=== PATIENT | male | born 1960 | race Caucasian/White ===

== ENCOUNTER 2021-08-24 07:01 | Outpatient (REF) | payer OTHER, SELFPAY ==
[2021-08-24 11:11] LABS: MANUAL DIFF FLAG NO
[2021-08-24 11:20] LABS: Basophils Absolute Auto 0.1 X10*3/uL (0.0-0.2); Basophils Percent Auto 0.8 % (0-2); Eosinophils Absolute Auto 0.3 X10*3/uL (0.0-0.4); Eosinophils Percent Auto 4.3 % (0-4); Hematocrit 34.8 % (42-52); Hemoglobin 11.7 g/dl (14.0-18.0); Imm Gran Abs Auto 0.05 X10*3/uL (0.00-0.03); Imm Gran Pct Auto 0.7 % (0.0-0.4); Lymphocytes Absolute Auto 2.1 X10*3/uL (1.2-4.9); Lymphocytes Percent Auto 27.5 % (20-40); Mean Corpuscular HGB Conc 33.6 g/dl (31.0-36.0); Mean Corpuscular Hemoglobin 36.9 pg (27.0-33.0); Mean Corpuscular Volume 109.8 fL (80-98); Mean Platelet Volume 11.6 fL (9.4-12.4); Monocytes Absolute Auto 0.6 X10*3/uL (0.1-1.2); Monocytes Percent Auto 8.2 % (2-11); Neutrophils Absolute Auto 4.4 X10*3/uL (2.0-8.3); Neutrophils Percent Auto 58.5 % (45-73); Platelet Count 161 X10*3/uL (160-400); Red Blood Count 3.17 X10*6/uL (4.60-5.80); Red Cell Distribution Width 15.2 % (11.0-16.0); White Blood Count 7.6 X10*3/uL (4.8-10.8)
[2021-08-24 11:36] LABS: Alanine Aminotransferase 33 U/L (0-40); Albumin Level 3.7 g/dL (3.5-5.0); Alkaline Phosphatase 80 U/L (39-117); Anion Gap 13 (12-20); Aspartate Amino Transferase 40 U/L (5-37); Bilirubin Total 1.4 mg/dL (0.0-1.0); Blood Urea Nitrogen 6 mg/dL (9-16); Calcium 8.4 mg/dL (8.4-10.2); Carbon Dioxide 26 mmol/L (22-29); Chloride 99 mmol/L (96-108); Estimated Glomerular Filt Rate > 60; Glucose Random 109 mg/dL (60-115); Potassium 4.9 mmol/L (3.3-5.1); Sodium 133 mmol/L (135-145); Total Protein 6.8 g/dL (6.5-8.0)
[2021-08-26 03:51] LABS: LDL Cholesterol Direct 113 mg/dL (<100)
== END 2021-08-24 07:02 | disposition home or self-care (01) ==
LOC: HO.HMGCLDS 07:01
PROVIDERS: PCP Internal Medicine; Visit Provider Internal Medicine
DX: I10 Essential (primary) hypertension (principal); R53.83 Other fatigue
CPT/HCPCS: 36415; 80053; 83721; 84443; 85025

== ENCOUNTER 2021-12-05 06:01 | Outpatient (REF) | payer OTHER, SELFPAY ==
[2021-12-05 11:18] LABS: Binax Internal Control QC Valid; Binax Now Covid-19 Ag Negative (Negative)
== END 2021-12-05 06:02 | disposition home or self-care (01) ==
LOC: HO.HMGCLDS 06:01
PROVIDERS: Visit Provider Internal Medicine
DX: Z20.822 Contact with and (suspected) exposure to COVID-19 (principal)
CPT/HCPCS: 36415; C9803

== ENCOUNTER 2022-02-28 08:27 | Outpatient (REF) | payer OTHER, SELFPAY ==
[2022-02-28 11:34] LABS: Hematocrit 34.8 % (42.0-52.0); Hemoglobin 12.5 g/dl (14.0-18.0)
[2022-02-28 11:52] LABS: Alanine Aminotransferase 29 U/L (0-40); Albumin Level 4.2 g/dL (3.5-5.0); Alkaline Phosphatase 84 U/L (39-117); Anion Gap 15 (12-20); Aspartate Amino Transferase 42 U/L (5-37); Bilirubin Total 1.5 mg/dL (0.0-1.0); Blood Urea Nitrogen 11 mg/dL (9-16); Calcium 9.2 mg/dL (8.4-10.2); Carbon Dioxide 32 mmol/L (22-29); Chloride 84 mmol/L (96-108); Estimated Glomerular Filt Rate 58; Glucose Random 108 mg/dL (60-115); Potassium 3.6 mmol/L (3.3-5.1); Sodium 127 mmol/L (135-145); Total Protein 7.6 g/dL (6.5-8.0)
== END 2022-02-28 08:28 | disposition home or self-care (01) ==
LOC: HO.HMGCLDS 08:27
PROVIDERS: PCP Internal Medicine; Visit Provider Internal Medicine
DX: E66.09 Other obesity due to excess calories (principal); F10.20 Alcohol dependence, uncomplicated; I10 Essential (primary) hypertension; R79.89 Other specified abnormal findings of blood chemistry
CPT/HCPCS: 36415; 80053; 85014; 85018

== ENCOUNTER 2022-10-17 08:44 | Outpatient (REF) | payer OTHER, SELFPAY ==
[2022-10-17 11:36] LABS: MANUAL DIFF FLAG NO
[2022-10-17 11:45] LABS: Basophils Absolute Auto 0.1 X10*3/uL (0.0-0.2); Basophils Percent Auto 1.3 % (0-2); Eosinophils Absolute Auto 0.2 X10*3/uL (0.0-0.4); Eosinophils Percent Auto 5.3 % (0-4); Hematocrit 33.1 % (42.0-52.0); Hemoglobin 11.3 g/dl (14.0-18.0); Imm Gran Abs Auto 0.01 X10*3/uL (0.00-0.03); Imm Gran Pct Auto 0.2 % (0.0-0.4); Lymphocytes Absolute Auto 1.5 X10*3/uL (1.2-4.9); Lymphocytes Percent Auto 33.6 % (20-40); Mean Corpuscular HGB Conc 34.1 g/dl (31.0-36.0); Mean Corpuscular Hemoglobin 36.6 pg (27.0-33.0); Mean Corpuscular Volume 107.1 fL (80.0-98.0); Mean Platelet Volume 10.7 fL (9.4-12.4); Monocytes Absolute Auto 0.7 X10*3/uL (0.1-1.2); Monocytes Percent Auto 14.3 % (2-11); Neutrophils Absolute Auto 2.1 x10*3/uL (2.0-8.3); Neutrophils Percent Auto 45.3 % (45-73); Platelet Count 136 X10*3/uL (160-400); Red Blood Count 3.09 X10*6/uL (4.60-5.80); Red Cell Distribution Width 12.9 % (11.0-16.0); White Blood Count 4.6 X10*3/uL (4.8-10.8)
[2022-10-17 12:29] LABS: Alanine Aminotransferase 40 U/L (0-40); Alkaline Phosphatase 70 U/L (39-117); Anion Gap 16 (12-20); Aspartate Amino Transferase 46 U/L (5-37); Bilirubin Total 0.5 mg/dL (0.0-1.0); Blood Urea Nitrogen 27 mg/dL (9-16); Calcium 9.7 mg/dL (8.4-10.2); Carbon Dioxide 32 mmol/L (22-29); Chloride 93 mmol/L (96-108); Estimated Glomerular Filt Rate 53; Ethanol < 10 mg/dL; Glucose Random 99 mg/dL (60-115); Potassium 3.8 mmol/L (3.3-5.1); Sodium 137 mmol/L (135-145); Total Protein 7.7 g/dL (6.5-8.0)
[2022-10-17 13:59] LABS: Albumin Level 4.3 g/dL (3.5-5.0)
[2022-10-18 12:30] LABS: LDL Cholesterol Direct 75 mg/dL (<100)
== END 2022-10-17 08:45 | disposition home or self-care (01) ==
LOC: HO.HMGCLDS 08:44
PROVIDERS: PCP Internal Medicine; Visit Provider Internal Medicine
DX: E66.09 Other obesity due to excess calories (principal); F10.20 Alcohol dependence, uncomplicated; R51.9 Headache, unspecified; R79.89 Other specified abnormal findings of blood chemistry; I10 Essential (primary) hypertension
CPT/HCPCS: 36415; 80053; 82077; 83721; 85025

== ENCOUNTER 2023-02-17 10:09 | Outpatient (REF) | payer OTHER, SELFPAY ==
[2023-02-17 11:31] LABS: MANUAL DIFF FLAG NO
[2023-02-17 11:55] LABS: Basophils Absolute Auto 0.1 X10*3/uL (0.0-0.2); Basophils Percent Auto 0.9 % (0-2); Eosinophils Absolute Auto 0.4 X10*3/uL (0.0-0.4); Eosinophils Percent Auto 6.4 % (0-4); Hematocrit 33.2 % (42.0-52.0); Hemoglobin 11.9 g/dl (14.0-18.0); Imm Gran Abs Auto 0.02 X10*3/uL (0.00-0.03); Imm Gran Pct Auto 0.4 % (0.0-0.4); Lymphocytes Absolute Auto 2.1 X10*3/uL (1.2-4.9); Lymphocytes Percent Auto 37.1 % (20-40); Mean Corpuscular HGB Conc 35.8 g/dl (31.0-36.0); Mean Corpuscular Hemoglobin 36.1 pg (27.0-33.0); Mean Corpuscular Volume 100.6 fL (80.0-98.0); Mean Platelet Volume 9.8 fL (9.4-12.4); Monocytes Absolute Auto 0.5 X10*3/uL (0.1-1.2); Monocytes Percent Auto 9.2 % (2-11); Neutrophils Absolute Auto 2.6 x10*3/uL (2.0-8.3); Platelet Count 194 X10*3/uL (160-400); Red Cell Distribution Width 12.6 % (11.0-16.0); White Blood Count 5.6 X10*3/uL (4.8-10.8)
[2023-02-17 12:16] LABS: Alanine Aminotransferase 19 U/L (0-40); Albumin Level 4.4 g/dL (3.5-5.0); Alkaline Phosphatase 66 U/L (39-117); Anion Gap 16 (12-20); Aspartate Amino Transferase 34 U/L (5-37); Bilirubin Total 1.5 mg/dL (0.0-1.0); Blood Urea Nitrogen 18 mg/dL (9-16); Calcium 9.1 mg/dL (8.4-10.2); Carbon Dioxide 32 mmol/L (22-29); Chloride 85 mmol/L (96-108); Estimated Glomerular Filt Rate > 60; Ethanol 132 mg/dL; Glucose Random 95 mg/dL (60-115); Potassium 3.7 mmol/L (3.3-5.1); Sodium 129 mmol/L (135-145); Total Protein 7.6 g/dL (6.5-8.0)
[2023-02-17 12:40] LABS: Vitamin B12 361 pg/mL (200-900)
[2023-02-23 15:19] LABS: Vitamin D 25-OH, D2 <4 ng/mL; Vitamin D 25-OH, D3 69 ng/mL; Vitamin D 25-OH, Total 69 ng/mL (30-100)
== END 2023-02-17 10:10 | disposition home or self-care (01) ==
LOC: HO.HMGCLDS 10:09
PROVIDERS: PCP Internal Medicine; Visit Provider Internal Medicine
DX: E66.09 Other obesity due to excess calories (principal); F10.20 Alcohol dependence, uncomplicated; F41.1 Generalized anxiety disorder; G62.9 Polyneuropathy, unspecified; I10 Essential (primary) hypertension; R79.89 Other specified abnormal findings of blood chemistry; M25.50 Pain in unspecified joint; E55.9 Vitamin D deficiency, unspecified
CPT/HCPCS: 36415; 80053; 82077; 82306; 82607; 85025

== ENCOUNTER → 2023-03-03 10:44 | Outpatient (BNVA) | payer OTHER, SELFPAY | PROVIDERS: PCP Internal Medicine; Referring Provider Internal Medicine; Visit Provider Surgery | DX: Z13.89 Encounter for screening for other disorder (principal) ==

== ENCOUNTER → 2023-03-06 09:42 | Outpatient (BNVA) | payer OTHER, SELFPAY | PROVIDERS: PCP Internal Medicine; Visit Provider Surgery | DX: Z13.89 Encounter for screening for other disorder (principal) ==

== ENCOUNTER 2023-03-18 08:56 | Day surgery (SDC) | payer OTHER, SELFPAY ==
[2023-03-13 15:22] VITALS: BMI 32.9
--- NOTE | 2023-03-17 09:26 | HO.ANESPROP2 ---
Documented by User: Marija Jones NP 03/17/23 09:27 HPI - Anesthesia Eval Consult details Narrative: 62yo M for Excision Mid Back Mass ETOH abuse PMFSH Active Problems Active Problems: All Active Problems (Updated 03/13/23 @ 15:19 by Amy Nazario RN) HTN (hypertension) (Acute) Tired (Acute) Uncontrolled hypertension (Acute) Alcohol abuse (Acute) Neuropathy (Acute) Obesity due to excess calories (Acute) LFT elevation (Acute) Alcoholism (Acute) Noncompliance (Acute) COVID-19 virus infection (Acute) Headache (Acute) Malaise (Acute) Anxiety, generalized (Acute) Dermoid cyst (Acute) Joint pain (Acute) Infected cyst of skin (Acute) Past Medical History Medical History (Updated 03/13/23 @ 15:19 by Amy Nazario RN) Alcohol dependence Anxiety History of COVID-19 HTN (hypertension) Neuropathy Surgical History Surgical History (Updated 03/13/23 @ 15:19 by Amy Nazario RN) H/O colonoscopy History of open reduction and internal fixation (ORIF) procedure Hx of cataract extraction Social History Social History Housing: Apartment Patient Tobacco Use Status: Never used Tobacco e-Cigarette/Vaping Use: Never Used Are you DNR?: No Advance Directives: No Advance Directives Information Provided: Yes Current occupational status: employed Cognitive needs: No Hearing needs: No Vision needs: Yes Meds Allergies Allergy/AdvReac Type Severity Reaction Status Date / Time No Known Allergies Allergy Verified 03/06/23 09:52 [No Known Allergies*] Exam Exam Date and Time: March 17, 2023 0926 Height,Weight and Vital Signs: Height 5 ft 9 in Weight 101.151 kg Pertinent Lab Results Pertinent Lab Results: Laboratory Tests 02/17/23 10:14 WBC 5.6 Hgb 11.9 L Hct 33.2 L Plt Count 194 D Assessment and Plan Assessment Anesthesia Assessment: Chart Reviewed Documented by User: Hung Oliva MD 03/18/23 10:55 PMFSH Past Medical History Medical History (Updated 03/13/23 @ 15:19 by Amy Nazario, [place]) Alcohol dependence Anxiety History of COVID-19 HTN (hypertension) Neuropathy Surgical History Surgical History (Updated 03/13/23 @ 15:19 by Amy Nazario, [place]) H/O colonoscopy History of open reduction and internal fixation (ORIF) procedure Hx of cataract extraction Social History Social History Housing: Apartment Patient Tobacco Use Status: Never used Tobacco e-Cigarette/Vaping Use: Never Used Are you DNR?: No Advance Directives: No Advance Directives Information Provided: Yes Current occupational status: employed Cognitive needs: No Hearing needs: No Vision needs: Yes Meds Allergies Allergy/AdvReac Type Severity Reaction Status Date / Time No Known Allergies Allergy Verified 03/06/23 09:52 [No Known Allergies*] Exam Airway Mallampati Class: III TM Dist: >3cm Neck ROM: Limited Heart: rrr Lungs: cta Assessment and Plan Final Anesthetic Review Final Preanesthetic Review: No Changes in Pt Med Stat, Meds/Allgs Chart Reviewed, Consent Obtained/Reviewed and Anes Risks/Benef Reviewed Patient Risk: Intermediate Procedure Risk: Low Anesthetic Plan Anesthetic Plan: GA (daily thc use) and Agree w/ Assess. and Plan Disposition: Standard PACU
--- NOTE | 2023-03-17 13:30 | MHC.SHP ---
Pre-Procedural Eval Section A Date of Service: 03/17/23 The patient is an INPATIENT: No Changes since office visit: No Cold of Flu in the past 2 weeks, No New Medical Problems, No Changes in Medication and No Patient answered all questions The History & Physical has been completed within 30 days and I have reviewed it.: Yes Section B Chief Complaint: Follicular cyst of the skin and subcutaneous tissu Allergies: Allergies Allergy/AdvReac Type Severity Reaction Status Date / Time No Known Allergies Allergy Verified 03/06/23 09:52 [No Known Allergies*] Plan I have reviewed the history and physical and performed a pertinent physical examination on my patient. No changes have occurred unless specified. Time Spent With Patient Time: Total time managing care of this patient today ____ minutes.
[2023-03-18 09:18] VITALS: BP 106/74; PULSE 65; RESP 20; TEMP 36.6; O2SAT 98
[2023-03-18] MEDS: Lactated Ringers 1,000 ML 100 ML IVCONT (09:43)
[2023-03-18 09:58] LABS: Anion Gap 16 (12-20); Blood Urea Nitrogen 38 mg/dL (9-16); Calcium 9.5 mg/dL (8.4-10.2); Carbon Dioxide 28 mmol/L (22-29); Chloride 95 mmol/L (96-108); Creatinine Clr Calc Pharmacy 50.4; Estimated Glomerular Filt Rate 39; Glucose Fasting 100 mg/dL (60-99); Potassium 3.9 mmol/L (3.3-5.1); Sodium 135 mmol/L (135-145)
--- NOTE | 2023-03-18 14:16 | P.OP_ITS ---
Operative Note Operative Note Date of Service: 03/18/23 Narrative: Preoperative diagnosis: [] Large mid back sebaceous cyst Postop diagnosis: [] Same Procedure [] excision large mid back sebaceous cyst Surgeon: [] Kirk Station Manager: [] eliud Quinones Type of Anesthesia: [] MAC Indication for surgery: [] Symptomatic enlarging sebaceous cyst Findings: [] Final specimen measured approximately 7 x 5 cm, consistent with a giant sebaceous cyst Patient brought to the operating room, placed on the operative table in supine position, after adequate level of MAC anesthesia was induced, patient was placed in left lateral decubitus position. The midback area was prepped and draped in usual sterile fashion and infiltrated with 1% lidocaine and a transverse bi- elliptical incision encompassing the cyst in question was carried down through skin, subcutaneous tissue, where superior and inferior skin flaps were developed using electro Bovie encompassing and excising the entire cyst cavity which extended down to the muscular fascia. Specimen sent to pathology. Wound was irrigated, secured hemostasis, and closed using interrupted inverted deep dermal 3-0 Vicryl sutures followed by running subcuticular 4-0 Vicryl suture. Steri-Strips and sterile dressings were were applied. Wound was infiltrated with 0.5% Marcaine at completion. Sponge, needle, and instrument counts were reported to be correct. Patient tolerated the procedure well and emerged anesthesia stable condition. EBL minimal
[2023-03-18 14:18] VITALS: BP 111/66; PULSE 65; RESP 16; TEMP 37; O2SAT 97
[2023-03-18 14:33] VITALS: BP 148/94; PULSE 66; RESP 18; TEMP 36.3; O2SAT 99
== END 2023-03-18 14:46 | disposition home or self-care (01) ==
PROVIDERS: Nurse Practitioner; PCP Internal Medicine; Visit Provider Surgery
PROC: (CPT 11406; principal; 2023-03-18 11:10)
DX: L72.0 Epidermal cyst (principal); L08.9 Local infection of the skin and subcutaneous tissue, unspecified; D22.9 Melanocytic nevi, unspecified; E66.09 Other obesity due to excess calories; G62.9 Polyneuropathy, unspecified; F10.10 Alcohol abuse, uncomplicated; Z79.899 Other long term (current) drug therapy; Z86.16 Personal history of COVID-19
CPT/HCPCS: 11406; 12034; 36415; 80048; 88304; 88305; J0690; J1885; J2795

== ENCOUNTER → 2023-03-27 09:47 | Outpatient (BNVA) | payer OTHER, SELFPAY | PROVIDERS: PCP Internal Medicine; Referring Provider Internal Medicine; Visit Provider Surgery | DX: Z13.89 Encounter for screening for other disorder (principal) ==

== ENCOUNTER → 2023-04-07 11:37 | Outpatient (BNVA) | payer OTHER, SELFPAY | PROVIDERS: PCP Internal Medicine; Visit Provider Surgery ==

== ENCOUNTER → 2023-04-17 09:16 | Outpatient (BNVA) | payer OTHER, SELFPAY | PROVIDERS: PCP Internal Medicine; Visit Provider Surgery ==

== ENCOUNTER → 2023-05-04 10:20 | Outpatient (BNVA) | payer OTHER, SELFPAY | PROVIDERS: PCP Internal Medicine; Visit Provider Surgery ==

== ENCOUNTER 2023-05-22 10:00 | Outpatient (REF) | payer OTHER, SELFPAY ==
[2023-05-22 11:22] LABS: MANUAL DIFF FLAG NO
[2023-05-22 11:29] LABS: Basophils Percent Auto 0.7 % (0-2); Eosinophils Absolute Auto 0.3 X10*3/uL (0.0-0.4); Eosinophils Percent Auto 4.2 % (0-4); Hematocrit 29.9 % (42.0-52.0); Hemoglobin 10.5 g/dl (14.0-18.0); Imm Gran Abs Auto 0.02 X10*3/uL (0.00-0.03); Imm Gran Pct Auto 0.3 % (0.0-0.4); Lymphocytes Absolute Auto 1.3 X10*3/uL (1.2-4.9); Lymphocytes Percent Auto 21.6 % (20-40); Mean Corpuscular HGB Conc 35.1 g/dl (31.0-36.0); Mean Corpuscular Hemoglobin 36.3 pg (27.0-33.0); Mean Corpuscular Volume 103.5 fL (80.0-98.0); Mean Platelet Volume 10.5 fL (9.4-12.4); Monocytes Absolute Auto 0.7 X10*3/uL (0.1-1.2); Monocytes Percent Auto 10.8 % (2-11); Neutrophils Absolute Auto 3.8 x10*3/uL (2.0-8.3); Neutrophils Percent Auto 62.4 % (45-73); Platelet Count 194 X10*3/uL (160-400); Red Blood Count 2.89 X10*6/uL (4.60-5.80); Red Cell Distribution Width 13.4 % (11.0-16.0)
[2023-05-22 12:11] LABS: Estimated Average Glucose 91 mg/dL; Hemoglobin A1c % 4.8 %
[2023-05-22 12:56] LABS: Alanine Aminotransferase 27 U/L (0-40); Alkaline Phosphatase 65 U/L (39-117); Anion Gap 14 (12-20); Aspartate Amino Transferase 34 U/L (5-37); Bilirubin Total 0.9 mg/dL (0.0-1.0); Blood Urea Nitrogen 16 mg/dL (9-16); Calcium 8.8 mg/dL (8.4-10.2); Carbon Dioxide 33 mmol/L (22-29); Chloride 87 mmol/L (96-108); Estimated Glomerular Filt Rate > 60; Glucose Random 101 mg/dL (60-115); Potassium 3.8 mmol/L (3.3-5.1); Sodium 130 mmol/L (135-145); Total Protein 7.5 g/dL (6.5-8.0)
== END 2023-05-22 10:01 | disposition home or self-care (01) ==
LOC: HO.HMGCLDS 10:00
PROVIDERS: PCP Internal Medicine; Visit Provider Internal Medicine
DX: E66.09 Other obesity due to excess calories (principal); F41.1 Generalized anxiety disorder; I10 Essential (primary) hypertension; R79.89 Other specified abnormal findings of blood chemistry
CPT/HCPCS: 36415; 80053; 83036; 85025

== ENCOUNTER 2023-08-05 13:49 | Outpatient (AMB) | payer OTHER, SELFPAY ==
[2023-08-05 13:54] VITALS: BP 116/76; PULSE 69; O2SAT 97; BMI 31.6
--- NOTE | 2023-08-05 13:54 | A.OFFPC_ITS ---
Vital Signs 08/05/23 13:54 Height 5 ft 9 in Weight 214 lb 4 oz BMI 31.6 BP 116/76 Blood Pressure Location Lt brachial Position Sitting Pulse 69 Pulse Source Pulse Oximeter Pulse Oximetry (%) 97 Oxygen Delivery Method Room Air Intake Visit Reasons: 3 month follow up Allergies No Known Allergies [No Known Allergies*] Allergy (Verified 08/05/23 13:56) Medication List - Last Reconciled 08/05/23 by Angelica Schrader MD atenolol 100 mg PO DAILY 90 days buspirone 10 mg PO .q am PRN 90 days chlorthalidone 25 mg PO DAILY 90 days lisinopril 40 mg PO DAILY 90 days Tobacco use date assessed: 08/05/23 Dental Screening Dental Screen Date: 08/05/23 Did you have a dental visit in the last 12 months?: No Did you have a dental problem in the last 6 months where you did not have access to dental care?: No Was dental information given to patient?: No HPI 3 month follow up HPI Details Patient is 62-year-old gentleman came in today for his regular follow- up appointment I examined his feet today and I see that he has a bed for vascular disease as well as neuropathy I have offered him appointment with the vascular specialist and EMG nerve conduction study which he has declined at this point But in the future I would recommend both of these. Patient continued to drink alcohol Blood pressure is well controlled Patient was on atenolol 100 mg, chlorthalidone 25 mg and lisinopril 40 mg In April patient had labs done Which showed hemoglobin of 10.5 He does have hemorrhoids he tells me that there is no active bleeding and he uses preparation H as needed. His sodium was 130 which is chronically low due to alcohol consumption Patient says that he had a strong family gene for alcoholism his son is also drinking He has tried to stop several time. Anxiety is stable with buspirone 10 mg. Labs will be repeated today. Follow-up 3 months [facility] Medical History Alcohol dependence Anxiety History of COVID-19 HTN (hypertension) Neuropathy Surgical History H/O colonoscopy History of open reduction and internal fixation (ORIF) procedure Hx of cataract extraction Social History Housing: Apartment Patient Tobacco Use Status: Never used Tobacco e-Cigarette/Vaping Use: Never Used Current occupational status: employed Cognitive needs: No Hearing needs: No Vision needs: Yes Questionnaire PHQ-9 Over the last 2 weeks, how often have you been bothered by any of the following problems? 1. Little interest or pleasure in doing things: not at all 2. Feeling down, depressed, or hopeless: not at all 3. Trouble falling or staying asleep, or sleeping too much: not at all 4. Feeling tired or having little energy: not at all 5. Poor appetite or overeating: not at all 6. Feeling bad about yourself - or that you are a failure or have let yourself or your family down: not at all 7. Trouble concentrating on things, such as reading the newspaper or watching television: not at all 8. Moving or speaking so slowly that other people could have noticed. Or the opposite - being so fidgety or restless that you have been moving around a lot more than usual: not at all 9. Thoughts that you would be better off or of hurting yourself in some way: not at all Total score: 0 Depression Screening Interpretation: Negative 60323 - PHQ-9 Billing: Yes Source: Developed by Drs. Srikanth Hernández, Cathleen Cifuentes, Jarod Garcia and colleagues, with an educational prince from [employer]. Thrive Questionnaire Date Thrive assessed: 08/05/23 I am a: Patient What is your living situation today?: I have a steady place to live Within the past 12 months, did the food you bought not last and you didn't have the money to get more?: Never true Within the past 12 months, did you worry whether your food would run out before you got money to buy more?: Never true Do you have trouble paying for medicines?: No Do you have trouble getting transportation to medical appointments?: No Do you have trouble paying your heating and electricity bill?: No Do you have trouble taking care of your child, family member or friend?: No Do you have trouble with day-to-day activities such as bathing, preparing meals, shopping, managing finances, etc.?: No Are you currently unemployed and looking for a job?: No Are you interested in more education?: No AUDIT C Alcohol Use Questionnaire (AUDIT-C) 1. How often do you have a drink containing alcohol?: 4 or more times a week 2. How many drinks containing alcohol do you have on a typical day when you are drinking?: 10 or more 3. How often do you have six or more drinks on one occasion?: Daily or almost daily Total Score: 12 Score Reviewed/Action Taken: Yes ALLIE-7 AMB Questionnaire ALLIE-7 Date ALLIE - 7 assessed: 08/05/23 Feeling nervous, anxious, or on edge: 0 = Not at all Not being able to stop or control worryin = Not at all Worrying too much about different things: 0 = Not at all Trouble relaxin = Not at all Being so restless that it is hard to sit still: 0 = Not at all Becoming easily annoyed or irritable: 0 = Not at all Feeling afraid as if something awful might happen: 0 = Not at all Total ALLIE-7 score (0-4 normal; 5-9 mild; 10-14 moderate; 15-21 severe): 0 Source: Developed by Drs. Srikanth Hernández, Cathleen Cifuentes, Jarod Garcia and colleagues, with an educational prince from [employer]. ALLIE-7 Assessment Billing ALLIE-7 Assessment Tool: ALLIE-7 Assessment 03517 Review of Systems Const Denies chills and Denies fever(s) ENT Denies epistaxis and Denies nasal discharge Card Denies chest pain Resp Denies chest congestion, Denies cough and Denies hemoptysis GI Denies diarrhea and Denies nausea Skin/Breast Denies rash Neuro Reports no additional complaints Psych Reports no additional complaints Endo Reports no additional complaints Physical exam (Primary Care) Vital Signs: Last Vital Signs Pulse 69 08/05/23 13:54 BP 116/76 08/05/23 13:54 Pulse Ox 97 08/05/23 13:54 Oxygen Delivery Method Room Air 08/05/23 13:54 BMI result Body Mass Index 31.6 Tobacco/Smoking Status: Tobacco use Status Tobacco use date assessed 08/05/23 08/05/23 13:59 Patient Tobacco Use Status Never used Tobacco 08/05/23 13:59 e-Cigarette/Vaping Use Never Used 08/05/23 13:59 PHQ-9: PHQ-9 Score PHQ-9: Total score 0 08/05/23 14:29 Depression Screening Interpretation: Negative Thrive Assessment: Date of Thrive Assessment Date Thrive assessed 08/05/23 08/05/23 14:29 Const General: cooperative, comfortable and no acute distress Orientation/consciousness: patient oriented x3 HENMT Head: Yes normocephalic Eyes General: appearance normal, both eyes and all related structures Neck Neck: Yes supple Resp Effort & Inspection: normal respiratory effort, no cough and no stridor Cardio Rhythm: regular rhythm Heart sounds: S1 normal heart sound present and S2 normal heart sound present Skin General skin exam: turgor normal Neuro Other: Gross sensation diminished both feet General: patient oriented x3, tone normal and moves all extremities Extrem Other: Varicosities noted lower extremity bilateral with the smaller superficial discolored veins Right lower extremity: no edema Left lower extremity: no edema Assessment and Plan Assessment & Plan (1) HTN (hypertension): Code(s): I10 - Essential (primary) hypertension Qualifiers: Hypertension type: primary hypertension Qualified Code(s): I10 - Essential (primary) hypertension (2) Elevated serum creatinine: Code(s): R79.89 - Other specified abnormal findings of blood chemistry (3) Anxiety, generalized: Code(s): F41.1 - Generalized anxiety disorder (4) Obesity due to excess calories: Code(s): E66.09 - Other obesity due to excess calories Qualifiers: Body mass index: BMI 31.0-31.9 Obesity classification: adult class 1 (BMI 30 - 34.9) Serious obesity comorbidity presence: with serious comorbidity Qualified Code(s): E66.09 - Other obesity due to excess calories; Z68.31 - Body mass index [BMI] 31.0-31.9, adult (5) Alcoholism: Comment: CONSEQUENCES OF DRINKING PROBLEMS There are a number of serious consequences of drinking alcohol excessively -------Excessive alcohol consumption is a leading preventable cause of in the [place]. --------Drinking alcohol increases the risk of traffic accidents, suicide, drowning, and other serious injuries. -------Alcohol use continues to be the leading cause of injuries treated in trauma centers and emergency departments . --------Alcohol-related liver disease may lead to end-stage liver disease (cirrhosis) and . --------Alcohol increases the risk of certain cancers of the mouth, esophagus, throat, liver, and breast. Code(s): F10.20 - Alcohol dependence, uncomplicated (6) Peripheral vascular disease: Code(s): I73.9 - Peripheral vascular disease, unspecified (7) Alcoholic peripheral neuropathy: Code(s): G62.1 - Alcoholic polyneuropathy (8) Hyponatremia: Code(s): E87.1 - Hypo-osmolality and hyponatremia (9) Anemia: Code(s): D64.9 - Anemia, unspecified Qualifiers: Anemia type: iron deficiency Iron deficiency anemia type: chronic blood loss Qualified Code(s): D50.0 - Iron deficiency anemia secondary to blood loss (chronic) (10) Hemorrhoids: Code(s): K64.9 - Unspecified hemorrhoids Plan Patient is 62-year-old gentleman came in today for his regular follow-up appointment I examined his feet today and I see that he has a bed for vascular disease as well as neuropathy I have offered him appointment with the vascular specialist and EMG nerve conduction study which he has declined at this point But in the future I would recommend both of these. Patient continued to drink alcohol Blood pressure is well controlled Patient was on atenolol 100 mg, chlorthalidone 25 mg and lisinopril 40 mg In April patient had labs done Which showed hemoglobin of 10.5 He does have hemorrhoids he tells me that there is no active bleeding and he uses preparation H as needed. His sodium was 130 which is chronically low due to alcohol consumption Patient says that he had a strong family gene for alcoholism his son is also drinking He has tried to stop several time. Anxiety is stable with buspirone 10 mg. Labs will be repeated today. Follow-up 3 months Medications: Refilled clotrimazole-betamethasone 1-0.05 % 1 appl topical ONCE 45 grams 1RF 30 days Coding Level of Care Code Est Pt Level 4 (81484) Diagnoses HTN (hypertension) I10 Hypertension type: primary hypertension Elevated serum creatinine R79.89 Anxiety, generalized F41.1 Obesity due to excess calories E66.09; Z68.31 Body mass index: BMI 31.0-31.9 Obesity classification: adult class 1 (BMI 30 - 34.9) Serious obesity comorbidity presence: with serious comorbidity Alcoholism F10.20 Peripheral vascular disease I73.9 Alcoholic peripheral neuropathy G62.1 Hyponatremia E87.1 Anemia D50.0 Anemia type: iron deficiency Iron deficiency anemia type: chronic blood loss Hemorrhoids K64.9 Additional Codes ALLIE-7 Assessment Billing - ALLIE-7 Assessment Tool: ALLIE-7 Assessment 05939 ([id number])
== END 2023-08-05 15:07 | disposition home or self-care (01) ==
PROVIDERS: PCP Internal Medicine; Visit Provider Internal Medicine
DX: I10 Essential (primary) hypertension (principal); Z68.31 Body mass index [BMI] 31.0-31.9, adult; F10.20 Alcohol dependence, uncomplicated; I73.9 Peripheral vascular disease, unspecified; G62.1 Alcoholic polyneuropathy; R79.89 Other specified abnormal findings of blood chemistry; F41.1 Generalized anxiety disorder; E66.09 Other obesity due to excess calories; E87.1 Hypo-osmolality and hyponatremia; D50.0 Iron deficiency anemia secondary to blood loss (chronic); K64.9 Unspecified hemorrhoids
CPT/HCPCS: 99214

== ENCOUNTER 2023-08-05 14:22 | Outpatient (REF) | payer OTHER, SELFPAY ==
[2023-08-05 15:57] LABS: MANUAL DIFF FLAG NO
[2023-08-05 16:10] LABS: Basophils Absolute Auto 0.1 X10*3/uL (0.0-0.2); Basophils Percent Auto 0.9 % (0-2); Eosinophils Absolute Auto 0.3 X10*3/uL (0.0-0.4); Eosinophils Percent Auto 5.3 % (0-4); Hematocrit 31.7 % (42.0-52.0); Hemoglobin 11.6 g/dl (14.0-18.0); Imm Gran Abs Auto 0.01 X10*3/uL (0.00-0.03); Imm Gran Pct Auto 0.2 % (0.0-0.4); Immature Retic Fraction 20.1 % (2.3-13.4); Lymphocytes Absolute Auto 2.4 X10*3/uL (1.2-4.9); Lymphocytes Percent Auto 41.3 % (20-40); Mean Corpuscular HGB Conc 36.6 g/dl (31.0-36.0); Mean Corpuscular Hemoglobin 35.9 pg (27.0-33.0); Mean Corpuscular Volume 98.1 fL (80.0-98.0); Mean Platelet Volume 10.3 fL (9.4-12.4); Monocytes Absolute Auto 0.6 X10*3/uL (0.1-1.2); Monocytes Percent Auto 10.7 % (2-11); Neutrophils Absolute Auto 2.4 x10*3/uL (2.0-8.3); Neutrophils Percent Auto 41.6 % (45-73); Platelet Count 206 X10*3/uL (160-400); Red Blood Count 3.23 X10*6/uL (4.60-5.80); Red Cell Distribution Width 12.9 % (11.0-16.0); Retic HGB Equivalent 36.4 pg (30.0-35.0); Reticulocyte Percent 2.5 % (0.5-1.8); White Blood Count 5.7 X10*3/uL (4.8-10.8)
[2023-08-05 17:02] LABS: Anion Gap 15 (12-20); Blood Urea Nitrogen 25 mg/dL (9-16); Calcium 8.9 mg/dL (8.4-10.2); Carbon Dioxide 30 mmol/L (22-29); Chloride 83 mmol/L (96-108); Estimated Glomerular Filt Rate 51; Glucose Random 96 mg/dL (60-115); Potassium 3.2 mmol/L (3.3-5.1); Sodium 125 mmol/L (135-145)
[2023-08-05 17:23] LABS: Folate 18.9 ng/mL (> or = 4.0); Vitamin B12 493 pg/mL (200-900)
[2023-08-05 17:45] LABS: Ferritin 2247 ng/mL (20-250)
== END 2023-08-05 14:23 | disposition home or self-care (01) ==
LOC: HO.HMGCLDS 14:22
PROVIDERS: PCP Internal Medicine; Visit Provider Internal Medicine
DX: D64.9 Anemia, unspecified (principal); E87.1 Hypo-osmolality and hyponatremia
CPT/HCPCS: 36415; 80048; 82607; 82728; 82746; 85025; 85045

== ENCOUNTER 2023-08-07 09:04 | Outpatient (REF) | payer OTHER, SELFPAY ==
[2023-08-07 12:35] LABS: Anion Gap 13 (12-20); Blood Urea Nitrogen 28 mg/dL (9-16); Calcium 8.6 mg/dL (8.4-10.2); Carbon Dioxide 30 mmol/L (22-29); Chloride 85 mmol/L (96-108); Estimated Glomerular Filt Rate 47; Glucose Random 115 mg/dL (60-115); Sodium 125 mmol/L (135-145)
[2023-08-07 13:05] LABS: Ferritin 2412 ng/mL (20-250)
== END 2023-08-07 09:05 | disposition home or self-care (01) ==
LOC: HO.WFDLDS 09:04
PROVIDERS: Visit Provider Internal Medicine
DX: E87.1 Hypo-osmolality and hyponatremia (principal); E87.6 Hypokalemia; R79.89 Other specified abnormal findings of blood chemistry
CPT/HCPCS: 36415; 80048; 82728

== ENCOUNTER 2023-08-07 14:07 | Emergency (ER) | payer OTHER, SELFPAY | END 2023-08-07 15:51 | disposition left against medical advice (07) | PROVIDERS: Emergency Provider Emergency Medicine; PCP Internal Medicine | DX: E87.6 Hypokalemia (principal); I10 Essential (primary) hypertension; D64.9 Anemia, unspecified; G62.1 Alcoholic polyneuropathy; F10.20 Alcohol dependence, uncomplicated ==

== ENCOUNTER 2023-08-09 03:17 | Emergency (ER) | payer OTHER, SELFPAY ==
--- NOTE | 2023-08-09 | ECG_ITS ---
Test Reason : low potassium Blood Pressure : / mmHG Vent. Rate : 061 BPM Atrial Rate : 061 BPM P-R Int : 218 ms QRS Dur : 102 ms QT Int : 430 ms P-R-T Axes : 019 -32 024 degrees QTc Int : 432 ms Sinus rhythm with 1st degree A-V block Left axis deviation Abnormal ECG No previous ECGs available Referred By: Generic ED Physician Electronically Signed By:ARIELA BAEZA
[2023-08-09 03:25] VITALS: BP 114/68; PULSE 68; RESP 16; TEMP 37.6; O2SAT 96; BMI 31.9
[2023-08-09 03:52] LABS: MANUAL DIFF FLAG NO
[2023-08-09 03:59] LABS: Basophils Absolute Auto 0.1 X10*3/uL (0.0-0.2); Basophils Percent Auto 1.1 % (0-2); Eosinophils Absolute Auto 0.2 X10*3/uL (0.0-0.4); Eosinophils Percent Auto 3.9 % (0-4); Hematocrit 31.4 % (42.0-52.0); Hemoglobin 11.7 g/dl (14.0-18.0); Imm Gran Abs Auto 0.02 X10*3/uL (0.00-0.03); Imm Gran Pct Auto 0.4 % (0.0-0.4); Lymphocytes Absolute Auto 2.1 X10*3/uL (1.2-4.9); Lymphocytes Percent Auto 38.5 % (20-40); Mean Corpuscular HGB Conc 37.3 g/dl (31.0-36.0); Mean Corpuscular Hemoglobin 36.2 pg (27.0-33.0); Mean Corpuscular Volume 97.2 fL (80.0-98.0); Mean Platelet Volume 9.6 fL (9.4-12.4); Monocytes Absolute Auto 0.5 X10*3/uL (0.1-1.2); Monocytes Percent Auto 9.1 % (2-11); Neutrophils Absolute Auto 2.5 x10*3/uL (2.0-8.3); Platelet Count 141 X10*3/uL (160-400); Red Blood Count 3.23 X10*6/uL (4.60-5.80); Red Cell Distribution Width 13.2 % (11.0-16.0); White Blood Count 5.4 X10*3/uL (4.8-10.8)
[2023-08-09 04:10] LABS: Alanine Aminotransferase 54 U/L (0-40); Albumin Level 3.7 g/dL (3.5-5.0); Alkaline Phosphatase 90 U/L (39-117); Anion Gap 17 (12-20); Aspartate Amino Transferase 115 U/L (5-37); Bilirubin Total 0.7 mg/dL (0.0-1.0); Blood Urea Nitrogen 42 mg/dL (9-16); Calcium 9.4 mg/dL (8.4-10.2); Carbon Dioxide 26 mmol/L (22-29); Chloride 89 mmol/L (96-108); Creatinine Clr Calc Pharmacy 36.7; Estimated Glomerular Filt Rate 29; Glucose Random 101 mg/dL (60-115); Magnesium 1.5 mg/dL (1.6-2.6); Potassium 2.8 mmol/L (3.3-5.1); Sodium 129 mmol/L (135-145); Total Protein 7.3 g/dL (6.5-8.0)
[2023-08-09 05:26] VITALS: BP 139/76; PULSE 62; RESP 17; TEMP 36.7; O2SAT 100
[2023-08-09] MEDS: Potassium Chloride Packet 20 MEQ PACKET 40 MEQ PO ×3 (05:50→08:48)
[2023-08-09] MEDS: 0.9 % Sodium Chloride 1,000 ML 999 ML IVCONT (05:50)
[2023-08-09] MEDS: Magnesium Sulfate/D5W 1 GM/100 ML PIGGYBACK IV ×2 (05:50→08:12)
--- NOTE | 2023-08-09 06:47 | ED.GENADULT ---
HPI - General Adult General Chief complaint: General Medical Stated complaint: sent by pcp for IV Time Seen by Provider: 08/09/23 05:22 Source: patient Limitations: no limitations History of Present Illness HPI narrative: This is 62 years old patient with history of alcohol abuse in, he was sent by the primary care physician because his sodium was 125 as outpatient his potassium was 3. Patient denies any chest pain shortness of breath denies any fever any vomiting any diarrhea. He states that he was sent here to get IV fluids. Onset (ago): day(s) (1) Radiation: non-radiation Severity: moderate Relieving factors: none Exacerbating factors: none Associated symptoms: denies other symptoms Related Data Previous Rx's Medication Instructions Recorded atenolol 100 mg tablet 100 mg PO DAILY 90 days #90 tabs 07/24/23 buspirone 10 mg tablet 10 mg PO .q am PRN anxiety 90 days 07/24/23 #90 tabs chlorthalidone 25 mg tablet 25 mg PO DAILY 90 days #90 tabs 07/24/23 lisinopril 40 mg tablet 40 mg PO DAILY 90 days #90 tabs 07/24/23 clotrimazole-betamethasone 1 1 appl topical ONCE 30 days #45 08/05/23 %-0.05 % topical cream grams potassium chloride 20 mEq 20 meq PO DAILY #7 tabs 08/09/23 tablet,extended release(part/cryst) Allergies Allergy/AdvReac Type Severity Reaction Status Date / Time No Known Allergies Allergy Verified 08/05/23 13:56 [No Known Allergies*] Review of Systems ENT: Reports system reviewed and no additional complaints, except as documented Cardiovascular: Cardiovascular: Denies rapid heart rate, Denies leg edema and Denies lightheadedness Respiratory: Respiratory: Reports no additional respiratory complaints Gastrointestinal: Gastrointestinal: Denies abdominal pain Musculoskeletal: Musculoskeletal: Denies back pain REPLACED BY [facility] Past Medical History REPLACED BY [facility] Narrative: Alcohol abuse Medical History History of COVID-19 Neuropathy Alcohol dependence Anxiety HTN (hypertension) Surgical History H/O colonoscopy Hx of cataract extraction History of open reduction and internal fixation (ORIF) procedure Social History Social History Housing: Apartment Patient Tobacco Use Status: Never used Tobacco e-Cigarette/Vaping Use: Never Used Advance Directives: No Advance Directives Information Provided: No Current occupational status: employed Cognitive needs: No Hearing needs: No Vision needs: Yes Physical Exam ED Vital Signs: Vital Signs - 24 hr 08/09/23 03:25 08/09/23 05:26 08/09/23 07:09 Temperature 99.7 F 98.1 F Pulse Rate 68 62 68 Respiratory Rate 16 17 15 Blood Pressure 114/68 139/76 153/95 H Pulse Oximetry 96 100 98 Oxygen Delivery Method Room Air Room Air Room Air 08/09/23 10:11 Temperature Pulse Rate 65 Respiratory Rate 16 Blood Pressure Pulse Oximetry 98 Oxygen Delivery Method Room Air BMI result Body Mass Index 31.9 Const General: cooperative Nutritional Appearance: average body habitus Orientation/consciousness: patient oriented x3 Limitations: no limitations HENMT Head: Yes normal to inspection General nose exam: Normal external nose present Face and sinus: Yes normal facial exam Mouth: Normal oral and palatal mucosa present Throat: Yes posterior oropharynx normal Chest Chest palpation & inspection: normal inspection of the chest Resp Effort & Inspection: normal respiratory effort Cardio Jugular venous distension: no JVD Rate: regular rate Rhythm: regular rhythm GI Inspection: Yes normal to inspection Palpation (GI): Soft to palpation and not firm Auscultation: normal bowel sounds Skin General skin exam: no rashes or lesions noted and elasticity normal Lesions: no lesions Rashes: no rashes Neuro General: patient oriented x3 Cranial nerves: Yes CN's II-XII intact bilaterally Cognition (Neuro): normal cognition Gait exam (Neuro): Normal gait present Motor exam (neuro): 5/5 motor strength present throughout and Pronator motor function not present Course Reevaluation(s) Reevaluation #1: repeat K now better 3.4 Magnesium 2.1 OK to d/c Time: 10:33 Medications Administered Discontinued Medications Generic Name Dose Route Start Last Admin Trade Name Freq PRN Reason Stop Dose Admin Sodium Chloride 1,000 mls @ 999 mls/hr 08/09/23 05:30 08/09/23 07:05 Ns IVCONT 08/09/23 06:30 Infused .Q1H1M HASMUKH Infusion Magnesium Sulfate/Dextrose 1 gm in 100 mls @ 100 mls/hr 08/09/23 05:25 08/09/23 07:05 Magnesium Sulfate/D5w IV 08/09/23 06:24 Infused ONCE ONE Infusion Magnesium Sulfate/Dextrose 1 gm in 100 mls @ 100 mls/hr 08/09/23 07:14 08/09/23 09:38 Magnesium Sulfate/D5w IV 08/09/23 08:13 Infused ONCE ONE Infusion Potassium Chloride 40 meq 08/09/23 05:24 08/09/23 05:50 Potassium Chloride Packet 20 Meq Packet PO 08/09/23 05:25 40 meq ONCE ONE Administration Potassium Chloride 40 meq 08/09/23 06:46 08/09/23 07:08 Potassium Chloride Packet 20 Meq Packet PO 08/09/23 06:47 40 meq ONCE ONE Administration Potassium Chloride 40 meq 08/09/23 08:42 08/09/23 08:48 Potassium Chloride Packet 20 Meq Packet PO 08/09/23 08:43 40 meq ONCE ONE Administration Medical Decision Making Medical Decision Making MDM Narrative: Patient presented with the hyponatremia and hypokalemia he has history of alcohol abuse will replace the electrolytes will administer IV fluid and reassess Differential Diagnosis Differential Diagnoses: The differential diagnosis associated with the presentation includes Hyponatremia/hypomagnesemia/anemia Admission/Observation Consideration of admission/observation: Escalation of care including admission/observation considered Lab Data [facility] Lab Attestation statement: I reviewed the patient's lab results. 08/09/23 03:47 08/09/23 09:53 Labs: Lab Results 08/09/23 08/09/23 08/09/23 Range/Units 03:47 06:39 09:53 WBC 5.4 (4.8-10.8) X10*3/uL RBC 3.23 L (4.60-5.80) X10*6/uL Hgb 11.7 L (14.0-18.0) g/dl Hct 31.4 L (42.0-52.0) % MCV 97.2 (80.0-98.0) fL MCH 36.2 H (27.0-33.0) pg MCHC 37.3 H (31.0-36.0) g/dl RDW 13.2 (11.0-16.0) % Plt Count 141 L D (160-400) X10*3/uL MPV 9.6 (9.4-12.4) fL Immature Gran % (Auto) 0.4 (0.0-0.4) % Neut % (Auto) 47.0 (45-73) % Lymph % (Auto) 38.5 (20-40) % Hudson % (Auto) 9.1 (2-11) % Eos % (Auto) 3.9 (0-4) % Baso % (Auto) 1.1 (0-2) % Lymph # (Auto) 2.1 (1.2-4.9) X10*3/uL Hudson # (Auto) 0.5 (0.1-1.2) X10*3/uL Eos # (Auto) 0.2 (0.0-0.4) X10*3/uL Baso # (Auto) 0.1 (0.0-0.2) X10*3/uL Abs Immat Gran (auto) 0.02 (0.00-0.03) X10*3/uL Absolute Neuts (auto) 2.5 (2.0-8.3) x10*3/uL Absolute Nucleated RBC 0.000 (0.0-0.012) X10*3/uL Nucleated RBC % (auto) 0.0 (0.0-0.2) /100WBC Sodium 129 L 130 L (135-145) mmol/L Potassium 2.8 L 3.4 D (3.3-5.1) mmol/L Chloride 89 L 91 L (96-108) mmol/L Carbon Dioxide 26 24 (22-29) mmol/L Anion Gap 17 18 (12-20) BUN 42 H 41 H (9-16) mg/dL Creatinine 2.33 H 1.91 H (0.5-1.4) mg/dL Estim Creat Clear Calc 36.7 44.8 Estimated GFR 29 36 Random Glucose 101 95 (60-115) mg/dL Calcium 9.4 D 9.0 (8.4-10.2) mg/dL Magnesium 1.5 L 1.0 L* Cancelled (1.6-2.6) mg/dL Total Bilirubin 0.7 (0.0-1.0) mg/dL AST 115 H (5-37) U/L ALT 54 H (0-40) U/L Alkaline Phosphatase 90 (39-117) U/L Total Protein 7.3 (6.5-8.0) g/dL Albumin 3.7 (3.5-5.0) g/dL Ethyl Alcohol 13 mg/dL 08/09/23 Range/Units 09:53 WBC (4.8-10.8) X10*3/uL RBC (4.60-5.80) X10*6/uL Hgb (14.0-18.0) g/dl Hct (42.0-52.0) % MCV (80.0-98.0) fL MCH (27.0-33.0) pg MCHC (31.0-36.0) g/dl RDW (11.0-16.0) % Plt Count (160-400) X10*3/uL MPV (9.4-12.4) fL Immature Gran % (Auto) (0.0-0.4) % Neut % (Auto) (45-73) % Lymph % (Auto) (20-40) % Hudson % (Auto) (2-11) % Eos % (Auto) (0-4) % Baso % (Auto) (0-2) % Lymph # (Auto) (1.2-4.9) X10*3/uL Hudson # (Auto) (0.1-1.2) X10*3/uL Eos # (Auto) (0.0-0.4) X10*3/uL Baso # (Auto) (0.0-0.2) X10*3/uL Abs Immat Gran (auto) (0.00-0.03) X10*3/uL Absolute Neuts (auto) (2.0-8.3) x10*3/uL Absolute Nucleated RBC (0.0-0.012) X10*3/uL Nucleated RBC % (auto) (0.0-0.2) /100WBC Sodium (135-145) mmol/L Potassium (3.3-5.1) mmol/L Chloride (96-108) mmol/L Carbon Dioxide (22-29) mmol/L Anion Gap (12-20) BUN (9-16) mg/dL Creatinine (0.5-1.4) mg/dL Estim Creat Clear Calc Estimated GFR Random Glucose (60-115) mg/dL Calcium (8.4-10.2) mg/dL Magnesium 2.1 (1.6-2.6) mg/dL Total Bilirubin (0.0-1.0) mg/dL AST (5-37) U/L ALT (0-40) U/L Alkaline Phosphatase (39-117) U/L Total Protein (6.5-8.0) g/dL Albumin (3.5-5.0) g/dL Ethyl Alcohol mg/dL Independent Interpretation I performed an independent interpretation of an: EKG Interpretation: Sinus rhythm rate 58 no ischemia Chronic Conditions Patient?s care impacted by: Other (alcohol abuse) Discharge Plan Discharge Clinical Impression: Chronic hypokalemia, Hypomagnesemia, Chronic hyponatremia Patient Disposition: Home, Self-Care Instructions: Hypokalemia (ED) Prescriptions: New potassium chloride 20 mEq tablet,ER particles/crystals 20 meq PO DAILY Qty: 7 0RF No Action atenolol 100 mg tablet 100 mg PO DAILY 90 Days Qty: 90 0RF lisinopril 40 mg tablet 40 mg PO DAILY 90 Days Qty: 90 0RF chlorthalidone 25 mg tablet 25 mg PO DAILY 90 Days Qty: 90 0RF buspirone 10 mg tablet 10 mg PO .q am PRN (Reason: anxiety) 90 Days Qty: 90 0RF clotrimazole-betamethasone 1-0.05 % cream 1 appl topical ONCE 30 Days Qty: 45 1RF Referrals: Angelica Schrader MD [Primary Care Provider] - 3 days Interventions: ED Discharge Assessment Last Done: 08/09/23 11:23 Discharge Date/Time: 08/09/23 11:24
[2023-08-09 06:58] LABS: Ethanol 13 mg/dL
[2023-08-09 07:09] VITALS: BP 153/95; PULSE 68; RESP 15; O2SAT 98
--- NOTE | 2023-08-09 09:10 | PC.NURSE ---
pt axox4; medicated per jan. waiting 30 minutes before drawing labs per provider request. vss. respirations even and unlabored. awaiting lab results. call [facility] within reach.
[2023-08-09 10:11] VITALS: PULSE 65; RESP 16; O2SAT 98
[2023-08-09 10:26] LABS: Anion Gap 18 (12-20); Blood Urea Nitrogen 41 mg/dL (9-16); Carbon Dioxide 24 mmol/L (22-29); Chloride 91 mmol/L (96-108); Creatinine Clr Calc Pharmacy 44.8; Estimated Glomerular Filt Rate 36; Glucose Random 95 mg/dL (60-115); Magnesium 2.1 mg/dL (1.6-2.6); Potassium 3.4 mmol/L (3.3-5.1); Sodium 130 mmol/L (135-145)
== END 2023-08-09 11:24 | disposition home or self-care (01) ==
PROVIDERS: Emergency Provider Emergency Medicine; PCP Internal Medicine
DX: E87.6 Hypokalemia (principal); I44.0 Atrioventricular block, first degree; E83.42 Hypomagnesemia; E87.1 Hypo-osmolality and hyponatremia; F10.19 Alcohol abuse with unspecified alcohol-induced disorder; Y90.0 Blood alcohol level of less than 20 mg/100 ml; Z79.899 Other long term (current) drug therapy
CPT/HCPCS: 36415; 80048; 80053; 80307; 83735; 85025; 93005; 96361; 96365; 96366; 99284; 99285; J3475

== ENCOUNTER 2023-09-22 08:38 | Outpatient (REF) | payer OTHER, SELFPAY ==
[2023-09-22 11:48] LABS: Alanine Aminotransferase 26 U/L (0-40); Albumin Level 4.4 g/dL (3.5-5.0); Alkaline Phosphatase 75 U/L (39-117); Anion Gap 16 (12-20); Aspartate Amino Transferase 34 U/L (5-37); Bilirubin Total 1.2 mg/dL (0.0-1.0); Blood Urea Nitrogen 17 mg/dL (9-16); Calcium 9.8 mg/dL (8.4-10.2); Carbon Dioxide 31 mmol/L (22-29); Chloride 89 mmol/L (96-108); Estimated Glomerular Filt Rate 52; Glucose Random 103 mg/dL (60-115); Sodium 133 mmol/L (135-145); Total Protein 8.1 g/dL (6.5-8.0)
== END 2023-09-22 08:39 | disposition home or self-care (01) ==
LOC: HO.WFDLDS 08:38
PROVIDERS: Visit Provider Internal Medicine
DX: E87.8 Other disorders of electrolyte and fluid balance, not elsewhere classified (principal)
CPT/HCPCS: 36415; 80053

== ENCOUNTER 2023-11-10 13:59 | Outpatient (AMB) | payer OTHER, SELFPAY ==
[2023-11-10 14:02] VITALS: BP 128/80; PULSE 67; O2SAT 98; BMI 32.6
--- NOTE | 2023-11-10 14:02 | A.OFFPC_ITS ---
Vital Signs 11/10/23 14:02 Height 5 ft 8 in Weight 214 lb 8 oz BMI 32.6 BP 128/80 Blood Pressure Location Rt brachial Position Sitting Pulse 67 Pulse Source Pulse Oximeter Pulse Oximetry (%) 98 Oxygen Delivery Method Room Air Intake Visit Reasons: 6 Month Follow Up~ Data Librarian Required: No Accompanied by: Self / Same As Patient Allergies No Known Allergies [No Known Allergies*] Allergy (Verified 11/10/23 14:02) Medication List - Last Reconciled 11/10/23 by Angelica Schrader MD atenolol 100 mg PO DAILY 90 days buspirone 10 mg PO .q am PRN 90 days chlorthalidone 25 mg PO DAILY 90 days clotrimazole-betamethasone 1-0.05 % 1 appl topical ONCE 30 days lisinopril 40 mg PO DAILY 90 days potassium chloride ER 20 mEq PO DAILY Tobacco use date assessed: 08/05/23 Dental Screening Dental Screen Date: 11/10/23 Did you have a dental visit in the last 12 months?: Yes Did you have a dental problem in the last 6 months where you did not have access to dental care?: No Was dental information given to patient?: Patient has dentist HPI 6 Month Follow Up~ HPI Details Patient is 63-year-old gentleman came in today for his regular follow- up appointment Patient has vascular disease as well as neuropathy lower extremity But he is not interested in further workup or appointment with the specialist. Patient continued to drink alcohol and smoke marijuana He has mild wheezing today right side of lung, but he denied any shortness of breath or chest pains Blood pressure is well controlled Patient was on atenolol 100 mg, chlorthalidone 25 mg and lisinopril 40 mg Patient continued to be anemic with hemoglobin in 11 range due to chronic constipation and hemorrhoids I have ordered iron studies His sodium was 130 which is chronically low due to alcohol consumption Patient says that he had a strong family gene for alcoholism his son is also drinking He has tried to stop several time. Anxiety is stable with buspirone 10 mg. Labs will be repeated today. BMI is elevated at 32.6, need to lose weight Follow-up 3 months [facility] Medical History History of COVID-19 Neuropathy Alcohol dependence Anxiety HTN (hypertension) Surgical History H/O colonoscopy Hx of cataract extraction History of open reduction and internal fixation (ORIF) procedure Social History Housing: Apartment Patient Tobacco Use Status: Never used Tobacco e-Cigarette/Vaping Use: Never Used Current occupational status: employed Cognitive needs: No Hearing needs: No Vision needs: Yes Questionnaire Thrive Questionnaire Date Thrive assessed: 08/05/23 ALLIE-7 AMB Questionnaire ALLIE-7 Date ALLIE - 7 assessed: 08/05/23 Source: Developed by Drs. Srikanth Hernández, Cathleen Cifuentes, Jarod Garcia and colleagues, with an educational prince from [employer]. Review of Systems Const Denies chills and Denies fever(s) ENT Denies epistaxis and Denies nasal discharge Card Denies chest pain Resp Denies chest congestion, Denies cough and Denies hemoptysis GI Denies diarrhea and Denies nausea Skin/Breast Denies rash Neuro Reports no additional complaints Psych Reports no additional complaints Endo Reports no additional complaints Physical exam (Primary Care) Vital Signs: Last Vital Signs Pulse 67 11/10/23 14:02 BP 128/80 11/10/23 14:02 Pulse Ox 98 11/10/23 14:02 Oxygen Delivery Method Room Air 11/10/23 14:02 BMI result Body Mass Index 32.6 Tobacco/Smoking Status: Tobacco use Status Tobacco use date assessed 08/05/23 11/10/23 14:03 Patient Tobacco Use Status Never used Tobacco 11/10/23 14:03 e-Cigarette/Vaping Use Never Used 11/10/23 14:03 Thrive Assessment: Date of Thrive Assessment Date Thrive assessed 08/05/23 11/10/23 14:03 Const General: cooperative, comfortable and no acute distress Orientation/consciousness: patient oriented x3 HENMT Head: Yes normocephalic Eyes General: appearance normal, both eyes and all related structures Neck Neck: Yes supple Resp Effort & Inspection: normal respiratory effort, no cough and no stridor Cardio Rhythm: regular rhythm Heart sounds: S1 normal heart sound present and S2 normal heart sound present Skin General skin exam: turgor normal Neuro General: patient oriented x3, tone normal and moves all extremities Extrem Right lower extremity: no edema Left lower extremity: no edema Assessment and Plan Assessment & Plan (1) Alcoholic peripheral neuropathy: Code(s): G62.1 - Alcoholic polyneuropathy (2) Peripheral vascular disease: Code(s): I73.9 - Peripheral vascular disease, unspecified (3) Electrolyte abnormality: Code(s): E87.8 - Other disorders of electrolyte and fluid balance, not elsewhere classified (4) Marijuana dependence: Code(s): F12.20 - Cannabis dependence, uncomplicated (5) Obesity due to excess calories: Code(s): E66.09 - Other obesity due to excess calories Qualifiers: Body mass index: BMI 31.0-31.9 Obesity classification: adult class 1 (BMI 30 - 34.9) Serious obesity comorbidity presence: with serious comorbidity Qualified Code(s): E66.09 - Other obesity due to excess calories; Z68.31 - Body mass index [BMI] 31.0-31.9, adult (6) Alcoholism: Comment: CONSEQUENCES OF DRINKING PROBLEMS There are a number of serious consequences of drinking alcohol excessively -------Excessive alcohol consumption is a leading preventable cause of in the [place]. --------Drinking alcohol increases the risk of traffic accidents, suicide, drowning, and other serious injuries. -------Alcohol use continues to be the leading cause of injuries treated in trauma centers and emergency departments . --------Alcohol-related liver disease may lead to end-stage liver disease (cirrhosis) and . --------Alcohol increases the risk of certain cancers of the mouth, esophagus, throat, liver, and breast. Code(s): F10.20 - Alcohol dependence, uncomplicated (7) Hypokalemia: Code(s): E87.6 - Hypokalemia (8) Hyponatremia: Code(s): E87.1 - Hypo-osmolality and hyponatremia (9) Anemia: Code(s): D64.9 - Anemia, unspecified Qualifiers: Anemia type: iron deficiency Iron deficiency anemia type: chronic blood loss Qualified Code(s): D50.0 - Iron deficiency anemia secondary to blood loss (chronic) (10) HTN (hypertension): Code(s): I10 - Essential (primary) hypertension Qualifiers: Hypertension type: primary hypertension Qualified Code(s): I10 - Essential (primary) hypertension (11) Neuropathy: Code(s): G62.9 - Polyneuropathy, unspecified (12) LFT elevation: Code(s): R79.89 - Other specified abnormal findings of blood chemistry (13) Elevated serum creatinine: Code(s): R79.89 - Other specified abnormal findings of blood chemistry (14) Anxiety, generalized: Code(s): F41.1 - Generalized anxiety disorder (15) Hemorrhoids: Code(s): K64.9 - Unspecified hemorrhoids Qualifiers: Hemorrhoid type: first degree Qualified Code(s): K64.0 - First degree hemorrhoids Plan Patient is 63-year-old gentleman came in today for his regular follow-up appointment Patient has vascular disease as well as neuropathy lower extremity But he is not interested in further workup or appointment with the specialist. Patient continued to drink alcohol and smoke marijuana He has mild wheezing today right side of lung, but he denied any shortness of breath or chest pains Blood pressure is well controlled Patient was on atenolol 100 mg, chlorthalidone 25 mg and lisinopril 40 mg Patient continued to be anemic with hemoglobin in 11 range due to chronic constipation and hemorrhoids I have ordered iron studies His sodium was 130 which is chronically low due to alcohol consumption Patient says that he had a strong family gene for alcoholism his son is also drinking He has tried to stop several time. Anxiety is stable with buspirone 10 mg. Labs will be repeated today. BMI is elevated at 32.6, need to lose weight Follow-up 3 months Orders: Orders Comprehensive Met. Panel Today D64.9 - Anemia, unspecified, E66.09 - Other obesity due to excess calories, E87.1 - Hypo-osmolality and hyponatremia, E87.6 - Hypokalemia, E87.8 - Other disorders of electrolyte and fluid balance, not elsewhere classified, F10.20 - Alcohol dependence, uncomplicated, G62.1 - Alcoholic polyneuropathy, G62.9 - Polyneuropathy, unspecified, I10 - Essential (primary) hypertension, I73.9 - Peripheral vascular disease, unspecified, R79.89 - Other specified abnormal findings of blood chemistry IRON PROFILE Today D64.9 - Anemia, unspecified, E66.09 - Other obesity due to excess calories, E87.1 - Hypo-osmolality and hyponatremia, E87.6 - Hypokalemia, E87.8 - Other disorders of electrolyte and fluid balance, not elsewhere classified, F10.20 - Alcohol dependence, uncomplicated, G62.1 - Alcoholic polyneuropathy, G62.9 - Polyneuropathy, unspecified, I10 - Essential (primary) hypertension, I73.9 - Peripheral vascular disease, unspecified, R79.89 - Other specified abnormal findings of blood chemistry LDL Cholesterol Direct Today D64.9 - Anemia, unspecified, E66.09 - Other obesity due to excess calories, E87.1 - Hypo-osmolality and hyponatremia, E87.6 - Hypokalemia, E87.8 - Other disorders of electrolyte and fluid balance, not elsewhere classified, F10.20 - Alcohol dependence, uncomplicated, G62.1 - Alcoholic polyneuropathy, G62.9 - Polyneuropathy, unspecified, I10 - Essential (primary) hypertension, I73.9 - Peripheral vascular disease, unspecified, R79.89 - Other specified abnormal findings of blood chemistry Magnesium Today D64.9 - Anemia, unspecified, E66.09 - Other obesity due to excess calories, E87.1 - Hypo-osmolality and hyponatremia, E87.6 - Hypokalemia, E87.8 - Other disorders of electrolyte and fluid balance, not elsewhere classified, F10.20 - Alcohol dependence, uncomplicated, G62.1 - Alcoholic polyneuropathy, G62.9 - Polyneuropathy, unspecified, I10 - Essential (primary) hypertension, I73.9 - Peripheral vascular disease, unspecified, R79.89 - Other specified abnormal findings of blood chemistry Complete Blood Count Auto Diff Today D64.9 - Anemia, unspecified, E66.09 - Other obesity due to excess calories, E87.1 - Hypo-osmolality and hyponatremia, E87.6 - Hypokalemia, E87.8 - Other disorders of electrolyte and fluid balance, not elsewhere classified, F10.20 - Alcohol dependence, uncomplicated, G62.1 - Alcoholic polyneuropathy, G62.9 - Polyneuropathy, unspecified, I10 - Essential (primary) hypertension, I73.9 - Peripheral vascular disease, unspecified, R79.89 - Other specified abnormal findings of blood chemistry Ferritin Today D64.9 - Anemia, unspecified, E66.09 - Other obesity due to excess calories, E87.1 - Hypo-osmolality and hyponatremia, E87.6 - Hypokalemia, E87.8 - Other disorders of electrolyte and fluid balance, not elsewhere classified, F10.20 - Alcohol dependence, uncomplicated, G62.1 - Alcoholic polyneuropathy, G62.9 - Polyneuropathy, unspecified, I10 - Essential (primary) hypertension, I73.9 - Peripheral vascular disease, unspecified, R79.89 - Other specified abnormal findings of blood chemistry Vitamin B12 Today D64.9 - Anemia, unspecified, E66.09 - Other obesity due to excess calories, E87.1 - Hypo-osmolality and hyponatremia, E87.6 - Hypokalemia, E87.8 - Other disorders of electrolyte and fluid balance, not elsewhere classified, F10.20 - Alcohol dependence, uncomplicated, G62.1 - Alcoholic polyneuropathy, G62.9 - Polyneuropathy, unspecified, I10 - Essential (primary) hypertension, I73.9 - Peripheral vascular disease, unspecified, R79.89 - Other specified abnormal findings of blood chemistry Vitamin D 25-OH (D2 and D3) Today D64.9 - Anemia, unspecified, E66.09 - Other obesity due to excess calories, E87.1 - Hypo-osmolality and hyponatremia, E87.6 - Hypokalemia, E87.8 - Other disorders of electrolyte and fluid balance, not elsewhere classified, F10.20 - Alcohol dependence, uncomplicated, G62.1 - Alcoholic polyneuropathy, G62.9 - Polyneuropathy, unspecified, I10 - Essential (primary) hypertension, I73.9 - Peripheral vascular disease, unspecified, R79.89 - Other specified abnormal findings of blood chemistry Ethanol Today D64.9 - Anemia, unspecified, E66.09 - Other obesity due to excess calories, E87.1 - Hypo-osmolality and hyponatremia, E87.6 - Hypokalemia, E87.8 - Other disorders of electrolyte and fluid balance, not elsewhere classified, F10.20 - Alcohol dependence, uncomplicated, G62.1 - Alcoholic polyneuropathy, G62.9 - Polyneuropathy, unspecified, I10 - Essential (primary) hypertension, I73.9 - Peripheral vascular disease, unspecified, R79.89 - Other specified abnormal findings of blood chemistry Coding Level of Care Code Est Pt Level 4 (25880) Diagnoses Alcoholic peripheral neuropathy G62.1 Peripheral vascular disease I73.9 Electrolyte abnormality E87.8 Marijuana dependence F12.20 Class 1 obesity due to excess calories with serious comorbidity and body mass index (BMI) of 31.0 to 31.9 in adult E66.09; Z68.31 Body mass index: BMI 31.0-31.9 Obesity classification: adult class 1 (BMI 30 - 34.9) Serious obesity comorbidity presence: with serious comorbidity Alcoholism F10.20 Hypokalemia E87.6 Hyponatremia E87.1 Iron deficiency anemia due to chronic blood loss D50.0 Anemia type: iron deficiency Iron deficiency anemia type: chronic blood loss Primary hypertension I10 Hypertension type: primary hypertension Neuropathy G62.9 LFT elevation R79.89 Elevated serum creatinine R79.89 Anxiety, generalized F41.1 Grade I hemorrhoids K64.0 Hemorrhoid type: first degree
== END 2023-11-10 15:12 | disposition home or self-care (01) ==
PROVIDERS: PCP Internal Medicine; Visit Provider Internal Medicine
DX: I73.9 Peripheral vascular disease, unspecified (principal); G62.1 Alcoholic polyneuropathy; F12.20 Cannabis dependence, uncomplicated; F10.20 Alcohol dependence, uncomplicated; E87.8 Other disorders of electrolyte and fluid balance, not elsewhere classified; E66.09 Other obesity due to excess calories; Z68.31 Body mass index [BMI] 31.0-31.9, adult; E87.6 Hypokalemia; E87.1 Hypo-osmolality and hyponatremia; D50.0 Iron deficiency anemia secondary to blood loss (chronic); I10 Essential (primary) hypertension; G62.9 Polyneuropathy, unspecified
CPT/HCPCS: 99214

== ENCOUNTER 2023-12-25 09:16 | Outpatient (REF) | payer OTHER, SELFPAY ==
[2023-12-25 12:04] LABS: Basophils Percent Auto 0.8 % (0-2); Eosinophils Absolute Auto 0.1 X10*3/uL (0.0-0.4); Eosinophils Percent Auto 2.4 % (0-4); Hematocrit 32.2 % (42.0-52.0); Imm Gran Abs Auto 0.01 X10*3/uL (0.00-0.03); Imm Gran Pct Auto 0.3 % (0.0-0.4); Lymphocytes Absolute Auto 1.3 X10*3/uL (1.2-4.9); Lymphocytes Percent Auto 33.2 % (20-40); MANUAL DIFF FLAG SCAN; Mean Corpuscular HGB Conc 37.3 g/dl (31.0-36.0); Mean Corpuscular Hemoglobin 36.6 pg (27.0-33.0); Mean Corpuscular Volume 98.2 fL (80.0-98.0); Monocytes Absolute Auto 0.3 X10*3/uL (0.1-1.2); Monocytes Percent Auto 8.1 % (2-11); Neutrophils Absolute Auto 2.1 x10*3/uL (2.0-8.3); Neutrophils Percent Auto 55.2 % (45-73); PLT CLUMP 1; Red Blood Count 3.28 X10*6/uL (4.60-5.80); Red Cell Distribution Width 14.5 % (11.0-16.0); SCAN SMEAR FLAG 1
[2023-12-25 12:09] LABS: White Blood Count 3.8 X10*3/uL (4.8-10.8)
[2023-12-25 12:43] LABS: Mean Platelet Volume 11.3 fL (9.4-12.4); Platelet Count 85 X10*3/uL (160-400); SLIDE REVIEW VERIFIED
[2023-12-25 13:00] LABS: Vitamin B12 1524 pg/mL (200-900)
[2023-12-25 13:01] LABS: Alanine Aminotransferase 132 U/L (0-40); Albumin Level 3.5 g/dL (3.5-5.0); Alkaline Phosphatase 136 U/L (39-117); Anion Gap 19 (12-20); Aspartate Amino Transferase 219 U/L (5-37); Bilirubin Total 5.1 mg/dL (0.0-1.0); Blood Urea Nitrogen 26 mg/dL (9-16); Calcium 9.3 mg/dL (8.4-10.2); Carbon Dioxide 30 mmol/L (22-29); Chloride 79 mmol/L (96-108); Estimated Glomerular Filt Rate 43; Ethanol < 10 mg/dL; Ferritin > 1676 ng/mL (20-250); Glucose Random 103 mg/dL (60-115); Iron 198 mcg/dL (45-160); Magnesium 1.2 mg/dL (1.6-2.6); Percent Iron Saturation 89 % (15-50); Potassium 2.8 mmol/L (3.3-5.1); Sodium 125 mmol/L (135-145); Total Iron Binding Capacity 223 mcg/dL (228-428); Total Protein 7.6 g/dL (6.5-8.0); Unsaturated Iron Binding < 25 ug/dL
[2023-12-31 15:03] LABS: LDL Cholesterol Direct 35 mg/dL (<100); Vitamin D 25-OH, D2 <4 ng/mL; Vitamin D 25-OH, D3 47 ng/mL; Vitamin D 25-OH, Total 47 ng/mL (30-100)
== END 2023-12-25 09:17 | disposition home or self-care (01) ==
LOC: HO.HMGCLDS 09:16
PROVIDERS: PCP Internal Medicine; Visit Provider Internal Medicine
DX: E87.8 Other disorders of electrolyte and fluid balance, not elsewhere classified (principal); E87.6 Hypokalemia; G62.1 Alcoholic polyneuropathy; I73.9 Peripheral vascular disease, unspecified; E87.1 Hypo-osmolality and hyponatremia; D64.9 Anemia, unspecified; I10 Essential (primary) hypertension; G62.9 Polyneuropathy, unspecified; E66.09 Other obesity due to excess calories; R79.89 Other specified abnormal findings of blood chemistry; F10.20 Alcohol dependence, uncomplicated
CPT/HCPCS: 36415; 80053; 80307; 82306; 82607; 82728; 83540; 83721; 83735; 85025

== ENCOUNTER 2023-12-25 09:49 | Outpatient (AMB) | payer OTHER, SELFPAY ==
[2023-12-25 09:50] VITALS: BP 134/92; PULSE 58; O2SAT 98; BMI 32.1
--- NOTE | 2023-12-25 09:50 | A.OFFPC_ITS ---
Vital Signs 3 12/25/23 09:50 Height 5 ft 8 in Weight 211 lb BMI 32.1 BP 134/92 H Blood Pressure Location Rt brachial Position Sitting Pulse 58 Pulse Source Pulse Oximeter Pulse Oximetry (%) 98 Oxygen Delivery Method Room Air Intake Visit Reasons: Leg Discomfort Allergies No Known Allergies [No Known Allergies*] Allergy (Verified 12/25/23 09:51) Medication List - Last Reconciled 12/25/23 by Angelica Schrader MD atenolol 100 mg PO DAILY 90 days buspirone 10 mg PO .q am PRN 90 days chlorthalidone 25 mg PO DAILY 90 days clotrimazole-betamethasone 1-0.05 % 1 appl topical ONCE 30 days lisinopril 40 mg PO DAILY 90 days potassium chloride ER 20 mEq PO DAILY Tobacco use date assessed: 12/25/23 Dental Screening Dental Screen Date: 12/25/23 Did you have a dental visit in the last 12 months?: No Did you have a dental problem in the last 6 months where you did not have access to dental care?: No Was dental information given to patient?: Patient declined HPI Leg Discomfort 2 HPI0 Details Patient is 63 year gentleman came today to be evaluated for pain in his legs Patient says that he has been squatting a lot at his work Last week he started having pain both legs especially when he is walking And it has gotten worse Patient has not done any other activities He tells me that he has stopped drinking alcohol On examination he is tender over both rectus femoris insertion sites And other calf muscles anteriorly. Hip joint range of motion is intact knee joint range of motion is intact There is no calf tenderness I have given him off for a week from work I would recommend massaging the upper thigh muscles with warm oil Patient's GFR is compromised, NSAID is not a good choice for pain management I have sent few tablets of tramadol for him PFSH Medical History History of COVID-19 Neuropathy Alcohol dependence Anxiety HTN (hypertension) Surgical History H/O colonoscopy Hx of cataract extraction History of open reduction and internal fixation (ORIF) procedure Social History Housing: Apartment Patient Tobacco Use Status: Never used Tobacco e-Cigarette/Vaping Use: Never Used Current occupational status: employed Cognitive needs: No Hearing needs: No Vision needs: Yes Questionnaire Thrive Questionnaire Date Thrive assessed: 08/05/23 AUDIT C Alcohol Use Questionnaire (AUDIT-C) 1. How often do you have a drink containing alcohol?: 4 or more times a week 2. How many drinks containing alcohol do you have on a typical day when you are drinking?: 10 or more 3. How often do you have six or more drinks on one occasion?: Daily or almost daily Total Score: 12 Score Reviewed/Action Taken: Yes ALLIE-7 AMB Questionnaire ALLIE-7 Date LALIE - 7 assessed: 08/05/23 Source: Developed by Drs. Srikanth Hernández, Cathleen Cifuentes, Jarod Garcia and colleagues, with an educational prince from [employer]. Review of Systems Const Denies chills and Denies fever(s) ENT Denies epistaxis and Denies nasal discharge Card Denies chest pain Resp Denies chest congestion, Denies cough and Denies hemoptysis GI Denies diarrhea and Denies nausea Skin/Breast Denies rash Neuro Reports no additional complaints Psych Reports no additional complaints Endo Reports no additional complaints Physical exam (Primary Care) Vital Signs: Last Vital Signs Pulse 58 12/25/23 09:50 BP 134/92 H 12/25/23 09:50 Pulse Ox 98 12/25/23 09:50 Oxygen Delivery Method Room Air 12/25/23 09:50 BMI result Body Mass Index 32.1 Tobacco/Smoking Status: Tobacco use Status Tobacco use date assessed 12/25/23 12/25/23 09:56 Patient Tobacco Use Status Never used Tobacco 12/25/23 09:56 e-Cigarette/Vaping Use Never Used 12/25/23 09:56 Thrive Assessment: Date of Thrive Assessment Date Thrive assessed 08/05/23 12/25/23 09:56 Const General: cooperative, comfortable and no acute distress Orientation/consciousness: patient oriented x3 HENMT Head: Yes normocephalic Eyes General: appearance normal, both eyes and all related structures Neck Neck: Yes supple Resp Effort & Inspection: normal respiratory effort, no cough and no stridor Cardio Rhythm: regular rhythm Heart sounds: S1 normal heart sound present and S2 normal heart sound present Skin General skin exam: turgor normal Neuro General: patient oriented x3, tone normal and moves all extremities Extrem Elbow/forearm/wrist images: 2 1. Pain with palpation 2. Pain with palpation Right lower extremity: no edema Left lower extremity: no edema Assessment and Plan Assessment & Plan (1) Bilateral leg pain: Code(s): M79.604 - Pain in right leg; M79.605 - Pain in left leg (2) Strain of rectus femoris muscle: Code(s): S76.819A - Strain of other specified muscles, fascia and tendons at thigh level, unspecified thigh, initial encounter (3) Difficulty walking: Code(s): R26.2 - Difficulty in walking, not elsewhere classified Plan Patient is 63 year gentleman came today to be evaluated for pain in his legs Patient says that he has been squatting a lot at his work Last week he started having pain both legs especially when he is walking And it has gotten worse Patient has not done any other activities He tells me that he has stopped drinking alcohol On examination he is tender over both rectus femoris insertion sites And other calf muscles anteriorly. Hip joint range of motion is intact knee joint range of motion is intact There is no calf tenderness I have given him off for a week from work I would recommend massaging the upper thigh muscles with warm oil Patient's GFR is compromised, NSAID is not a good choice for pain management I have sent few tablets of tramadol for him Medications: New 2 tramadol 50 mg PO BID 7 days PRN 14 tabs 0RF pain Coding Level of Care Code Est Pt Level 4 (43837) Diagnoses Bilateral leg pain M79.604; M79.605 Strain of rectus femoris muscle S76.819A Difficulty walking R26.2
== END 2023-12-25 12:50 | disposition home or self-care (01) ==
PROVIDERS: PCP Internal Medicine; Visit Provider Internal Medicine
DX: M79.604 Pain in right leg (principal); M79.605 Pain in left leg; S76.819A Strain of other specified muscles, fascia and tendons at thigh level, unspecified thigh, initial encounter; R26.2 Difficulty in walking, not elsewhere classified
CPT/HCPCS: 99214

== ENCOUNTER 2024-01-02 01:46 | Emergency (ER) | payer OTHER, SELFPAY ==
[2024-01-02 01:58] VITALS: BP 142/83; PULSE 68; RESP 16; TEMP 36.6; O2SAT 98; BMI 31.0
--- NOTE | 2024-01-02 02:04 | ECG_ITS ---
Test Reason : LOW K Blood Pressure : / mmHG Vent. Rate : 060 BPM Atrial Rate : 060 BPM P-R Int : 232 ms QRS Dur : 096 ms QT Int : 420 ms P-R-T Axes : 025 -33 007 degrees QTc Int : 420 ms Sinus rhythm with 1st degree A-V block Left axis deviation Incomplete right bundle branch block Abnormal ECG When compared with ECG of 09-AUG-2023 05:21, No significant change was found Referred By: Cici Chan Electronically Signed By:CEASAR CASTRO MD
--- NOTE | 2024-01-02 02:06 | ED.RECABL ---
HPI - Recheck/Abnormal Lab/Rx General Chief Complaint: Recheck/Abnormal Lab/Rx Stated Complaint: PCP referred for dehydration ? etoh Time Seen by Provider: 01/02/24 02:05 Source: patient and old records reviewed Mode of arrival: ambulatory Limitations: no limitations History of Present Illness HPI narrative: 63 yo male with PMH of ETOH abuse last drink was 8 days ago hx of low mag and K in past, PVD, anemia, HTN, was seen by PCP on 12/25 found to have Cr 1.63 though baseline is probably around that and K was 2.8 Mag 1.2 - he comes in today with c/o feeling okay and just wanted to get checked. He does not feel he is in withdrawal MD complaint: abnormal lab Initial visit (ago): day(s) (12/25) Initial visit for: other Returns today for: called because of abnormal lab/test Description of abnormal result: K and mag low Context: called for abnormal lab result Associated symptoms: none Related Data Previous Rx's Medication Instructions Recorded clotrimazole-betamethasone 1 1 appl topical ONCE 30 days #45 08/05/23 %-0.05 % topical cream grams potassium chloride 20 mEq 20 meq PO DAILY #7 tabs 08/09/23 tablet,extended release(part/cryst) atenolol 100 mg tablet 100 mg PO DAILY 90 days #90 tabs 10/30/23 buspirone 10 mg tablet 10 mg PO .q am PRN anxiety 90 days 10/30/23 #90 tabs chlorthalidone 25 mg tablet 25 mg PO DAILY 90 days #90 tabs 10/30/23 lisinopril 40 mg tablet 40 mg PO DAILY 90 days #90 tabs 10/30/23 tramadol 50 mg tablet 50 mg PO BID PRN pain 7 days #14 12/25/23 tabs Allergies Allergy/AdvReac Type Severity Reaction Status Date / Time No Known Allergies Allergy Verified 01/02/24 01:58 [No Known Allergies*] Review of Systems Review of Systems: Constitutional : No Fever, No Chills, No Fatigue ENT/Mouth : No sore throat, No Rhinorrhea Eyes: No Eye Pain, No Swelling, No Redness Cardiovascular : No Chest Pain, No SOB, No Dyspnea on Exertion Respiratory : No Cough, No Sputum Gastrointestinal : No Nausea, No Vomiting, No Diarrhea, No abdominal Pain Genitourinary : No Dysuria, No Urinary Frequency, No Hematuria, Musculoskeletal : No joint pain, No Myalgias, No Joint Swelling Skin : No Skin Lesions, No rash Neuro : No Weakness, No Numbness, No Dizziness, no Headache Psych : No Anxiety/Panic, No Depression Heme/Lymph: No Bruising, No Bleeding,No Lymphadenopathy Endocrine : No Polyuria, No Polydipsia All other systems reviewed and are negative FOR[facility]LY [facility] Past Medical History Attestation statement: The following information was validated with the patient. Source: old records reviewed Medical History History of COVID-19 Neuropathy Alcohol dependence Anxiety HTN (hypertension) Surgical History H/O colonoscopy Hx of cataract extraction History of open reduction and internal fixation (ORIF) procedure Social History Social History Housing: Apartment Patient Tobacco Use Status: Never used Tobacco e-Cigarette/Vaping Use: Never Used Advance Directives: No Advance Directives Information Provided: No Current occupational status: employed Cognitive needs: No Hearing needs: No Vision needs: Yes Physical Exam Vital Signs: Vital Signs: Last Vital Signs Temp 98 F 01/02/24 01:58 Pulse 68 01/02/24 01:58 Resp 16 01/02/24 01:58 BP 142/83 H 01/02/24 01:58 Pulse Ox 98 01/02/24 01:58 O2 Del Method Room Air 01/02/24 01:58 BMI result Body Mass Index 31.0 Appearance: Alert. Oriented X3. No acute distress. Eyes: Pupils equal, round and reactive to light. ENT: Pharynx normal. Neck: Normal inspection. Neck supple. CVS: Normal heart rate and rhythm. Pulses normal. Respiratory: No respiratory distress. Breath sounds normal. Abdomen: Soft and nontender. Skin: Skin warm and dry. Normal skin color. Normal skin turgor. Extremities: No lower extremity edema. No calf ttp Neuro: Oriented X 3. No motor deficit. No sensory deficit. Medications Administered Generic Name Dose Route Start Last Admin Trade Name Freq PRN Reason Stop Dose Admin Magnesium Sulfate 2 gm in 50 mls @ 25 mls/hr 01/02/24 02:07 01/02/24 02:42 Magnesium Sulfate/H2o IV 01/02/24 04:06 25 mls/hr ONCE ONE Administration Discontinued Medications Generic Name Dose Route Start Last Admin Trade Name Saul PRN Reason Stop Dose Admin Thiamine HCl 200 mg/ Sodium 102 mls @ 204 mls/hr 01/02/24 02:07 01/02/24 02:42 Chloride IV 01/02/24 02:36 204 mls/hr ONCE ONE Administration Medical Decision Making Medical Decision Making [facility] Narrative: 63 yo male with PMH of ETOH abuse last drink was 8 days ago hx of low mag and K in past, PVD, anemia, HTN, here after he self detoxed at home now coming in to have his labs rechecked he has no complaints just wanted to get checked out. He states he is not in withdrawal and feels fine. Differential Diagnosis Differential Diagnoses: The differential diagnosis associated with the presentation includes lyte abnormality, chronic alcoholism Admission/Observation Consideration of admission/observation: Escalation of care including admission/observation considered repleted labs improved can be DC home Lab Data [facility] Lab Attestation statement: I reviewed the patient's lab results. 01/02/24 02:17 01/02/24 02:17 Labs: Lab Results 01/02/24 Range/Units 02:17 WBC 4.0 L (4.8-10.8) X10*3/uL RBC 2.73 L (4.60-5.80) X10*6/uL Hgb 10.2 L (14.0-18.0) g/dl Hct 28.3 L (42.0-52.0) % MCV 103.7 H (80.0-98.0) fL MCH 37.4 H (27.0-33.0) pg MCHC 36.0 (31.0-36.0) g/dl RDW 14.1 (11.0-16.0) % Plt Count 140 L D (160-400) X10*3/uL MPV 10.2 (9.4-12.4) fL Immature Gran % (Auto) 0.2 (0.0-0.4) % Neut % (Auto) 35.6 L (45-73) % Lymph % (Auto) 41.8 H (20-40) % Bowman % (Auto) 15.7 H (2-11) % Eos % (Auto) 6.0 H (0-4) % Baso % (Auto) 0.7 (0-2) % Lymph # (Auto) 1.7 (1.2-4.9) X10*3/uL Bowman # (Auto) 0.6 (0.1-1.2) X10*3/uL Eos # (Auto) 0.2 (0.0-0.4) X10*3/uL Baso # (Auto) 0.0 (0.0-0.2) X10*3/uL Abs Immat Gran (auto) 0.01 (0.00-0.03) X10*3/uL Absolute Neuts (auto) 1.4 L (2.0-8.3) x10*3/uL Absolute Nucleated RBC 0.000 (0.0-0.012) X10*3/uL Nucleated RBC % (auto) 0.0 (0.0-0.2) /100WBC Sodium 129 L (135-145) mmol/L Potassium 3.3 (3.3-5.1) mmol/L Chloride 85 L (96-108) mmol/L Carbon Dioxide 33 H (22-29) mmol/L Anion Gap 14 (12-20) BUN 19 H (9-16) mg/dL Creatinine 1.51 H (0.5-1.4) mg/dL Estim Creat Clear Calc 57.0 Estimated GFR 47 Random Glucose 98 (60-115) mg/dL Calcium 9.5 (8.4-10.2) mg/dL Magnesium 1.6 (1.6-2.6) mg/dL Total Bilirubin 1.7 H (0.0-1.0) mg/dL Direct Bilirubin 1.1 H (0.0-0.5) mg/dL AST 91 H (5-37) U/L ALT 89 H (0-40) U/L Alkaline Phosphatase 89 (39-117) U/L Total Protein 7.6 (6.5-8.0) g/dL Albumin 3.6 (3.5-5.0) g/dL Lipase 65 (8-78) U/L Ethyl Alcohol < 10 mg/dL Independent Interpretation I performed an independent interpretation of an: EKG Interpretation: Rate: 60 Rhythm: NSR with 1st degree AVB [place]: left Normal P waves. 1st degree AVB Normal QRS complex. ST T wave : inverted t wave V1 and III, no TONYA qTC: 420 prior studies: no acute ischemia The study has been interpreted contemporaneously by me. . External Record Review External record reviewed: Inpatient record and Prior outpatient labs Critical Care Time Critical Care Time Critical Care Time: Yes Total Critical Care Time: 45 Attestation: IV magnesium ordered, review of labs, repletion of lytes I attest to this time spent taking care of the patient Discharge Plan Discharge Clinical Impression: Elevated liver enzymes, Acute hypokalemia Patient Disposition: Home, Self-Care Instructions: Hypokalemia (ED) Additional Instructions: your labs and kidney function were very improved. we repleted them in the ED. continue to not drink. return for pain, confusion, hallucinations, anxiety or tremors. Prescriptions: No Action buspirone 10 mg tablet 10 mg PO .q am PRN (Reason: anxiety) 90 Days Qty: 90 0RF atenolol 100 mg tablet 100 mg PO DAILY 90 Days Qty: 90 0RF chlorthalidone 25 mg tablet 25 mg PO DAILY 90 Days Qty: 90 0RF lisinopril 40 mg tablet 40 mg PO DAILY 90 Days Qty: 90 0RF potassium chloride 20 mEq tablet,ER particles/crystals 20 meq PO DAILY Qty: 7 0RF tramadol 50 mg tablet 50 mg PO BID PRN (Reason: pain) 7 Days Qty: 14 0RF clotrimazole-betamethasone 1-0.05 % cream 1 appl topical ONCE 30 Days Qty: 45 1RF
[2024-01-02 02:21] LABS: MANUAL DIFF FLAG NO
[2024-01-02 02:29] LABS: Basophils Percent Auto 0.7 % (0-2); Eosinophils Absolute Auto 0.2 X10*3/uL (0.0-0.4); Hematocrit 28.3 % (42.0-52.0); Hemoglobin 10.2 g/dl (14.0-18.0); Imm Gran Abs Auto 0.01 X10*3/uL (0.00-0.03); Imm Gran Pct Auto 0.2 % (0.0-0.4); Lymphocytes Absolute Auto 1.7 X10*3/uL (1.2-4.9); Lymphocytes Percent Auto 41.8 % (20-40); Mean Corpuscular Hemoglobin 37.4 pg (27.0-33.0); Mean Corpuscular Volume 103.7 fL (80.0-98.0); Mean Platelet Volume 10.2 fL (9.4-12.4); Monocytes Absolute Auto 0.6 X10*3/uL (0.1-1.2); Monocytes Percent Auto 15.7 % (2-11); Neutrophils Absolute Auto 1.4 x10*3/uL (2.0-8.3); Neutrophils Percent Auto 35.6 % (45-73); Platelet Count 140 X10*3/uL (160-400); Red Blood Count 2.73 X10*6/uL (4.60-5.80); Red Cell Distribution Width 14.1 % (11.0-16.0)
--- NOTE | 2024-01-02 02:31 | MHC.EDTECH ---
This Tech assumed care of this pt upon arrival. Pt changed over into a hospital gown and placed on a site monitor. EKG completed and handed to a provider. Blood work sent to lab for processing
[2024-01-02] MEDS: Thiamine HCL 200 MG in 0.9 % Sodium Chloride 100 ML 204 MG IV (02:42)
[2024-01-02] MEDS: Magnesium Sulfate/H2O 2 GM/50 ML PIGGYBACK IV (02:42)
[2024-01-02 02:43] LABS: Alanine Aminotransferase 89 U/L (0-40); Albumin Level 3.6 g/dL (3.5-5.0); Alkaline Phosphatase 89 U/L (39-117); Anion Gap 14 (12-20); Aspartate Amino Transferase 91 U/L (5-37); Bilirubin Direct 1.1 mg/dL (0.0-0.5); Bilirubin Total 1.7 mg/dL (0.0-1.0); Blood Urea Nitrogen 19 mg/dL (9-16); Calcium 9.5 mg/dL (8.4-10.2); Carbon Dioxide 33 mmol/L (22-29); Chloride 85 mmol/L (96-108); Estimated Glomerular Filt Rate 47; Ethanol < 10 mg/dL; Glucose Random 98 mg/dL (60-115); Lipase 65 U/L (8-78); Magnesium 1.6 mg/dL (1.6-2.6); Potassium 3.3 mmol/L (3.3-5.1); Sodium 129 mmol/L (135-145); Total Protein 7.6 g/dL (6.5-8.0)
[2024-01-02] MEDS: Potassium Chloride Packet 20 MEQ PACKET PO (04:06)
[2024-01-02 04:14] VITALS: BP 144/57; PULSE 66; RESP 17; TEMP 36.5; O2SAT 97
--- NOTE | 2024-01-02 04:44 | PC.NURSE ---
Iv removed , Medicated per Mar, Reviewed discharge instruction with pt, pt verbalized understanding. no sign of distress.
--- NOTE | 2024-01-02 05:00 | PC.NURSE ---
Notified BRYSON Nassar
== END 2024-01-02 05:00 | disposition home or self-care (01) ==
PROVIDERS: Emergency Provider Emergency Medicine; PCP Internal Medicine
DX: R74.8 Abnormal levels of other serum enzymes (principal); E87.6 Hypokalemia; Z79.899 Other long term (current) drug therapy
CPT/HCPCS: 36415; 80048; 80076; 80307; 83690; 83735; 85025; 93005; 96365; 96368; 99284; J3411; J3475

== ENCOUNTER → 2024-01-02 02:04 | Outpatient (BNV) | payer OTHER, SELFPAY | PROVIDERS: Emergency Provider Emergency Medicine; PCP Internal Medicine; Visit Provider Internal Medicine Cardiovascular Disease | DX: I44.0 Atrioventricular block, first degree (principal) | CPT/HCPCS: 93010 ==

== ENCOUNTER 2024-01-12 08:30 | Outpatient (AMB) | payer OTHER, SELFPAY ==
--- NOTE | 2024-01-12 08:37 | A.OFFPC_ITS ---
Intake Visit Reasons: ED follow up Allergies No Known Allergies [No Known Allergies*] Allergy (Verified 01/12/24 08:34) Medication List - Last Reconciled 01/12/24 by Angelica Schrader MD atenolol 100 mg PO DAILY 90 days buspirone 10 mg PO .q am PRN 90 days chlorthalidone 25 mg PO DAILY 90 days clotrimazole-betamethasone 1-0.05 % 1 appl topical ONCE 30 days lisinopril 40 mg PO DAILY 90 days potassium chloride ER 20 mEq PO DAILY tramadol 50 mg PO BID PRN 7 days Tobacco use date assessed: 01/12/24 Dental Screening Dental Screen Date: 01/12/24 Did you have a dental visit in the last 12 months?: No Did you have a dental problem in the last 6 months where you did not have access to dental care?: No Was dental information given to patient?: No HPI ED follow up HPI Details Patient is 63-year-old gentleman came in today for his regular follow- up appointment Last time patient seen his potassium came back at 2.8 that was December 25 Patient was notified to go to emergency room, but he did not go. Patient says that, he decided to wait until he is sober before going to emergency room He went to ER after a week, at that time his potassium was 3.3 His hemoglobin came back at 10.2, patient does have hemorrhoids and tells me that he sees blood when he wipes himself after bowel movement His creatinine was 1.51, and liver enzymes were elevated I will be repeating labs again today Patient has vascular disease as well as neuropathy lower extremity Blood pressure is well controlled Patient is on atenolol 100 mg and lisinopril 40 mg, I am stopping his chlorthalidone and adding amlodipine 10 mg due to hypokalemia Anxiety is stable with buspirone 10 mg. PS, lab report came in his magnesium is 1.1 Patient was called however he did not bulk picker the telephone, I have left message and I have also sent message to phlebotomist medical lab assistant to call him again Magnesium sulfate 400 mg sent patient is to start that right away, ideally he should go back to emergency room. 14:55, call patient again spoke to him n otified about magnesium level, patient says that he has magnesium tablets 500 mg at home and he has been taking that in he will continue taking it Patient was instructed to repeat labs again in 1 week [facility] Medical History History of COVID-19 Neuropathy Alcohol dependence Anxiety HTN (hypertension) Surgical History H/O colonoscopy Hx of cataract extraction History of open reduction and internal fixation (ORIF) procedure Social History Housing: Apartment Patient Tobacco Use Status: Never used Tobacco e-Cigarette/Vaping Use: Never Used Current occupational status: employed Cognitive needs: No Hearing needs: No Vision needs: Yes Questionnaire Thrive Questionnaire Date Thrive assessed: 08/05/23 AUDIT C Alcohol Use Questionnaire (AUDIT-C) 1. How often do you have a drink containing alcohol?: Never 3. How often do you have six or more drinks on one occasion?: Never Total Score: 0 Score Reviewed/Action Taken: Yes ALLIE-7 AMB Questionnaire ALLIE-7 Date ALLIE - 7 assessed: 08/05/23 Source: Developed by Drs. Srikanth Hernández, Cathleen Cifuentes, Jarod Garcia and colleagues, with an educational prince from [employer]. Review of Systems Const Denies chills and Denies fever(s) ENT Denies epistaxis and Denies nasal discharge Card Denies chest pain Resp Denies chest congestion, Denies cough and Denies hemoptysis GI Denies diarrhea and Denies nausea Skin/Breast Denies rash Neuro Reports no additional complaints Psych Reports no additional complaints Endo Reports no additional complaints Physical exam (Primary Care) Tobacco/Smoking Status: Tobacco use Status Tobacco use date assessed 01/12/24 01/12/24 08:37 Patient Tobacco Use Status Never used Tobacco 01/12/24 08:37 e-Cigarette/Vaping Use Never Used 01/12/24 08:37 Thrive Assessment: Date of Thrive Assessment Date Thrive assessed 08/05/23 01/12/24 08:37 Const General: cooperative, comfortable and no acute distress Orientation/consciousness: patient oriented x3 HENMT Head: Yes normocephalic Eyes General: appearance normal, both eyes and all related structures Neck Neck: Yes supple Resp Effort & Inspection: normal respiratory effort, no cough and no stridor Cardio Rhythm: regular rhythm Heart sounds: S1 normal heart sound present and S2 normal heart sound present Skin General skin exam: turgor normal Neuro General: patient oriented x3, tone normal and moves all extremities Extrem Right lower extremity: no edema Left lower extremity: no edema Assessment and Plan Assessment & Plan (1) Electrolyte abnormality: Code(s): E87.8 - Other disorders of electrolyte and fluid balance, not elsewhere classified (2) Hypokalemia: Code(s): E87.6 - Hypokalemia (3) Elevated ferritin: Code(s): R79.89 - Other specified abnormal findings of blood chemistry (4) Hemorrhoids: Code(s): K64.9 - Unspecified hemorrhoids Qualifiers: Hemorrhoid type: first degree Qualified Code(s): K64.0 - First degree hemorrhoids (5) Anemia: Code(s): D64.9 - Anemia, unspecified Qualifiers: Anemia type: iron deficiency Iron deficiency anemia type: chronic blood loss Qualified Code(s): D50.0 - Iron deficiency anemia secondary to blood loss (chronic) (6) Nephropathy: Code(s): N28.9 - Disorder of kidney and ureter, unspecified (7) LFT elevation: Code(s): R79.89 - Other specified abnormal findings of blood chemistry (8) Alcohol dependence: Code(s): F10.20 - Alcohol dependence, uncomplicated Qualifiers: Substance use status: uncomplicated Qualified Code(s): F10.20 - Alcohol dependence, uncomplicated (9) Alcoholic peripheral neuropathy: Code(s): G62.1 - Alcoholic polyneuropathy (10) Peripheral vascular disease: Code(s): I73.9 - Peripheral vascular disease, unspecified (11) Marijuana dependence: Code(s): F12.20 - Cannabis dependence, uncomplicated (12) Obesity due to excess calories: Code(s): E66.09 - Other obesity due to excess calories Qualifiers: Obesity classification: adult class 1 (BMI 30 - 34.9) Serious obesity comorbidity presence: with serious comorbidity Body mass index: BMI 31.0-31.9 Qualified Code(s): E66.09 - Other obesity due to excess calories; Z68.31 - Body mass index [BMI] 31.0-31.9, adult (13) Alcoholism: Comment: CONSEQUENCES OF DRINKING PROBLEMS There are a number of serious consequences of drinking alcohol excessively -------Excessive alcohol consumption is a leading preventable cause of in the [place]. --------Drinking alcohol increases the risk of traffic accidents, suicide, drowning, and other serious injuries. -------Alcohol use continues to be the leading cause of injuries treated in trauma centers and emergency departments . --------Alcohol-related liver disease may lead to end-stage liver disease (cirrhosis) and . --------Alcohol increases the risk of certain cancers of the mouth, esophagus, throat, liver, and breast. Code(s): F10.20 - Alcohol dependence, uncomplicated (14) HTN (hypertension): Code(s): I10 - Essential (primary) hypertension Qualifiers: Hypertension type: primary hypertension Qualified Code(s): I10 - Essential (primary) hypertension (15) Neuropathy: Code(s): G62.9 - Polyneuropathy, unspecified (16) Elevated serum creatinine: Code(s): R79.89 - Other specified abnormal findings of blood chemistry (17) Anxiety, generalized: Code(s): F41.1 - Generalized anxiety disorder Plan Patient is 63-year-old gentleman came in today for his regular follow-up appointment Last time patient seen his potassium came back at 2.8 that was December 25 Patient was notified to go to emergency room, but he did not go. Patient says that, he decided to wait until he is sober before going to emergency room He went to ER after a week, at that time his potassium was 3.3 His hemoglobin came back at 10.2, patient does have hemorrhoids and tells me that he sees blood when he wipes himself after bowel movement His creatinine was 1.51, and liver enzymes were elevated I will be repeating labs again today Patient has vascular disease as well as neuropathy lower extremity Blood pressure is well controlled Patient is on atenolol 100 mg and lisinopril 40 mg, I am stopping his chlorthalidone and adding amlodipine 10 mg due to hypokalemia Anxiety is stable with buspirone 10 mg. PS, lab report came in his magnesium is 1.1 Patient was called however he did not bulk picker the telephone, I have left message and I have also sent message to phlebotomist medical lab assistant to call him again Magnesium sulfate 400 mg sent patient is to start that right away, ideally he should go back to emergency room. 14:55, call patient again spoke to him notified about magnesium level, patient says that he has magnesium tablets 500 mg at home and he has been taking that in he will continue taking it Patient was instructed to repeat labs again in 1 week Orders: Orders Complete Blood Count Auto Diff Today D64.9 - Anemia, unspecified, E87.6 - Hypokalemia, E87.8 - Other disorders of electrolyte and fluid balance, not elsewhere classified, F10.20 - Alcohol dependence, uncomplicated, K64.9 - Unspecified hemorrhoids, N28.9 - Disorder of kidney and ureter, unspecified, R79.89 - Other specified abnormal findings of blood chemistry Comprehensive Met. Panel Today D64.9 - Anemia, unspecified, E87.6 - Hypokalemia, E87.8 - Other disorders of electrolyte and fluid balance, not elsewhere classified, F10.20 - Alcohol dependence, uncomplicated, K64.9 - Unspecified hemorrhoids, N28.9 - Disorder of kidney and ureter, unspecified, R79.89 - Other specified abnormal findings of blood chemistry IRON PROFILE Today D64.9 - Anemia, unspecified, E87.6 - Hypokalemia, E87.8 - Other disorders of electrolyte and fluid balance, not elsewhere classified, F10.20 - Alcohol dependence, uncomplicated, K64.9 - Unspecified hemorrhoids, N28 .9 - Disorder of kidney and ureter, unspecified, R79.89 - Other specified abnormal findings of blood chemistry Ferritin Today D64.9 - Anemia, unspecified, E87.6 - Hypokalemia, E87.8 - Other disorders of electrolyte and fluid balance, not elsewhere classified, F10.20 - Alcohol dependence, uncomplicated, K64.9 - Unspecified hemorrhoids, N28.9 - Disorder of kidney and ureter, unspecified, R79.89 - Other specified abnormal findings of blood chemistry Magnesium Today D64.9 - Anemia, unspecified, E87.6 - Hypokalemia, E87.8 - Other disorders of electrolyte and fluid balance, not elsewhere classified, F10.20 - Alcohol dependence, uncomplicated, K64.9 - Unspecified hemorrhoids, N28.9 - Disorder of kidney and ureter, unspecified, R79.89 - Other specified abnormal findings of blood chemistry TSH reflex Free T4 Today D64.9 - Anemia, unspecified, E87.6 - Hypokalemia, E87.8 - Other disorders of electrolyte and fluid balance, not elsewhere classified, F10.20 - Alcohol dependence, uncomplicated, K64.9 - Unspecified hemorrhoids, N28.9 - Disorder of kidney and ureter, unspecified, R79.89 - Other specified abnormal findings of blood chemistry Vitamin B12 Today D64.9 - Anemia, unspecified, E87.6 - Hypokalemia, E87.8 - Other disorders of electrolyte and fluid balance, not elsewhere classified, F10.20 - Alcohol dependence, uncomplicated, K64.9 - Unspecified hemorrhoids, N28.9 - Disorder of kidney and ureter, unspecified, R79.89 - Other specified abnormal findings of blood chemistry Vitamin D 25-OH (D2 and D3) Today D64.9 - Anemia, unspecified, E87.6 - Hypokalemia, E87.8 - Other disorders of electrolyte and fluid balance, not elsewhere classified, F10.20 - Alcohol dependence, uncomplicated, K64.9 - Unspecified hemorrhoids, N28.9 - Disorder of kidney and ureter, unspecified, R79.89 - Other specified abnormal findings of blood chemistry Magnesium Today E87.8 - Other disorders of electrolyte and fluid balance, not elsewhere classified Basic Metabolic Panel Today E87.8 - Other disorders of electrolyte and fluid balance, not elsewhere classified Medications: New magnesium oxide 420 mg PO BEDTIME 30 tabs 0RF amlodipine 10 mg PO DAILY 30 tabs 0RF Refilled clotrimazole-betamethasone 1-0.05 % 1 appl topical ONCE 45 grams 2RF 30 days Discontinued chlorthalidone Discontinued Reason: Doctor's Order 25 mg PO DAILY 90 days 90 tabs 0RF Coding Level of Care Code Est Pt Level 5 (58376) Diagnoses Electrolyte abnormality E87.8 Hypokalemia E87.6 Elevated ferritin R79.89 Grade I hemorrhoids K64.0 Hemorrhoid type: first degree Iron deficiency anemia due to chronic blood loss D50.0 Anemia type: iron deficiency Iron deficiency anemia type: chronic blood loss Nephropathy N28.9 LFT elevation R79.89 Uncomplicated alcohol dependence F10.20 Substance use status: uncomplicated Alcoholic peripheral neuropathy G62.1 Peripheral vascular disease I73.9 Marijuana dependence F12.20 Class 1 obesity due to excess calories with serious comorbidity and body mass index (BMI) of 31.0 to 31.9 in adult E66.09; Z68.31 Obesity classification: adult class 1 (BMI 30 - 34.9) Serious obesity comorbidity presence: with serious comorbidity Body mass index: BMI 31.0-31.9 Alcoholism F10.20 Primary hypertension I10 Hypertension type: primary hypertension Neuropathy G62.9 Elevated serum creatinine R79.89 Anxiety, generalized F41.1 Time Spent (min) 60 Comment More than 60 minutes spent in care of this patient including follow-up call
== END 2024-01-12 11:10 | disposition home or self-care (01) ==
LOC: HO.HMGC 08:30
PROVIDERS: PCP Internal Medicine; Visit Provider Internal Medicine
DX: I73.9 Peripheral vascular disease, unspecified (principal); F10.20 Alcohol dependence, uncomplicated; G62.1 Alcoholic polyneuropathy; F12.20 Cannabis dependence, uncomplicated; E87.8 Other disorders of electrolyte and fluid balance, not elsewhere classified; E87.6 Hypokalemia; R79.89 Other specified abnormal findings of blood chemistry; K64.0 First degree hemorrhoids; D50.0 Iron deficiency anemia secondary to blood loss (chronic); N28.9 Disorder of kidney and ureter, unspecified; E66.09 Other obesity due to excess calories; Z68.31 Body mass index [BMI] 31.0-31.9, adult
CPT/HCPCS: 99215

== ENCOUNTER 2024-01-12 09:02 | Outpatient (REF) | payer OTHER, SELFPAY ==
[2024-01-12 11:16] LABS: MANUAL DIFF FLAG NO
[2024-01-12 11:25] LABS: Basophils Absolute Auto 0.1 X10*3/uL (0.0-0.2); Basophils Percent Auto 1.4 % (0-2); Eosinophils Absolute Auto 0.3 X10*3/uL (0.0-0.4); Hematocrit 29.9 % (42.0-52.0); Hemoglobin 10.1 g/dl (14.0-18.0); Imm Gran Abs Auto 0.01 X10*3/uL (0.00-0.03); Imm Gran Pct Auto 0.2 % (0.0-0.4); Lymphocytes Absolute Auto 1.7 X10*3/uL (1.2-4.9); Mean Corpuscular HGB Conc 33.8 g/dl (31.0-36.0); Mean Corpuscular Hemoglobin 36.5 pg (27.0-33.0); Mean Corpuscular Volume 107.9 fL (80.0-98.0); Mean Platelet Volume 10.7 fL (9.4-12.4); Monocytes Absolute Auto 0.6 X10*3/uL (0.1-1.2); Monocytes Percent Auto 10.8 % (2-11); Neutrophils Absolute Auto 3.1 x10*3/uL (2.0-8.3); Neutrophils Percent Auto 53.6 % (45-73); Platelet Count 252 X10*3/uL (160-400); Red Blood Count 2.77 X10*6/uL (4.60-5.80); Red Cell Distribution Width 13.9 % (11.0-16.0); White Blood Count 5.8 X10*3/uL (4.8-10.8)
[2024-01-12 12:07] LABS: Alanine Aminotransferase 50 U/L (0-40); Albumin Level 3.9 g/dL (3.5-5.0); Alkaline Phosphatase 60 U/L (39-117); Anion Gap 13 (12-20); Aspartate Amino Transferase 49 U/L (5-37); Blood Urea Nitrogen 27 mg/dL (9-16); Calcium 10.6 mg/dL (8.4-10.2); Carbon Dioxide 32 mmol/L (22-29); Chloride 96 mmol/L (96-108); Estimated Glomerular Filt Rate 56; Glucose Random 85 mg/dL (60-115); Iron 86 mcg/dL (45-160); Magnesium 1.1 mg/dL (1.6-2.6); Percent Iron Saturation 29 % (15-50); Potassium 3.4 mmol/L (3.3-5.1); Sodium 138 mmol/L (135-145); Total Iron Binding Capacity 301 mcg/dL (228-428); Total Protein 7.9 g/dL (6.5-8.0); Unsaturated Iron Binding 215 ug/dL
[2024-01-12 12:12] LABS: Vitamin B12 561 pg/mL (200-900)
[2024-01-12 12:14] LABS: Ferritin 1267 ng/mL (20-250); TSH reflex Free T4 2.05 uIU/mL (0.32-4.0)
[2024-01-16 16:43] LABS: Vitamin D 25-OH, D2 <4 ng/mL; Vitamin D 25-OH, D3 70 ng/mL; Vitamin D 25-OH, Total 70 ng/mL (30-100)
== END 2024-01-12 09:03 | disposition home or self-care (01) ==
LOC: HO.HMGCLDS 09:02
PROVIDERS: PCP Internal Medicine; Visit Provider Internal Medicine
DX: E87.8 Other disorders of electrolyte and fluid balance, not elsewhere classified (principal); E87.6 Hypokalemia; R79.89 Other specified abnormal findings of blood chemistry; K64.9 Unspecified hemorrhoids; D64.9 Anemia, unspecified; N28.9 Disorder of kidney and ureter, unspecified; F10.20 Alcohol dependence, uncomplicated
CPT/HCPCS: 36415; 80053; 82306; 82607; 82728; 83540; 83735; 84443; 85025

== ENCOUNTER 2024-02-19 11:10 | Outpatient (REF) | payer OTHER, SELFPAY ==
[2024-02-19 13:38] LABS: Anion Gap 12 (12-20); Blood Urea Nitrogen 17 mg/dL (9-16); Calcium 9.8 mg/dL (8.4-10.2); Carbon Dioxide 30 mmol/L (22-29); Chloride 98 mmol/L (96-108); Estimated Glomerular Filt Rate > 60; Glucose Random 99 mg/dL (60-115); Magnesium 1.5 mg/dL (1.6-2.6); Potassium 4.2 mmol/L (3.3-5.1); Sodium 136 mmol/L (135-145)
[2024-02-19 13:55] LABS: Ferritin 657 ng/mL (20-250)
== END 2024-02-19 11:11 | disposition home or self-care (01) ==
LOC: HO.HMGCLDS 11:10
PROVIDERS: PCP Internal Medicine; Visit Provider Internal Medicine
DX: E87.8 Other disorders of electrolyte and fluid balance, not elsewhere classified (principal); R79.89 Other specified abnormal findings of blood chemistry
CPT/HCPCS: 36415; 80048; 81256; 82728; 83735

== ENCOUNTER 2024-02-23 10:20 | Outpatient (AMB) | payer OTHER, SELFPAY ==
[2024-02-23 10:21] VITALS: BP 128/76; PULSE 70; O2SAT 96; BMI 33.2
--- NOTE | 2024-02-23 10:21 | A.OFFPC_ITS ---
Vital Signs 02/23/24 10:21 Height 5 ft 9 in Weight 225 lb BMI 33.2 BP 128/76 Blood Pressure Location Rt brachial Position Sitting Pulse 70 Pulse Source Pulse Oximeter Pulse Oximetry (%) 96 Oxygen Delivery Method Room Air Intake Visit Reasons: Ankle and feet swelling Allergies amlodipine Adverse Reaction (Verified 02/23/24 10:44) Swelling ankles Medication List - Last Reconciled 02/23/24 by Angelica Schrader MD amlodipine 10 mg PO DAILY atenolol 100 mg PO DAILY 90 days buspirone 10 mg PO .q am PRN 90 days clotrimazole-betamethasone 1-0.05 % 1 appl topical ONCE 30 days lisinopril 40 mg PO DAILY 90 days magnesium oxide 420 mg PO BEDTIME potassium chloride ER 20 mEq PO DAILY tramadol 50 mg PO BID PRN 7 days Tobacco use date assessed: 02/23/24 Dental Screening Dental Screen Date: 02/23/24 Did you have a dental visit in the last 12 months?: No Did you have a dental problem in the last 6 months where you did not have access to dental care?: No Was dental information given to patient?: No HPI Ankle and feet swelling HPI Details Patient is 63-year-old gentleman came in today to be evaluated for swelling of his ankles Patient has been taking amlodipine for the control of blood pressure, I am stopping that He is to continue with atenolol 100 mg and lisinopril 40 mg I have sent frusemide 20 mg to be taken once a day for 3 days and patient was instructed to keep his feet elevated as much as possible Continue his magnesium supplement Continued to drink alcohol however tells me that he has cut down Patient suffers from peripheral neuropathy secondary to longstanding alcohol abuse Taking buspirone for anxiety Patient has appointment coming up early next month for follow-up Labs are needed before that visit Also continued to be anemic. We are monitoring it Last time his ferritin level was very high in 600s, we will monitor that as well Once again patient was instructed to stop drinking altogether. [facility] Medical History History of COVID-19 Neuropathy Alcohol dependence Anxiety HTN (hypertension) Surgical History H/O colonoscopy Hx of cataract extraction History of open reduction and internal fixation (ORIF) procedure Social History Housing: Apartment Patient Tobacco Use Status: Never used Tobacco e-Cigarette/Vaping Use: Never Used Current occupational status: employed Cognitive needs: No Hearing needs: No Vision needs: Yes Questionnaire Thrive Questionnaire Date Thrive assessed: 08/05/23 AUDIT C Alcohol Use Questionnaire (AUDIT-C) 1. How often do you have a drink containing alcohol?: Never 3. How often do you have six or more drinks on one occasion?: Never Total Score: 0 Score Reviewed/Action Taken: Yes ALLIE-7 AMB Questionnaire ALLIE-7 Date ALLIE - 7 assessed: 08/05/23 Source: Developed by Drs. Srikanth Hernández, Cathleen Cifuentes, Jarod Garcia and colleagues, with an educational prince from [employer]. Review of Systems Const Denies chills and Denies fever(s) ENT Denies epistaxis and Denies nasal discharge Card Denies chest pain Resp Denies chest congestion, Denies cough and Denies hemoptysis GI Denies diarrhea and Denies nausea Skin/Breast Denies rash Neuro Reports no additional complaints Psych Reports no additional complaints Endo Reports no additional complaints Physical exam (Primary Care) Vital Signs: Last Vital Signs Pulse 70 02/23/24 10:21 BP 128/76 02/23/24 10:21 Pulse Ox 96 02/23/24 10:21 Oxygen Delivery Method Room Air 02/23/24 10:21 BMI result Body Mass Index 33.2 Tobacco/Smoking Status: Tobacco use Status Tobacco use date assessed 02/23/24 02/23/24 10:27 Patient Tobacco Use Status Never used Tobacco 02/23/24 10:27 e-Cigarette/Vaping Use Never Used 02/23/24 10:27 Thrive Assessment: Date of Thrive Assessment Date Thrive assessed 08/05/23 02/23/24 10:27 Const General: cooperative, comfortable and no acute distress Orientation/consciousness: patient oriented x3 HENMT Head: Yes normocephalic Eyes General: appearance normal, both eyes and all related structures Neck Neck: Yes supple Resp Effort & Inspection: normal respiratory effort, no cough and no stridor Cardio Rhythm: regular rhythm Heart sounds: S1 normal heart sound present and S2 normal heart sound present Skin General skin exam: turgor normal Neuro General: patient oriented x3, tone normal and moves all extremities Extrem Other: Both lower extremity edematous up to diaz pitting Assessment and Plan Assessment & Plan (1) Edema of both lower extremities: Code(s): R60.0 - Localized edema (2) HTN (hypertension): Code(s): I10 - Essential (primary) hypertension Qualifiers: Hypertension type: primary hypertension Qualified Code(s): I10 - Essential (primary) hypertension (3) Nephropathy: Code(s): N28.9 - Disorder of kidney and ureter, unspecified (4) Electrolyte abnormality: Code(s): E87.8 - Other disorders of electrolyte and fluid balance, not elsewhere class ified (5) Elevated ferritin: Code(s): R79.89 - Other specified abnormal findings of blood chemistry (6) Alcoholic peripheral neuropathy: Code(s): G62.1 - Alcoholic polyneuropathy (7) Peripheral vascular disease: Code(s): I73.9 - Peripheral vascular disease, unspecified (8) Alcohol dependence: Code(s): F10.20 - Alcohol dependence, uncomplicated Qualifiers: Substance use status: uncomplicated Qualified Code(s): F10.20 - Alcohol dependence, uncomplicated (9) Anemia: Code(s): D64.9 - Anemia, unspecified Qualifiers: Anemia type: iron deficiency Iron deficiency anemia type: chronic blood loss Qualified Code(s): D50.0 - Iron deficiency anemia secondary to blood loss (chronic) (10) Marijuana dependence: Code(s): F12.20 - Cannabis dependence, uncomplicated (11) Anxiety, generalized: Code(s): F41.1 - Generalized anxiety disorder Plan Patient is 63-year-old gentleman came in today to be evaluated for swelling of his ankles Patient has been taking amlodipine for the control of blood pressure, I am stopp ing that He is to continue with atenolol 100 mg and lisinopril 40 mg I have sent frusemide 20 mg to be taken once a day for 3 days and patient was instructed to keep his feet elevated as much as possible Continue his magnesium supplement Continued to drink alcohol however tells me that he has cut down Patient suffers from peripheral neuropathy secondary to longstanding alcohol abuse Taking buspirone for anxiety Patient has appointment coming up early next month for follow-up Labs are needed before that visit Also continued to be anemic. We are monitoring it Last time his ferritin level was very high in 600s, we will monitor that as well Once again patient was instructed to stop drinking altogether. Orders: Orders Complete Blood Count Auto Diff 5 Days D64.9 - Anemia, unspecified, E87.8 - Other disorders of electrolyte and fluid balance, not elsewhere classified, F10.20 - Alcohol dependence, uncomplicated, F12.20 - Cannabis dependence, uncomplicated, F41.1 - Generalized anxiety disorder, G62.1 - Alcoholic polyneuropathy, I10 - Essential (primary) hypertension, I73.9 - Peripheral vascular disease, unspecified, M25.473 - Effusion, unspecified ankle, N28.9 - Disorder of kidney and ureter, unspecified, R79.89 - Other specified abnormal findings of blood chemistry TSH reflex Free T4 5 Days D64.9 - Anemia, unspecified, E87.8 - Other disorders of electrolyte and fluid balance, not elsewhere classified, F10.20 - Alcohol dependence, uncomplicated, F12.20 - Cannabis dependence, uncomplicated, F41.1 - Generalized anxiety disorder, G62.1 - Alcoholic polyneuropathy, I10 - Essential (primary) hypertension, I73.9 - Peripheral vascular disease, unspecified, M25.473 - Effusion, unspecified ankle, N28.9 - Disorder of kidney and ureter, unspecified, R79.89 - Other specified abnormal findings of blood chemistry IRON PROFILE 5 Days D64.9 - Anemia, unspecified, E87.8 - Other disorders of electrolyte and fluid balance, not elsewhere classified, F10.20 - Alcohol dependence, uncomplicated, F12.20 - Cannabis dependence, uncomplicated, F41.1 - Generalized anxiety disorder, G62.1 - Alcoholic polyneuropathy, I10 - Essential (primary) hypertension, I73.9 - Peripheral vascular disease, unspecified, M25.473 - Effusion, unspecified ankle, N28.9 - Disorder of kidney and ureter, unspecified, R79.89 - Other specified abnormal findings of blood chemistry Magnesium 5 Days D64.9 - Anemia, unspecified, E87.8 - Other disorders of electrolyte and fluid balance, not elsewhere classified, F10.20 - Alcohol dependence, uncomplicated, F12.20 - Cannabis dependence, uncomplicated, F41.1 - Generalized anxiety disorder, G62.1 - Alcoholic polyneuropathy, I10 - Essential (primary) hypertension, I73.9 - Peripheral vascular disease, unspecified, M25.473 - Effusion, unspecified ankle, N28.9 - Disorder of kidney and ureter, unspecified, R79.89 - Other specified abnormal findings of blood chemistry Ferritin 5 Days D64.9 - Anemia, unspecified, E87.8 - Other disorders of e lectrolyte and fluid balance, not elsewhere classified, F10.20 - Alcohol dependence, uncomplicated, F12.20 - Cannabis dependence, uncomplicated, F41.1 - Generalized anxiety disorder, G62.1 - Alcoholic polyneuropathy, I10 - Essential (primary) hypertension, I73.9 - Peripheral vascular disease, unspecified, M25.473 - Effusion, unspecified ankle, N28.9 - Disorder of kidney and ureter, unspecified, R79.89 - Other specified abnormal findings of blood chemistry Comprehensive Met. Panel 5 Days D64.9 - Anemia, unspecified, E87.8 - Other disorders of electrolyte and fluid balance, not elsewhere classified, F10.20 - Alcohol dependence, uncomplicated, F12.20 - Cannabis dependence, uncomplicated, F41.1 - Generalized anxiety disorder, G62.1 - Alcoholic polyneuropathy, I10 - E ssential (primary) hypertension, I73.9 - Peripheral vascular disease, unspecified, M25.473 - Effusion, unspecified ankle, N28.9 - Disorder of kidney and ureter, unspecified, R79.89 - Other specified abnormal findings of blood chemistry Vitamin B12 5 Days D64.9 - Anemia, unspecified, E87.8 - Other disorders of electrolyte and fluid balance, not elsewhere classified, F10.20 - Alcohol dependence, uncomplicated, F12.20 - Cannabis dependence, uncomplicated, F41.1 - Generalized anxiety disorder, G62.1 - Alcoholic polyneuropathy, I10 - Essential (primary) hypertension, I73.9 - Peripheral vascular disease, unspecified, M25.473 - Effusion, unspecified ankle, N28.9 - Disorder of kidney and ureter, unspecified, R79.89 - Other specified abnormal findings of blood chemistry Medications: New furosemide 20 mg PO QAM 3 tabs 0RF 3 days Discontinued amlodipine Discontinued Reason: Doctor's Order 10 mg PO DAILY 30 tabs 0RF Coding Level of Care Code Est Pt Level 4 (35845) Diagnoses Edema of both lower extremities R60.0 Primary hypertension I10 Hypertension type: primary hypertension Nephropathy N28.9 Electrolyte abnormality E87.8 Elevated ferritin R79.89 Alcoholic peripheral neuropathy G62.1 Peripheral vascular disease I73.9 Uncomplicated alcohol dependence F10.20 Substance use status: uncomplicated Iron deficiency anemia due to chronic blood loss D50.0 Anemia type: iron deficiency Iron deficiency anemia type: chronic blood loss Marijuana dependence F12.20 Anxiety, generalized F41.1
== END 2024-02-23 10:44 | disposition home or self-care (01) ==
PROVIDERS: PCP Internal Medicine; Visit Provider Internal Medicine
DX: I73.9 Peripheral vascular disease, unspecified (principal); G62.1 Alcoholic polyneuropathy; F10.20 Alcohol dependence, uncomplicated; F12.20 Cannabis dependence, uncomplicated; R60.0 Localized edema; N28.9 Disorder of kidney and ureter, unspecified; I10 Essential (primary) hypertension; E87.8 Other disorders of electrolyte and fluid balance, not elsewhere classified; R79.89 Other specified abnormal findings of blood chemistry; D50.0 Iron deficiency anemia secondary to blood loss (chronic); F41.1 Generalized anxiety disorder
CPT/HCPCS: 99214

== ENCOUNTER 2024-03-04 06:03 | Outpatient (REF) | payer OTHER, SELFPAY ==
[2024-03-04 10:25] LABS: MANUAL DIFF FLAG NO
[2024-03-04 10:45] LABS: Basophils Absolute Auto 0.1 X10*3/uL (0.0-0.2); Eosinophils Absolute Auto 0.4 X10*3/uL (0.0-0.4); Eosinophils Percent Auto 7.3 % (0-4); Hematocrit 33.5 % (42.0-52.0); Hemoglobin 11.1 g/dl (14.0-18.0); Imm Gran Abs Auto 0.01 X10*3/uL (0.00-0.03); Imm Gran Pct Auto 0.2 % (0.0-0.4); Lymphocytes Absolute Auto 1.5 X10*3/uL (1.2-4.9); Lymphocytes Percent Auto 28.4 % (20-40); Mean Corpuscular HGB Conc 33.1 g/dl (31.0-36.0); Mean Corpuscular Hemoglobin 35.4 pg (27.0-33.0); Mean Corpuscular Volume 106.7 fL (80.0-98.0); Mean Platelet Volume 10.1 fL (9.4-12.4); Monocytes Absolute Auto 0.5 X10*3/uL (0.1-1.2); Monocytes Percent Auto 9.2 % (2-11); Neutrophils Absolute Auto 2.8 x10*3/uL (2.0-8.3); Neutrophils Percent Auto 53.9 % (45-73); Platelet Count 190 X10*3/uL (160-400); Red Blood Count 3.14 X10*6/uL (4.60-5.80); Red Cell Distribution Width 14.4 % (11.0-16.0); White Blood Count 5.2 X10*3/uL (4.8-10.8)
[2024-03-04 11:11] LABS: Alanine Aminotransferase 26 U/L (0-40); Alkaline Phosphatase 71 U/L (39-117); Anion Gap 13 (12-20); Aspartate Amino Transferase 32 U/L (5-37); Bilirubin Total 0.5 mg/dL (0.0-1.0); Blood Urea Nitrogen 18 mg/dL (9-16); Calcium 9.3 mg/dL (8.4-10.2); Carbon Dioxide 30 mmol/L (22-29); Chloride 100 mmol/L (96-108); Estimated Glomerular Filt Rate > 60; Glucose Random 84 mg/dL (60-115); Iron 87 mcg/dL (45-160); Magnesium 1.8 mg/dL (1.6-2.6); Percent Iron Saturation 30 % (15-50); Potassium 4.2 mmol/L (3.3-5.1); Sodium 139 mmol/L (135-145); Total Iron Binding Capacity 294 mcg/dL (228-428); Total Protein 7.5 g/dL (6.5-8.0); Unsaturated Iron Binding 207 ug/dL
[2024-03-04 11:30] LABS: Ferritin 517 ng/mL (20-250); TSH reflex Free T4 1.81 uIU/mL (0.32-4.0)
[2024-03-04 11:34] LABS: Vitamin B12 369 pg/mL (200-900)
== END 2024-03-04 06:04 | disposition home or self-care (01) ==
LOC: HO.HMGCLDS 06:03
PROVIDERS: PCP Internal Medicine; Visit Provider Internal Medicine
DX: F10.20 Alcohol dependence, uncomplicated (principal); N28.9 Disorder of kidney and ureter, unspecified; F12.20 Cannabis dependence, uncomplicated; E87.8 Other disorders of electrolyte and fluid balance, not elsewhere classified; R79.89 Other specified abnormal findings of blood chemistry; G62.1 Alcoholic polyneuropathy; I73.9 Peripheral vascular disease, unspecified; D64.9 Anemia, unspecified; I10 Essential (primary) hypertension; F41.1 Generalized anxiety disorder; M25.473 Effusion, unspecified ankle
CPT/HCPCS: 36415; 80053; 82607; 82728; 83540; 83735; 84443; 85025

== ENCOUNTER 2024-03-04 12:07 | Outpatient (AMB) | payer OTHER, SELFPAY ==
[2024-03-04 12:09] VITALS: BP 172/100; PULSE 68; O2SAT 98; BMI 32.5
--- NOTE | 2024-03-04 12:09 | A.OFFPC_ITS ---
Vital Signs 03/04/24 12:09 Height 5 ft 9 in Weight 220 lb BMI 32.5 BP 172/100 H Blood Pressure Location Rt brachial Position Sitting Pulse 68 Pulse Source Pulse Oximeter Pulse Oximetry (%) 98 Oxygen Delivery Method Room Air Intake Visit Reasons: 9 month follow up Allergies amlodipine Adverse Reaction (Verified 03/04/24 12:11) Swelling ankles Medication List - Last Reconciled 03/04/24 by Angelica Schrader MD atenolol 100 mg PO DAILY 90 days buspirone 10 mg PO .q am PRN 90 days clotrimazole-betamethasone 1-0.05 % 1 appl topical ONCE 30 days furosemide 20 mg PO QAM 3 days lisinopril 40 mg PO DAILY 90 days magnesium oxide 420 mg PO BEDTIME potassium chloride ER 20 mEq PO DAILY Tobacco use date assessed: 03/04/24 Dental Screening Dental Screen Date: 03/04/24 Did you have a dental visit in the last 12 months?: No Was dental information given to patient?: No HPI 9 month follow up HPI Details His hemochromatosis gene test came back positive for 1 gene Ferritin level has slightly improved from last month but still in 500 range Hemoglobin has improved to 11.1, he is to stop taking iron supplement We will repeat labs again in 4 weeks He does not want to see hematology at this time Edema of both lower leg has improved when we stopped amlodipine and give him 3 days of frusemide However now blood pressure is high and [id number] Currently patient is taking lisinopril 40 mg And atenolol 100 mg I am adding spironolactone 50 mg Patient is to return in 4 weeks for follow-up appointment labs are needed before visit Magnesium level is within normal range now at 1.8, he is to continue magnesium supplement. Continued to drink alcohol once again patient was advised to [facility] Medical History History of COVID-19 Neuropathy Alcohol dependence Anxiety HTN (hypertension) Surgical History H/O colonoscopy Hx of cataract extraction History of open reduction and internal fixation (ORIF) procedure Social History Housing: Apartment Patient Tobacco Use Status: Never used Tobacco e-Cigarette/Vaping Use: Never Used Current occupational status: employed Cognitive needs: No Hearing needs: No Vision needs: Yes Questionnaire PHQ-9 Over the last 2 weeks, how often have you been bothered by any of the following problems? 1. Little interest or pleasure in doing things: not at all 2. Feeling down, depressed, or hopeless: not at all 3. Trouble falling or staying asleep, or sleeping too much: not at all 4. Feeling tired or having little energy: not at all 5. Poor appetite or overeating: not at all 6. Feeling bad about yourself - or that you are a failure or have let yourself or your family down: not at all 7. Trouble concentrating on things, such as reading the newspaper or watching television: not at all 8. Moving or speaking so slowly that other people could have noticed. Or the opposite - being so fidgety or restless that you have been moving around a lot more than usual: not at all 9. Thoughts that you would be better off or of hurting yourself in some way: not at all Total score: 0 Depression Screening Interpretation: Negative Depression Screening Done: Yes [id number] - PHQ-9 Billing: Yes Source: Developed by Drs. Srikanth Hernández, Cathleen Cifuentes, Jarod Garcia and colleagues, with an educational prince from [email or web address] Thrive Questionnaire Date Thrive assessed: 08/05/23 AUDIT C Alcohol Use Questionnaire (AUDIT-C) 1. How often do you have a drink containing alcohol?: 4 or more times a week 2. How many drinks containing alcohol do you have on a typical day when you are drinking?: 5 or 6 3. How often do you have six or more drinks on one occasion?: Daily or almost daily Total Score: 10 ALLIE-7 AMB Questionnaire ALLIE-7 Date ALLIE - 7 assessed: 03/04/24 Feeling nervous, anxious, or on edge: 0 = Not at all Not being able to stop or control worryin = Not at all Worrying too much about different things: 0 = Not at all Trouble relaxin = Not at all Being so restless that it is hard to sit still: 0 = Not at all Becoming easily annoyed or irritable: 0 = Not at all Feeling afraid as if something awful might happen: 0 = Not at all Total ALLIE-7 score (0-4 normal; 5-9 mild; 10-14 moderate; 15-21 severe): 0 Source: Developed by Drs. Srikanth Hernández, Cathleen Cifuentes, Jarod Garcia and colleagues, with an educational prince from [email or web address] Review of Systems Const Denies chills and Denies fever(s) ENT Denies epistaxis and Denies nasal discharge Card Denies chest pain Resp Denies chest congestion, Denies cough and Denies hemoptysis GI Denies diarrhea and Denies nausea Skin/Breast Denies rash Neuro Reports no additional complaints Psych Reports no additional complaints Endo Reports no additional complaints Physical exam (Primary Care) Vital Signs: Last Vital Signs Pulse 68 03/04/24 12:09 BP 172/100 H 03/04/24 12:09 Pulse Ox 98 03/04/24 12:09 Oxygen Delivery Method Room Air 03/04/24 12:09 BMI result Body Mass Index 32.5 Tobacco/Smoking Status: Tobacco use Status Tobacco use date assessed 03/04/24 03/04/24 12:12 Patient Tobacco Use Status Never used Tobacco 03/04/24 12:12 e-Cigarette/Vaping Use Never Used 03/04/24 12:12 PHQ-9: PHQ-9 Score PHQ-9: Total score 0 03/04/24 12:15 Depression Screening Interpretation: Negative Thrive Assessment: Date of Thrive Assessment Date Thrive assessed 08/05/23 03/04/24 12:12 Const General: cooperative, comfortable and no acute distress Orientation/consciousness: patient oriented x3 HENMT Head: Yes normocephalic Eyes General: appearance normal, both eyes and all related structures Neck Neck: Yes supple Resp Effort & Inspection: normal respiratory effort, no cough and no stridor Cardio Rhythm: regular rhythm Heart sounds: S1 normal heart sound present and S2 normal heart sound present Skin General skin exam: turgor normal Neuro General: patient oriented x3, tone normal and moves all extremities Extrem Right lower extremity: no edema Left lower extremity: no edema Assessment and Plan Assessment & Plan (1) Edema of both lower extremities: Code(s): R60.0 - Localized edema (2) HTN (hypertension): Code(s): I10 - Essential (primary) hypertension Qualifiers: Hypertension type: primary hypertension Qualified Code(s): I10 - E ssential (primary) hypertension (3) Electrolyte abnormality: Code(s): E87.8 - Other disorders of electrolyte and fluid balance, not elsewhere classified (4) Elevated ferritin: Code(s): R79.89 - Other specified abnormal findings of blood chemistry (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 - Alcoholic polyneuropathy (6) Alcohol dependence: Code(s): F10.20 - Alcohol dependence, uncomplicated Qualifiers: Substance use status: uncomplicated Qualified Code(s): F10.20 - Alcohol dependence, uncomplicated (7) Hemochromatosis: Code(s): E83.119 - Hemochromatosis, unspecified Qualifiers: Hemochromatosis type: hereditary Qualified Code(s): E83.110 - Hereditary hemochromatosis Plan His hemochromatosis gene test came back positive for 1 gene Ferritin level has slightly improved from last month but still in 500 range Hemoglobin has improved to 11.1, he is to stop taking iron supplement We will repeat labs again in 4 weeks He does not want to see hematology at this time Edema of both lower leg has improved when we stopped amlodipine and give him 3 days of frusemide However now blood pressure is high and [id number] Currently patient is taking lisinopril 40 mg And atenolol 100 mg I am adding spironolactone 50 mg Patient is to return in 4 weeks for follow-up appointment labs are needed before visit Magnesium level is within normal range now at 1.8, he is to continue magnesium supplement. Continued to drink alcohol once again patient was advised to stop Orders: Orders Complete Blood Count Auto Diff 3 Weeks E83.110 - Hereditary hemochromatosis, E87.8 - Other disorders of electrolyte and fluid balance, not elsewhere classified, I10 - Essential (primary) hypertension, R60.0 - Localized edema, R79.89 - Other specified abnormal findings of blood chemistry Comprehensive Met. Panel 3 Weeks E83.110 - Hereditary hemochromatosis, E87.8 - Other disorders of electrolyte and fluid balance, not elsewhere classified, I10 - Essential (primary) hypertension, R60.0 - Localized edema, R79.89 - Other specified abnormal findings of blood chemistry Ferritin 3 Weeks E83.110 - Hereditary hemochromatosis, E87.8 - Other disorders of electrolyte and fluid balance, not elsewhere classified, I10 - Essential (primary) hypertension, R60.0 - Localized edema, R79.89 - Other specified abnormal findings of blood chemistry Magnesium Today E83.110 - Hereditary hemochromatosis, E87.8 - Other disorders of electrolyte and fluid balance, not elsewhere classified, I10 - Essential (primary) hypertension, R60.0 - Localized edema, R79.89 - Other specified abnormal findings of blood chemistry Medications: New spironolactone (Aldactone) 50 mg PO QAM 30 tabs 0RF Discontinued potassium chloride ER Discontinued Reason: Doctor's Order 20 mEq PO DAILY 7 tabs 0RF Coding Level of Care Code Est Pt Level 4 (32356) Diagnoses Edema of both lower extremities R60.0 Primary hypertension I10 Hypertension type: primary hypertension Electrolyte abnormality E87.8 Elevated ferritin R79.89 Alcoholic peripheral neuropathy G62.1 Uncomplicated alcohol dependence F10.20 Substance use status: uncomplicated Hereditary hemochromatosis E83.110 Hemochromatosis type: hereditary
== END 2024-03-04 13:45 | disposition home or self-care (01) ==
PROVIDERS: PCP Internal Medicine; Visit Provider Internal Medicine
DX: E83.110 Hereditary hemochromatosis (principal); G62.1 Alcoholic polyneuropathy; F10.20 Alcohol dependence, uncomplicated; R60.0 Localized edema; I10 Essential (primary) hypertension; E87.8 Other disorders of electrolyte and fluid balance, not elsewhere classified; R79.89 Other specified abnormal findings of blood chemistry
CPT/HCPCS: 99214

== ENCOUNTER 2024-04-07 06:01 | Outpatient (REF) | payer OTHER, SELFPAY ==
[2024-04-07 10:36] LABS: MANUAL DIFF FLAG NO
[2024-04-07 10:51] LABS: Basophils Percent Auto 0.7 % (0-2); Eosinophils Absolute Auto 0.2 X10*3/uL (0.0-0.4); Eosinophils Percent Auto 4.1 % (0-4); Hematocrit 36.5 % (42.0-52.0); Hemoglobin 12.7 g/dl (14.0-18.0); Lymphocytes Absolute Auto 1.7 X10*3/uL (1.2-4.9); Lymphocytes Percent Auto 36.9 % (20-40); Mean Corpuscular HGB Conc 34.8 g/dl (31.0-36.0); Mean Corpuscular Hemoglobin 34.9 pg (27.0-33.0); Mean Corpuscular Volume 100.3 fL (80.0-98.0); Mean Platelet Volume 11.6 fL (9.4-12.4); Monocytes Absolute Auto 0.4 X10*3/uL (0.1-1.2); Monocytes Percent Auto 7.8 % (2-11); Neutrophils Absolute Auto 2.3 x10*3/uL (2.0-8.3); Neutrophils Percent Auto 50.5 % (45-73); Platelet Count 108 X10*3/uL (160-400); Red Blood Count 3.64 X10*6/uL (4.60-5.80); Red Cell Distribution Width 12.8 % (11.0-16.0); White Blood Count 4.6 X10*3/uL (4.8-10.8)
[2024-04-07 11:13] LABS: Alanine Aminotransferase 57 U/L (0-40); Alkaline Phosphatase 67 U/L (39-117); Anion Gap 14 (12-20); Aspartate Amino Transferase 42 U/L (5-37); Bilirubin Total 0.4 mg/dL (0.0-1.0); Blood Urea Nitrogen 64 mg/dL (9-16); Calcium 9.8 mg/dL (8.4-10.2); Carbon Dioxide 21 mmol/L (22-29); Chloride 99 mmol/L (96-108); Estimated Glomerular Filt Rate 36; Glucose Random 140 mg/dL (60-115); Magnesium 1.9 mg/dL (1.6-2.6); Potassium 4.4 mmol/L (3.3-5.1); Sodium 130 mmol/L (135-145); Total Protein 7.6 g/dL (6.5-8.0)
[2024-04-07 11:32] LABS: Ferritin 1269 ng/mL (20-250)
== END 2024-04-07 06:02 | disposition home or self-care (01) ==
LOC: HO.HMGCLDS 06:01
PROVIDERS: PCP Internal Medicine; Visit Provider Internal Medicine
DX: I10 Essential (primary) hypertension (principal); R60.0 Localized edema; E83.110 Hereditary hemochromatosis; E87.8 Other disorders of electrolyte and fluid balance, not elsewhere classified; R79.89 Other specified abnormal findings of blood chemistry
CPT/HCPCS: 36415; 80053; 82728; 83735; 85025

== ENCOUNTER 2024-07-01 11:06 | Outpatient (AMB) | payer OTHER, SELFPAY ==
--- NOTE | 2024-07-01 11:11 | MHC.OFFWIV ---
Intake Vital Signs 07/01/24 11:12 Height 5 ft 9 in Weight 190 lb BMI 28.1 BP 88/60 L Blood Pressure Location Rt brachial Position Sitting Pulse 70 Pulse Source Pulse Oximeter Temp 97.6 F Temp Source Oral Pulse Oximetry (%) 97 Oxygen Delivery Method Room Air Intake Visit Reasons: trouble breathing, legs wobbly, Intake Note: pt c/o SOB, unsteady gait. Got sick Thursday night after eating [employer]. Stopped using alcohol 5 days ago Patient Tobacco Use Status: Never used Tobacco Allergies amlodipine Adverse Reaction (Verified 07/01/24 11:11) Swelling ankles Do you need a note to return to daycare/school/sports/work: No HPI HPI Comments History of Present Illness Details 63 y/o male patient who presents to the walk in clinic with c/o Feeling SOB and unstable Gain since Thursday. He has Alcohol dependence syndrome. Reports his last drink was 5 days ago. Reports feeling week and legs are Wobbly . He is Hypotensive in the clinic today. Reports not feeling like himself. C/o diarrhea since Thursday and still feels nauseous. Advised Pt to go to Emergency room for IV hydration and monitoring. Pt declined to go to ED with or without Ambulance ride, due to High Co-payments. Pt does not think he is going through DT's. Pt has an upcoming Appointment with PCP next week 07/06 [facility] Medical History History of COVID-19 Neuropathy Alcohol dependence Anxiety HTN (hypertension) Surgical History H/O colonoscopy Hx of cataract extraction History of open reduction and internal fixation (ORIF) procedure Social History Housing: Apartment Patient Tobacco Use Status: Never used Tobacco e-Cigarette/Vaping Use: Never Used Current occupational status: employed Cognitive needs: No Hearing needs: No Vision needs: Yes Review of Systems Const All systems reviewed & are unremarkable except as noted in HPI and below Physical Exam Vital Signs: Last Vital Signs Temp 97.6 F 07/01/24 11:12 Pulse 70 07/01/24 11:12 BP 88/60 L 07/01/24 11:12 Pulse Ox 97 08/02/24 11:12 Oxygen Delivery Method Room Air 07/01/24 11:12 BMI result Body Mass Index 28.1 Const General: no acute distress and ill appearing Nutritional Appearance: obese Orientation/consciousness: patient oriented x3 Resp Effort & Inspection: normal respiratory effort and able to speak in complete sentences Auscultation: clear to auscultation bilaterally, no crackles, no rales, no rhonchi and no wheezes Cardio Heart sounds: S1 normal heart sound present and S2 normal heart sound present Neuro General: patient oriented x3, gait normal and moves all extremities Psych Speech and movement: Normal speech and movement present Assessment & Plan Assessment & Plan (1) Chest pain in adult: Code(s): R07.9 - Chest pain, unspecified Plan: ECG: Abnormal (Shows 1st degree AV block but sinus rhythm). Hypotensive today. Pt appears weak. (2) Nausea vomiting and diarrhea: Code(s): R11.2 - Nausea with vomiting, unspecified; R19.7 - Diarrhea, unspecified Plan: ??Hypokalemia due to dehydration ?? DTs due to sudden alcohol withdraw. Ordered Zofran Advised Pt to go to ED for further management. Pt declined Ambulance ride or going to Emergency period. Reports high co-payments and can't afford it. Pt reports that he want to hydrate at home with fluids and water. He states that he will continue taking Potassium Supp pills at home. Orders: Orders AMB EKG-In Office Today R06.02 - Shortness of breath, R07.9 - Chest pain, unspecified Medications: New ondansetron 8 mg PO Q8H 30 tabs 0RF R11.2 - Nausea with vomiting, unspecified, R19.7 - Diarrhea, unspecified Coding Level of Care Code Est Pt Level 3 (25818) Diagnoses Chest pain in adult R07.9 Nausea vomiting and diarrhea R11.2; R19.7 Time Spent (min) 15
[2024-07-01 11:12] VITALS: BP 88/60; PULSE 70; TEMP 36.4; O2SAT 97; BMI 28.1
== END 2024-07-01 11:54 | disposition home or self-care (01) ==
PROVIDERS: PCP Internal Medicine; Visit Provider Nurse Practitioner Family
DX: R07.9 Chest pain, unspecified (principal); R11.2 Nausea with vomiting, unspecified; R19.7 Diarrhea, unspecified
CPT/HCPCS: 93000; 99213

== ENCOUNTER 2024-07-06 09:06 | Outpatient (AMB) | payer OTHER, SELFPAY ==
--- NOTE | 2024-07-06 09:06 | MHC.PC.OV ---
Vital Signs 07/06/24 09:07 Height 5 ft 9 in Weight 194 lb 3 oz BMI 28.7 BP 96/60 Blood Pressure Location Lt brachial Position Sitting Pulse 58 Pulse Source Pulse Oximeter Pulse Oximetry (%) 97 Oxygen Delivery Method Room Air Intake Visit Reasons: Shortness of breath Allergies amlodipine Adverse Reaction (Verified 07/06/24 09:11) Swelling ankles Medication List - Last Reconciled 07/06/24 by Angelica Schrader MD atenolol 100 mg PO DAILY 90 days buspirone 10 mg PO .q am PRN 90 days clotrimazole-betamethasone 1-0.05 % 1 appl topical ONCE 30 days furosemide 20 mg PO QAM 3 days lisinopril 40 mg PO DAILY 90 days magnesium oxide 420 mg PO BEDTIME ondansetron 8 mg PO Q8H spironolactone (Aldactone) 50 mg PO QAM Tobacco use date assessed: 07/06/24 Dental Screening Dental Screen Date: 03/04/24 HPI Shortness of breath HPI Details Patient is 63-year-old gentleman came in today for evaluation for not feeling well He was seen July 01 at walk-in clinic when he presented with shortness a breath and not feeling well for 5 days. He mentioned that his legs feels wobbly Patient was also having some diarrhea and feeling nauseous He was advised to go to emergency room which she declined His blood pressure was 88 x 60 He came in today and tells me that he ordered some grape Tejada drink from [employer] He has been drinking that and most likely that caused abdominal discomfort and diarrhea He has stopped drinking the juice and is feeling a little better I see that his blood pressure is still 96/60 I have told him to hold his lisinopril 40 mg And cut down atenolol to 50 mg Continue other medications I am also ordering labs for the patient His creatinine was 1.90 in March that need to be monitored Sodium continued to be low because of alcoholism He is under the influence of alcohol at this time as well His legs were wobbly most likely because of hypotension Patient will return on Thursday for follow-up There is no chest pain no shortness a breath at this time He had a big cyst removed from the back by Dr. Bradley few months ago He is complaining of pain in that side On examination patient has developed a big scar in that area in the middle of thoracic spine I have ordered x-ray to monitor the spine And I will address it further when he will return on Thursday. Once again patient was instructed to stop drinking as soon as possible. [facility] Medical History History of COVID-19 Neuropathy Alcohol dependence Anxiety HTN (hypertension) Surgical History H/O colonoscopy Hx of cataract extraction History of open reduction and internal fixation (ORIF) procedure Social History Housing: Apartment Patient Tobacco Use Status: Never used Tobacco e-Cigarette/Vaping Use: Never Used Current occupational status: employed Cognitive needs: No Hearing needs: No Vision needs: Yes Questionnaire PHQ-9 Over the last 2 weeks, how often have you been bothered by any of the following problems? 1. Little interest or pleasure in doing things: not at all 2. Feeling down, depressed, or hopeless: not at all 3. Trouble falling or staying asleep, or sleeping too much: not at all 4. Feeling tired or having little energy: not at all 5. Poor appetite or overeating: not at all 6. Feeling bad about yourself - or that you are a failure or have let yourself or your family down: not at all 7. Trouble concentrating on things, such as reading the newspaper or watching television: not at all 8. Moving or speaking so slowly that other people could have noticed. Or the opposite - being so fidgety or restless that you have been moving around a lot more than usual: not at all 9. Thoughts that you would be better off or of hurting yourself in some way: not at all Total score: 0 Depression Screening Interpretation: Negative Depression Screening Done: Yes 14651 - PHQ-9 Billing: Yes Source: Developed by Drs. Srikanth Hernández, Cathleen Cifuentes, Jarod Garcia and colleagues, with an educational prince from [employer]. Thrive Questionnaire Date Thrive assessed: 07/06/24 I am a: Patient What is your living situation today?: I have a steady place to live Within the past 12 months, did the food you bought not last and you didn't have the money to get more?: Never true Within the past 12 months, did you worry whether your food would run out before you got money to buy more?: Never true Do you have trouble paying for medicines?: No Do you have trouble getting transportation to medical appointments?: No Do you have trouble paying your heating and electricity bill?: No Do you have trouble taking care of your child, family member or friend?: No Do you have trouble with day-to-day activities such as bathing, preparing meals, shopping, managing finances, etc.?: No Are you currently unemployed and looking for a job?: No Are you interested in more education?: No Please select the resources that you would like help with: None Currently or been in a relationship where the following occur: No concerns reported THRIVE Score: 0 AUDIT C Alcohol Use Questionnaire (AUDIT-C) 1. How often do you have a drink containing alcohol?: 4 or more times a week 2. How many drinks containing alcohol do you have on a typical day when you are drinking?: 5 or 6 3. How often do you have six or more drinks on one occasion?: Daily or almost daily Total Score: 10 Score Reviewed/Action Taken: Yes ALLIE-7 AMB Questionnaire ALLIE-7 Date ALLIE - 7 assessed: 03/04/24 Source: Developed by Drs. Srikanth Hernández, Cathleen Cifuentes, Jarod Garcia and colleagues, with an educational prince from [employer]. Review of Systems Const Denies chills and Denies fever(s) ENT Denies epistaxis and Denies nasal discharge Card Denies chest pain Resp Denies chest congestion, Denies cough and Denies hemoptysis GI Denies diarrhea and Denies nausea Skin/Breast Denies rash Neuro Reports no additional complaints Psych Reports no additional complaints Endo Reports no additional complaints Physical exam (Primary Care) Vital Signs: Last Vital Signs Pulse 58 07/06/24 09:07 BP 96/60 07/06/24 09:07 Pulse Ox 97 07/06/24 09:07 Oxygen Delivery Method Room Air 07/06/24 09:07 BMI result Body Mass Index 28.7 Tobacco/Smoking Status: Tobacco use Status Tobacco use date assessed 07/06/24 07/06/24 09:10 Patient Tobacco Use Status Never used Tobacco 07/06/24 09:10 e-Cigarette/Vaping Use Never Used 07/06/24 09:10 PHQ-9: PHQ-9 Score PHQ-9: Total score 0 07/06/24 09:44 Depression Screening Interpretation: Negative Thrive Assessment: Date of Thrive Assessment Date Thrive assessed 07/06/24 07/06/24 09:30 Currently or been in a relationship where the following occur: No concerns reported Const General: cooperative, comfortable and no acute distress Orientation/consciousness: patient oriented x3 HENMT Head: Yes normocephalic Eyes General: appearance normal, both eyes and all related structures Neck Neck: Yes supple Resp Effort & Inspection: normal respiratory effort, no cough and no stridor Cardio Rhythm: regular rhythm Heart sounds: S1 normal heart sound present and S2 normal heart sound present Skin General skin exam: turgor normal Neuro General: patient oriented x3, tone normal and moves all extremities Assessment and Plan Assessment & Plan (1) Thoracic back pain: Code(s): M54.6 - Pain in thoracic spine Qualifiers: Chronicity: chronic Back pain laterality: midline Qualified Code(s): M54.6 - Pain in thoracic spine; G89.29 - Other chronic pain (2) Alcohol dependence: Code(s): F10.20 - Alcohol dependence, uncomplicated Qualifiers: Substance use status: uncomplicated Qualified Code(s): F10.20 - Alcohol dependence, uncomplicated (3) Nephropathy: Code(s): N28.9 - Disorder of kidney and ureter, unspecified (4) Electrolyte abnormality: Code(s): E87.8 - Other disorders of electrolyte and fluid balance, not elsewhere classified (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 - Alcoholic polyneuropathy (6) Peripheral vascular disease: Code(s): I73.9 - Peripheral vascular disease, unspecified (7) Anemia: Code(s): D64.9 - Anemia, unspecified Qualifiers: Anemia type: iron deficiency Iron deficiency anemia type: chronic blood loss Qualified Code(s): D50.0 - Iron deficiency anemia secondary to blood loss (chronic) (8) HTN (hypertension): Code(s): I10 - Essential (primary) hypertension Qualifiers: Hypertension type: primary hypertension Qualified Code(s): I10 - Essential (primary) hypertension (9) Anxiety, generalized: Code(s): F41.1 - Generalized anxiety disorder (10) Hemochromatosis: Code(s): E83.119 - Hemochromatosis, unspecified Qualifiers: Hemochromatosis type: hereditary Qualified Code(s): E83.110 - Hereditary hemochromatosis Plan Patient is 63-year-old gentleman came in today for evaluation for not feeling well He was seen July 01 at walk-in clinic when he presented with shortness a breath and not feeling well for 5 days. He mentioned that his legs feels wobbly Patient was also having some diarrhea and feeling nauseous He was advised to go to emergency room which she declined His blood pressure was 88 x 60 He came in today and tells me that he ordered some grape Tejada drink from [employer] He has been drinking that and most likely that caused abdominal discomfort and diarrhea He has stopped drinking the juice and is feeling a little better I see that his blood pressure is still 96/60 I have told him to hold his lisinopril 40 mg And cut down atenolol to 50 mg Continue other medications I am also ordering labs for the patient His creatinine was 1.90 in March that need to be monitored Sodium continued to be low because of alcoholism He is under the influence of alcohol at this time as well His legs were wobbly most likely because of hypotension Patient will return on Thursday for follow-up There is no chest pain no shortness a breath at this time He had a big cyst removed from the back by Dr. Bradley few months ago He is complaining of pain in that side On examination patient has developed a big scar in that area in the middle of thoracic spine I have ordered x-ray to monitor the spine And I will address it further when he will return on Thursday. Once again patient was instructed to stop drinking as soon as possible. 45 minutes spent in care of this patient Orders: Orders XR thoracic spine 2V Today M54.6 - Pain in thoracic spine Complete Blood Count Auto Diff Today D50.0 - Iron deficiency anemia secondary to blood loss (chronic), E87.8 - Other disorders of electrolyte and fluid balance, not elsewhere classified, F10.20 - Alcohol dependence, uncomplicated, F41.1 - Generalized anxiety disorder, G62.1 - Alcoholic polyneuropathy, I10 - Essential (primary) hypertension, I73.9 - Peripheral vascular disease, unspecified, M54.6 - Pain in thoracic spine, N28.9 - Disorder of kidney and ureter, unspecified TSH reflex Free T4 Today D50.0 - Iron deficiency anemia secondary to blood loss (chronic), E87.8 - Other disorders of electrolyte and fluid balance, not elsewhere classified, F10.20 - Alcohol dependence, uncomplicated, F41.1 - Generalized anxiety disorder, G62.1 - Alcoholic polyneuropathy, I10 - Essential (primary) hypertension, I73.9 - Peripheral vascular disease, unspecified, M54.6 - Pain in thoracic spine, N28.9 - Disorder of kidney and ureter, unspecified Vitamin B12 Today D50.0 - Iron deficiency anemia secondary to blood loss (chronic), E87.8 - Other disorders of electrolyte and fluid balance, not elsewhere classified, F10.20 - Alcohol dependence, uncomplicated, F41.1 - Generalized anxiety disorder, G62.1 - Alcoholic polyneuropathy, I10 - Essential (primary) hypertension, I73.9 - Peripheral vascular disease, unspecified, M54.6 - Pain in thoracic spine, N28.9 - Disorder of kidney and ureter, unspecified Ethanol Today D50.0 - Iron deficiency anemia secondary to blood loss (chronic), E87.8 - Other disorders of electrolyte and fluid balance, not elsewhere classified, F10.20 - Alcohol dependence, uncomplicated, F41.1 - Generalized anxiety disorder, G62.1 - Alcoholic polyneuropathy, I10 - Essential (primary) hypertension, I73.9 - Peripheral vascular disease, unspecified, M54.6 - Pain in thoracic spine, N28.9 - Disorder of kidney and ureter, unspecified Comprehensive Met. Panel Today D50.0 - Iron deficiency anemia secondary to blood loss (chronic), E87.8 - Other disorders of electrolyte and fluid balance, not elsewhere classified, F10.20 - Alcohol dependence, uncomplicated, F41.1 - Generalized anxiety disorder, G62.1 - Alcoholic polyneuropathy, I10 - Essential (primary) hypertension, I73.9 - Peripheral vascular disease, unspecified, M54.6 - Pain in thoracic spine, N28.9 - Disorder of kidney and ureter, unspecified Vitamin D 25-OH (D2 and D3) Today D50.0 - Iron deficiency anemia secondary to blood loss (chronic), E87.8 - Other disorders of electrolyte and fluid balance, not elsewhere classified, F10.20 - Alcohol dependence, uncomplicated, F41.1 - Generalized anxiety disorder, G62.1 - Alcoholic polyneuropathy, I10 - Essential (primary) hypertension, I73.9 - Peripheral vascular disease, unspecified, M54.6 - Pain in thoracic spine, N28.9 - Disorder of kidney and ureter, unspecified Ferritin Today E83.110 - Hereditary hemochromatosis Coding Level of Care Code Est Pt Level 5 (73813) Diagnoses Chronic midline thoracic back pain M54.6; G89.29 Chronicity: chronic Back pain laterality: midline Uncomplicated alcohol dependence F10.20 Substance use status: uncomplicated Nephropathy N28.9 Electrolyte abnormality E87.8 Alcoholic peripheral neuropathy G62.1 Peripheral vascular disease I73.9 Iron deficiency anemia due to chronic blood loss D50.0 Anemia type: iron deficiency Iron deficiency anemia type: chronic blood loss Primary hypertension I10 Hypertension type: primary hypertension Anxiety, generalized F41.1 Hereditary hemochromatosis E83.110 Hemochromatosis type: hereditary
[2024-07-06 09:07] VITALS: BP 96/60; PULSE 58; O2SAT 97; BMI 28.7
== END 2024-07-06 09:43 | disposition home or self-care (01) ==
PROVIDERS: PCP Internal Medicine; Visit Provider Internal Medicine
DX: I73.9 Peripheral vascular disease, unspecified (principal); F10.20 Alcohol dependence, uncomplicated; G62.1 Alcoholic polyneuropathy; E83.110 Hereditary hemochromatosis; M54.6 Pain in thoracic spine; G89.29 Other chronic pain; N28.9 Disorder of kidney and ureter, unspecified; E87.8 Other disorders of electrolyte and fluid balance, not elsewhere classified; D50.0 Iron deficiency anemia secondary to blood loss (chronic); I10 Essential (primary) hypertension; F41.1 Generalized anxiety disorder
CPT/HCPCS: 99215

== ENCOUNTER 2024-07-06 09:44 | Outpatient (REF) | payer OTHER, SELFPAY ==
--- NOTE | ~2024-07-06 | XR_ITS ---
EXAMINATION: XR THORACOLUMBAR SPINE CLINICAL INFORMATION: Mid back pain. COMPARISON: 04/02/2018 TECHNIQUE: AP and lateral views of the thoracic spine. FINDINGS: There are 12 rib-bearing thoracic vertebral bodies. There is stable severe height loss of the T8 vertebral body. Exaggeration of thoracic kyphosis. Remaining vertebral body heights are maintained. Pedicles are intact. Cardiomediastinal contour is unchanged. XR/XR thoracic spine 2V IMPRESSION: Stable severe height loss of T8.
[2024-07-06 13:23] LABS: MANUAL DIFF FLAG NO
[2024-07-06 13:32] LABS: Basophils Absolute Auto 0.1 X10*3/uL (0.0-0.2); Basophils Percent Auto 0.8 % (0-2); Eosinophils Absolute Auto 0.2 X10*3/uL (0.0-0.4); Eosinophils Percent Auto 2.7 % (0-4); Hematocrit 31.6 % (42.0-52.0); Hemoglobin 10.7 g/dl (14.0-18.0); Imm Gran Abs Auto 0.03 X10*3/uL (0.00-0.03); Imm Gran Pct Auto 0.5 % (0.0-0.4); Lymphocytes Absolute Auto 1.4 X10*3/uL (1.2-4.9); Lymphocytes Percent Auto 22.5 % (20-40); Mean Corpuscular HGB Conc 33.9 g/dl (31.0-36.0); Mean Corpuscular Volume 103.3 fL (80.0-98.0); Mean Platelet Volume 10.9 fL (9.4-12.4); Monocytes Absolute Auto 0.5 X10*3/uL (0.1-1.2); Neutrophils Absolute Auto 4.2 x10*3/uL (2.0-8.3); Neutrophils Percent Auto 65.5 % (45-73); Platelet Count 137 X10*3/uL (160-400); Red Blood Count 3.06 X10*6/uL (4.60-5.80); White Blood Count 6.4 X10*3/uL (4.8-10.8)
[2024-07-06 14:11] LABS: Vitamin B12 919 pg/mL (200-900)
[2024-07-06 14:14] LABS: Alanine Aminotransferase 30 U/L (0-40); Albumin Level 4.7 g/dL (3.5-5.0); Alkaline Phosphatase 75 U/L (39-117); Anion Gap 15 (12-20); Aspartate Amino Transferase 28 U/L (5-37); Bilirubin Total 0.5 mg/dL (0.0-1.0); Blood Urea Nitrogen 103 mg/dL (9-16); Calcium 10.2 mg/dL (8.4-10.2); Carbon Dioxide 17 mmol/L (22-29); Chloride 107 mmol/L (96-108); Estimated Glomerular Filt Rate 21; Ethanol < 10 mg/dL; Glucose Random 104 mg/dL (60-115); Potassium 5.4 mmol/L (3.3-5.1); Sodium 134 mmol/L (135-145); Total Protein 8.3 g/dL (6.5-8.0)
[2024-07-06 14:32] LABS: Ferritin 1046 ng/mL (20-250); TSH reflex Free T4 1.24 uIU/mL (0.32-4.0)
[2024-07-10 13:13] LABS: Vitamin D 25-OH, D2 <4 ng/mL; Vitamin D 25-OH, D3 63 ng/mL; Vitamin D 25-OH, Total 63 ng/mL (30-100)
== END 2024-07-06 09:45 | disposition home or self-care (01) ==
LOC: HO.HMGCX 09:44
PROVIDERS: PCP Internal Medicine; Visit Provider Internal Medicine
DX: M54.6 Pain in thoracic spine (principal); F10.20 Alcohol dependence, uncomplicated; N28.9 Disorder of kidney and ureter, unspecified; E87.8 Other disorders of electrolyte and fluid balance, not elsewhere classified; G62.1 Alcoholic polyneuropathy; I73.9 Peripheral vascular disease, unspecified; I10 Essential (primary) hypertension; F41.1 Generalized anxiety disorder; E83.110 Hereditary hemochromatosis
CPT/HCPCS: 36415; 72070; 80053; 80307; 82306; 82607; 82728; 84443; 85025

== ENCOUNTER 2024-07-08 10:52 | Outpatient (AMB) | payer OTHER, SELFPAY ==
--- NOTE | 2024-07-08 10:55 | MHC.PC.OV ---
Vital Signs 07/08/24 10:57 Height 5 ft 9 in Weight 195 lb 2 oz BMI 28.8 BP 102/70 Blood Pressure Location Rt brachial Position Sitting Pulse 70 Pulse Source Pulse Oximeter Pulse Oximetry (%) 93 Oxygen Delivery Method Room Air Intake Visit Reasons: Follow Up Per Dr. Schrader Allergies amlodipine Adverse Reaction (Verified 07/08/24 10:56) Swelling ankles Medication List - Last Reconciled 07/08/24 by Angelica Schrader MD atenolol 100 mg PO DAILY 90 days buspirone 10 mg PO .q am PRN 90 days clotrimazole-betamethasone 1-0.05 % 1 appl topical ONCE 30 days furosemide 20 mg PO QAM 3 days lisinopril 40 mg PO DAILY 90 days magnesium oxide 420 mg PO BEDTIME ondansetron 8 mg PO Q8H spironolactone (Aldactone) 50 mg PO QAM Tobacco use date assessed: 07/08/24 Dental Screening Dental Screen Date: 07/08/24 Did you have a dental visit in the last 12 months?: Yes Did you have a dental problem in the last 6 months where you did not have access to dental care?: No Was dental information given to patient?: Patient has dentist HPI Follow Up Per Dr. Schrader HPI Details Patient is 63-year-old gentleman came in today for follow-up appointment Last time seen 2 days ago patient was complaining of feeling weak in his legs and his fingers were turning white at time He was feeling dizzy as if he is going to pass out I stopped his medication, atenolol 100 mg and lisinopril 40 mg He was told to continue spironolactone only 50 mg once a day Patient is feeling much better, the weakness in his legs has resolved His hands are no longer turning white and he is not dizzy His blood pressure is slightly better at 102/70, but still low Labs done 2 days ago showed sodium of 134, potassium of 5.4 Creatinine jumped to 3.04 from 1.90 on April 07 I am repeating labs again His ferritin came back at 1046 It was 1269 in March Patient will stop all blood pressure medication except atenolol 50 mg once a day He is to return next week for nursing visit to have blood pressure checked Further management after the lab reports His hemoglobin also dropped to 10.5 He does have history of hemorrhoids but they are not bleeding at this time Patient continued to drink alcohol PFSH Medical History History of COVID-19 Neuropathy Alcohol dependence Anxiety HTN (hypertension) Surgical History H/O colonoscopy Hx of cataract extraction History of open reduction and internal fixation (ORIF) procedure Social History Housing: Apartment Patient Tobacco Use Status: Never used Tobacco e-Cigarette/Vaping Use: Never Used Current occupational status: employed Cognitive needs: No Hearing needs: No Vision needs: Yes Questionnaire PHQ-9 Over the last 2 weeks, how often have you been bothered by any of the following problems? 1. Little interest or pleasure in doing things: not at all 2. Feeling down, depressed, or hopeless: not at all 3. Trouble falling or staying asleep, or sleeping too much: not at all 4. Feeling tired or having little energy: not at all 5. Poor appetite or overeating: not at all 6. Feeling bad about yourself - or that you are a failure or have let yourself or your family down: not at all 7. Trouble concentrating on things, such as reading the newspaper or watching television: not at all 8. Moving or speaking so slowly that other people could have noticed. Or the opposite - being so fidgety or restless that you have been moving around a lot more than usual: not at all 9. Thoughts that you would be better off or of hurting yourself in some way: not at all Total score: 0 Depression Screening Interpretation: Negative Depression Screening Done: Yes 23683 - PHQ-9 Billing: Yes Source: Developed by Drs. Srikanth Hernández, Cathleen Cifuentes, Jarod Garcia and colleagues, with an educational prince from [employer]. Thrive Questionnaire Date Thrive assessed: 07/08/24 I am a: Patient What is your living situation today?: I have a steady place to live Within the past 12 months, did the food you bought not last and you didn't have the money to get more?: Never true Within the past 12 months, did you worry whether your food would run out before you got money to buy more?: Never true Do you have trouble paying for medicines?: No Do you have trouble getting transportation to medical appointments?: No Do you have trouble paying your heating and electricity bill?: No Do you have trouble taking care of your child, family member or friend?: No Do you have trouble with day-to-day activities such as bathing, preparing meals, shopping, managing finances, etc.?: No Are you currently unemployed and looking for a job?: No Are you interested in more education?: No Please select the resources that you would like help with: Housing/Fpc Currently or been in a relationship where the following occur: No concerns reported THRIVE Score: 0 AUDIT C Alcohol Use Questionnaire (AUDIT-C) 1. How often do you have a drink containing alcohol?: 2-3 times a week 2. How many drinks containing alcohol do you have on a typical day when you are drinking?: 1 or 2 3. How often do you have six or more drinks on one occasion?: Weekly Total Score: 6 Score Reviewed/Action Taken: Yes ALLIE-7 AMB Questionnaire ALLIE-7 Date ALLIE - 7 assessed: 07/08/24 Feeling nervous, anxious, or on edge: 0 = Not at all Not being able to stop or control worryin = Not at all Worrying too much about different things: 0 = Not at all Trouble relaxin = Not at all Being so restless that it is hard to sit still: 0 = Not at all Becoming easily annoyed or irritable: 0 = Not at all Feeling afraid as if something awful might happen: 0 = Not at all Total ALLIE-7 score (0-4 normal; 5-9 mild; 10-14 moderate; 15-21 severe): 0 Source: Developed by Drs. Srikanth Hernández, Cathleen Cifuentes, Jarod Garcia and colleagues, with an educational prince from [employer]. ALLIE-7 Assessment Billing ALLIE-7 Assessment Tool: ALLIE-7 Assessment 76669 Review of Systems Const Denies chills and Denies fever(s) ENT Denies epistaxis and Denies nasal discharge Card Denies chest pain Resp Denies chest congestion, Denies cough and Denies hemoptysis GI Denies diarrhea and Denies nausea Skin/Breast Denies rash Neuro Reports no additional complaints Psych Reports no additional complaints Endo Reports no additional complaints Physical exam (Primary Care) Vital Signs: Last Vital Signs Pulse 70 07/08/24 10:57 BP 102/70 07/08/24 10:57 Pulse Ox 93 07/08/24 10:57 Oxygen Delivery Method Room Air 07/08/24 10:57 BMI result Body Mass Index 28.8 Tobacco/Smoking Status: Tobacco use Status Tobacco use date assessed 07/08/24 07/08/24 11:02 Patient Tobacco Use Status Never used Tobacco 07/08/24 11:02 e-Cigarette/Vaping Use Never Used 07/08/24 11:02 PHQ-9: PHQ-9 Score PHQ-9: Total score 0 07/08/24 11:03 Depression Screening Interpretation: Negative Thrive Assessment: Date of Thrive Assessment Date Thrive assessed 07/08/24 07/08/24 11:02 Currently or been in a relationship where the following occur: No concerns reported Const General: cooperative, comfortable and no acute distress Orientation/consciousness: patient oriented x3 HENMT Head: Yes normocephalic Eyes General: appearance normal, both eyes and all related structures Neck Neck: Yes supple Resp Effort & Inspection: normal respiratory effort, no cough and no stridor Cardio Rhythm: regular rhythm Heart sounds: S1 normal heart sound present and S2 normal heart sound present Skin General skin exam: turgor normal Neuro General: patient oriented x3, tone normal and moves all extremities Extrem Right lower extremity: no edema Left lower extremity: no edema Assessment and Plan Assessment & Plan (1) Nephropathy: Code(s): N28.9 - Disorder of kidney and ureter, unspecified (2) Electrolyte abnormality: Code(s): E87.8 - Other disorders of electrolyte and fluid balance, not elsewhere classified (3) Anemia: Code(s): D64.9 - Anemia, unspecified Qualifiers: Anemia type: iron deficiency Iron deficiency anemia type: chronic blood loss Qualified Code(s): D50.0 - Iron deficiency anemia secondary to blood loss (chronic) (4) Hemochromatosis: Code(s): E83.119 - Hemochromatosis, unspecified Qualifiers: Hemochromatosis type: hereditary Qualified Code(s): E83.110 - Hereditary hemochromatosis (5) Elevated serum creatinine: Code(s): R79.89 - Other specified abnormal findings of blood chemistry (6) Hyperkalemia: Code(s): E87.5 - Hyperkalemia (7) Peripheral vascular disease: Code(s): I73.9 - Peripheral vascular disease, unspecified (8) Alcohol dependence: Code(s): F10.20 - Alcohol dependence, uncomplicated Qualifiers: Substance use status: uncomplicated Qualified Code(s): F10.20 - Alcohol dependence, uncomplicated (9) Elevated ferritin: Code(s): R79.89 - Other specified abnormal findings of blood chemistry Plan Patient is 63-year-old gentleman came in today for follow-up appointment Last time seen 2 days ago patient was complaining of feeling weak in his legs and his fingers were turning white at time He was feeling dizzy as if he is going to pass out I stopped his medication, atenolol 100 mg and lisinopril 40 mg He was told to continue spironolactone only 50 mg once a day Patient is feeling much better, the weakness in his legs has resolved His hands are no longer turning white and he is not dizzy His blood pressure is slightly better at 102/70, but still low Labs done 2 days ago showed sodium of 134, potassium of 5.4 Creatinine jumped to 3.04 from 1.90 on April 07 I am repeating labs again His ferritin came back at 1046 It was 1269 in March Patient will stop all blood pressure medication except atenolol 50 mg once a day He is to return next week for nursing visit to have blood pressure checked Further management after the lab reports His hemoglobin also dropped to 10.5 He does have history of hemorrhoids but they are not bleeding at this time Patient continued to drink alcohol Orders: Orders Basic Metabolic Panel Today E87.5 - Hyperkalemia, R79.89 - Other specified abnormal findings of blood chemistry Referrals Hematology & Oncology Referral D50.0 - Iron deficiency anemia secondary to blood loss (chronic), R79.89 - Other specified abnormal findings of blood chemistry Medications: Changed From atenolol 100 mg PO DAILY 90 days 90 tabs 0RF I10 - Essential (primary) hypertension To atenolol 50 mg PO DAILY 90 days 90 tabs 0RF I10 - Essential (primary) hypertension Discontinued lisinopril Discontinued Reason: Doctor's Order 40 mg PO DAILY 90 days 90 tabs 0RF atenolol Discontinued Reason: Doctor's Order 100 mg PO DAILY 90 days 90 tabs 0RF I10 - Essential (primary) hypertension spironolactone (Aldactone) Discontinued Reason: Doctor's Order 50 mg PO QAM 90 tabs 0RF Coding Level of Care Code Est Pt Level 4 (19277) Diagnoses Nephropathy N28.9 Electrolyte abnormality E87.8 Iron deficiency anemia due to chronic blood loss D50.0 Anemia type: iron deficiency Iron deficiency anemia type: chronic blood loss Hereditary hemochromatosis E83.110 Hemochromatosis type: hereditary Elevated serum creatinine R79.89 Hyperkalemia E87.5 Peripheral vascular disease I73.9 Uncomplicated alcohol dependence F10.20 Substance use status: uncomplicated Elevated ferritin R79.89 Additional Codes ALLIE-7 Assessment Billing - ALLIE-7 Assessment Tool: ALLIE-7 Assessment 30204 ([id number])
[2024-07-08 10:57] VITALS: BP 102/70; PULSE 70; O2SAT 93; BMI 28.8
== END 2024-07-08 11:15 | disposition home or self-care (01) ==
PROVIDERS: PCP Internal Medicine; Visit Provider Internal Medicine
DX: N28.9 Disorder of kidney and ureter, unspecified (principal); E83.110 Hereditary hemochromatosis; I73.9 Peripheral vascular disease, unspecified; F10.20 Alcohol dependence, uncomplicated; E87.8 Other disorders of electrolyte and fluid balance, not elsewhere classified; R79.89 Other specified abnormal findings of blood chemistry; E87.5 Hyperkalemia
CPT/HCPCS: 99214

== ENCOUNTER 2024-07-08 11:16 | Outpatient (REF) | payer OTHER, SELFPAY ==
[2024-07-08 13:33] LABS: Anion Gap 15 (12-20); Blood Urea Nitrogen 65 mg/dL (9-16); Calcium 10.3 mg/dL (8.4-10.2); Carbon Dioxide 20 mmol/L (22-29); Chloride 102 mmol/L (96-108); Estimated Glomerular Filt Rate 34; Glucose Random 100 mg/dL (60-115); Potassium 5.7 mmol/L (3.3-5.1); Sodium 131 mmol/L (135-145)
== END 2024-07-08 11:17 | disposition home or self-care (01) ==
LOC: HO.HMGCLDS 11:16
PROVIDERS: PCP Internal Medicine; Visit Provider Internal Medicine
DX: E87.5 Hyperkalemia (principal); R79.89 Other specified abnormal findings of blood chemistry
CPT/HCPCS: 36415; 80048

== ENCOUNTER 2024-07-24 21:33 | Emergency (ER) | payer OTHER, SELFPAY ==
[2024-07-24 21:44] VITALS: BP 121/78; PULSE 75; RESP 15; TEMP 36.6; O2SAT 96
[2024-07-24 21:50] VITALS: BMI 27.3
[2024-07-24 22:07] LABS: MANUAL DIFF FLAG NO
[2024-07-24 22:19] LABS: Basophils Percent Auto 0.6 % (0-2); Eosinophils Absolute Auto 0.3 X10*3/uL (0.0-0.4); Eosinophils Percent Auto 5.4 % (0-4); Hematocrit 25.5 % (42.0-52.0); Imm Gran Abs Auto 0.01 X10*3/uL (0.00-0.03); Imm Gran Pct Auto 0.2 % (0.0-0.4); Lymphocytes Absolute Auto 2.3 X10*3/uL (1.2-4.9); Lymphocytes Percent Auto 48.6 % (20-40); Mean Corpuscular HGB Conc 35.3 g/dl (31.0-36.0); Mean Corpuscular Volume 104.9 fL (80.0-98.0); Monocytes Absolute Auto 0.5 X10*3/uL (0.1-1.2); Monocytes Percent Auto 10.4 % (2-11); Neutrophils Absolute Auto 1.6 x10*3/uL (2.0-8.3); Neutrophils Percent Auto 34.8 % (45-73); Platelet Count 104 X10*3/uL (160-400); Red Blood Count 2.43 X10*6/uL (4.60-5.80); Red Cell Distribution Width 14.8 % (11.0-16.0); White Blood Count 4.6 X10*3/uL (4.8-10.8)
[2024-07-24 22:40] LABS: Alanine Aminotransferase 24 U/L (0-40); Albumin Level 3.7 g/dL (3.5-5.0); Alkaline Phosphatase 98 U/L (39-117); Anion Gap 15 (12-20); Aspartate Amino Transferase 43 U/L (5-37); Bilirubin Total 0.3 mg/dL (0.0-1.0); Blood Urea Nitrogen 18 mg/dL (9-16); Calcium 8.4 mg/dL (8.4-10.2); Carbon Dioxide 22 mmol/L (22-29); Chloride 96 mmol/L (96-108); Estimated Glomerular Filt Rate 56; Glucose Random 92 mg/dL (60-115); Lipase 39 U/L (8-78); Potassium 4.1 mmol/L (3.3-5.1); Sodium 129 mmol/L (135-145); Total Protein 6.5 g/dL (6.5-8.0)
--- NOTE | 2024-07-25 01:13 | ED_ITS ---
HPI - Back Pain/Injury General Chief Complaint: Back Pain/Injury Stated Complaint: back pain Time Seen by Provider: 07/25/24 01:12 Source: patient Mode of arrival: ambulatory Limitations: no limitations History of Present Illness ED Provider: Dr. Alber Woody HPI Narrative: 63-year-old male history of alcohol use disorder, anxiety, hypertension, who presents emergency department for evaluation of lower back pain and lower extremity swelling. Patient states that he injured his back 2 weeks prior. States that since that time his back pain is gotten worse to the point where he is having difficulty walking. He states the pain is located in his lower back left greater than right. The pain is a constant, sharp pain which is worse with movement. The pain does radiate down both legs with a sensation being greater in the left leg than the right leg. He also states that over the last 2-3 days he has had increased swelling of his feet and ankles which is new. The patient continues to drink a 6 pack of beer per day. He states he has also been taking Tylenol for his back pain. He denied fever, chills, nausea, vomiting, loss of bowel or bladder control Related Data Previous Rx's ?Medication ?Instructions ?Recorded clotrimazole-betamethasone 1 1 appl topical ONCE 30 days #45 01/12/24 %-0.05 % topical cream grams magnesium oxide 420 mg tablet 420 mg PO BEDTIME #30 tabs 01/12/24 furosemide 20 mg tablet 20 mg PO QAM 3 days #3 tabs 02/23/24 buspirone 10 mg tablet 10 mg PO .q am PRN anxiety 90 days 06/29/24 #90 tabs ondansetron 8 mg disintegrating 8 mg PO Q8H #30 tabs 07/01/24 tablet atenolol 50 mg tablet 50 mg PO DAILY 90 days #90 tabs 07/08/24 sodium polystyrene sulfonate 15 15 g (60 mL) PO DAILY 3 days #180 07/11/24 gram/60 mL oral suspension mL cyclobenzaprine 10 mg tablet 10 mg PO TID PRN muscle pain or 07/25/24 spasm #20 tabs folic acid 1 mg tablet 1 mg PO DAILY 90 days #90 tabs 07/25/24 multivitamin 1 tab PO DAILY #90 tabs 07/25/24 thiamine HCl (vitamin B1) 100 mg 100 mg PO DAILY 90 days #90 tabs 07/25/24 tablet Allergies Allergy/AdvReac Type Severity Reaction Status Date / Time amlodipine AdvReac Swelling Verified 07/24/24 21:51 ankles Review of Systems 2 Review of Systems: Yes all other systems are reviewed and are negative [facility] Past Medical History [facility] Narrative: Social history: He denies tobacco use. He drinks a six-pack of beer per day. He denies drug use. Medical History History of COVID-19 Neuropathy Alcohol dependence Anxiety HTN (hypertension) Surgical History H/O colonoscopy Hx of cataract extraction History of open reduction and internal fixation (ORIF) procedure Social History Social History Housing: Apartment Patient Tobacco Use Status: Never used Tobacco e-Cigarette/Vaping Use: Never Used Advance Directives: Yes Advance Directives Information Provided: No Advance Directives on File: No Do you have a plan to hurt others: No Plan Current occupational status: employed Cognitive needs: No Hearing needs: No Vision needs: Yes Physical Exam 2 Vital Signs: Vital Signs: Last Vital Signs Temp 97.8 F 07/24/24 21:44 Pulse 75 07/24/24 21:44 Resp 15 07/24/24 21:44 BP 121/78 07/24/24 21:44 Pulse Ox 96 07/24/24 21:44 O2 Del Method Room Air 07/24/24 21:44 BMI result Body Mass Index 27.3 Vital signs were normal Exam: General: Awake, alert , appears to be in [id number] distress secondary to his back pain. The patient was able to get up from a chair and moved slowly to the stretcher. Head: Normocephalic, atraumatic EENT: PERRL, Lids normal, sclera normal, conjunctiva normal, nose normal , ears normal, throat without erythema or exudates Neck: Supple, no adenopathy Lung: breath sounds symmetric, no wheezing, rales or rhonchi Chest: symmetric movement, nontender Heart: regular rate and rhythm, normal S1, S2 no murmurs or rubs Abdomen: soft, non-tender, nondistended, normal bowel sounds Back: Patient has no point vertebral tenderness. He does have tenderness with palpation of the paraspinal muscles bilaterally in the lumbar sacral area with spasm of these muscles. He has negative straight leg raises bilaterally. Extremities: Pitting edema bilaterally symmetric over the feet and ankles to the mid calf region. Neuro: Awake, alert, oriented, normal speech, cranial nerves intact, moves all extremities symmetrically Psych: Pleasant, cooperative Medical Decision Making Medical Decision Making MDM Narrative: 63-year-old male history of alcohol use disorder, anxiety, hypertension, who presents emergency department for evaluation of lower back pain and lower extremity swelling secondary to injury 2 weeks prior with the pain getting progressively worse. Patient was also noted swelling to his lower extremities times 2-3 days. The patient drinks at least a 6 pack of alcohol daily and has been taking Tylenol for his pain. He denied systemic symptoms. Vital signs were normal. Physical examination did reveal tenderness palpation over the paraspinal muscles in lumbar sacral area bilaterally. Patient also had 1+ pitting edema in his feet and lower extremities to the mid calf. Differential diagnosis: ?Includes but is not limited to musculoskeletal strain, degenerative disc disease, degenerative joint disease, spinal stenosis, sciatica, congestive heart failure, liver failure, renal failure Following evaluation was ordered: CBC, CMP, lipase, Patient was initially treated with the following: Flexeril 10 mg orally, folic acid 1 mg orally, thiamine 100 mg orally Course: My interpretation patient's laboratory evaluation is as follows: WBC low 4600- chronic. Macrocytic anemia with an H&H of 9 and 25.5-patient has had macrocytic is but today's anemia is more pronounced. Sodium low 129, BUN elevated 18 with a normal creatinine of 1.30. AST elevated. The patient's lower back pain is most consistent with musculoskeletal injury. Given the fact that the patient is drinking a 6 pack of beer daily, I told him that he can not take Tylenol or ibuprofen safely. The patient was advised to use heat to his lower back to help with the pain. He was prescribed Flexeril 10 mg 3 times a day as needed for spasm. He was given his 1st dose here in the emergency department. The patient's lower extremity edema is most likely due to his alcohol use disorder and possibly a cirrhosis of the liver. I did discuss this with the patient. The patient was started on thiamine 100 mg, folate g and a multivitamin daily. I did discuss detox with the patient but he states that he can stop drinking on his own. The patient will need to follow up with his PCP for re-evaluation and further outpatient workup for possible cirrhosis. Admission/Observation Consideration of admission/observation: Escalation of care including admission/observation considered Lab Data MDM Lab Attestation statement: I reviewed the patient's lab results. 07/24/24 22:02 07/24/24 22:02 Labs: Lab Results 07/24/24 Range/Units 22:02 WBC 4.6 L (4.8-10.8) X10*3/uL RBC 2.43 L D (4.60-5.80) X10*6/uL Hgb 9.0 L (14.0-18.0) g/dl Hct 25.5 L (42.0-52.0) % MCV 104.9 H (80.0-98.0) fL MCH 37.0 H (27.0-33.0) pg MCHC 35.3 (31.0-36.0) g/dl RDW 14.8 (11.0-16.0) % Plt Count 104 L (160-400) X10*3/uL MPV 9.0 L (9.4-12.4) fL Immature Gran % (Auto) 0.2 (0.0-0.4) % Neut % (Auto) 34.8 L (45-73) % Lymph % (Auto) 48.6 H (20-40) % [place] % (Auto) 10.4 (2-11) % Eos % (Auto) 5.4 H (0-4) % Baso % (Auto) 0.6 (0-2) % Lymph # (Auto) 2.3 (1.2-4.9) X10*3/uL [place] # (Auto) 0.5 (0.1-1.2) X10*3/uL Eos # (Auto) 0.3 (0.0-0.4) X10*3/uL Baso # (Auto) 0.0 (0.0-0.2) X10*3/uL Abs Immat Gran (auto) 0.01 (0.00-0.03) X10*3/uL Absolute Neuts (auto) 1.6 L (2.0-8.3) x10*3/uL Absolute Nucleated RBC 0.000 (0.0-0.012) X10*3/uL Nucleated RBC % (auto) 0.0 (0.0-0.2) /100WBC Sodium 129 L (135-145) mmol/L Potassium 4.1 D (3.3-5.1) mmol/L Chloride 96 (96-108) mmol/L Carbon Dioxide 22 (22-29) mmol/L Anion Gap 15 (12-20) BUN 18 H (9-16) mg/dL Creatinine 1.30 (0.5-1.4) mg/dL Estim Creat Clear Calc 60.0 Estimated GFR 56 Random Glucose 92 (60-115) mg/dL Calcium 8.4 D (8.4-10.2) mg/dL Total Bilirubin 0.3 (0.0-1.0) mg/dL AST 43 H (5-37) U/L ALT 24 (0-40) U/L Alkaline Phosphatase 98 (39-117) U/L Total Protein 6.5 (6.5-8.0) g/dL Albumin 3.7 (3.5-5.0) g/dL Lipase 39 (8-78) U/L Prescription Management I considered prescription management with: Other (Anti spasmodic/flexor) Chronic Conditions Patient?s care impacted by: Hypertension and Other (Chronic alcohol use disorder) Discharge Plan Discharge Clinical Impression: Acute lumbar back pain, Edema, peripheral, Alcohol use disorder, Anemia, macrocytic, nutritional Patient Disposition: Home, Self-Care Instructions: Acute Low Back Pain (ED), Leg Edema (ED), Alcohol Use Disorder (ED) Additional Instructions: Your liver tests are normal Your blood work revealed a macrocytic anemia which is caused by your alcohol use. This is treated with thiamine, folate and avoiding alcohol. Take thiamine 100 mg once a day. Take folic acid 1 g once a day. Take a multivitamin once a day The swelling in your legs is also caused by your alcohol use and your anemia/malnutrition You need to stop taking Tylenol since this can hurt your liver when you drinking alcohol. You also need to avoid NSAIDs (aspirin, ibuprofen, naproxen, Advil, Motrin, Aleve) since these medications can hurt your stomach while your drinking alcohol. Apply heating pad on low for 15 minutes 4 to 6 times a day to your lower back to help with the pain Take Flexeril (cyclobenzaprine) 10 mg pills, 1 pill every 6-8 hours as needed for pain or spasm. ?This medication will make you sleepy. ?Do not drive or work while taking this medication. Follow-up with your doctor in 2 days. Please return to the emergency department if your symptoms get worse or if you develop any symptoms that are concerning to you. Prescriptions: New cyclobenzaprine 10 mg tablet 10 mg PO TID PRN (Reason: muscle pain or spasm) Qty: 20 0RF thiamine HCl (vitamin B1) 100 mg tablet 100 mg PO DAILY 90 Days Qty: 90 0RF folic acid 1 mg tablet 1 mg PO DAILY 90 Days Qty: 90 0RF multivitamin Tablet 1 tab PO DAILY Qty: 90 0RF No Action buspirone 10 mg tablet 10 mg PO .q am PRN (Reason: anxiety) 90 Days Qty: 90 0RF sodium polystyrene sulfonate 15 gram/60 mL suspension 15 g PO DAILY 3 Days Qty: 180 0RF magnesium oxide 420 mg tablet 420 mg PO BEDTIME Qty: 30 0RF clotrimazole-betamethasone 1-0.05 % cream 1 appl topical ONCE 30 Days Qty: 45 2RF furosemide 20 mg tablet 20 mg PO QAM 3 Days Qty: 3 0RF ondansetron 8 mg tablet,disintegrating 8 mg PO Q8H Qty: 30 0RF atenolol 50 mg tablet 50 mg PO DAILY 90 Days Qty: 90 0RF Stand Alone Forms: Work/School Release Discharge Date/Time: 07/25/24 01:55 Print Language: Other
[2024-07-25 01:45] VITALS: BP 126/83; PULSE 71; RESP 17; TEMP 36.6; O2SAT 96
[2024-07-25] MEDS: Thiamine HCL 100 MG TABLET PO (01:47)
[2024-07-25] MEDS: Folic Acid 1 MG TABLET PO (01:47)
[2024-07-25] MEDS: Cyclobenzaprine HCl 10 MG TABLET PO (01:47)
[2024-07-25 01:54] VITALS: BP 126/83; PULSE 71; RESP 17; TEMP 36.6; O2SAT 96
== END 2024-07-25 01:55 | disposition home or self-care (01) ==
PROVIDERS: Emergency Provider Emergency Medicine Emergency Medical Services; PCP Internal Medicine
DX: R60.0 Localized edema (principal); D64.9 Anemia, unspecified; M54.50 Low back pain, unspecified; F10.10 Alcohol abuse, uncomplicated; Y90.9 Presence of alcohol in blood, level not specified; Z79.899 Other long term (current) drug therapy
CPT/HCPCS: 36415; 80053; 83690; 85025; 99283

== ENCOUNTER 2024-07-26 10:27 | Outpatient (AMB) | payer OTHER, SELFPAY ==
--- NOTE | 2024-07-26 10:28 | MHC.OFFWIV ---
Intake Vital Signs 07/26/24 10:30 Height 5 ft 10 in Weight 200 lb BMI 28.7 BP 150/100 H Blood Pressure Location Rt brachial Position Sitting Pulse 69 Pulse Source Pulse Oximeter Pulse Oximetry (%) 96 Oxygen Delivery Method Room Air Intake Visit Reasons: EP- Low back injury Intake Note: Patient here for lower back pain from old injury and is in a ton of pain. Patient Tobacco Use Status: Never used Tobacco Allergies amlodipine Adverse Reaction (Verified 07/26/24 10:31) Swelling ankles Do you need a note to return to daycare/school/sports/work: No HPI EP- Low back injury HPI Details Patient presents to the office for a sick visit. Complaining of lower back pain for the past week. No history of fall or trauma prior to the onset of symptoms. No urinary incontinence. No fevers or chills. Pain is worse on bending forwards or sideways. Relieve done sitting down. Pain is radiating into the gluteal area. Patient drinks alcohol every day. He was seen in the emergency room for similar complaint a few days ago and was given cyclobenzaprine. [facility] Medical History History of COVID-19 Neuropathy Alcohol dependence Anxiety HTN (hypertension) Surgical History H/O colonoscopy Hx of cataract extraction History of open reduction and internal fixation (ORIF) procedure Social History Housing: Apartment Patient Tobacco Use Status: Never used Tobacco e-Cigarette/Vaping Use: Never Used Current occupational status: employed Cognitive needs: No Hearing needs: No Vision needs: Yes Physical Exam Vital Signs: Last Vital Signs Pulse 69 07/26/24 10:30 BP 150/100 H 07/26/24 10:30 Pulse Ox 96 07/26/24 10:30 Oxygen Delivery Method Room Air 07/26/24 10:30 BMI result Body Mass Index 28.7 Const General: cooperative and healthy appearing Nutritional Appearance: well nourished Orientation/consciousness: patient oriented x3 Limitations: no limitations HEENT Head: Yes normal to inspection Eyes General: appearance normal, both eyes and all related structures Neck Neck: Yes normal visual inspection Chest Chest palpation & inspection: normal palpation of entire chest wall Resp Effort & Inspection: normal respiratory effort Back/Spine/Pelvis Other: Minimal paraspinal discomfort. Neuro General: patient oriented x3 Assessment & Plan Assessment & Plan (1) Low back pain: Code(s): M54.50 - Low back pain, unspecified Plan: Meloxicam and cyclobenzaprine called in. Toradol injection provided. Patient was advised rest. Note for work if necessary provided. Once pain symptoms subside, patient should start physical therapy. If symptoms worsen to follow-up here. Orders: Orders AMB Ketorolac Injection Today M54.50 - Low back pain, unspecified Medications: New ketorolac 30 mg IM ONCE 1 mL 0RF M54.50 - Low back pain, unspecified Coding Level of Care Code Est Pt Level 4 (08228) Diagnoses Low back pain M54.50
[2024-07-26 10:30] VITALS: BP 150/100; PULSE 69; O2SAT 96; BMI 28.7
== END 2024-07-26 11:16 | disposition home or self-care (01) ==
PROVIDERS: PCP Internal Medicine; Visit Provider Internal Medicine
DX: M54.6 Pain in thoracic spine (principal)
CPT/HCPCS: 96372; 99214; J1885

== ENCOUNTER 2024-08-26 12:31 | Outpatient (AMB) | payer OTHER, SELFPAY ==
--- NOTE | 2024-08-26 12:33 | A.OFFPC_ITS ---
Vital Signs 3 08/26/24 12:34 Height 5 ft 10 in Weight 201 lb BMI 28.8 BP 120/82 Blood Pressure Location Rt brachial Position Sitting Pulse 74 Pulse Source Pulse Oximeter Pulse Oximetry (%) 98 Oxygen Delivery Method Room Air Intake Visit Reasons: Regular visit Allergies amlodipine Adverse Reaction (Verified 08/26/24 12:35) Swelling ankles Medication List - Last Reconciled 08/26/24 by Angelica Schrader MD atenolol 50 mg PO DAILY 90 days buspirone 10 mg PO .q am PRN 90 days clotrimazole-betamethasone 1-0.05 % 1 appl topical ONCE 30 days cyclobenzaprine 10 mg PO BEDTIME folic acid 1 mg PO DAILY 90 days furosemide 20 mg PO QAM 3 days magnesium oxide 420 mg PO BEDTIME multivitamin 1 tab PO DAILY ondansetron 8 mg PO Q8H sodium polystyrene sulfonate 15 grams (60 mL) PO DAILY 3 days thiamine HCl (vitamin B1) 100 mg PO DAILY 90 days Tobacco use date assessed: 08/26/24 Dental Screening Dental Screen Date: 07/08/24 HPI Regular visit 2 HPI0 Details Patient is 63-year-old gentleman Patient is suffering from lower back pain since past few days He says that his work involve bending and lifting heavy load He is requesting some days off from work so we can recover His pain has improved from before the Patient also is alcoholic and is currently trying to quit He has switched from hard liquor to beer and is drinking up to 15 beers a day He is requesting assistance so he can stop Patient says that he realized that he can not continued to drink like that I have sent Librium tablets with the patient patient was instructed to take that 2 times a day and absolutely no alcohol while taking the medication He will return in 2 weeks for re-evaluation for back as well as alcohol abuse Blood pressure is stable, he is on atenolol 50 mg, and also on frusemide for chronic leg edema Cyclobenzaprine for the back spasms He is also requesting Zofran script as he starts feeling nauseous when he stops drinking Patient is on buspirone 10 mg as well for acute anxiety attacks PFSH Medical History History of COVID-19 Neuropathy Alcohol dependence Anxiety HTN (hypertension) Surgical History H/O colonoscopy Hx of cataract extraction History of open reduction and internal fixation (ORIF) procedure Social History Housing: Apartment Patient Tobacco Use Status: Never used Tobacco e-Cigarette/Vaping Use: Never Used Current occupational status: employed Cognitive needs: No Hearing needs: No Vision needs: Yes Questionnaire Thrive Questionnaire Date Thrive assessed: 07/06/24 I am a: Patient What is your living situation today?: I have a steady place to live Within the past 12 months, did the food you bought not last and you didn't have the money to get more?: Never true Within the past 12 months, did you worry whether your food would run out before you got money to buy more?: Never true Do you have trouble paying for medicines?: No Do you have trouble getting transportation to medical appointments?: No Do you have trouble paying your heating and electricity bill?: No Do you have trouble taking care of your child, family member or friend?: No Do you have trouble with day-to-day activities such as bathing, preparing meals, shopping, managing finances, etc.?: No Are you currently unemployed and looking for a job?: No Are you interested in more education?: No Please select the resources that you would like help with: None Currently or been in a relationship where the following occur: No concerns reported THRIVE Score: 0 ALLIE-7 AMB Questionnaire ALLIE-7 Date ALLIE - 7 assessed: 07/08/24 Source: Developed by Drs. Srikanth Hernández, Cathleen Cifuentes, Jarod Garcia and colleagues, with an educational prince from [employer]. Review of Systems Const Denies chills and Denies fever(s) ENT Denies epistaxis and Denies nasal discharge Card Denies chest pain Resp Denies chest congestion, Denies cough and Denies hemoptysis GI Denies diarrhea Skin/Breast Denies rash Neuro Reports no additional complaints Psych Reports no additional complaints Endo Reports no additional complaints Physical exam (Primary Care) Vital Signs: Last Vital Signs Pulse 74 08/26/24 12:34 BP 120/82 08/26/24 12:34 Pulse Ox 98 08/26/24 12:34 Oxygen Delivery Method Room Air 08/26/24 12:34 BMI result Body Mass Index 28.8 Tobacco/Smoking Status: Tobacco use Status Tobacco use date assessed 08/26/24 08/26/24 12:37 Patient Tobacco Use Status Never used Tobacco 08/26/24 12:37 e-Cigarette/Vaping Use Never Used 08/26/24 12:37 Thrive Assessment: Date of Thrive Assessment Date Thrive assessed 07/06/24 08/26/24 12:37 Currently or been in a relationship where the following occur: No concerns reported Const General: cooperative, comfortable and no acute distress Orientation/consciousness: patient oriented x3 HENMT Other: Patient is tearful today talking about his health Head: Yes normocephalic Eyes General: appearance normal, both eyes and all related structures Neck Neck: Yes supple Resp Effort & Inspection: normal respiratory effort, no cough and no stridor Cardio Rhythm: regular rhythm Heart sounds: S1 normal heart sound present and S2 normal heart sound present Back/Spine/Pelvis Back/spine/pelvis image: 2 1. No pain with spine percussion, straight leg sign negative, range of motion intact, pain located paraspinal lumbar area Skin General skin exam: turgor normal Neuro General: patient oriented x3, tone normal and moves all extremities Assessment and Plan Assessment & Plan (1) Lower back pain: Code(s): M54.50 - Low back pain, unspecified Qualifiers: Chronicity: acute Back pain laterality: bilateral Sciatica presence: w ithout sciatica Qualified Code(s): M54.50 - Low back pain, unspecified (2) Alcohol dependence: Code(s): F10.20 - Alcohol dependence, uncomplicated Qualifiers: Substance use status: uncomplicated Qualified Code(s): F10.20 - Alcohol dependence, uncomplicated (3) Nephropathy: Code(s): N28.9 - Disorder of kidney and ureter, unspecified (4) Hemochromatosis: Code(s): E83.119 - Hemochromatosis, unspecified Qualifiers: Hemochromatosis type: hereditary Qualified Code(s): E83.110 - Hereditary hemochromatosis (5) Peripheral vascular disease: Code(s): I73.9 - Peripheral vascular disease, unspecified Plan Patient is 63-year-old gentleman with a history of hemochromatosis, nephropathy, peripheral vascular disease and chronic alcohol abuse Patient is suffering from lower back pain since past few days He says that his work involve bending and lifting heavy load He is requesting some days off from work so we can recover His pain has improved from before the Patient also is alcoholic and is currently trying to quit He has switched from hard liquor to beer and is drinking up to 15 beers a day He is requesting assistance so he can stop Patient says that he realized that he can not continued to drink like that I have sent Librium tablets with the patient patient was instructed to take that 2 times a day and absolutely no alcohol while taking the medication He will return in 2 weeks for re-evaluation for back as well as alcohol abuse Blood pressure is stable, he is on atenolol 50 mg, and also on frusemide for chronic leg edema Cyclobenzaprine for the back spasms He is also requesting Zofran script as he starts feeling nauseous when he stops drinking Patient is on buspirone 10 mg as well for acute anxiety attacks Medications: New 2 chlordiazepoxide HCl 25 mg PO BID 28 caps 0RF anxiety 14 days Refilled 2 ondansetron 8 mg PO Q8H 30 tabs 0RF R11.2 - Nausea with vomiting, unspecified, R19.7 - Diarrhea, unspecified Coding Level of Care Code Est Pt Level 4 (44014) Diagnoses Acute bilateral low back pain without sciatica M54.50 Chronicity: acute Back pain laterality: bilateral Sciatica presence: without sciatica Uncomplicated alcohol dependence F10.20 Substance use status: uncomplicated Nephropathy N28.9 Hereditary hemochromatosis E83.110 Hemochromatosis type: hereditary Peripheral vascular disease I73.9
[2024-08-26 12:34] VITALS: BP 120/82; PULSE 74; O2SAT 98; BMI 28.8
== END 2024-08-26 12:58 | disposition home or self-care (01) ==
PROVIDERS: PCP Internal Medicine; Visit Provider Internal Medicine
DX: M54.50 Low back pain, unspecified (principal); F10.20 Alcohol dependence, uncomplicated; E83.110 Hereditary hemochromatosis; I73.9 Peripheral vascular disease, unspecified; N28.9 Disorder of kidney and ureter, unspecified

== ENCOUNTER → 2024-08-26 12:31 | Outpatient (BNVA) | payer OTHER, SELFPAY | PROVIDERS: PCP Internal Medicine; Visit Provider Internal Medicine | DX: M54.50 Low back pain, unspecified (principal); F10.20 Alcohol dependence, uncomplicated; N28.9 Disorder of kidney and ureter, unspecified; E83.110 Hereditary hemochromatosis; I73.9 Peripheral vascular disease, unspecified ==

== ENCOUNTER 2024-09-09 14:49 | Outpatient (AMB) | payer OTHER, SELFPAY ==
[2024-09-09 14:56] VITALS: BP 172/96; PULSE 74; O2SAT 95; BMI 30.7
--- NOTE | 2024-09-09 14:56 | A.OFFPC_ITS ---
Vital Signs 09/09/24 14:56 Height 5 ft 10 in Weight 214 lb 2 oz BMI 30.7 BP 172/96 H Blood Pressure Location Lt brachial Position Sitting Pulse 74 Pulse Source Pulse Oximeter Pulse Oximetry (%) 95 Oxygen Delivery Method Room Air Intake Visit Reasons: 1 month follow up Allergies amlodipine Adverse Reaction (Verified 09/09/24 15:02) Swelling ankles Medication List - Last Reconciled 09/09/24 by Angelica Schrader MD atenolol 50 mg PO DAILY 90 days buspirone 10 mg PO .q am PRN 90 days chlordiazepoxide HCl 25 mg PO BID 14 days clotrimazole-betamethasone 1-0.05 % 1 appl topical ONCE 30 days cyclobenzaprine 10 mg PO BEDTIME folic acid 1 mg PO DAILY 90 days furosemide 20 mg PO QAM 3 days magnesium oxide 420 mg PO BEDTIME multivitamin 1 tab PO DAILY ondansetron 8 mg PO Q8H sodium polystyrene sulfonate 15 grams (60 mL) PO DAILY 3 days thiamine HCl (vitamin B1) 100 mg PO DAILY 90 days Tobacco use date assessed: 09/09/24 Dental Screening Dental Screen Date: 09/09/24 Did you have a dental visit in the last 12 months?: Yes Did you have a dental problem in the last 6 months where you did not have access to dental care?: No Was dental information given to patient?: Patient has dentist HPI 1 month follow up HPI Details Patient is 63-year-old gentleman came in today for his follow-up appointment His back pain is resolved need paperwork filled for the days he has missed work Starting from 08/29/2024 until 09/11/2024 He would like to go back to work from 09/12/2024 Patient has work involve bending and lifting He tells me that he will be careful He has stopped taking Librium as well Tells me that he has not drank since However continued to smoke marijuana that he has been smoking since he was 13 years old [facility] Medical History History of COVID-19 Neuropathy Alcohol dependence Anxiety HTN (hypertension) Surgical History H/O colonoscopy Hx of cataract extraction History of open reduction and internal fixation (ORIF) procedure Social History Housing: Apartment Patient Tobacco Use Status: Never used Tobacco e-Cigarette/Vaping Use: Never Used Current occupational status: employed Cognitive needs: No Hearing needs: No Vision needs: Yes Questionnaire Thrive Questionnaire Date Thrive assessed: 09/09/24 I am a: Patient What is your living situation today?: I have a steady place to live Within the past 12 months, did the food you bought not last and you didn't have the money to get more?: Never true Within the past 12 months, did you worry whether your food would run out before you got money to buy more?: Never true Do you have trouble paying for medicines?: No Do you have trouble getting transportation to medical appointments?: No Do you have trouble paying your heating and electricity bill?: No Do you have trouble taking care of your child, family member or friend?: No Do you have trouble with day-to-day activities such as bathing, preparing meals, shopping, managing finances, etc.?: No Are you currently unemployed and looking for a job?: No Are you interested in more education?: No Please select the resources that you would like help with: None Currently or been in a relationship where the following occur: No concerns reported THRIVE Score: 0 AUDIT C Alcohol Use Questionnaire (AUDIT-C) 1. How often do you have a drink containing alcohol?: 2-3 times a week 2. How many drinks containing alcohol do you have on a typical day when you are drinking?: 1 or 2 3. How often do you have six or more drinks on one occasion?: Weekly Total Score: 6 Score Reviewed/Action Taken: Yes ALLIE-7 AMB Questionnaire ALLEI-7 Date ALLIE - 7 assessed: 07/08/24 Source: Developed by Drs. Srikanth Hernández, Cathleen Cifuentes, Jarod Garcia and colleagues, with an educational prince from [employer]. Review of Systems Const Denies chills and Denies fever(s) ENT Denies epistaxis and Denies nasal discharge Card Denies chest pain Resp Denies chest congestion, Denies cough and Denies hemoptysis GI Denies diarrhea and Denies nausea Skin/Breast Denies rash Neuro Reports no additional complaints Psych Reports no additional complaints Endo Reports no additional complaints Physical exam (Primary Care) Vital Signs: Last Vital Signs Pulse 74 09/09/24 14:56 BP 172/96 H 09/09/24 14:56 Pulse Ox 95 09/09/24 14:56 Oxygen Delivery Method Room Air 09/09/24 14:56 BMI result Body Mass Index 30.7 Tobacco/Smoking Status: Tobacco use Status Tobacco use date assessed 09/09/24 09/09/24 15:03 Patient Tobacco Use Status Never used Tobacco 09/09/24 14:59 e-Cigarette/Vaping Use Never Used 09/09/24 14:59 Thrive Assessment: Date of Thrive Assessment Date Thrive assessed 09/09/24 09/09/24 15:03 Currently or been in a relationship where the following occur: No concerns reported Const General: cooperative, comfortable and no acute distress Orientation/consciousness: patient oriented x3 HENMT Head: Yes normocephalic Eyes General: appearance normal, both eyes and all related structures Neck Neck: Yes supple Resp Effort & Inspection: normal respiratory effort, no cough and no stridor Cardio Rhythm: regular rhythm Heart sounds: S1 normal heart sound present and S2 normal heart sound present Skin General skin exam: turgor normal Neuro General: patient oriented x3, tone normal and moves all extremities Extrem Right lower extremity: no edema Left lower extremity: no edema Coding Level of Care Code Est Pt Level 3 (38738) Diagnoses Acute bilateral low back pain without sciatica M54.50 Chronicity: acute Back pain laterality: bilateral Sciatica presence: without sciatica Marijuana dependence F12.20 Primary hypertension I10 Hypertension type: primary hypertension Assessment & Plan Assessment & Plan (1) Lower back pain: Code(s): M54.50 - Low back pain, unspecified Category: Medical Qualifiers: Chronicity: acute Back pain laterality: bilateral Sciatica presence: without sciatica Qualified Code(s): M54.50 - Low back pain, unspecified (2) Marijuana dependence: Code(s): F12.20 - Cannabis dependence, uncomplicated Category: Medical (3) HTN (hypertension): Code(s): I10 - Essential (primary) hypertension Category: Medical Qualifiers: Hypertension type: primary hypertension Qualified Code(s): I10 - Essential (primary) hypertension Plan Patient is 63-year-old gentleman came in today for his follow-up appointment His back pain is resolved need paperwork filled for the days he has missed work Starting from 08/29/2024 until 09/11/2024 He would like to go back to work from 09/12/2024 Patient has work involve bending and lifting He tells me that he will be careful He has stopped taking Librium as well Tells me that he has not drank since However continued to smoke marijuana that he has been smoking since he was 13 years old His blood pressure is elevated today, patient will check again when he will get home If above 150 he will take extra atenolol 50 mg He used to be on 100 mg before Medications: Discontinued chlordiazepoxide HCl Discontinued Reason: Doctor's Order 25 mg PO BID 14 days 28 caps 0RF anxiety
== END 2024-09-09 15:17 | disposition home or self-care (01) ==
PROVIDERS: PCP Internal Medicine; Visit Provider Internal Medicine
DX: M54.50 Low back pain, unspecified (principal); F12.20 Cannabis dependence, uncomplicated; I10 Essential (primary) hypertension

== ENCOUNTER → 2024-09-09 14:49 | Outpatient (BNVA) | payer OTHER, SELFPAY | PROVIDERS: PCP Internal Medicine; Visit Provider Internal Medicine ==

== ENCOUNTER 2024-10-04 11:15 | Outpatient (REF) | payer OTHER, SELFPAY ==
[2024-10-04 13:30] LABS: MANUAL DIFF FLAG NO
[2024-10-04 13:37] LABS: Basophils Absolute Auto 0.1 X10*3/uL (0.0-0.2); Basophils Percent Auto 1.2 % (0-2); Eosinophils Absolute Auto 0.2 X10*3/uL (0.0-0.4); Eosinophils Percent Auto 2.5 % (0-4); Hematocrit 41.4 % (42.0-52.0); Hemoglobin 14.5 g/dl (14.0-18.0); Imm Gran Abs Auto 0.01 X10*3/uL (0.00-0.03); Imm Gran Pct Auto 0.1 % (0.0-0.4); Lymphocytes Absolute Auto 3.4 X10*3/uL (1.2-4.9); Lymphocytes Percent Auto 46.8 % (20-40); Mean Corpuscular Hemoglobin 37.1 pg (27.0-33.0); Mean Corpuscular Volume 105.9 fL (80.0-98.0); Mean Platelet Volume 10.2 fL (9.4-12.4); Monocytes Absolute Auto 0.4 X10*3/uL (0.1-1.2); Monocytes Percent Auto 5.7 % (2-11); Neutrophils Absolute Auto 3.2 x10*3/uL (2.0-8.3); Neutrophils Percent Auto 43.7 % (45-73); Platelet Count 162 X10*3/uL (160-400); Red Blood Count 3.91 X10*6/uL (4.60-5.80); Red Cell Distribution Width 12.5 % (11.0-16.0); White Blood Count 7.3 X10*3/uL (4.8-10.8)
[2024-10-04 14:02] LABS: Alanine Aminotransferase 32 U/L (0-40); Alkaline Phosphatase 87 U/L (39-117); Anion Gap 17 (12-20); Aspartate Amino Transferase 59 U/L (5-37); Bilirubin Total 0.8 mg/dL (0.0-1.0); Blood Urea Nitrogen 17 mg/dL (9-16); Calcium 8.8 mg/dL (8.4-10.2); Carbon Dioxide 27 mmol/L (22-29); Chloride 100 mmol/L (96-108); Estimated Glomerular Filt Rate 59; Glucose Random 96 mg/dL (60-115); Potassium 3.9 mmol/L (3.3-5.1); Sodium 140 mmol/L (135-145); Total Protein 7.6 g/dL (6.5-8.0)
[2024-10-04 14:21] LABS: Ferritin 1479 ng/mL (20-250)
[2024-10-04 14:23] LABS: Vitamin B12 495 pg/mL (200-900)
[2024-10-06 14:51] LABS: Iron 147 mcg/dL (45-160); Percent Iron Saturation 51 % (15-50); Total Iron Binding Capacity 291 mcg/dL (228-428); Unsaturated Iron Binding 144 ug/dL
== END 2024-10-04 11:16 | disposition home or self-care (01) ==
LOC: HO.HMGCLDS 11:15
PROVIDERS: Internal Medicine Medical Oncology; PCP Internal Medicine; Visit Provider Internal Medicine
DX: D50.9 Iron deficiency anemia, unspecified (principal); E87.1 Hypo-osmolality and hyponatremia; R79.89 Other specified abnormal findings of blood chemistry; K76.9 Liver disease, unspecified
CPT/HCPCS: 36415; 80053; 82607; 82728; 83540; 85025

== ENCOUNTER 2024-10-04 11:15 | Outpatient (AMB) | payer OTHER, SELFPAY ==
[2024-10-04 11:21] VITALS: BP 132/82; PULSE 72; O2SAT 98
--- NOTE | 2024-10-04 11:21 | A.OFFPC_ITS ---
Vital Signs 10/04/24 11:21 Height 5 ft 10 in Weight 209 lb BMI 30.0 BP 132/82 Blood Pressure Location Rt brachial Position Sitting Pulse 72 Pulse Source Pulse Oximeter Pulse Oximetry (%) 98 Intake Visit Reasons: High BP Accompanied by: Self / Same As Patient Allergies amlodipine Adverse Reaction (Verified 10/04/24 11:21) Swelling ankles Medication List - Last Reconciled 10/04/24 by Angelica Schrader MD atenolol 50 mg PO DAILY 90 days buspirone 10 mg PO .q am PRN 90 days clotrimazole-betamethasone 1-0.05 % 1 appl topical ONCE 30 days cyclobenzaprine 10 mg PO BEDTIME folic acid 1 mg PO DAILY 90 days furosemide 20 mg PO QAM 3 days magnesium oxide 420 mg PO BEDTIME multivitamin 1 tab PO DAILY ondansetron 8 mg PO Q8H sodium polystyrene sulfonate 15 grams (60 mL) PO DAILY 3 days thiamine HCl (vitamin B1) 100 mg PO DAILY 90 days Tobacco use date assessed: 09/09/24 Fall risk assessment: No Falls in past year Last assessed Fall Risk: 10/04/24 Dental Screening Dental Screen Date: 09/09/24 HPI High BP HPI Details Patient was started drinking again, stopped his blood pressure medication due to erectile dysfunction Started having severe headache and high blood pressure. Has restarted atenolol blood pressure is stable now headache is better However was not able to go to work since September 29 Patient says that he needs few days to recover and stop again from alcohol abuse He is requesting a letter for work which was provided till October 10 Anemic, I did a referral to Hematology end of June But he has not had appointment till today, I have given him number to call in book the appointment We will repeat the labs today to monitor hemoglobin, last hemoglobin was 9.0 PFSH Medical History History of COVID-19 Neuropathy Alcohol dependence Anxiety HTN (hypertension) Surgical History H/O colonoscopy Hx of cataract extraction History of open reduction and internal fixation (ORIF) procedure Social History Housing: Apartment Patient Tobacco Use Status: Never used Tobacco e-Cigarette/Vaping Use: Never Used Current occupational status: employed Cognitive needs: No Hearing needs: No Vision needs: Yes Questionnaire Thrive Questionnaire Date Thrive assessed: 07/06/24 I am a: Patient What is your living situation today?: I have a steady place to live Within the past 12 months, did the food you bought not last and you didn't have the money to get more?: Never true Within the past 12 months, did you worry whether your food would run out before you got money to buy more?: Never true Do you have trouble paying for medicines?: No Do you have trouble getting transportation to medical appointments?: No Do you have trouble paying your heating and electricity bill?: No Do you have trouble taking care of your child, family member or friend?: No Do you have trouble with day-to-day activities such as bathing, preparing meals, shopping, managing finances, etc.?: No Are you currently unemployed and looking for a job?: No Are you interested in more education?: No Please select the resources that you would like help with: None Currently or been in a relationship where the following occur: No concerns reported THRIVE Score: 0 ALLIE-7 AMB Questionnaire ALLIE-7 Date ALLIE - 7 assessed: 07/08/24 Source: Developed by Drs. Srikanth Hernández, Cathleen Cifuentes, Jarod Garcia and colleagues, with an educational prince from [employer]. Review of Systems Const Denies chills and Denies fever(s) ENT Denies epistaxis and Denies nasal discharge Card Denies chest pain Resp Denies chest congestion, Denies cough and Denies hemoptysis GI Denies diarrhea and Denies nausea Skin/Breast Denies rash Neuro Reports no additional complaints Psych Reports no additional complaints Endo Reports no additional complaints Physical exam (Primary Care) Vital Signs: Last Vital Signs Pulse 72 10/04/24 11:21 BP 132/82 10/04/24 11:21 Pulse Ox 98 10/04/24 11:21 BMI result Body Mass Index 30.0 Tobacco/Smoking Status: Tobacco use Status Tobacco use date assessed 09/09/24 10/04/24 11:26 Patient Tobacco Use Status Never used Tobacco 10/04/24 11:26 e-Cigarette/Vaping Use Never Used 11/05/24 11:26 Thrive Assessment: Date of Thrive Assessment Date Thrive assessed 07/06/24 10/04/24 11:26 Currently or been in a relationship where the following occur: No concerns reported Const General: cooperative, comfortable and no acute distress Orientation/consciousness: patient oriented x3 HENMT Head: Yes normocephalic Eyes General: appearance normal, both eyes and all related structures Neck Neck: Yes supple Resp Effort & Inspection: normal respiratory effort, no cough and no stridor Cardio Rhythm: regular rhythm Heart sounds: S1 normal heart sound present and S2 normal heart sound present Skin General skin exam: turgor normal Neuro General: patient oriented x3, tone normal and moves all extremities Extrem Right lower extremity: no edema Left lower extremity: no edema Coding Level of Care Code Est Pt Level 4 (86101) Diagnoses Microcytic anemia D50.9 Hyponatremia E87.1 Uncomplicated alcohol dependence F10.20 Substance use status: uncomplicated Alcoholic peripheral neuropathy G62.1 Anxiety, generalized F41.1 Assessment & Plan Assessment & Plan (1) Microcytic anemia: Code(s): D50.9 - Iron deficiency anemia, unspecified Category: Medical (2) Hyponatremia: Code(s): E87.1 - Hypo-osmolality and hyponatremia Category: Medical (3) Alcohol dependence: Code(s): F10.20 - Alcohol dependence, uncomplicated Category: Medical Qualifiers: Substance use status: uncomplicated Qualified Code(s): F10.20 - Alcohol dependence, uncomplicated (4) Alcoholic peripheral neuropathy: Code(s): G62.1 - Alcoholic polyneuropathy Category: Medical (5) Anxiety, generalized: Code(s): F41.1 - Generalized anxiety disorder Category: Medical Plan Patient was started drinking again, stopped his blood pressure medication due to erectile dysfunction Started having severe headache and high blood pressure. Has restarted atenolol blood pressure is stable now headache is better However was not able to go to work since September 29 Patient says that he needs few days to recover and stop again from alcohol abuse He is requesting a letter for work which was provided till October 10 Anemic, I did a referral to Hematology end of June But he has not had appointment till today, I have given him number to call in book the appointment We will repeat the labs today to monitor hemoglobin, last hemoglobin was 9.0 Orders: Orders Complete Blood Count Auto Diff Today D50.9 - Iron deficiency anemia, unspecified, E87.1 - Hypo-osmolality and hyponatremia Comprehensive Met. Panel Today D50.9 - Iron deficiency anemia, unspecified, E87.1 - Hypo-osmolality and hyponatremia Ferritin Today D50.9 - Iron deficiency anemia, unspecified, E87.1 - Hypo- osmolality and hyponatremia Vitamin B12 Today D50.9 - Iron deficiency anemia, unspecified, E87.1 - Hypo- osmolality and hyponatremia Medications: Refilled atenolol 50 mg PO DAILY 90 tabs 0RF 90 days I10 - Essential (primary) hypertension
== END 2024-10-04 13:16 | disposition home or self-care (01) ==
LOC: HO.HMCC 11:16
PROVIDERS: PCP Internal Medicine; Visit Provider Internal Medicine
DX: D50.9 Iron deficiency anemia, unspecified (principal); E87.1 Hypo-osmolality and hyponatremia; F10.20 Alcohol dependence, uncomplicated; G62.1 Alcoholic polyneuropathy; F41.1 Generalized anxiety disorder

== ENCOUNTER → 2024-10-18 07:34 | Outpatient (BNV) | payer OTHER, SELFPAY | PROVIDERS: Absent Provider Internal Medicine; PCP Internal Medicine; Visit Provider Internal Medicine Medical Oncology | DX: E83.119 Hemochromatosis, unspecified (principal); K76.9 Liver disease, unspecified | CPT/HCPCS: 99204 ==

== ENCOUNTER 2024-10-21 13:21 | Outpatient (REF) | payer OTHER, SELFPAY ==
--- NOTE | ~2024-10-21 | US_ITS ---
EXAMINATION: US ABDOMEN LIMITED WITH LIVER ELASTOGRAPHY CLINICAL INFORMATION: Alcoholism, elevated ferritin. COMPARISON: 03/13/2014 abdominal ultrasound. TECHNIQUE: Real-time imaging of the abdominal viscera. Noninvasive ultrasound liver fibrosis assessment is performed using Siemens shear wave elastography (pSWE) with a 5 MHz transducer. Multiple elastography samples are obtained. FINDINGS: PANCREAS: Normal. The visualized pancreatic head and body are normal in appearance. The remainder of the pancreas is obscured from visualization by the overlying bowel gas. LIVER: Liver is diffusely echogenic with a mildly lobular contour. No focal hepatic lesion identified. The right lobe measures 19.2 cm in length. The left lobe measures 14.1 cm in length. Hepatopedal flow in the main portal vein. Shear wave elastography provides a median stiffness of 1.35 m/s (reference: normal median stiffness is 0.81 - 1.22 m/s). The IQR/median stiffness to assess sampling precision is 0.44 (reference: optimal IQR/median stiffness is under 0.3). GALLBLADDER: Normal. The gallbladder is physiologically distended without evidence of stones, sludge, polyps, wall thickening or pericholecystic fluid. COMMON BILE DUCT: Normal in caliber measuring 0.5 cm in diameter. RIGHT KIDNEY: Normal. No hydronephrosis. No renal calculi or focal parenchymal lesions. The kidney measures 11.4 cm in maximum dimension. FREE FLUID: None. US/US abdomen womack w elastography IMPRESSION: 1. Diffusely increased hepatic echogenicity, with a notable lobulated hepatic contour, likely representing a mix of fatty infiltration and hepatocellular disease/cirrhosis. No focal liver abnormality. 2. Elastography: Although the liver elastography measurements are consistent with a moderate risk for clinically significant liver fibrosis (METAVIR Stage F2-F3), there is statistical variability of the sampling which decreases accuracy. Electronically signed by: Derik Mercer MD 10/28/2024 11:17 AM EST
== END 2024-10-21 13:22 | disposition home or self-care (01) ==
LOC: HO.US 13:21
PROVIDERS: PCP Internal Medicine; Visit Provider Internal Medicine Medical Oncology
DX: K76.9 Liver disease, unspecified (principal)
CPT/HCPCS: 76705; 76981

== ENCOUNTER → 2024-10-21 13:23 | Outpatient (BNV) | payer OTHER, SELFPAY | PROVIDERS: PCP Internal Medicine; Visit Provider Radiology Diagnostic Radiology | DX: K74.00 Hepatic fibrosis, unspecified (principal) | CPT/HCPCS: 76981 ==

== ENCOUNTER 2024-10-24 13:40 | Outpatient (REF) | payer OTHER, SELFPAY | END 2024-10-24 13:41 | disposition home or self-care (01) | LOC: HO.BBR 13:40 | PROVIDERS: PCP Internal Medicine; Visit Provider Internal Medicine Medical Oncology | DX: Z13.89 Encounter for screening for other disorder (principal) ==

== ENCOUNTER 2024-11-08 09:11 | Outpatient (REF) | payer OTHER, SELFPAY ==
[2024-11-08 13:02] LABS: MANUAL DIFF FLAG NO
[2024-11-08 13:19] LABS: Albumin Level 4.4 g/dL (3.5-5.0); Anion Gap 23 (12-20); Aspartate Amino Transferase 193 U/L (5-37); Bilirubin Total 4.4 mg/dL (0.0-1.0); Blood Urea Nitrogen 27 mg/dL (9-16); Calcium 10.2 mg/dL (8.4-10.2); Carbon Dioxide 18 mmol/L (22-29); Chloride 87 mmol/L (96-108); Estimated Glomerular Filt Rate 26; Glucose Random 149 mg/dL (60-115); Lactate Dehydrogenase 705 U/L (118-273); Potassium 5.4 mmol/L (3.3-5.1); Sodium 123 mmol/L (135-145); Total Protein 8.7 g/dL (6.5-8.0)
[2024-11-08 13:28] LABS: Basophils Absolute Auto 0.1 X10*3/uL (0.0-0.2); Basophils Percent Auto 0.7 % (0-2); Eosinophils Absolute Auto 0.1 X10*3/uL (0.0-0.4); Eosinophils Percent Auto 1.5 % (0-4); Hematocrit 39.3 % (42.0-52.0); Hemoglobin 14.1 g/dl (14.0-18.0); Imm Gran Abs Auto 0.05 X10*3/uL (0.00-0.03); Imm Gran Pct Auto 0.6 % (0.0-0.4); Lymphocytes Absolute Auto 1.3 X10*3/uL (1.2-4.9); Lymphocytes Percent Auto 14.6 % (20-40); Mean Corpuscular HGB Conc 35.9 g/dl (31.0-36.0); Mean Corpuscular Volume 103.1 fL (80.0-98.0); Mean Platelet Volume 12.4 fL (9.4-12.4); Monocytes Absolute Auto 0.8 X10*3/uL (0.1-1.2); Monocytes Percent Auto 9.5 % (2-11); Neutrophils Absolute Auto 6.3 x10*3/uL (2.0-8.3); Neutrophils Percent Auto 73.1 % (45-73); Platelet Count 113 X10*3/uL (160-400); Red Blood Count 3.81 X10*6/uL (4.60-5.80); Red Cell Distribution Width 13.2 % (11.0-16.0); White Blood Count 8.6 X10*3/uL (4.8-10.8)
[2024-11-08 13:37] LABS: Alanine Aminotransferase 109 U/L (0-40); Alkaline Phosphatase 121 U/L (39-117)
== END 2024-11-08 09:12 | disposition home or self-care (01) ==
LOC: HO.HMGCLDS 09:11
PROVIDERS: PCP Internal Medicine; Visit Provider Internal Medicine
DX: M62.89 Other specified disorders of muscle (principal); D50.9 Iron deficiency anemia, unspecified; E87.5 Hyperkalemia; E83.119 Hemochromatosis, unspecified; F10.20 Alcohol dependence, uncomplicated; R26.2 Difficulty in walking, not elsewhere classified; M79.604 Pain in right leg; M79.605 Pain in left leg; G62.1 Alcoholic polyneuropathy
CPT/HCPCS: 36415; 80053; 83615; 83735; 85025

== ENCOUNTER 2024-11-08 09:11 | Outpatient (AMB) | payer OTHER, SELFPAY ==
[2024-11-08 09:18] VITALS: BP 142/84; PULSE 69; O2SAT 97; BMI 30.6
--- NOTE | 2024-11-08 09:18 | A.OFFPC_ITS ---
Vital Signs 11/08/24 09:18 Height 5 ft 8 in Weight 201 lb 8 oz BMI 30.6 BP 142/84 H Blood Pressure Location Lt brachial Position Sitting Pulse 69 Pulse Source Pulse Oximeter Pulse Oximetry (%) 97 Oxygen Delivery Method Room Air Intake Visit Reasons: Knees pain Allergies amlodipine Adverse Reaction (Verified 11/08/24 09:18) Swelling ankles Medication List - Last Reconciled 11/08/24 by Angelica Schrader MD atenolol 50 mg PO DAILY 90 days buspirone 10 mg PO .q am PRN 90 days clotrimazole-betamethasone 1-0.05 % 1 appl topical ONCE 30 days cyclobenzaprine 10 mg PO BEDTIME folic acid 1 mg PO DAILY 90 days furosemide 20 mg PO QAM 3 days magnesium oxide 420 mg PO BEDTIME multivitamin 1 tab PO DAILY ondansetron 8 mg PO Q8H sodium polystyrene sulfonate 15 grams (60 mL) PO DAILY 3 days spironolactone (Aldactone) 50 mg PO QAM thiamine HCl (vitamin B1) 100 mg PO DAILY 90 days Tobacco use date assessed: 11/08/24 Fall risk assessment: 1 Fall in past year Last assessed Fall Risk: 11/08/24 Dental Screening Dental Screen Date: 11/08/24 Did you have a dental visit in the last 12 months?: No Did you have a dental problem in the last 6 months where you did not have access to dental care?: No Was dental information given to patient?: No HPI Knees pain HPI Details Assessment and Plan 64-year-old male with a history of muscl e weakness presenting with muscle soreness and weakness following an incident involving heavy lifting. The patient reports weakness in his muscles, particularly in the legs and chest, exacerbated by a recent fall. The patient also noted difficulty ambulating and performing daily activities, such as showering and climbing stairs. It is important to rule out recurrent electrolyte imbalance exacerbated by alcohol consumption and muscle strain from the reported incident. 1. Muscle Strain The patient reported an incident leading to muscle strain, particularly involving the legs and chest muscles. He has difficulty executing daily activities, like showering or climbing stairs. Management includes muscle strengthening exercises, likely through physical therapy, to aid recovery and prevent further injury once electrolytes are confirmed normal. 2. Electrolyte Imbalance The concern over the effect of recent alcohol consumption on electrolyte balance due to a past history of imbalance. Laboratory tests have been ordered to assess current electrolyte levels. The patient was advised that, depending on results, treatment might range from oral supplementation to emergency care for severe deficiencies. Problem List - Muscle Strain - Electrolyte Imbalance - alcohol abuse Inupiat of Care: Hematology Dr. Clinton for hemochromatosis and elevated ferritin Patient Instructions - Complete laboratory testing as ordered to check electrolyte levels. - Avoid alcohol consumption to prevent e xacerbation of electrolyte imbalances. - Monitor for any worsening symptoms, es pecially breathing difficulties, and seek emergency care if necessary. - Expect a follow-up call for lab result s. - Avoid heavy lifting and activities benjamín t may strain muscles or aggravate the hernia. - Seek further medical advice if muscle soreness or weakness increases. - Recommended resting and refraining fro m strenuous activity until further assessment is completed - refrain from drinking alcohoe - note given to be off work until next w [place] [facility] Medical History History of COVID-19 Neuropathy Alcohol dependence Anxiety HTN (hypertension) Surgical History H/O colonoscopy Hx of cataract extraction History of open reduction and internal fixation (ORIF) procedure Social History Household Members: None Housing: Apartment Patient Tobacco Use Status: Never used Tobacco e-Cigarette/Vaping Use: Never Used Substance Use Type: Marijuana service: No Current occupational status: employed Cognitive needs: No Hearing needs: No Vision needs: Yes Questionnaire Thrive Questionnaire Date Thrive assessed: 11/08/24 I am a: Patient What is your living situation today?: I have a steady place to live Within the past 12 months, did the food you bought not last and you didn't have the money to get more?: Never true Within the past 12 months, did you worry whether your food would run out before you got money to buy more?: Never true Do you have trouble paying for medicines?: No Do you have trouble getting transportation to medical appointments?: No Do you have trouble paying your heating and electricity bill?: No Do you have trouble taking care of your child, family member or friend?: No Do you have trouble with day-to-day activities such as bathing, preparing meals, shopping, managing finances, etc.?: No Are you currently unemployed and looking for a job?: No Are you interested in more education?: No Please select the resources that you would like help with: None Currently or been in a relationship where the following occur: No concerns reported THRIVE Score: 0 AUDIT C Alcohol Use Questionnaire (AUDIT-C) 1. How often do you have a drink containing alcohol?: 2-3 times a week 2. How many drinks containing alcohol do you have on a typical day when you are drinking?: 1 or 2 3. How often do you have six or more drinks on one occasion?: Weekly Total Score: 6 Score Reviewed/Action Taken: Yes ALLIE-7 AMB Questionnaire ALLIE-7 Date ALLIE - 7 assessed: 07/08/24 Source: Developed by Drs. Srikanth Hernández, Cathleen Cifuentes, Jarod Garcia and colleagues, with an educational prince from [employer]. Review of Systems Const Denies chills and Denies fever(s) ENT Denies epistaxis and Denies nasal discharge Resp Denies chest congestion, Denies cough and Denies hemoptysis GI Denies diarrhea and Denies nausea Skin/Breast Denies rash Neuro Reports no additional complaints Psych Reports no additional complaints Endo Reports no additional complaints Physical exam (Primary Care) Vital Signs: Last Vital Signs Pulse 69 11/08/24 09:18 BP 142/84 H 11/08/24 09:18 Pulse Ox 97 11/08/24 09:18 Oxygen Delivery Method Room Air 11/08/24 09:18 BMI result Body Mass Index 30.6 Tobacco/Smoking Status: Tobacco use Status Tobacco use date assessed 11/08/24 11/08/24 09:24 Patient Tobacco Use Status Never used Tobacco 11/08/24 09:21 e-Cigarette/Vaping Use Never Used 11/08/24 09:21 Thrive Assessment: Date of Thrive Assessment Date Thrive assessed 11/08/24 11/08/24 09:24 Currently or been in a relationship where the following occur: No concerns reported Const General: cooperative, comfortable and no acute distress Orientation/consciousness: patient oriented x3 HENMT Head: Yes normocephalic Eyes General: appearance normal, both eyes and all related structures Neck Neck: Yes supple Resp Effort & Inspection: normal respiratory effort, no cough and no stridor Cardio Rhythm: regular rhythm Heart sounds: S1 normal heart sound present and S2 normal heart sound present Skin General skin exam: turgor normal Neuro General: patient oriented x3, tone normal and moves all extremities Extrem Right lower extremity: no edema Left lower extremity: no edema Coding Level of Care Code Est Pt Level 4 (03970) Diagnoses Muscle fatigue M62.89 Microcytic anemia D50.9 Hyperkalemia E87.5 Hemochromatosis, unspecified hemochromatosis type E83.119 Hemochromatosis type: unspecified Uncomplicated alcohol dependence F10.20 Substance use status: uncomplicated Difficulty walking R26.2 Bilateral leg pain M79.604; M79.605 Alcoholic peripheral neuropathy G62.1 Assessment & Plan Assessment & Plan (1) Muscle fatigue: Code(s): M62.89 - Other specified disorders of muscle Category: Medical (2) Microcytic anemia: Code(s): D50.9 - Iron deficiency anemia, unspecified Category: Medical (3) Hyperkalemia: Code(s): E87.5 - Hyperkalemia Category: Medical (4) Hemochromatosis: Code(s): E83.119 - Hemochromatosis, unspecified Category: Medical Qualifiers: Hemochromatosis type: unspecified Qualified Code(s): E83.119 - Hemochromatosis, unspecified (5) Alcohol dependence: Code(s): F10.20 - Alcohol dependence, uncomplicated Category: Medical Qualifiers: Substance use status: uncomplicated Qualified Code(s): F10.20 - Alcohol dependence, uncomplicated (6) Difficulty walking: Code(s): R26.2 - Difficulty in walking, not elsewhere classified Category: Medical (7) Bilateral leg pain: Code(s): M79.604 - Pain in right leg; M79.605 - Pain in left leg Category: Medical (8) Alcoholic peripheral neuropathy: Code(s): G62.1 - Alcoholic polyneuropathy Category: Medical Plan Assessment and Plan 64-year-old male with a history of alcoholic neuropathy, hemochromatosis with elevated ferritin, hypertension, anxiety, muscle weakness presenting with muscle soreness and weakness following an incident involving heavy lifting. The patient reports weakness in his muscles, particularly in the legs and chest, exacerbated by a recent fall. The patient also noted difficulty ambulating and performing daily activities, such as showering and climbing stairs. It is important to rule out recurrent electrolyte imbalance exacerbated by alcohol consumption and muscle strain from the reported incident. 1. Muscle Strain The patient reported an incident leading to muscle strain, particularly involving the legs and chest muscles. He has difficulty executing daily activities, like showering or climbing stairs. Management includes muscle strengthening exercises, likely through physical therapy, to aid recovery and prevent further injury once electrolytes are confirmed normal. 2. Electrolyte Imbalance The concern over the effect of recent alcohol consumption on electrolyte balance due to a past history of imbalance. Laboratory tests have been ordered to assess current electrolyte levels. The patient was advised that, depending on results, treatment might range from oral supplementation to emergency care for severe deficiencies. Problem List - Muscle Strain - Electrolyte Imbalance - alcohol abuse Inupiat of Care: Hematology Dr. Clinton for hemochromatosis and elevated ferritin Patient Instructions - Complete laboratory testing as ordered to check electrolyte levels. - Avoid alcohol consumption to prevent exacerbation of electrolyte imbalances. - Monitor for any worsening symptoms, especially breathing difficulties, and seek emergency care if necessary. - Expect a follow-up call for lab results. - Avoid heavy lifting and activities that may strain muscles or aggravate the hernia. - Seek further medical advice if muscle soreness or weakness increases. - Recommended resting and refraining from strenuous activity until further assessment is completed - refrain from drinking alcohoe - note given to be off work until next week Orders: Orders Comprehensive Met. Panel Today D50.9 - Iron deficiency anemia, unspecified, E87.5 - Hyperkalemia, M62.89 - Other specified disorders of muscle Complete Blood Count Auto Diff Today D50.9 - Iron deficiency anemia, unspecified, E87.5 - Hyperkalemia, M62.89 - Other specified disorders of muscle Magnesium Today D50.9 - Iron deficiency anemia, unspecified, E87.5 - Hyperkalemia, M62.89 - Other specified disorders of muscle Lactic Acid Today E87.5 - Hyperkalemia, M62.89 - Other specified disorders of muscle Lactate Dehydrogenase Today E87.5 - Hyperkalemia, M62.89 - Other specified disorders of muscle
== END 2024-11-08 13:34 | disposition home or self-care (01) ==
PROVIDERS: PCP Internal Medicine; Visit Provider Internal Medicine
DX: D50.9 Iron deficiency anemia, unspecified (principal); F10.20 Alcohol dependence, uncomplicated; G62.1 Alcoholic polyneuropathy; M62.89 Other specified disorders of muscle; E87.5 Hyperkalemia; E83.119 Hemochromatosis, unspecified; R26.2 Difficulty in walking, not elsewhere classified; M79.604 Pain in right leg; M79.605 Pain in left leg

== ENCOUNTER 2024-11-09 22:33 | Inpatient (IN) | payer OTHER, SELFPAY ==
--- NOTE | 2024-11-09 | ECG_ITS ---
Test Reason : HYPOTENSION Blood Pressure : / mmHG Vent. Rate : 068 BPM Atrial Rate : 068 BPM P-R Int : 212 ms QRS Dur : 084 ms QT Int : 396 ms P-R-T Axes : 017 090 019 degrees QTc Int : 421 ms Sinus rhythm with 1st degree A-V block Rightward axis Borderline ECG When compared with ECG of 02-JAN-2024 02:10, Incomplete right bundle branch block is no longer Present Referred By: Generic ED Physician Electronically Signed By:CEASAR CASTRO MD
--- NOTE | ~2024-11-09 | CT_ITS ---
EXAMINATION: CT ABDOMEN AND PELVIS WITHOUT CONTRAST CLINICAL INFORMATION: Alcoholic with question of pancreatitis COMPARISON: Ultrasound abdomen 10/21/2024 TECHNIQUE: Multidetector volumetric imaging was performed from the superior aspect of the liver through the pubic symphysis. Sagittal and coronal reformatted images were obtained on the technologist's workstation. This CT examination was performed using dose optimization techniques as appropriate, variously including the following: *Automated exposure control *Adjustment of mA and/or kV according to patient size (this includes techniques or standardized protocols for targeted exams where dose is matched to indication/reason for exam; i.e. extremities or head) *Use of iterative reconstruction technique DLP: 637 mGy-cm FINDINGS: LUNG BASES: The visualized lung bases are unremarkable. Some tiny micronodules are seen none larger than 3 mm (see saved herrera images). LIVER, GALLBLADDER, AND BILIARY TREE: The liver is enlarged at 17.5 cm in cephalocaudad dimension with a slightly lobular border and decreased attenuation consistent with cirrhosis. No focal hepatic lesion or biliary ductal dilatation is present. The gallbladder is quite contracted but otherwise unremarkable with no evidence of radiopaque gallstones or obvious pericholecystic inflammatory changes. PANCREAS: Unremarkable. No evidence of pancreatitis. No peripancreatic edema. No pseudocysts. The duct is normal in size. No calculi. SPLEEN: Unremarkable. ADRENAL GLANDS: Unremarkable. KIDNEYS AND URETERS: The kidneys are normal in size, shape, and attenuation. No hydronephrosis, hydroureter, or calculi seen. No perinephric stranding. BLADDER: Unremarkable. GASTROINTESTINAL TRACT: The small and large bowel are unremarkable. There are some colonic diverticula without diverticulitis The appendix is unremarkable. ABDOMINAL WALL: No significant hernia is appreciated. There is a tiny periumbilical hernia seen containing only fat. LYMPH NODES: No retroperitoneal lymphadenopathy. VASCULAR: Calcific atherosclerotic changes are present in the aorta and iliofemoral vessels. There is no evidence of an abdominal aortic aneurysm. PELVIC VISCERA: Unremarkable. OSSEOUS STRUCTURES: Degenerative changes are present at L5-S1. Compression fractures, mild, are seen at the superior endplates of T12 and L1. CT/CT abdomen pelvis wo IV con IMPRESSION: 1. No evidence of pancreatitis. 2. Enlarged cirrhotic appearing liver. 3. Incidental note made of colonic diverticulosis without diverticulitis, mild compression fractures T12 and L1 and degenerative changes L5-S1. Fleischner guidelines were followed. Electronically signed by: Taiwo Schumacher MD 11/10/2024 12:59 AM [facility]
--- NOTE | ~2024-11-09 | XR_ITS ---
EXAMINATION: XR KNEE, LEFT CLINICAL INFORMATION: trauma COMPARISON: None available. TECHNIQUE: AP and lateral radiographs of the left knee FINDINGS: Normal joint spacing and alignment. The tibial plateau appears intact. Scattered vascular calcifications. No joint effusion noted. No prepatellar soft tissue inflammatory changes. XR/XR knee LT 2V IMPRESSION: *No acute abnormalities. Electronically signed by: Earl Claudio MD 11/10/2024 02:17 AM [facility]
--- NOTE | ~2024-11-09 | XR_ITS ---
EXAMINATION: XR KNEE, RIGHT CLINICAL INFORMATION: trauma COMPARISON: None available. TECHNIQUE: AP and lateral radiographs of the right knee FINDINGS: The tibial plateau appears intact. Scattered vascular calcifications. No subluxations or fractures identified. No joint effusion visualized. No prepatellar soft tissue inflammatory changes. XR/XR knee RT 2V IMPRESSION: No acute abnormalities. Electronically signed by: Earl Claudio MD 11/10/2024 02:18 AM [facility]
--- NOTE | ~2024-11-09 | XR_ITS ---
EXAMINATION: XR CHEST CLINICAL INFORMATION: cough COMPARISON: None available. TECHNIQUE: Single frontal view of the chest was obtained. FINDINGS: Normal appearance of the cardiomediastinal structures. No effusions or pneumothoraces. Normal pattern of pulmonary vasculature. No focal pulmonary consolidation. No displaced rib fractures identified. XR/XR chest 1V IMPRESSION: No acute cardiopulmonary abnormalities. Electronically signed by: Earl Claudio MD 11/10/2024 02:19 AM [facility]
[2024-11-09 22:49] VITALS: BP 85/50; PULSE 96; RESP 22; TEMP 36.2; O2SAT 98; BMI 31.9
[2024-11-09 23:27] LABS: MANUAL DIFF FLAG NO
[2024-11-09 23:29] LABS: Basophils Absolute Auto 0.1 X10*3/uL (0.0-0.2); Basophils Percent Auto 0.7 % (0-2); Eosinophils Absolute Auto 0.3 X10*3/uL (0.0-0.4); Eosinophils Percent Auto 3.6 % (0-4); Hematocrit 35.7 % (42.0-52.0); Imm Gran Abs Auto 0.05 X10*3/uL (0.00-0.03); Imm Gran Pct Auto 0.6 % (0.0-0.4); Lymphocytes Absolute Auto 1.7 X10*3/uL (1.2-4.9); Mean Corpuscular HGB Conc 36.4 g/dl (31.0-36.0); Mean Corpuscular Hemoglobin 36.5 pg (27.0-33.0); Mean Corpuscular Volume 100.3 fL (80.0-98.0); Mean Platelet Volume 11.3 fL (9.4-12.4); Monocytes Absolute Auto 0.7 X10*3/uL (0.1-1.2); Monocytes Percent Auto 7.9 % (2-11); Neutrophils Absolute Auto 5.5 x10*3/uL (2.0-8.3); Neutrophils Percent Auto 66.2 % (45-73); Platelet Count 121 X10*3/uL (160-400); Red Blood Count 3.56 X10*6/uL (4.60-5.80); Red Cell Distribution Width 12.9 % (11.0-16.0); White Blood Count 8.3 X10*3/uL (4.8-10.8)
[2024-11-09 23:34] VITALS: BP 83/57; PULSE 69; RESP 18; TEMP 37.1; O2SAT 99
--- NOTE | 2024-11-09 23:35 | PC.NURSE ---
MD sweeney aware of low BP
[2024-11-09] MEDS: 0.9 % Sodium Chloride 1,000 ML 999 ML IV (23:36)
--- NOTE | 2024-11-09 23:36 | ED.ALCOHOL ---
HPI - Alcohol General Chief Complaint: ETOH/Substance Use Stated Complaint: Alcohol withdrawal/Fall Time Seen by Provider: 11/09/24 23:36 Source: patient and family Mode of arrival: ambulatory Limitations: no limitations History of Present Illness ED Provider: HPI narrative: Patient alcoholic drinks 12 beers a day last drink was 3 days been taking Valium 10 mg 3 4 times a day had labs done yesterday by PCP which showed elevated liver functions patient has been having diarrhea and nauseated unable to eat much came here as been feeling weak. Patient also fell on 10/28 on his knees since then been having pain in his both knees also patient has been complaining of cough for last few days cough is mostly dry Related Data Previous Rx's ?Medication ?Instructions ?Recorded clotrimazole-betamethasone 1 1 appl topical ONCE 30 days #45 01/12/24 %-0.05 % topical cream grams magnesium oxide 420 mg tablet 420 mg PO BEDTIME #30 tabs 01/12/24 furosemide 20 mg tablet 20 mg PO QAM 3 days #3 tabs 02/23/24 sodium polystyrene sulfonate 15 15 g (60 mL) PO DAILY 3 days #180 07/11/24 gram/60 mL oral suspension mL folic acid 1 mg tablet 1 mg PO DAILY 90 days #90 tabs 07/25/24 multivitamin 1 tab PO DAILY #90 tabs 07/25/24 thiamine HCl (vitamin B1) 100 mg 100 mg PO DAILY 90 days #90 tabs 07/25/24 tablet cyclobenzaprine 10 mg tablet 10 mg PO BEDTIME #14 tabs 07/26/24 ondansetron 8 mg disintegrating 8 mg PO Q8H #30 tabs 08/26/24 tablet buspirone 10 mg tablet 10 mg PO .q am PRN anxiety 90 days 09/26/24 #90 tabs atenolol 50 mg tablet 50 mg PO DAILY 90 days #90 tabs 10/04/24 spironolactone 50 mg tablet 50 mg PO QAM #90 tabs 10/25/24 (Aldactone) Allergies Allergy/AdvReac Type Severity Reaction Status Date / Time amlodipine AdvReac Swelling Verified 11/09/24 22:51 ankles Review of Systems Review of Systems: Yes all other systems are reviewed and are negative PMFSH Past Medical History Medical History History of COVID-19 Neuropathy Alcohol dependence Anxiety HTN (hypertension) Surgical History H/O colonoscopy Hx of cataract extraction History of open reduction and internal fixation (ORIF) procedure Social History Social History Household Members: None Housing: Apartment Alcohol intake: current Alcohol intake frequency: 3 or more drinks per day Alcohol type: beer Patient Tobacco Use Status: Never used Tobacco Smoked in Last 30 Days: No e-Cigarette/Vaping Use: Never Used Use of substances other than those prescribed or required for medical reasons: No Substance Use Type: Marijuana Advance Directives: No Advance Directives Information Provided: Yes Do you have a plan to hurt others: No Plan service: No Current occupational status: employed Cognitive needs: No Hearing needs: No Vision needs: Yes Physical Exam ED Vital Signs: Vital Signs - 24 hr 11/09/24 22:49 11/09/24 23:34 11/09/24 23:53 Temperature 97.1 F 98.8 F Pulse Rate 96 69 70 Respiratory Rate 22 H 18 21 H Blood Pressure 85/50 L 83/57 L 84/54 L Pulse Oximetry 98 99 100 Oxygen Delivery Method Room Air Room Air Room Air 11/10/24 00:14 11/10/24 00:56 11/10/24 01:37 Temperature 98.4 F Pulse Rate 91 69 67 Respiratory Rate 12 12 12 Blood Pressure 99/55 L 91/61 107/69 Pulse Oximetry 99 99 98 Oxygen Delivery Method Room Air Room Air Room Air BMI result Body Mass Index 31.9 Appearance: Alert. Oriented X3. No acute distress. Eyes: PERRLA, No Nystagmus ENT: Pharynx normal. Oral Mucosa dry Neck: Normal inspection. Neck supple. CVS: Normal heart rate and rhythm. Pulses normal. Respiratory: No respiratory distress. Equal air entry bilateral, no wheezing/rales/rhonchi Abdomen: Soft and epigastric tenderness Bowel sounds are present, no mass palpable, no CVA tenderness Skin: Skin warm and dry. Normal skin color. Normal skin turgor. Extremities: No lower extremity edema. No calf tenderness Neuro: Oriented X 3. No motor deficit. No sensory deficit.No cerebellar signs , cranial nerves II-XII intact Medical Decision Making Medical Decision Making [facility] Narrative: Patient with history of alcoholism in alcohol withdrawal with BETO creatinine is increased to 3.07 from baseline of 1.09 receiving IV fluids plan to admit for IV hydration Differential Diagnosis Differential Diagnoses: The differential diagnosis associated with the presentation includes Pancreatitis/gastritis/volume loss/alcohol which Admission/Observation Consideration of admission/observation: Escalation of care including admission/observation considered Consult Healthcare Provider Management of the patient was discussed with: Hospitalist Lab Data [facility] Lab Attestation statement: I reviewed the patient's lab results. 11/09/24 23:15 11/09/24 23:15 Labs: Lab Results 11/09/24 Range/Units 23:15 WBC 8.3 (4.8-10.8) X10*3/uL RBC 3.56 L (4.60-5.80) X10*6/uL Hgb 13.0 L (14.0-18.0) g/dl Hct 35.7 L (42.0-52.0) % MCV 100.3 H (80.0-98.0) fL MCH 36.5 H (27.0-33.0) pg MCHC 36.4 H (31.0-36.0) g/dl RDW 12.9 (11.0-16.0) % Plt Count 121 L (160-400) X10*3/uL MPV 11.3 (9.4-12.4) fL Immature Gran % (Auto) 0.6 H (0.0-0.4) % Neut % (Auto) 66.2 (45-73) % Lymph % (Auto) 21.0 (20-40) % Glenn % (Auto) 7.9 (2-11) % Eos % (Auto) 3.6 (0-4) % Baso % (Auto) 0.7 (0-2) % Lymph # (Auto) 1.7 (1.2-4.9) X10*3/uL Glenn # (Auto) 0.7 (0.1-1.2) X10*3/uL Eos # (Auto) 0.3 (0.0-0.4) X10*3/uL Baso # (Auto) 0.1 (0.0-0.2) X10*3/uL Abs Immat Gran (auto) 0.05 H (0.00-0.03) X10*3/uL Absolute Neuts (auto) 5.5 (2.0-8.3) x10*3/uL Absolute Nucleated RBC 0.000 (0.0-0.012) X10*3/uL Nucleated RBC % (auto) 0.0 (0.0-0.2) /100WBC Sodium 124 L (135-145) mmol/L Potassium 4.2 D (3.3-5.1) mmol/L Chloride 89 L (96-108) mmol/L Carbon Dioxide 18 L (22-29) mmol/L Anion Gap 21 H (12-20) BUN 35 H (9-16) mg/dL Creatinine 3.07 H (0.5-1.4) mg/dL Estim Creat Clear Calc 27.2 Estimated GFR 21 Random Glucose 93 (60-115) mg/dL Calcium 10.4 H (8.4-10.2) mg/dL Magnesium 1.8 (1.6-2.6) mg/dL Total Bilirubin 2.8 H (0.0-1.0) mg/dL AST 213 H (5-37) U/L ALT 133 H (0-40) U/L Alkaline Phosphatase 118 H (39-117) U/L Total Protein 8.2 H (6.5-8.0) g/dL Albumin 4.3 (3.5-5.0) g/dL Lipase 86 H (8-78) U/L Ethyl Alcohol < 10 mg/dL Independent Interpretation I performed an independent interpretation of an: EKG Interpretation: Normal sinus rhythm with first-degree heart block right-sided axis no acute ST-T changes no acute ischemia Radiology Impression Discussion of test interpretation with radiology: I have reviewed the radiologist's reading. Radiologist Impression: Close Abdomen/Pelvis CT (Signed) Taiwo Schumacher - 11/10/24 Liver Elastography (Signed) Derik Mercer - 10/21/24 Thoracic Spine X-Ray (Signed) Huy Banda - 07/06/24 Launch?Image [place] [id number] CT Scan Report Signed Patient: Steven Daniel MR#: [id number] : 1960 Acct:[id number] Age/Sex: 64 / M ADM Date: 11/09/24 Loc: HO.ED Attending Dr: Ordering Physician: Mario Erickson MD Date of Service: 11/10/24 Procedure(s): CT abdomen pelvis wo IV con Accession Number(s): [id number] cc: Angelica Schrader MD; Mario Erickson MD~ EXAMINATION: CT ABDOMEN AND PELVIS WITHOUT CONTRAST CLINICAL INFORMATION: Alcoholic with question of pancreatitis COMPARISON: Ultrasound abdomen 10/21/2024 TECHNIQUE: Multidetector volumetric imaging was performed from the superior aspect of the liver through the pubic symphysis. Sagittal and coronal reformatted images were obtained on the technologist's workstation. This CT examination was performed using dose optimization techniques as appropriate, variously including the following: *Automated exposure control *Adjustment of mA and/or kV according to patient size (this includes techniques or standardized protocols for targeted exams where dose is matched to indication/reason for exam; i.e. extremities or head) *Use of iterative reconstruction technique DLP: 637 mGy-cm FINDINGS: LUNG BASES: The visualized lung bases are unremarkable. Some tiny micronodules are seen none larger than 3 mm (see saved herrera images). LIVER, GALLBLADDER, AND BILIARY TREE: The liver is enlarged at 17.5 cm in cephalocaudad dimension with a slightly lobular border and decreased attenuation consistent with cirrhosis. No focal hepatic lesion or biliary ductal dilatation is present. The gallbladder is quite contracted but otherwise unremarkable with no evidence of radiopaque gallstones or obvious pericholecystic inflammatory changes. PANCREAS: Unremarkable. No evidence of pancreatitis. No peripancreatic edema. No pseudocysts. The duct is normal in size. No calculi. SPLEEN: Unremarkable. ADRENAL GLANDS: Unremarkable. KIDNEYS AND URETERS: The kidneys are normal in size, shape, and attenuation. No hydronephrosis, hydroureter, or calculi seen. No perinephric stranding. BLADDER: Unremarkable. GASTROINTESTINAL TRACT: The small and large bowel are unremarkable. There are some colonic diverticula without diverticulitis The appendix is unremarkable. ABDOMINAL WALL: No significant hernia is appreciated. There is a tiny periumbilical hernia seen containing only fat. LYMPH NODES: No retroperitoneal lymphadenopathy. VASCULAR: Calcific atherosclerotic changes are present in the aorta and iliofemoral vessels. There is no evidence of an abdominal aortic aneurysm. PELVIC VISCERA: Unremarkable. OSSEOUS STRUCTURES: Degenerative changes are present at L5-S1. Compression fractures, mild, are seen at the superior endplates of T12 and L1. CT/CT abdomen pelvis wo IV con IMPRESSION: 1. No evidence of pancreatitis. 2. Enlarged cirrhotic appearing liver. 3. Incidental note made of colonic diverticulosis without diverticulitis, mild compression fractures T12 and L1 and degenerative changes L5-S1. Fleischner guidelines were followed. Electronically signed by: Taiwo Schumacher MD 11/10/2024 12:59 AM [facility] Dictated By: Taiwo Schumacher MD Signed By: <Electronically signed by Taiwo Schumacher MD in OV> 11/10/24 0059 Medications Administered Discontinued Medications Generic Name Dose Route Start Last Admin Trade Name Freq PRN Reason Stop Dose Admin Famotidine 20 mg 11/10/24 00:00 11/10/24 00:06 Famotidine/Pf 20 Mg/2 Ml Vial IVPUSH 11/10/24 00:01 20 mg ONCE ONE Administration Sodium Chloride 1,000 mls @ 999 mls/hr 11/09/24 23:36 11/10/24 00:56 Ns IV 11/10/24 00:36 Infused .Q1H1M ONE Infusion Lactated Ringer's 1,000 mls @ 999 mls/hr 11/10/24 00:00 11/10/24 00:56 Lr IV 11/10/24 01:00 999 mls/hr .Q1H1M HASMUKH Administration Ondansetron HCl 4 mg 11/10/24 00:00 11/10/24 00:06 Ondansetron Hcl 4 Mg/2 Ml Vial IVPUSH 11/10/24 00:01 4 mg ONCE ONE Administration Discharge Plan Discharge Clinical Impression: Alcohol abuse, Acute renal failure Patient Disposition: Admitted As Inpatient Print Language: Other
[2024-11-09 23:53] VITALS: BP 84/54; PULSE 70; RESP 21; O2SAT 100
[2024-11-09 23:54] LABS: Alanine Aminotransferase 133 U/L (0-40); Albumin Level 4.3 g/dL (3.5-5.0); Alkaline Phosphatase 118 U/L (39-117); Anion Gap 21 (12-20); Aspartate Amino Transferase 213 U/L (5-37); Bilirubin Total 2.8 mg/dL (0.0-1.0); Blood Urea Nitrogen 35 mg/dL (9-16); Calcium 10.4 mg/dL (8.4-10.2); Carbon Dioxide 18 mmol/L (22-29); Chloride 89 mmol/L (96-108); Creatinine Clr Calc Pharmacy 27.2; Estimated Glomerular Filt Rate 21; Ethanol < 10 mg/dL; Glucose Random 93 mg/dL (60-115); Lipase 86 U/L (8-78); Magnesium 1.8 mg/dL (1.6-2.6); Potassium 4.2 mmol/L (3.3-5.1); Sodium 124 mmol/L (135-145); Total Protein 8.2 g/dL (6.5-8.0)
[2024-11-10] VITALS (15 sets, daily range): BP systolic 81–118; BP diastolic 55–75; PULSE 62–91; RESP 9–18; TEMP 36.4–37.2; O2SAT 93–99
[2024-11-10] MEDS: Famotidine/PF 20 MG/2 ML VIAL IVPUSH (00:06)
[2024-11-10] MEDS: ondansetron HCL 4 MG/2 ML VIAL IVPUSH (00:06)
--- NOTE | 2024-11-10 00:53 | PC.NURSE ---
pt brought to room 15 from . pt reports that he is a daily drinker for years, drinks at least 12 beers daily. last etoh drink was on tuesday 11/06. pt has a history of alcohol w/d seizures, about 10 years ago, only one time, he says. Pt has been self-medicating at home with valium to counteract the w/d symptoms. this Valium is not prescribed to him. he says they are 10 mg tablet, blue pils) pt took one at 3am, one at 11am, and another one at 4pm, which could be the cause of pt low BP. Pt arrives 83/50, #20g iv line placed in LAC, 1 liter bag given, ekg done, pt on night monitor. pt to be admitted pending CT scan result. at this time CIWA only 2. plan of care ongoing.
[2024-11-10] MEDS: Lactated Ringers 1,000 ML 999 ML IV (00:56)
--- NOTE | 2024-11-10 01:55 | P.HPHOSP_ITS ---
History of Present Illness Date of Service: 11/10/24 Attending physician on admission: Martin Steiner Chief Complaint: Alcohol withdrawal symptoms Steven Daniel is a very pleasant 64 years old man with past medical history significant for hypertension, alcoholic liver cirrhosis and alcohol abuse presents to the emergency department complaining of alcohol withdrawal symptoms such as anxiety and restlessness. He has been taking a medication to relax him but he is unable to recall the name od it (possibly Librium). He mentioned that he sustained a fall after he lost balance on landing on his left knee. He does still complaining of pain to the left knee. He denied head trauma. He has history of seizures secondary to alcohol withdrawal many years ago. He is currently taking spironolactone and furosemide. Reported nausea and diarrhea. Denied events of vomiting or abdominal pain. He also complained of tenderness in the left side of his chest with palpation. Also reported some shortness on breath. He drinks 12 beers everyday, last time he drank was Thursday. He smoked marijuana sometimes. Denied tobacco smoking or illicit drug use. In the ED, he was initially found to have a blood pressure of 82/57, last BP is 118/75. There is no tachycardia, significant tachypnea and oxygen saturation is normal on room air. Blood is remarkable for hyponatremia of 123, creatinine of 2.55 --> 3.07 (baseline 1.09 -1.30), BUN 27 --> 35, CO2 is 18 and last potassium is 4.2. LFTs are elevated. Lipase is 86. Abdomen pelvis CT scan showed no evidence of pancreatitis, enlarged cirrhotic liver and colonic diverticulosis without diverticulitis; and mild compression fracture T12 and L1. ECG showed normal sinus rhythm, first-degree AV block without ischemic changes. ED tx: NS 1 L bolus, LR 1 L bolus, famotidine 20 mg IV Review of Systems 2 Review of Systems: All 12 systems were reviewed and normal except as noted in HPI. [facility] Medical History History of COVID-19 Neuropathy Alcohol dependence Anxiety HTN (hypertension) Surgical History H/O colonoscopy Hx of cataract extraction History of open reduction and internal fixation (ORIF) procedure Social History Household Members: None Housing: Apartment Alcohol intake: current Alcohol intake frequency: 3 or more drinks per day Alcohol type: beer Patient Tobacco Use Status: Never used Tobacco Smoked in Last 30 Days: No e-Cigarette/Vaping Use: Never Used Use of substances other than those prescribed or required for medical reasons: No Substance Use Type: Marijuana Advance Directives: No Advance Directives Information Provided: Yes Do you have a plan to hurt others: No Plan service: No Current occupational status: employed Cognitive needs: No Hearing needs: No Vision needs: Yes Meds Allergies Allergy/AdvReac Type Severity Reaction Status Date / Time amlodipine AdvReac Swelling Verified 11/09/24 22:51 ankles Active Medications: Current Medications Acetaminophen (Acetaminophen 325 Mg Tablet) 650 mg PO Q6H PRN PRN Reason: Pain, Mild (Pain Scale 1-3), fever or headache Calcium Carbonate (Calcium Carbonate 750 Mg Tab.Chew) 750 mg PO Q4H PRN PRN Reason: Heartburn Folic Acid (Folic Acid 1 Mg Tablet) 1 mg PO DAILY [facility] Heparin Sodium (Porcine) (Heparin Sodium,Porcine 5,000 Unit/Ml Vial) 5,000 unit SUBCUT Q12H HASMUKH Lactated Ringer's (Lr) 1,000 mls @ 999 mls/hr IV .Q1H1M [facility] Stop: 11/10/24 02:30 Last Admin: 11/10/24 01:49 Dose: Not Given Lactated Ringer's (Lr) 1,000 mls @ 80 mls/hr IVCONT .[id number] [facility] Stop: 11/10/24 14:29 Thiamine HCl 100 mg/ Sodium (Chloride) 101 mls @ 202 mls/hr IV DAILY [facility] Stop: 11/14/24 09:29 Loperamide HCl (Loperamide Hcl 2 Mg Capsule) 2 mg PO Q6H PRN PRN Reason: diarrhea Multivitamins/Vitamin C (Multivitamin Tablet) 1 tab PO DAILY HASMUKH Ondansetron HCl (Ondansetron Hcl 4 Mg/2 Ml Vial) 4 mg IVPUSH Q8H PRN PRN Reason: Nausea and Vomiting Pharmacy Consult (Consult Rx Etoh Phenob Im/Po) 1 each MISCELLANE ONCE PRN; Protocol PRN Reason: Consult order Sodium Chloride (0.9 % Sodium Chloride Flush 3 Ml Syringe) 3 ml IVFLUSH QSHIFT [facility] Physical Exam 2 Vital Signs and Narrative: Vital Signs: Last Vital Signs Temp 98.4 F 11/10/24 01:44 Pulse 66 11/10/24 01:44 Resp 12 11/10/24 01:44 BP 118/75 11/10/24 01:44 Pulse Ox 99 11/10/24 01:44 O2 Del Method Room Air 11/10/24 01:44 BMI result Body Mass Index 31.9 Constitutional - Awake and Alert, No apparent distress. Pleasant. Cooperative. HEENT - PER, EOMI. Mildly yellowish sclerae. Dry oral mucosa. Heart - S1S2, RRR, No murmurs Chest - left chest tenderness to palpation. Lungs - Normal lung expansion, Normal respiratory effort, No respiratory distress, CTA bilaterally Abdomen - NT / ND; +BS; No rebound or guarding. Umbilical hernia noted. No fluid wave. Extremities - no calf tenderness bilaterally, no swelling, bilateral knee tenderness (minimal effusion to the medial aspect of left knee). Musculoskeletal - Normal inspection, normal ROM Skin - Warm/Dry Neurological - Alert & oriented x3. No asterixis. No focal weakness. Normal speech. Psychological - Appropriate affect Results Labs 11/09/24 23:15 11/09/24 23:15 Labs: Laboratory Results - last 24 hr 11/09/24 23:15 MCV 100.3 H MCH 36.5 H MCHC 36.4 H RDW 12.9 Plt Count 121 L MPV 11.3 Immature Gran % (Auto) 0.6 H Neut % (Auto) 66.2 Lymph % (Auto) 21.0 [place] % (Auto) 7.9 Eos % (Auto) 3.6 Baso % (Auto) 0.7 Lymph # (Auto) 1.7 [place] # (Auto) 0.7 Eos # (Auto) 0.3 Baso # (Auto) 0.1 Abs Immat Gran (auto) 0.05 H Absolute Neuts (auto) 5.5 Absolute Nucleated RBC 0.000 Nucleated RBC % (auto) 0.0 Anion Gap 21 H Estim Creat Clear Calc 27.2 Estimated GFR 21 Random Glucose 93 Calcium 10.4 H Magnesium 1.8 Total Bilirubin 2.8 H AST 213 H ALT 133 H Alkaline Phosphatase 118 H Total Protein 8.2 H Albumin 4.3 Lipase 86 H Ethyl Alcohol < 10 Imaging Radiologist's Impressions: Impressions Abdomen/Pelvis CT 11/10/24 00:02 IMPRESSION: 1. No evidence of pancreatitis. 2. Enlarged cirrhotic appearing liver. 3. Incidental note made of colonic diverticulosis without diverticulitis, mild compression fractures T12 and L1 and degenerative changes L5-S1. Fleischner guidelines were followed. Electronically signed by: Taiwo Schumacher MD 11/10/2024 12:59 AM [facility] Assessment and Plan (1) Acute renal failure: Qualifiers: Acute renal failure type: unspecified Qualified Code(s): N17.9 - Acute kidney failure, unspecified Status: Acute (2) Alcohol withdrawal: Qualifiers: Complication of substance-induced condition: with unspecified complication Qualified Code(s): F10.939 - Alcohol use, unspecified with withdrawal, unspecified Status: Acute (3) Hyponatremia: Status: Acute Plan Steven Daniel is a 64 y/o man with H alcoholic liver cirrhosis admitted with: * High anion gap metabolic acidosis secondary to acute kidney injury multifactorial: Spironolactone/furosemide/lisinopril use + diarrhea. Admit to hospitalist service. Gentle hydration. Continue to monitor renal function. Hold spironolactone and furosemide. Hold nephrotoxic agents. Continue to monitor renal function, anion gap and bicarb. Nephrology consult. * Hyponatremia, likely beer potomania and/or ciirrhosis. Hyponatremia workup. Continue close monitoring of sodium. * Hypertension. Hold lisinopril due to BETO and soft blood pressure. * Alcohol abuse --> alcohol withdrawal. [facility] protocol. Phenobarbital. Thiamine, multivitamins and folic acid. Additional medicine consult. * Elevated LFTs, secondary to alcohol abuse. Patient advised to abstain from alcohol consumption. Continue to monitor. * s/p fall --> left knee trauma. Obtain left knee x-ray. Code status: Full DVT prophylaxis: Heparin GI prophylaxis: Ppi Patient will need hospitalization for at least 2 midnights for BETO and hyponatremia management with IV fluids and continue monitoring of sodium level as well as evaluation by subspecialty. Quality Stroke Does the patient have a stroke diagnosis?: No VTE Prior VTE?: No VTE Risk Level:: Medical - moderate - high VTE Device Contraindication: Treatment Not Indicated VTE Drug Contraindication: N/A - Med Ordered
[2024-11-10] MEDS: Lactated Ringers 1,000 ML 80 ML IVCONT (02:01)
[2024-11-10 02:12] LABS: Appearance Urine Clear; Color Urine Yellow; Glucose Urine UA Negative (Negative); Leukocyte Esterase Urine Negative (Negative); Nitrite Urine Negative (Negative); PH 6.5 (5.0-9.0); Specific Gravity - Urine <= 1.005 (1.005-1.025); Urine Blood Negative (Negative); Urine Ketones Trace mg/dL (Negative); Urine Protein Negative (Neg-Trace)
[2024-11-10 02:33] LABS: Osmolality Urine 199 mosm/kg (373-1093)
[2024-11-10 02:52] LABS: Sodium 128 mmol/L (135-145)
--- NOTE | 2024-11-10 03:08 | PC.NURSE ---
Pt is not scoring on CIWA scale currently. Reports very mild headache however denies all other symptoms. MD neena song notified. will hold off on administering phenobarb protocol for now
[2024-11-10 03:09] LABS: Osmolality, Serum 276 mosm/kg (281-305)
--- NOTE | 2024-11-10 04:36 | PC.NURSE ---
pt reports when he walks to and from bathroom he returns and feels very tremulous/shaky until he settles in. reporting mild headache. denies nausea or vomiting. does not appear anxious. will administer phenobarb dose as ordered to prevent any worsening w/d symptoms from occurring. BP stable 108/75.
[2024-11-10] MEDS: PHENobarbitaL sodium 130 MG/ML IM ONCE 219 MG IM (04:37)
[2024-11-10] MEDS: oxyCODONE HCl Immed Release 5 MG TABLET PO (04:38)
[2024-11-10] MEDS: Omeprazole 40 MG CAPSULE.DR PO (05:36)
--- NOTE | 2024-11-10 05:38 | PC.NURSE ---
Pt awake, resting in bed, denies pain. Medicated with AM medication. VSS. Awaiting room assignment, continue to monitor.
[2024-11-10 05:43] LABS: MANUAL DIFF FLAG NO
[2024-11-10 05:53] LABS: Basophils Absolute Auto 0.1 X10*3/uL (0.0-0.2); Basophils Percent Auto 0.9 % (0-2); Eosinophils Absolute Auto 0.2 X10*3/uL (0.0-0.4); Eosinophils Percent Auto 3.7 % (0-4); Hematocrit 30.7 % (42.0-52.0); Hemoglobin 11.1 g/dl (14.0-18.0); Imm Gran Abs Auto 0.05 X10*3/uL (0.00-0.03); Imm Gran Pct Auto 0.9 % (0.0-0.4); Lymphocytes Absolute Auto 1.3 X10*3/uL (1.2-4.9); Lymphocytes Percent Auto 21.9 % (20-40); Mean Corpuscular HGB Conc 36.2 g/dl (31.0-36.0); Mean Corpuscular Hemoglobin 36.9 pg (27.0-33.0); Mean Platelet Volume 11.7 fL (9.4-12.4); Monocytes Absolute Auto 0.5 X10*3/uL (0.1-1.2); Monocytes Percent Auto 8.8 % (2-11); Neutrophils Absolute Auto 3.6 x10*3/uL (2.0-8.3); Neutrophils Percent Auto 63.8 % (45-73); Red Blood Count 3.01 X10*6/uL (4.60-5.80); White Blood Count 5.7 X10*3/uL (4.8-10.8)
[2024-11-10 05:54] LABS: Platelet Count 81 X10*3/uL (160-400)
[2024-11-10 05:55] LABS: Prothrombin Time 12.2 SEC (10.9-12.4)
--- NOTE | 2024-11-10 06:04 | PC.NURSE ---
notified of soft BPs by previous RN and myself. No additional orders given. Pt remains asymptomatic, ambulating with a steady gait.
[2024-11-10 06:29] LABS: Alanine Aminotransferase 108 U/L (0-40); Albumin Level 3.5 g/dL (3.5-5.0); Alkaline Phosphatase 91 U/L (39-117); Anion Gap 16 (12-20); Aspartate Amino Transferase 162 U/L (5-37); Bilirubin Total 2.1 mg/dL (0.0-1.0); Blood Urea Nitrogen 35 mg/dL (9-16); Calcium 9.2 mg/dL (8.4-10.2); Carbon Dioxide 22 mmol/L (22-29); Chloride 94 mmol/L (96-108); Creatinine Clr Calc Pharmacy 29.3; Estimated Glomerular Filt Rate 22; Glucose Random 76 mg/dL (60-115); Magnesium 1.7 mg/dL (1.6-2.6); Potassium 4.7 mmol/L (3.3-5.1); Sodium 127 mmol/L (135-145); Total Protein 6.6 g/dL (6.5-8.0)
[2024-11-10] MEDS: Folic Acid 1 MG TABLET PO (08:04)
[2024-11-10] MEDS: Heparin Sodium,Porcine 5,000 UNIT/ML VIAL 5000 UNIT SUBCUT ×2 (08:04→21:30)
[2024-11-10] MEDS: Multivitamin TABLET 1 TAB PO (08:04)
[2024-11-10] MEDS: Thiamine HCL 100 MG in 0.9 % Sodium Chloride 100 ML 202 MG IV (08:05)
[2024-11-10] MEDS: PHENobarbitaL sodium 130 MG/ML VIAL IM Q3Hx2 164 MG IM ×2 (08:05→10:26)
--- NOTE | 2024-11-10 08:11 | PM.EVENT ---
Event Note Date of Service: 11/10/24 Event Note: Being followed for alcohol withdrawal/hyponatremia Feeling better this morning denies nausea, no vomiting, no abdominal pain tolerated breakfast denies lightheadedness or dizziness, denies withdrawal symptoms although noted to have tremors Awake alert x3 Steven Daniel is a 64 y/o man with PMH alcoholic liver cirrhosis admitted with: High anion gap metabolic acidosis secondary to acute kidney injury multifactorial: Likely due to Spironolactone/furosemide/lisinopril use + diarrhea. Anion gap resolved, bicarb normalized Continue IV fluids,hold spironolactone and furosemide. Hold nephrotoxic agents. Follow BMP Case discussed with Nephrology. Hyponatremia, likely beer potomania and/or ciirrhosis. low serum osmolality , fluid restriction 1.2 L normal saline 80 mL/hours recheck BMP in 4 hours. Hypertension. Hold lisinopril due to BETO and soft blood pressure. Alcohol abuse --> alcohol withdrawal. CIMD protocol. Phenobarbital. Thiamine, multivitamins and folic acid. Addiction medicine consult. Elevated LFTs, secondary to alcohol abuse, asymptomatic, follow lfts. s/p fall --> left knee trauma. b/l knee xrays neg. Continue analgesics Chronic microcytic anemia normal B12 and folate Code status: Full DVT prophylaxis: Heparin GI prophylaxis: Ppi Patient will need continued inpatient hospitalization for management of acute kidney injury/hyponatremia and alcohol withdrawal requiring close electrolyte monitoring, IV fluids and phenobarb. Time Spent With Patient Time: Total time managing care of this patient today ____ minutes.
--- NOTE | 2024-11-10 08:45 | PM.CNNEP ---
History of Present Illness Reason for Consult Consult date: 11/10/24 Chief Complaint Chief complaint: Alcohol withdrawal syndrome, BETO History of Present Illness Narrative: 64 y/o male with a medical history of HTN, alcoholic liver cirrhosis, being worked up for elevated ferritin levels per hematology. presented 11/09 with anxiety, restlessness, nausea and diarrhea after stopped drinking on 11/06 (reportedly drinking 12 beers daily prior) Nephrology consulted for BETO, hyponatremia Patient seen by PCP on 11/08 and labs done: sodium 123, creatinine 2.55 (baseline 1.09), went to ED 11/09 creatinine 3.07, 11/10 creatinine 2.85 sodium: 11/08 123, 11/09 at 12:15 was 124, 11/10 at 02:39 was 128, 11/10 04:33 127 metabolic acidosis with serum bicarb of 18 on 11/09, 11/10 has normalized at 22 CT abd/pelvis 11/10 showed normal kidneys/ureters without hydronephrosis/calculi. liver enzymes and bilirubin elevated, pt reports he does not see a liver specialist pt reports he injured his knees and was taking ibuprofen every four hours for a few weeks prior to hospitalization reports he was having severe diarrhea for a few days prior to going to the ED as well, though states this stopped before he came in; reports eating and drinking went straight through me. Reports nausea/dry heaves but no significant vomiting of fluids. denies chest pain, dizziness, shortness of breath. Denies pain with urination, difficulty emptying bladder, flank pain Review of Systems Constitutional: Denies fatigue, Denies headache(s) and Denies malaise Denies dizziness and Denies headache(s) Cardiovascular: Denies chest pain, Denies leg edema, Denies lightheadedness and Denies dyspnea Respiratory: Denies cough and Denies dyspnea Gastrointestinal: Denies abdominal pain, Denies constipation, Denies diarrhea, Denies nausea and Denies vomiting Genitourinary: Denies hematuria, Denies oliguria, Denies difficulty urinating, Denies dysuria and Denies flank pain Musculoskeletal: Reports arthralgias (knee pain since injury at home, weeks ago) Skin/Breast: Denies rash Denies dizziness and Denies headache(s) Endocrine: Denies fatigue PMFSH Past Medical History Medical History History of COVID-19 Neuropathy Alcohol dependence Anxiety HTN (hypertension) Surgical History Surgical History H/O colonoscopy Hx of cataract extraction History of open reduction and internal fixation (ORIF) procedure Social History Social History Household Members: None Housing: Apartment Alcohol intake: current Alcohol intake frequency: 3 or more drinks per day Alcohol type: beer Patient Tobacco Use Status: Never used Tobacco Smoked in Last 30 Days: No e-Cigarette/Vaping Use: Never Used Use of substances other than those prescribed or required for medical reasons: No Substance Use Type: Marijuana Advance Directives: No Advance Directives Information Provided: Yes Do you have a plan to hurt others: No Plan Nutrition Risks: No Nutritional Risk service: No Current occupational status: employed Cognitive needs: No Hearing needs: No Vision needs: Yes Meds Allergies Allergy/AdvReac Type Severity Reaction Status Date / Time amlodipine AdvReac Swelling Verified 11/09/24 22:51 ankles Active Medications: Current Medications Calcium Carbonate (Calcium Carbonate 750 Mg Tab.Chew) 750 mg PO Q4H PRN PRN Reason: Heartburn Folic Acid (Folic Acid 1 Mg Tablet) 1 mg PO DAILY [facility] Last Admin: 11/10/24 08:04 Dose: 1 mg Heparin Sodium (Porcine) (Heparin Sodium,Porcine 5,000 Unit/Ml Vial) 5,000 unit SUBCUT Q12H [facility] Last Admin: 11/10/24 08:04 Dose: 5,000 unit Thiamine HCl 100 mg/ Sodium (Chloride) 101 mls @ 202 mls/hr IV DAILY [facility] Stop: 11/14/24 09:29 Last Admin: 11/10/24 08:05 Dose: 202 mls/hr Sodium Chloride (Ns) 1,000 mls @ 80 mls/hr IVCONT .[id number] [facility] Loperamide HCl (Loperamide Hcl 2 Mg Capsule) 2 mg PO Q6H PRN PRN Reason: Diarrhea Multivitamins/Vitamin C (Multivitamin Tablet) 1 tab PO DAILY [facility] Last Admin: 11/10/24 08:04 Dose: 1 tab Omeprazole (Omeprazole 40 Mg Capsule.Dr) 40 mg PO DAILY@0630 [facility] Last Admin: 11/10/24 05:36 Dose: 40 mg Ondansetron HCl (Ondansetron Hcl 4 Mg/2 Ml Vial) 4 mg IVPUSH Q8H PRN PRN Reason: Nausea and Vomiting Oxycodone HCl (Oxycodone Hcl Immed Release 5 Mg Tablet) 5 mg PO Q6H PRN PRN Reason: knee pain Last Admin: 11/10/24 04:38 Dose: 5 mg Pharmacy Consult (Consult Rx Etoh Phenob Im/Po) 1 each MISCELLANE ONCE PRN; Protocol PRN Reason: Consult order Phenobarbital (Phenobarbital 15 Mg Tablet) 45 mg PO BID [facility]MU[facility]; Protocol Stop: 11/12/24 09:01 Phenobarbital (Phenobarbital 15 Mg Tablet) 15 mg PO BID HASMUKH; Protocol Stop: 11/14/24 09:01 Phenobarbital (Phenobarbital 15 Mg Tablet) 15 mg PO DAILY [facility]; Protocol Stop: 11/16/24 09:01 Phenobarbital Sodium (Phenobarbital Sodium 130 Mg/Ml Vial Im Q3hx2) 164 mg IM Q3H [facility]MU[facility]; Protocol Stop: 11/10/24 10:31 Last Admin: 11/10/24 08:05 Dose: 164 mg Sodium Chloride (0.9 % Sodium Chloride Flush 3 Ml Syringe) 3 ml IVFLUSH QSHIFT [facility] Last Admin: 11/10/24 08:27 Dose: Not Given Home Medications ?Medication ?Instructions ?Recorded ?Confirmed ?Last Taken ?Type acetaminophen 500 mg tablet 1,000 mg PO Q6H PRN Pain 11/10/24 11/10/24 Unknown History atenolol 50 mg tablet 100 mg PO DAILY 11/10/24 11/10/24 11/09/24 History lisinopril 40 mg tablet 40 mg PO DAILY 11/10/24 11/10/24 11/09/24 History magnesium oxide 400 mg PO DAILY 11/10/24 11/10/24 11/09/24 History vitamin B complex 1 tab PO DAILY 11/10/24 11/10/24 11/09/24 History Physical Exam Vital Signs: Last Vital Signs Temp 98.9 F 11/10/24 06:35 Pulse 70 11/10/24 08:00 Resp 14 11/10/24 08:00 BP 89/71 L 11/10/24 08:00 Pulse Ox 93 11/10/24 08:00 O2 Del Method Room Air 11/10/24 08:00 BMI result Body Mass Index 31.9 Const General: no acute distress, alert and awake Resp Effort & Inspection: normal respiratory effort and able to speak in complete sentences Auscultation: clear to auscultation bilaterally Cardio Rate: regular rate Rhythm: regular rhythm Heart sounds: S1 normal heart sound present and S2 normal heart sound present GI Palpation (GI): Soft to palpation and nontender General: Yes no CVA tenderness Back/Spine/Pelvis Back: no CVA tenderness Skin Lesions: no lesions Rashes: no rashes Extrem General: No edema Results Lab Results 11/10/24 04:33 11/10/24 11:05 Lab results: Chemistry 11/09/24 11/10/24 11/10/24 23:15 02:39 04:33 Sodium 124 L 128 L 127 L Potassium 4.2 D 4.7 Carbon Dioxide 18 L 22 BUN 35 H 35 H Creatinine 3.07 H 2.85 H Calcium 10.4 H 9.2 D Hematology 11/09/24 11/10/24 23:15 04:33 WBC 8.3 5.7 Hgb 13.0 L 11.1 L Plt Count 121 L 81 L D Urinalysis 11/10/24 01:58 Urine Color Yellow Urine Appearance Clear Urine pH 6.5 Ur Specific [place] <= 1.005 Urine Protein Negative Urine Glucose (UA) Negative Urine Ketones Trace Urine Blood Negative Urine Nitrite Negative Ur Leukocyte Esterase Negative Urine Studies 11/10/24 01:58 Urine Osmolality 199 L Assessment and Plan (1) BETO (acute kidney injury): Status: Acute (2) Alcohol dependence: Qualifiers: Substance use status: uncomplicated Qualified Code(s): F10.20 - Alcohol dependence, uncomplicated Status: Acute Plan BETO on CKD, most likely ATN in setting of hypoperfusion from acute diarrhea in combination with heavy NSAID use Improving, expect gradual improvement over time continue hydration and avoid nephrotoxins hyponatremia- improving. Most likely secondary to beer potomania in combination with volume depletion. Recommend continuing NS at 80mL/hr and fluid restriction of 1.2L/24 hours. Should not increase sodium more than 0.5mmol/L/hr. metabolic acidosis- resolved recommend monitoring electrolytes and renal function daily- check sodium every 4-6 hours for monitoring hypernatremia. continue to avoid nephrotoxins continue to monitor blood pressure, I&O continue supportive care Discussed with Dr Athreya Procedures Date of Service Date of Service: 11/10/24
--- NOTE | 2024-11-10 08:46 | PHA.MEDREC ---
Pharmacy Consult ? Medication Reconciliation Pharmacy has completed the medication reconciliation. Spoke with pt at bedside to confirm medications. Pt states he no longer is taking cyclobenzaprine, folic acid, furosemide, ondansetron and thiamine. Pt is using a cream on legs but could not confirm name of medication, when asked if it was Lotrisone, pt could not confirm.
[2024-11-10] MEDS: 0.9 % Sodium Chloride 1,000 ML 80 ML IVCONT (09:01)
--- NOTE | 2024-11-10 10:52 | MHC.CM.PN ---
Attempted to meet with patient in regards to discharge planning. Patient currently sleeping. No family presented. Will attempt to meet again. Continue to monitor for d/c needs.
[2024-11-10 11:27] LABS: Anion Gap 16 (12-20); Blood Urea Nitrogen 36 mg/dL (9-16); Calcium 8.9 mg/dL (8.4-10.2); Carbon Dioxide 23 mmol/L (22-29); Chloride 94 mmol/L (96-108); Creatinine Clr Calc Pharmacy 30.7; Estimated Glomerular Filt Rate 24; Glucose Random 98 mg/dL (60-115); Potassium 4.6 mmol/L (3.3-5.1); Sodium 128 mmol/L (135-145)
--- NOTE | 2024-11-10 16:11 | MHC.RECOVRN ---
AUDIT-C Brief Intervention Pt had positive screen for unhealthy alcohol use on admission, subsequently met with t/w to discuss alcohol use and recovery supports/options. This movie writer met with patient to discuss current alcohol use and concerns related to increased risk of alcohol related problems.? Pt reports 12 pack beer daily x 20 years. Pt does report a period of recovery lasting 8 months approx 10 years ago. Attributes period of recovery to willpower. Discussed how alcohol use has impacted health, including negative impact on overall physical wellbeing. Pts goal is abstinence in order to enjoy jail and not spend money on alcohol. Withdrawal History: reports one withdrawal related seizure 15-18 years ago Treatment History: ATS x 1 (10 years ago), denies other treatment Supports:?unable to identify Discussed risk reduction strategies including drinking below the recommended limit. Provided pt with written resources including information on inpatient and outpatient treatment, MADAN, harm reduction, and recovery coaching. Pt plans to review resources, is not interested in referrals or MADAN at this time. Pt provided with t/w contact information if questions or concerns arise. Denies other questions or concerns at this time.?
--- NOTE | 2024-11-10 16:17 | PC.NURSE ---
pt is caox4 and is in no distresss. pt radial pulses are strong and regular and his resps are = and nonlabored. pt denies feeling anxious, no tremors are noted, no sign of dt noted. pt has ambulated with brisk steady gait to restroom. call villa is with=in reach and pt has been updated as to plan of care, his bed assignment is pending.
[2024-11-10] MEDS: PHENobarbitaL 15 MG TABLET 45 MG PO (17:19)
--- NOTE | 2024-11-10 17:54 | PC.NURSE ---
this rn was made aware by pct that pt had removed his iv so he could ambulate to bathroom, pt did not activate call villa. pt is otherwise caox4, i reorinted him to his room and his call villa. pt is showing no signs of etoh withdrawal. a 20 ga iv was est in r hand.
--- NOTE | 2024-11-10 19:31 | PC.NURSE ---
Patient CIWA score currently 12 - MD notified. Patient agitated and restless, pulling at medical wires and lines.
[2024-11-10] MEDS: PHENobarbitaL sodium 130 MG/ML VIAL IM (19:40)
--- NOTE | 2024-11-10 22:43 | PM.EVENT ---
Event Note Date of Service: 11/10/24 Event Note: Patient has been agitated, anxious, and intermittently confused. Has ripped out a total of 3 IVs during the day. Has been tolerating p.o. intake. Will hold on IV access for now due to agitation and will adjust IV medications to p.o. accordingly. Patient should have IV access restored once he is more calm and amenable to treatment. Time Spent With Patient Time: Total time managing care of this patient today ____ minutes.
[2024-11-10] MEDS: LORazepam 1 MG TABLET PO (22:49)
--- NOTE | 2024-11-10 23:13 | PC.NURSE ---
patient presents to nursing station saying he wants to check himself out, MD notified and made aware of situation and will be come evaluate
--- NOTE | 2024-11-10 23:14 | MHC.EDTECH ---
this tech assumed care of pt @2300, pt was witnessed laying in bed quietly and no needs made apparent at this time, and appears to be in no apparent distress.
--- NOTE | 2024-11-11 00:46 | MHC.EDTECH ---
this tech took over care @[id number]
[2024-11-11 02:52] VITALS: BP 96/51; PULSE 63; RESP 16; TEMP 36.3; O2SAT 95
[2024-11-11 05:58] LABS: Hematocrit 32.3 % (42.0-52.0); Hemoglobin 11.3 g/dl (14.0-18.0); Mean Corpuscular Hemoglobin 36.6 pg (27.0-33.0); Mean Corpuscular Volume 104.5 fL (80.0-98.0); Platelet Count 85 X10*3/uL (160-400); Red Blood Count 3.09 X10*6/uL (4.60-5.80); White Blood Count 3.3 X10*3/uL (4.8-10.8)
[2024-11-11 06:08] LABS: Anion Gap 13 (12-20); Blood Urea Nitrogen 29 mg/dL (9-16); Calcium 9.4 mg/dL (8.4-10.2); Carbon Dioxide 23 mmol/L (22-29); Chloride 98 mmol/L (96-108); Creatinine Clr Calc Pharmacy 41.3; Estimated Glomerular Filt Rate 33; Glucose Random 100 mg/dL (60-115); Sodium 130 mmol/L (135-145)
[2024-11-11 06:15] VITALS: BP 111/74; PULSE 91; RESP 17
[2024-11-11] MEDS: Omeprazole 40 MG CAPSULE.DR PO (06:19)
--- NOTE | 2024-11-11 06:34 | PC.NURSE ---
pt is asking to leave, pt took off his gown and is in his street clothing. gait unsteady instructed to use his call villa, needs at bedside.
[2024-11-11 07:17] VITALS: BP 118/77; PULSE 86; RESP 16; O2SAT 94
[2024-11-11] MEDS: Magnesium Oxide 400 MG TABLET PO (08:05)
[2024-11-11] MEDS: Multivitamin TABLET 1 TAB PO (08:05)
[2024-11-11] MEDS: Folic Acid 1 MG TABLET PO (08:05)
[2024-11-11] MEDS: Thiamine HCL 100 MG TABLET PO (08:06)
[2024-11-11] MEDS: PHENobarbitaL 15 MG TABLET 45 MG PO (08:06)
[2024-11-11] MEDS: Heparin Sodium,Porcine 5,000 UNIT/ML VIAL 5000 UNIT SUBCUT (08:07)
--- NOTE | 2024-11-11 08:16 | PC.NURSE ---
patient resting quietly in bed, resp even and unlabored. patient states he wants to leave and that he doesn't belong here patient states he feels as if he is out of DT's. patient medicated per JAN, is alert and oriented but slow to answer. patient ambulated one assist to the bathroom and was unsteady, patient states its due to his bad knees. patient called neighbor to come get him. inpatient attending made aware.
--- NOTE | 2024-11-11 08:23 | PC.NURSE ---
patient is adamant on leaving, patient ambulated to nursing station states he is leaving and not waiting for inpatient attending.
--- NOTE | 2024-11-11 08:30 | P.PNNP_ITS ---
Subjective Subjective Date of Service: 11/11/24 Interval history: 64 y/o male with a medical history of HTN, alcoholic liver cirrhosis, being worked up for elevated ferritin levels per hematology. presented 11/09 with anxiety, restlessness, nausea and diarrhea after stopped drinking on 11/06 (reportedly drinking 12 beers daily prior) Nephrology consulted for BETO, hyponatremia Patient seen by PCP on 11/08 and labs done: sodium 123, creatinine 2.55 (baseline 1.09), went to ED. 11/09 creatinine 3.07, 11/10 creatinine 2.85; pt reports he was taking ibuprofen daily every 4 hours for knee pain for a few weeks prior to hospitalization. Also reports had diarrhea which has resolved. today 11/11 creatinine is 2.02 sodium: 11/08 123, 11/09 at 12:15 was 124, 11/10 at 02:39 was 128, 11/10 04:33 127 11/11 sodium 130; NS drip discontinued. Pt on 1.2L fluid restriction metabolic acidosis with serum bicarb of 18 on 11/09, 11/10 has normalized at 22, 11/[address]d/pelvis 11/10 showed normal kidneys/ureters without hydronephrosis/calculi. Pt reports he feels well today denies chest pain, dizziness, shortness of breath. Denies pain with urination, difficulty emptying bladder, flank pain Physical Exam 2 Vital Signs: Vital Signs: Last Vital Signs Temp 97.3 F 11/11/24 02:52 Pulse 86 11/11/24 07:17 Resp 16 11/11/24 07:17 BP 118/77 11/11/24 07:17 Pulse Ox 94 11/11/24 07:17 O2 Del Method Room Air 11/11/24 07:17 BMI result Body Mass Index 31.9 Const: General: no acute distress, alert and awake Resp: Effort & Inspection: normal respiratory effort and able to speak in complete sentences Auscultation: clear to auscultation bilaterally Cardio: Rate: regular rate Rhythm: regular rhythm Heart sounds: S1 normal heart sound present and S2 normal heart sound present GI: Palpation (GI): Soft to palpation and nontender : General: Yes no CVA tenderness Back/Spine/Pelvis: Back: no CVA tenderness Skin: Lesions: no lesions Rashes: no rashes Extrem: General: No edema Objective Data Labs 11/11/24 05:26 11/11/24 05:26 Labs: Laboratory Results - last 24 hr 11/10/24 11/11/24 11:05 05:26 WBC 3.3 L RBC 3.09 L Hgb 11.3 L Hct 32.3 L MCV 104.5 H MCH 36.6 H MCHC 35.0 RDW 13.0 Plt Count 85 L MPV 11.0 Absolute Nucleated RBC 0.000 Nucleated RBC % (auto) 0.0 Sodium 128 L 130 L Potassium 4.6 4.0 Chloride 94 L 98 Carbon Dioxide 23 23 Anion Gap 16 13 BUN 36 H 29 H Creatinine 2.72 H 2.02 H Estim Creat Clear Calc 30.7 41.3 Estimated GFR 24 33 Random Glucose 98 100 Calcium 8.9 9.4 Procedures Date of Service Date of Service: 11/11/24 Assessment & Plan Assessment and plan (1) BETO (acute kidney injury): Status: Acute (2) Hyponatremia: Status: Acute Plan BETO on CKD, most likely ATN in setting of hypoperfusion from acute diarrhea in combination with heavy NSAID use BETO improving, expect gradual improvement over time continue hydration and avoid nephrotoxins hyponatremia- improving. Most likely secondary to beer potomania in combination with volume depletion. Recommend continue fluid restriction of 1.2L/24 hours. Should not increase sodium more than 0.5mmol/L/hr. metabolic acidosis- resolved recommend monitoring electrolytes and renal function daily- check sodium every 4-6 hours for monitoring hypernatremia. continue to avoid nephrotoxins continue to monitor blood pressure, I&O continue supportive care, recommend outpatient nephrology post discharge. Discussed with Dr Moreno Time Spent With Patient Time: Total time managing care of this patient today ____ minutes. Progress Note: Quality Stroke Does the patient have a stroke diagnosis?: No
--- NOTE | 2024-11-11 10:09 | PM.DS ---
DS: Providers Provider Date of Service: 11/11/24 Date of admission: 11/10/24 01:47 Date of discharge: 11/11/24 Primary care physician: Angelica Schrader MD Consults: 11/10/24 02:06 Consult to Nephrology Routine Consulting Provider: [facility] Reason for consultation: BETO, hyponatremia Has provider been notified: No 11/10/24 02:10 Addiction Medicine Routine Consulting Provider: Addiction Covering Reason for consultation: Alcohol abuse Has provider been notified: No DS: Diagnosis Discharge Diagnosis (1) BETO (acute kidney injury): Status: Acute (2) Hyponatremia: Status: Acute DS: Summary Hospital Course Hospital Course: History of presenting illness: Date of Service: 11/10/24 Attending physician on admission: Martin Steiner Chief Complaint: Alcohol withdrawal symptoms Steven Daniel is a very pleasant 64 years old man with past medical history significant for hypertension, alcoholic liver cirrhosis and alcohol abuse presents to the emergency department complaining of alcohol withdrawal symptoms such as anxiety and restlessness. He has been taking a medication to relax him but he is unable to recall the name od it (possibly Librium). He mentioned that he sustained a fall after he lost balance on landing on his left knee. He does still complaining of pain to the left knee. He denied head trauma. He has history of seizures secondary to alcohol withdrawal many years ago. He is currently taking spironolactone and furosemide. Reported nausea and diarrhea. Denied events of vomiting or abdominal pain. He also complained of tenderness in the left side of his chest with palpation. Also reported some shortness on breath. He drinks 12 beers everyday, last time he drank was Thursday. He smoked marijuana sometimes. Denied tobacco smoking or illicit drug use. In the ED, he was initially found to have a blood pressure of 82/57, last BP is 118/75. There is no tachycardia, significant tachypnea and oxygen saturation is normal on room air. Blood is remarkable for hyponatremia of 123, creatinine of 2.55 --> 3.07 (baseline 1.09 -1.30), BUN 27 --> 35, CO2 is 18 and last potassium is 4.2. LFTs are elevated. Lipase is 86. Abdomen pelvis CT scan showed no evidence of pancreatitis, enlarged cirrhotic liver and colonic diverticulosis without diverticulitis; and mild compression fracture T12 and L1. ECG showed normal sinus rhythm, first-degree AV block without ischemic changes. ED tx: NS 1 L bolus, LR 1 L bolus, famotidine 20 mg IV Hospital course: Steven Daniel is a 64 y/o man with PMH alcoholic liver cirrhosis admitted with High anion gap metabolic acidosis secondary to acute kidney injury multifactorial likely due to Spironolactone/furosemide/lisinopril use + diarrhea, Hyponatremia, and alcohol withdrawal patient was treated with IV fluids, all diuretics and antihypertensive were held patient was treated with phenobarb, sodium improved from 123-130 this morning, creatinine improved to 2.02 , anion gap metabolic acidosis resolved however patient was noted to be agitated anxious and intermittently confused last night and this morning patient decided to leave against medical advice before being seen, refused to wait. Discharge diagnosis : Anion gap resolved, bicarb normalized Status post IV fluids diuretics were held Hyponatremia, likely beer potomania and/or ciirrhosis. Sodium improved to 130 Hypertension. Hold lisinopril due to BETO and soft blood pressure. Alcohol abuse --> alcohol withdrawal. Treated with Phenobarbital,Thiamine, multivitamins and folic acid. Elevated LFTs, secondary to alcohol abuse. s/p fall --> left knee trauma. b/l knee xrays neg. Chronic microcytic anemia normal B12 and folate Time Attestation Discharge Coordination Time (in mins): 30 Quality: Safe Use of Opioids Does Pt have an Active Cancer Diagnosis on the Problem List?: No Quality: Stroke Does the patient have a stroke diagnosis?: No Physical Exam Vital Signs: Vital Signs: Last Vital Signs Temp 97.3 F 11/11/24 02:52 Pulse 86 11/11/24 07:17 Resp 16 11/11/24 07:17 BP 118/77 11/11/24 07:17 Pulse Ox 94 11/11/24 07:17 O2 Del Method Room Air 11/11/24 07:17 BMI result Body Mass Index 31.9 DS: Data Data Completed and Pending Labs on day of discharge: Laboratory Results - last 24 hr 11/10/24 11/11/24 11:05 05:26 WBC 3.3 L RBC 3.09 L Hgb 11.3 L Hct 32.3 L MCV 104.5 H MCH 36.6 H MCHC 35.0 RDW 13.0 Plt Count 85 L MPV 11.0 Absolute Nucleated RBC 0.000 Nucleated RBC % (auto) 0.0 Sodium 128 L 130 L Potassium 4.6 4.0 Chloride 94 L 98 Carbon Dioxide 23 23 Anion Gap 16 13 BUN 36 H 29 H Creatinine 2.72 H 2.02 H Estim Creat Clear Calc 30.7 41.3 Estimated GFR 24 33 Random Glucose 98 100 Calcium 8.9 9.4 Discharge Plan Discharge Anticipated Discharge Date/Time: 11/11/24 09:57 Patient Disposition: Left Against Medical Advice Discharge Diagnosis: Alcohol use disorder/withdrawal Acute hyponatremia Acute kidney injury Referrals: Angelica Schrader MD [Primary Care Provider] - 1 Week Discharge Medications: Continued sodium polystyrene sulfonate 15 gram/60 mL suspension 15 g PO DAILY 3 Days Qty: 180 0RF buspirone 10 mg tablet 10 mg PO .q am PRN (Reason: anxiety) 90 Days Qty: 90 0RF multivitamin Tablet 1 tab PO DAILY Qty: 90 0RF vitamin B complex [B Complex Super] Tablet 1 tab PO DAILY acetaminophen 500 mg Tablet 1,000 mg PO Q6H PRN (Reason: Pain) Discontinued spironolactone [Aldactone] 50 mg tablet 50 mg PO QAM Qty: 90 0RF lisinopril 40 mg tablet 40 mg PO DAILY magnesium oxide 400 mg magnesium Tablet 400 mg PO DAILY atenolol 50 mg tablet 100 mg PO DAILY Discharge Orders: Discharge Order (Routine); Ordered 11/11/24 Ordered By: Kassie Jacob Print Language: Other Care Plan Goals: Strongly recommended to abstain from alcohol Hold all blood pressure medications Health Concerns: BETO Hyponatremia Plan of Treatment: Outpatient follow-up with primary care physician call for appointment in 1 week. Assessment: As above
--- NOTE | 2024-11-11 10:59 | MHC.CM.PN ---
Patient left AMA before being able to be seen by pillowcase turner.
== END 2024-11-11 10:48 | disposition left against medical advice (07) | DRG 641 ==
LOC: HO.ED 11-10 01:44 → HO.EDOVER 11-10 02:02
PROVIDERS: Nurse Practitioner Family; Admitting Provider Internal Medicine; Emergency Provider Internal Medicine; PCP Internal Medicine; Visit Provider Hospitalist
DX: E87.0 Hyperosmolality and hypernatremia (principal); F10.239 Alcohol dependence with withdrawal, unspecified; N17.9 Acute kidney failure, unspecified; T50.0X5A Adverse effect of mineralocorticoids and their antagonists, initial encounter; T50.1X5A Adverse effect of loop [high-ceiling] diuretics, initial encounter; K70.30 Alcoholic cirrhosis of liver without ascites; W19.XXXA Unspecified fall, initial encounter; D50.9 Iron deficiency anemia, unspecified; I12.9 Hypertensive chronic kidney disease with stage 1 through stage 4 chronic kidney disease, or unspecified chronic kidney disease; N18.9 Chronic kidney disease, unspecified; Z79.899 Other long term (current) drug therapy
CPT/HCPCS: 36415; 71045; 73560; 74176; 80048; 80053; 80307; 81003; 83690; 83735; 83930; 83935; 84295; 84300; 85025; 85027; 85610; 93005; 99285; J1644; J2405; J2560; J3411; J7120

== ENCOUNTER → 2024-11-09 23:43 | Outpatient (BNV) | payer OTHER, SELFPAY | PROVIDERS: Admitting Provider Internal Medicine; Emergency Provider Internal Medicine; PCP Internal Medicine; Visit Provider Internal Medicine Cardiovascular Disease | DX: I44.0 Atrioventricular block, first degree (principal) | CPT/HCPCS: 93010 ==

== ENCOUNTER → 2024-11-10 01:47 | Outpatient (BNV) | payer OTHER, SELFPAY | PROVIDERS: Admitting Provider Internal Medicine; Emergency Provider Internal Medicine; PCP Internal Medicine; Visit Provider Internal Medicine | DX: N17.9 Acute kidney failure, unspecified (principal); E87.1 Hypo-osmolality and hyponatremia; Z53.29 Procedure and treatment not carried out because of patient's decision for other reasons | CPT/HCPCS: 99223; 99238; 99499 ==

== ENCOUNTER → 2024-11-10 01:47 | Outpatient (BNV) | payer OTHER, SELFPAY | PROVIDERS: Admitting Provider Internal Medicine; Emergency Provider Internal Medicine; PCP Internal Medicine; Visit Provider Nurse Practitioner Family | DX: N17.9 Acute kidney failure, unspecified (principal); E87.1 Hypo-osmolality and hyponatremia | CPT/HCPCS: 99222; 99232 ==

== ENCOUNTER 2024-11-16 11:16 | Outpatient (AMB) | payer OTHER, SELFPAY ==
--- NOTE | 2024-11-16 11:17 | A.OFFPC_ITS ---
Vital Signs 11/16/24 11:22 Height 5 ft 8 in Weight 213 lb 6 oz BMI 32.4 BP 110/68 Blood Pressure Location Rt brachial Position Sitting Intake Visit Reasons: F/u discharged Allergies amlodipine Adverse Reaction (Verified 11/16/24 11:25) Swelling ankles Medication List - Last Reconciled 11/16/24 by Angelica Schrader MD acetaminophen 1,000 mg PO Q6H PRN atenolol 100 mg PO DAILY buspirone 10 mg PO .q am PRN 90 days lisinopril 40 mg PO DAILY magnesium oxide 400 mg PO DAILY multivitamin 1 tab PO DAILY sodium polystyrene sulfonate 15 grams (60 mL) PO DAILY 3 days spironolactone (Aldactone) 50 mg PO QAM vitamin B complex 1 tab PO DAILY Tobacco use date assessed: 11/16/24 Fall risk assessment: No Falls in past year Last assessed Fall Risk: 11/16/24 Dental Screening Dental Screen Date: 11/16/24 Did you have a dental visit in the last 12 months?: Yes Did you have a dental problem in the last 6 months where you did not have access to dental care?: No Was dental information given to patient?: Patient has dentist HPI F/u discharged HPI Details Patient is 64-year-old gentleman with long history of alcohol abuse, has developed alcoholic neuropathy and liver cirrhosis Was evaluated few days ago when he presented with a chief complaint of feeling weak in his legs Labs were ordered electrolytes came back abnormal and elevated liver enzymes Patient was instructed to go to emergency room. He presented to emergency room 2 days later on 11/09/2024 [facility]. Before symptoms started patient complained that he fell recently accidentally doing some home chore On presentation to emergency room his blood pressure was in 80s systolic respiratory rate was 22 pulse 96 oxygen saturation 98% With IV fluids his blood pressure came up to 107 systolic Patient was admitted with a diagnosis of alcoholism alcohol withdrawal and acute kidney injury Creatinine was 3.07 from baseline of 1.09 EKG showed normal sinus rhythm first-degree heart block right axis deviation but no ST-T changes CT scan abdomen showed no evidence of pancreatitis Enlarged cirrhotic appearing liver Colonic diverticulosis without diverticulitis Mild compression fracture T12 and L1 and degenerative changes L5-S1 Last set of lab was drawn of this month Sodium was 130 which is chronically low for this patient Creatinine was 2.02, GFR 41.3, which improved from 29.3 Today his blood pressure is 110/68 Medication list Patient is on atenolol 100 mg lisinopril 40 mg spironolactone 50 mg for blood pressure control I am reducing the dose of atenolol 50 mg Patient will need Nephrology consultation He also take buspirone 10 mg for anxiety Magnesium supplement B complex supplement and multivitamin In spite of repeated conversation regarding toxicity of alcohol patient continued to drink PFS Medical History History of COVID-19 Neuropathy Alcohol dependence Anxiety HTN (hypertension) Surgical History H/O colonoscopy Hx of cataract extraction History of open reduction and internal fixation (ORIF) procedure Social History Household Members: None Housing: Apartment Alcohol intake: current Alcohol intake frequency: 3 or more drinks per day Alcohol type: beer Patient Tobacco Use Status: Never used Tobacco e-Cigarette/Vaping Use: Never Used Substance Use Type: Marijuana service: No Current occupational status: employed Cognitive needs: No Hearing needs: No Vision needs: Yes Questionnaire Thrive Questionnaire Date Thrive assessed: 11/08/24 AUDIT C Alcohol Use Questionnaire (AUDIT-C) 1. How often do you have a drink containing alcohol?: 2-3 times a week 2. How many drinks containing alcohol do you have on a typical day when you are drinking?: 1 or 2 3. How often do you have six or more drinks on one occasion?: Weekly Total Score: 6 Score Reviewed/Action Taken: Yes ALLIE-7 AMB Questionnaire ALLIE-7 Date ALLIE - 7 assessed: 07/08/24 Source: Developed by Drs. Srikanth Hernández, Cathleen Cifuentes, Jarod Garcia and colleagues, with an educational prince from [employer]. Review of Systems Const Denies chills and Denies fever(s) ENT Denies epistaxis and Denies nasal discharge Card Denies chest pain Resp Denies chest congestion, Denies cough and Denies hemoptysis GI Denies diarrhea and Denies nausea Skin/Breast Denies rash Neuro Reports no additional complaints Psych Reports no additional complaints Endo Reports no additional complaints Physical exam (Primary Care) Vital Signs: Last Vital Signs BP 110/68 11/16/24 11:22 BMI result Body Mass Index 32.4 Tobacco/Smoking Status: Tobacco use Status Tobacco use date assessed 11/16/24 11/16/24 11:25 Patient Tobacco Use Status Never used Tobacco 11/16/24 11:17 e-Cigarette/Vaping Use Never Used 11/16/24 11:17 Thrive Assessment: Date of Thrive Assessment Date Thrive assessed 11/08/24 11/16/24 11:17 Const General: cooperative, comfortable and no acute distress Orientation/consciousness: patient oriented x3 HENMT Head: Yes normocephalic Eyes General: appearance normal, both eyes and all related structures Neck Neck: Yes supple Resp Effort & Inspection: normal respiratory effort, no cough and no stridor Cardio Rhythm: regular rhythm Heart sounds: S1 normal heart sound present and S2 normal heart sound present Skin General skin exam: turgor normal Neuro General: patient oriented x3, tone normal and moves all extremities Extrem Right lower extremity: no edema Left lower extremity: no edema Coding Level of Care Code Est Pt Level 5 (74171) Diagnoses Hospital discharge follow-up Z09 BETO (acute kidney injury) N17.9 Alcoholic cirrhosis of liver without ascites K70.30 Ascites presence: without ascites Muscle fatigue M62.89 Uncomplicated alcohol dependence F10.20 Substance use status: uncomplicated Difficulty walking R26.2 Electrolyte abnormality E87.8 Alcoholic peripheral neuropathy G62.1 Hyponatremia E87.1 Primary hypertension I10 Hypertension type: primary hypertension LFT elevation R79.89 Assessment & Plan Assessment & Plan (1) Hospital discharge follow-up: Code(s): Z09 - Encounter for follow-up examination after completed treatment for conditions other than malignant neoplasm Category: Medical (2) BETO (acute kidney injury): Code(s): N17.9 - Acute kidney failure, unspecified Category: Medical (3) Liver cirrhosis, alcoholic: Code(s): K70.30 - Alcoholic cirrhosis of liver without ascites Category: Medical Qualifiers: Ascites presence: without ascites Qualified Code(s): K70.30 - Alcoholic cirrhosis of liver without ascites (4) Muscle fatigue: Code(s): M62.89 - Other specified disorders of muscle Category: Medical (5) Alcohol dependence: Code(s): F10.20 - Alcohol dependence, uncomplicated Category: Medical Qualifiers: Substance use status: uncomplicated Qualified Code(s): F10.20 - Alcohol dependence, uncomplicated (6) Difficulty walking: Code(s): R26.2 - Difficulty in walking, not elsewhere classified Category: Medical (7) Electrolyte abnormality: Code(s): E87.8 - Other disorders of electrolyte and fluid balance, not elsewhere classified Category: Medical (8) Alcoholic peripheral neuropathy: Code(s): G62.1 - Alcoholic polyneuropathy Category: Medical (9) Hyponatremia: Code(s): E87.1 - Hypo-osmolality and hyponatremia Category: Medical (10) HTN (hypertension): Code(s): I10 - Essential (primary) hypertension Category: Medical Qualifiers: Hypertension type: primary hypertension Qualified Code(s): I10 - Essential (primary) hypertension (11) LFT elevation: Code(s): R79.89 - Other specified abnormal findings of blood chemistry Category: Medical Plan Patient is 64-year-old gentleman with long history of alcohol abuse, has developed alcoholic neuropathy and liver cirrhosis Was evaluated few days ago when he presented with a chief complaint of feeling weak in his legs Labs were ordered electrolytes came back abnormal and elevated liver enzymes Patient was instructed to go to emergency room. He presented to emergency room 2 days later on 11/09/2024 [facility]. Before symptoms started patient complained that he fell recently accidentally doing some home chore On presentation to emergency room his blood pressure was in 80s systolic respiratory rate was 22 pulse 96 oxygen saturation 98% With IV fluids his blood pressure came up to 107 systolic Patient was admitted with a diagnosis of alcoholism alcohol withdrawal and acute kidney injury Creatinine was 3.07 from baseline of 1.09 EKG showed normal sinus rhythm first-degree heart block right axis deviation but no ST-T changes CT scan abdomen showed no evidence of pancreatitis Enlarged cirrhotic appearing liver Colonic diverticulosis without diverticulitis Mild compression fracture T12 and L1 and degenerative changes L5-S1 Last set of lab was drawn of this month Sodium was 130 which is chronically low for this patient Creatinine was 2.02, GFR 41.3, which improved from 29.3 Today his blood pressure is 110/68 Medication list Patient is on atenolol 100 mg lisinopril 40 mg spironolactone 50 mg for blood pressure control I am reducing the dose of atenolol 50 mg Patient will need Nephrology consultation He also take buspirone 10 mg for anxiety Magnesium supplement B complex supplement and multivitamin he continue to drink inspite of me discussing toxicity of etoch many times He has appointment with Nephrology coming up week november Note given to be off work till then as patient is having difficulty walking because of the knee pain X-ray done in hospital reviewed which showed no abnormality in the knee I did offer him physical therapy which he has declined at this time 45 minutes spent in care of this patient Orders: Referrals Nephrology Referral N17.9 - Acute kidney failure, unspecified Medications: Changed From atenolol 100 mg PO DAILY To atenolol 50 mg PO DAILY 90 tabs 0RF
[2024-11-16 11:22] VITALS: BP 110/68; BMI 32.4
== END 2024-11-16 13:05 | disposition home or self-care (01) ==
PROVIDERS: PCP Internal Medicine; Visit Provider Internal Medicine
DX: N17.9 Acute kidney failure, unspecified (principal); K70.30 Alcoholic cirrhosis of liver without ascites; F10.20 Alcohol dependence, uncomplicated; G62.1 Alcoholic polyneuropathy; Z68.32 Body mass index [BMI] 32.0-32.9, adult; Z09 Encounter for follow-up examination after completed treatment for conditions other than malignant neoplasm; M62.89 Other specified disorders of muscle; R26.2 Difficulty in walking, not elsewhere classified; E87.8 Other disorders of electrolyte and fluid balance, not elsewhere classified; E87.1 Hypo-osmolality and hyponatremia; I10 Essential (primary) hypertension

== ENCOUNTER → 2024-11-16 11:16 | Outpatient (BNVA) | payer OTHER, SELFPAY | PROVIDERS: PCP Internal Medicine; Visit Provider Internal Medicine ==

== ENCOUNTER → 2024-11-17 08:28 | Outpatient (BNVA) | payer OTHER, SELFPAY | PROVIDERS: PCP Internal Medicine; Visit Provider Internal Medicine ==

== ENCOUNTER 2024-11-24 11:23 | Outpatient (AMB) | payer OTHER, SELFPAY ==
--- NOTE | 2024-11-24 11:37 | HO.NEPHOV ---
Vital Signs 11/24/24 11:38 Height 5 ft 8 in Weight 206 lb 6 oz BMI 31.4 BP 110/64 Blood Pressure Location Lt brachial Position Sitting Respiration 17 Intake Visit Reasons: Acute kidney failure/ Stat Referral/ LVM Contact Center Specialist Required: No Accompanied by: Self / Same As Patient Allergies amlodipine Adverse Reaction (Verified 11/24/24 11:42) Swelling ankles Medication List - Last Reconciled 11/24/24 by Jae Ivy MD acetaminophen 1,000 mg PO Q6H PRN atenolol 50 mg PO DAILY buspirone 10 mg PO .q am PRN 90 days lisinopril 40 mg PO DAILY magnesium oxide 400 mg PO DAILY multivitamin 1 tab PO DAILY spironolactone (Aldactone) 50 mg PO QAM vitamin B complex 1 tab PO DAILY Do you need a note to return to daycare/school/sports/work: No HPI Comments Details: 64 y/o male with a medical history of HTN, alcoholic liver cirrhosis, being worked up for elevated ferritin levels per hematology. presented 11/09 with anxiety, restlessness, nausea and diarrhea after stopped drinking on 11/06 (reportedly drinking 12 beers daily prior) Nephrology consulted for BETO, hyponatremia Patient seen by PCP on 11/08 and labs done: sodium 123, creatinine 2.55 (baseline 1.09), went to ED. 11/09 creatinine 3.07, 11/10 creatinine 2.85; pt reports he was taking ibuprofen daily every 4 hours for knee pain for a few weeks prior to hospitalization. Also reports had diarrhea which has resolved. today 11/11 creatinine is 2.02 sodium: 11/08 123, 11/09 at 12:15 was 124, 11/10 at 02:39 was 128, 11/10 04:33 127 11/11 sodium 130; NS drip discontinued. Pt on 1.2L fluid restriction metabolic acidosis with serum bicarb of 18 on 11/09, 11/10 has normalized at 22, 11/[address] abd/pelvis 11/10 showed normal kidneys/ureters without hydronephrosis/calculi. 11/24/24 Here for follow up Still drinks 3- 6 cans of beer a day ; Down from 12 cans a day! Off NSAIDS But taking Tylenol 1 gm 2 to 3 x day!! [facility] Medical History History of COVID-19 Neuropathy Alcohol dependence Anxiety HTN (hypertension) Surgical History H/O colonoscopy Hx of cataract extraction History of open reduction and internal fixation (ORIF) procedure Social History Household Members: None Housing: Apartment Alcohol intake: current Alcohol intake frequency: 3 or more drinks per day Alcohol type: beer Patient Tobacco Use Status: Never used Tobacco e-Cigarette/Vaping Use: Never Used Substance Use Type: Marijuana service: No Current occupational status: employed Cognitive needs: No Hearing needs: No Vision needs: Yes Physical Exam Vital Signs: Last Vital Signs Resp 17 11/24/24 11:38 BP 110/64 11/24/24 11:38 BMI result Body Mass Index 31.4 Results Reviewed Nephrology Results: Hgb 11.3 g/dl (14.0-18.0) L 11/11/24 WBC 3.3 X10*3/uL (4.8-10.8) L 11/11/24 Plt Count 85 X10*3/uL (160-400) L 11/11/24 Sodium 130 mmol/L (135-145) L 11/11/24 Potassium 4.0 mmol/L (3.3-5.1) 11/11/24 Chloride 98 mmol/L (96-108) 11/11/24 Carbon Dioxide 23 mmol/L (22-29) 11/11/24 BUN 29 mg/dL (9-16) H 11/11/24 Creatinine 2.02 mg/dL (0.5-1.4) H 11/11/24 Calcium 9.4 mg/dL (8.4-10.2) 11/11/24 Urine Protein Negative mg/dL (Neg-Trace) 11/10/24 Assessment & Plan Assessment & Plan (1) BETO (acute kidney injury): Code(s): N17.9 - Acute kidney failure, unspecified Category: Medical (2) Liver cirrhosis, alcoholic: Code(s): K70.30 - Alcoholic cirrhosis of liver without ascites Category: Medical Qualifiers: Ascites presence: without ascites Qualified Code(s): K70.30 - Alcoholic cirrhosis of liver without ascites (3) Hyponatremia: Code(s): E87.1 - Hypo-osmolality and hyponatremia Category: Medical (4) HTN (hypertension): Code(s): I10 - Essential (primary) hypertension Category: Medical Qualifiers: Hypertension type: primary hypertension Qualified Code(s): I10 - Essential (primary) hypertension Plan BETO on CKD, most likely ATN in setting of hypoperfusion from acute diarrhea in combination with heavy NSAID use BETO improving, expect gradual improvement over time continue to avoid nephrotoxins including NSAIDS hyponatremia- improving. Most likely secondary to beer potomania in combination with volume depletion. Needs to AVOID beer and continue fluid restriction of 1.2L/24 hours. metabolic acidosis- resolved Cirrhosis Fluid status optimal On Aldactone Avoid Tylenol Orders: Orders Complete Blood Count Auto Diff Today K70.30 - Alcoholic cirrhosis of liver without ascites, N17.9 - Acute kidney failure, unspecified Magnesium Today K70.30 - Alcoholic cirrhosis of liver without ascites, N17.9 - Acute kidney failure, unspecified Comprehensive Met. Panel Today K70.30 - Alcoholic cirrhosis of liver without ascites, N17.9 - Acute kidney failure, unspecified Coding Level of Care Code Est Pt Level 4 (06266) Diagnoses BETO (acute kidney injury) N17.9 Alcoholic cirrhosis of liver without ascites K70.30 Ascites presence: without ascites Hyponatremia E87.1 Primary hypertension I10 Hypertension type: primary hypertension
[2024-11-24 11:38] VITALS: BP 110/64; RESP 17; BMI 31.4
== END 2024-11-24 11:55 | disposition home or self-care (01) ==
PROVIDERS: PCP Internal Medicine; Referring Provider Internal Medicine; Visit Provider Internal Medicine Hypertension Specialist
DX: N17.9 Acute kidney failure, unspecified (principal); K70.30 Alcoholic cirrhosis of liver without ascites; E87.1 Hypo-osmolality and hyponatremia; I10 Essential (primary) hypertension
CPT/HCPCS: 99214

== ENCOUNTER → 2024-11-24 11:23 | Outpatient (BNVA) | payer OTHER, SELFPAY | PROVIDERS: PCP Internal Medicine; Referring Provider Internal Medicine; Visit Provider Internal Medicine Hypertension Specialist ==

== ENCOUNTER 2024-11-24 12:05 | Outpatient (REF) | payer OTHER, SELFPAY ==
[2024-11-24 14:16] LABS: Basophils Absolute Auto 0.1 X10*3/uL (0.0-0.2); Basophils Percent Auto 1.3 % (0-2); Eosinophils Absolute Auto 0.3 X10*3/uL (0.0-0.4); Eosinophils Percent Auto 3.9 % (0-4); Hematocrit 36.1 % (42.0-52.0); Hemoglobin 12.9 g/dl (14.0-18.0); Imm Gran Abs Auto 0.04 X10*3/uL (0.00-0.03); Imm Gran Pct Auto 0.5 % (0.0-0.4); Lymphocytes Absolute Auto 1.4 X10*3/uL (1.2-4.9); Lymphocytes Percent Auto 16.9 % (20-40); MANUAL DIFF FLAG SCAN; Mean Corpuscular HGB Conc 35.7 g/dl (31.0-36.0); Mean Corpuscular Hemoglobin 36.6 pg (27.0-33.0); Mean Corpuscular Volume 102.6 fL (80.0-98.0); Mean Platelet Volume 11.4 fL (9.4-12.4); Monocytes Absolute Auto 0.8 X10*3/uL (0.1-1.2); Monocytes Percent Auto 9.7 % (2-11); Neutrophils Absolute Auto 5.6 x10*3/uL (2.0-8.3); Neutrophils Percent Auto 67.7 % (45-73); PLT CLUMP 1; Red Blood Count 3.52 X10*6/uL (4.60-5.80); Red Cell Distribution Width 12.8 % (11.0-16.0); SCAN SMEAR FLAG 1
[2024-11-24 14:17] LABS: White Blood Count 8.2 X10*3/uL (4.8-10.8)
[2024-11-24 14:26] LABS: Alanine Aminotransferase 45 U/L (0-40); Albumin Level 4.3 g/dL (3.5-5.0); Alkaline Phosphatase 93 U/L (39-117); Anion Gap 11 (12-20); Aspartate Amino Transferase 47 U/L (5-37); Bilirubin Total 0.9 mg/dL (0.0-1.0); Blood Urea Nitrogen 13 mg/dL (9-16); Calcium 9.4 mg/dL (8.4-10.2); Carbon Dioxide 26 mmol/L (22-29); Chloride 89 mmol/L (96-108); Estimated Glomerular Filt Rate 51; Glucose Random 122 mg/dL (60-115); Magnesium 1.6 mg/dL (1.6-2.6); Potassium 5.4 mmol/L (3.3-5.1); Sodium 121 mmol/L (135-145); Total Protein 7.9 g/dL (6.5-8.0)
[2024-11-24 14:39] LABS: SLIDE REVIEW VERIFIED
== END 2024-11-24 12:06 | disposition home or self-care (01) ==
LOC: HO.10HDL 12:05
PROVIDERS: Visit Provider Internal Medicine Hypertension Specialist
DX: K70.30 Alcoholic cirrhosis of liver without ascites (principal); N17.9 Acute kidney failure, unspecified
CPT/HCPCS: 36415; 80053; 83735; 85025

== ENCOUNTER 2025-01-20 15:10 | Outpatient (REF) | payer OTHER, SELFPAY ==
[2025-01-20 16:31] LABS: Iron 97 mcg/dL (45-160); Percent Iron Saturation 35 % (15-50); Total Iron Binding Capacity 274 mcg/dL (228-428); Unsaturated Iron Binding 177 ug/dL
== END 2025-01-20 15:11 | disposition home or self-care (01) ==
LOC: HO.LAB 15:10
PROVIDERS: PCP Internal Medicine; Visit Provider Internal Medicine Medical Oncology
DX: R79.89 Other specified abnormal findings of blood chemistry (principal)
CPT/HCPCS: 36415; 83540

== ENCOUNTER 2025-01-24 11:18 | Outpatient (AMB) | payer OTHER, SELFPAY ==
[2025-01-24 11:21] VITALS: BP 120/72; PULSE 82; O2SAT 94; BMI 33.3
--- NOTE | 2025-01-24 11:21 | HO.NEPHOV ---
Vital Signs 01/24/25 11:21 Height 5 ft 8 in Weight 219 lb BMI 33.3 BP 120/72 Blood Pressure Location Rt brachial Position Sitting Pulse 82 Pulse Source Pulse Oximeter Pulse Oximetry (%) 94 Oxygen Delivery Method Room Air Intake Visit Reasons: Acute kidney failure/ Conf Nuclear Medicine Tech Required: No Accompanied by: Self / Same As Patient Allergies amlodipine Adverse Reaction (Verified 01/24/25 11:24) Swelling ankles Medication List - Last Reconciled 01/24/25 by Jae Ivy MD acetaminophen 1,000 mg PO Q6H PRN atenolol 50 mg PO DAILY buspirone 10 mg PO .q am PRN 90 days lisinopril 40 mg PO DAILY magnesium oxide 400 mg PO DAILY multivitamin 1 tab PO DAILY sodium zirconium cyclosilicate (Lokelma) 10 grams PO BID spironolactone (Aldactone) 50 mg PO QAM vitamin B complex 1 tab PO DAILY HPI Comments Details: 64 y/o male with a medical history of HTN, alcoholic liver cirrhosis, being worked up for elevated ferritin levels per hematology. presented 11/09 with anxiety, restlessness, nausea and diarrhea after stopped drinking on 11/06 (reportedly drinking 12 beers daily prior) Nephrology consulted for BETO, hyponatremia Patient seen by PCP on 11/08 and labs done: sodium 123, creatinine 2.55 (baseline 1.09), went to ED. 11/09 creatinine 3.07, 11/10 creatinine 2.85; pt reports he was taking ibuprofen daily every 4 hours for knee pain for a few weeks prior to hospitalization. Also reports had diarrhea which has resolved. today 11/11 creatinine is 2.02 sodium: 11/08 123, 11/09 at 12:15 was 124, 11/10 at 02:39 was 128, 11/10 04:33 127 11/11 sodium 130; NS drip discontinued. Pt on 1.2L fluid restriction metabolic acidosis with serum bicarb of 18 on 11/09, 11/10 has normalized at 22, 11/[address]d/pelvis 11/10 showed normal kidneys/ureters without hydronephrosis/calculi. 11/24/24 Here for follow up Still drinks 3- 6 cans of beer a day ; Down from 12 cans a day! Off NSAIDS But taking Tylenol 1 gm 2 to 3 x day!! 01/24/2025. He has increased beer intake. Currently consumes about 8 cans a day. Recently he started self medication with potassium supplementation. Subsequently potassium increased to 6.1. He was prescribed Lokelma [address] Clinton. He was stopped taking potassium supplementation. He is still on lisinopril and spironolactone. [facility] Medical History History of COVID-19 Neuropathy Alcohol dependence Anxiety HTN (hypertension) Surgical History H/O colonoscopy Hx of cataract extraction History of open reduction and internal fixation (ORIF) procedure Social History Household Members: None Housing: Apartment Alcohol intake: current Alcohol intake frequency: 3 or more drinks per day Alcohol type: beer Patient Tobacco Use Status: Never used Tobacco e-Cigarette/Vaping Use: Never Used Substance Use Type: Marijuana service: No Current occupational status: employed Cognitive needs: No Hearing needs: No Vision needs: Yes Physical Exam Vital Signs: Last Vital Signs Pulse 82 01/24/25 11:21 BP 120/72 01/24/25 11:21 Pulse Ox 94 01/24/25 11:21 Oxygen Delivery Method Room Air 01/24/25 11:21 BMI result Body Mass Index 33.3 Comfortable Neck supple no JVD. Lungs entry equal no rales. Heart S1-S2 heard no gallop or rub. Abdomen soft nontender. Neuro alert awake oriented. No asterixis. Extremities no edema. Results Reviewed Nephrology Results: Hgb 12.0 g/dl (14.0-18.0) L 01/19/25 WBC 5.2 X10*3/uL (4.8-10.8) 01/19/25 Plt Count 155 X10*3/uL (160-400) L 01/19/25 Sodium 130 mmol/L (135-145) L 01/19/25 Potassium 6.1 mmol/L (3.3-5.1) H* 01/19/25 Chloride 98 mmol/L (96-108) 01/19/25 Carbon Dioxide 25 mmol/L (22-29) 01/19/25 BUN 28 mg/dL (9-16) H 01/19/25 Creatinine 1.24 mg/dL (0.5-1.4) 01/19/25 Calcium 9.4 mg/dL (8.4-10.2) 01/19/25 Assessment & Plan Assessment & Plan (1) BETO (acute kidney injury): Code(s): N17.9 - Acute kidney failure, unspecified Category: Medical (2) Liver cirrhosis, alcoholic: Code(s): K70.30 - Alcoholic cirrhosis of liver without ascites Category: Medical Qualifiers: Ascites presence: without ascites Qualified Code(s): K70.30 - Alcoholic cirrhosis of liver without ascites (3) Hyponatremia: Code(s): E87.1 - Hypo-osmolality and hyponatremia Category: Medical (4) HTN (hypertension): Code(s): I10 - Essential (primary) hypertension Category: Medical Qualifiers: Hypertension type: primary hypertension Qualified Code(s): I10 - Essential (primary) hypertension Plan BETO on CKD, most likely ATN in setting of hypoperfusion from acute diarrhea in combination with heavy NSAID use BETO improving, expect gradual improvement over time continue to avoid nephrotoxins including NSAIDS hyponatremia- improving. Most likely secondary to beer potomania in combination with volume depletion. Needs to AVOID beer and continue fluid restriction of 1.2L/24 hours. metabolic acidosis- resolved Cirrhosis Fluid status optimal On Aldactone Avoid Tylenol 01/24/2025. Hyperkalemia due to the combination of potassium supplementation in addition to lisinopril and spironolactone in the setting of CKD. Since he was stopped potassium supplementation serum potassium should normalize. I will check the levels today and we can discontinue Lokelma. Advised him to avoid any [id number] medications without checking with us. He was hyponatremia primarily due to decreased free water clearance in the setting of cirrhosis and increased beer intake. Encouraged him to cut back on beer intake and the goal is to completely stop beer intake. Orders: Orders Basic Metabolic Panel Today N17.9 - Acute kidney failure, unspecified Basic Metabolic Panel 6 Weeks N17.9 - Acute kidney failure, unspecified Medications: Discontinued sodium zirconium cyclosilicate (Lokelma) Discontinued Reason: Doctor's Order 10 grams PO BID 30 ea 2RF Coding Level of Care Code Est Pt Level 4 (92869) Diagnoses BETO (acute kidney injury) N17.9 Alcoholic cirrhosis of liver without ascites K70.30 Ascites presence: without ascites Hyponatremia E87.1 Primary hypertension I10 Hypertension type: primary hypertension
== END 2025-01-24 11:38 | disposition home or self-care (01) ==
PROVIDERS: PCP Internal Medicine; Visit Provider Internal Medicine Hypertension Specialist
DX: N17.9 Acute kidney failure, unspecified (principal); K70.30 Alcoholic cirrhosis of liver without ascites; E87.1 Hypo-osmolality and hyponatremia; I10 Essential (primary) hypertension
CPT/HCPCS: 99214

== ENCOUNTER 2025-01-24 11:42 | Outpatient (REF) | payer OTHER, SELFPAY ==
[2025-01-24 13:11] LABS: Anion Gap 14 (12-20); Blood Urea Nitrogen 25 mg/dL (9-16); Calcium 9.4 mg/dL (8.4-10.2); Carbon Dioxide 25 mmol/L (22-29); Chloride 95 mmol/L (96-108); Estimated Glomerular Filt Rate > 60; Glucose Random 93 mg/dL (60-115); Potassium 5.1 mmol/L (3.3-5.1); Sodium 129 mmol/L (135-145)
== END 2025-01-24 11:43 | disposition home or self-care (01) ==
LOC: HO.10HDL 11:42
PROVIDERS: Visit Provider Internal Medicine Hypertension Specialist
DX: N17.9 Acute kidney failure, unspecified (principal)
CPT/HCPCS: 36415; 80048

== ENCOUNTER 2025-02-01 15:20 | Outpatient (REF) | payer OTHER, SELFPAY | END 2025-02-01 15:21 | disposition home or self-care (01) | LOC: HO.BBR 15:20 | PROVIDERS: PCP Internal Medicine; Visit Provider Internal Medicine Medical Oncology | DX: Z13.89 Encounter for screening for other disorder (principal) ==

== ENCOUNTER 2025-02-10 08:03 | Outpatient (AMB) | payer OTHER, SELFPAY ==
[2025-02-10 08:05] VITALS: BP 120/78; PULSE 72; RESP 18; TEMP 36.6; O2SAT 95; BMI 31.5
--- NOTE | 2025-02-10 08:05 | MHC.PC.OV ---
Vital Signs 02/10/25 08:05 Height 5 ft 8 in Weight 207 lb 2 oz BMI 31.5 BP 120/78 Blood Pressure Location Rt brachial Position Sitting Respiration 18 Pulse 72 Pulse Source Pulse Oximeter Temp 98 F Temp Source Oral Pulse Oximetry (%) 95 Oxygen Delivery Method Room Air Intake Visit Reasons: follow-up abnormal lab work Allergies amlodipine Adverse Reaction (Verified 02/10/25 08:05) Swelling ankles Medication List - Last Reconciled 02/10/25 by Angelica Schrader MD acetaminophen 1,000 mg PO Q6H PRN atenolol 50 mg PO DAILY buspirone 10 mg PO .q am PRN 90 days multivitamin 1 tab PO DAILY spironolactone (Aldactone) 50 mg PO QAM vitamin B complex 1 tab PO DAILY Tobacco use date assessed: 02/10/25 Fall risk assessment: No Falls in past year Last assessed Fall Risk: 02/10/25 Dental Screening Dental Screen Date: 02/10/25 Did you have a dental visit in the last 12 months?: Yes Did you have a dental problem in the last 6 months where you did not have access to dental care?: No Was dental information given to patient?: Patient has dentist HPI follow-up abnormal lab work HPI Details Patient is 60 year gentleman with a history of abuse He has tried to quit many times and relapse every time He has started drinking again since seen last in October and is requesting help He has stopped drinking in the past with the help of Librium I have sent script for the patient patient is aware how to take the medication I have also encouraged him to sign up with a alcoholic anonymous He says that is a group next to his protestant and he will look into that Librium 25 mg 30 tablets sent he may take 1 or 2 every 8 hour Currently he is drinking whiskey and beer He seems under the influence today at visit as well Labs done in December reviewed with the patient His hemoglobin is 12.9 which is stable Platelets has improved to 155 there were 85 in October Sodium continued to be low at 129 due to alcoholism Creatinine is normal Blood pressure is controlled 120/78 Currently patient is on atenolol 50 mg and spironolactone 50 mg Lisinopril is on hold due to recurrent elevated potassium He will discuss it further with Nephrology at his upcoming appointment February 21 He also has appointment coming up with Hematology in few days We will set up a telemedicine visit in 2 weeks to follow-up on his alcoholism and Librium intake He is also requesting a refill on Lotrisone for rash on his legs [facility] Medical History History of COVID-19 Neuropathy Alcohol dependence Anxiety HTN (hypertension) Surgical History H/O colonoscopy Hx of cataract extraction History of open reduction and internal fixation (ORIF) procedure Social History Household Members: None Housing: Apartment Alcohol intake: current Alcohol intake frequency: 3 or more drinks per day Alcohol type: beer Patient Tobacco Use Status: Never used Tobacco e-Cigarette/Vaping Use: Never Used Substance Use Type: Marijuana service: No Current occupational status: employed Cognitive needs: No Hearing needs: No Vision needs: Yes Questionnaire PHQ-9 Over the last 2 weeks, how often have you been bothered by any of the following problems? 52719 - PHQ-9 Billing: Yes Source: Developed by Drs. Srikanth Hernández, Cathleen Cifuentes, Jarod Garcia and colleagues, with an educational prince from [employer]. Thrive Questionnaire Date Thrive assessed: 02/10/25 I am a: Patient What is your living situation today?: I have a steady place to live Within the past 12 months, did the food you bought not last and you didn't have the money to get more?: Never true Within the past 12 months, did you worry whether your food would run out before you got money to buy more?: Never true Do you have trouble paying for medicines?: No Do you have trouble getting transportation to medical appointments?: No Do you have trouble paying your heating and electricity bill?: No Do you have trouble taking care of your child, family member or friend?: No Do you have trouble with day-to-day activities such as bathing, preparing meals, shopping, managing finances, etc.?: No Are you currently unemployed and looking for a job?: No Are you interested in more education?: No Please select the resources that you would like help with: None Currently or been in a relationship where the following occur: No concerns reported THRIVE Score: 0 AUDIT C Alcohol Use Questionnaire (AUDIT-C) 1. How often do you have a drink containing alcohol?: 2-3 times a week 2. How many drinks containing alcohol do you have on a typical day when you are drinking?: 1 or 2 3. How often do you have six or more drinks on one occasion?: Weekly Total Score: 6 Score Reviewed/Action Taken: Yes ALLIE-7 AMB Questionnaire ALLIE-7 Date ALLIE - 7 assessed: 02/10/25 Feeling nervous, anxious, or on edge: 0 = Not at all Not being able to stop or control worryin = Not at all Worrying too much about different things: 0 = Not at all Trouble relaxin = Not at all Being so restless that it is hard to sit still: 0 = Not at all Becoming easily annoyed or irritable: 0 = Not at all Feeling afraid as if something awful might happen: 0 = Not at all Total ALLIE-7 score (0-4 normal; 5-9 mild; 10-14 moderate; 15-21 severe): 0 Source: Developed by Drs. Srikanth Hernández, Cathleen Cifuentes, Jarod Garcia and colleagues, with an educational prince from [employer]. ALLIE-7 Assessment Billing ALLIE-7 Assessment Tool: ALLIE-7 Assessment 37435 Review of Systems Const Denies chills and Denies fever(s) ENT Denies epistaxis and Denies nasal discharge Card Denies chest pain Resp Denies chest congestion, Denies cough and Denies hemoptysis GI Denies diarrhea and Denies nausea Skin/Breast Denies rash Neuro Reports no additional complaints Psych Reports no additional complaints Endo Reports no additional complaints Physical exam (Primary Care) Vital Signs: Last Vital Signs Temp 98 F 02/10/25 08:05 Pulse 72 02/10/25 08:05 Resp 18 02/10/25 08:05 BP 120/78 02/10/25 08:05 Pulse Ox 95 02/10/25 08:05 Oxygen Delivery Method Room Air 02/10/25 08:05 BMI result Body Mass Index 31.5 Tobacco/Smoking Status: Tobacco use Status Tobacco use date assessed 02/10/25 02/10/25 08:08 Patient Tobacco Use Status Never used Tobacco 02/10/25 08:08 e-Cigarette/Vaping Use Never Used 02/10/25 08:08 Thrive Assessment: Date of Thrive Assessment Date Thrive assessed 02/10/25 02/10/25 08:08 Currently or been in a relationship where the following occur: No concerns reported Const General: cooperative, comfortable and no acute distress Orientation/consciousness: patient oriented x3 HENMT Head: Yes normocephalic Eyes General: appearance normal, both eyes and all related structures Neck Neck: Yes supple Resp Effort & Inspection: normal respiratory effort, no cough and no stridor Cardio Rhythm: regular rhythm Heart sounds: S1 normal heart sound present and S2 normal heart sound present Skin General skin exam: turgor normal Neuro General: patient oriented x3, tone normal and moves all extremities Extrem Right lower extremity: no edema Left lower extremity: no edema Coding Level of Care Code Est Pt Level 4 (60561) Diagnoses Alcohol abuse F10.10 Alcoholic cirrhosis of liver without ascites K70.30 Ascites presence: without ascites Hyponatremia E87.1 Primary hypertension I10 Hypertension type: primary hypertension Anxiety, generalized F41.1 Class 1 obesity due to excess calories with serious comorbidity and body mass index (BMI) of 31.0 to 31.9 in adult E66.09; Z68.31 Obesity classification: adult class 1 (BMI 30 - 34.9) Serious obesity comorbidity presence: with serious comorbidity Body mass index: BMI 31.0-31.9 Iron deficiency anemia due to chronic blood loss D50.0 Anemia type: iron deficiency Iron deficiency anemia type: chronic blood loss Peripheral vascular disease I73.9 Alcoholic peripheral neuropathy G62.1 Hereditary hemochromatosis E83.110 Hemochromatosis type: hereditary Additional Codes ALLIE-7 Assessment Billing - ALLIE-7 Assessment Tool: ALLIE-7 Assessment 32111 ([id number]) PHQ-9 - 28816 - PHQ-9 Billing: Yes ([id number]) Assessment & Plan Assessment & Plan (1) Alcohol abuse: Code(s): F10.10 - Alcohol abuse, uncomplicated Category: Social Hx (2) Liver cirrhosis, alcoholic: Code(s): K70.30 - Alcoholic cirrhosis of liver without ascites Category: Medical Qualifiers: Ascites presence: without ascites Qualified Code(s): K70.30 - Alcoholic cirrhosis of liver without ascites (3) Hyponatremia: Code(s): E87.1 - Hypo-osmolality and hyponatremia Category: Medical (4) HTN (hypertension): Code(s): I10 - Essential (primary) hypertension Category: Medical Qualifiers: Hypertension type: primary hypertension Qualified Code(s): I10 - Essential (primary) hypertension (5) Anxiety, generalized: Code(s): F41.1 - Generalized anxiety disorder Category: Medical (6) Obesity due to excess calories: Code(s): E66.09 - Other obesity due to excess calories Category: Medical Qualifiers: Obesity classification: adult class 1 (BMI 30 - 34.9) Serious obesity comorbidity presence: with serious comorbidity Body mass index: BMI 31.0-31.9 Qualified Code(s): E66.09 - Other obesity due to excess calories; Z68.31 - Body mass index [BMI] 31.0-31.9, adult (7) Anemia: Code(s): D64.9 - Anemia, unspecified Category: Medical Qualifiers: Anemia type: iron deficiency Iron deficiency anemia type: chronic blood loss Qualified Code(s): D50.0 - Iron deficiency anemia secondary to blood loss (chronic) (8) Peripheral vascular disease: Code(s): I73.9 - Peripheral vascular disease, unspecified Category: Medical (9) Alcoholic peripheral neuropathy: Code(s): G62.1 - Alcoholic polyneuropathy Category: Medical (10) Hemochromatosis: Code(s): E83.119 - Hemochromatosis, unspecified Category: Medical Qualifiers: Hemochromatosis type: hereditary Qualified Code(s): E83.110 - Hereditary hemochromatosis Plan Patient is 60 year gentleman with a history of abuse He has tried to quit many times and relapse every time He has started drinking again since seen last in October and is requesting help He has stopped drinking in the past with the help of Librium I have sent script for the patient patient is aware how to take the medication I have also encouraged him to sign up with a alcoholic anonymous He says that is a group next to his protestant and he will look into that Librium 25 mg 30 tablets sent he may take 1 or 2 every 8 hour Currently he is drinking whiskey and beer He seems under the influence today at visit as well Labs done in December reviewed with the patient His hemoglobin is 12.9 which is stable Platelets has improved to 155 there were 85 in October Sodium continued to be low at 129 due to alcoholism Creatinine is normal Blood pressure is controlled 120/78 Currently patient is on atenolol 50 mg and spironolactone 50 mg Lisinopril is on hold due to recurrent elevated potassium He will discuss it further with Nephrology at his upcoming appointment February 21 He also has appointment coming up with Hematology in few days We will set up a telemedicine visit in 2 weeks to follow-up on his alcoholism and Librium intake He is also requesting a refill on Lotrisone for rash on his legs Medications: New chlordiazepoxide HCl orally 3 times a day PRN; 1 or 2 tablets every 8 hour as needed for alcohol withdrawal 14 days 45 caps 0RF anxiety Refilled clotrimazole-betamethasone 1-0.05 % 1 appl topical ONCE 30 days 45 grams 1RF
== END 2025-02-10 08:30 | disposition home or self-care (01) ==
LOC: HO.HMCC 08:04
PROVIDERS: PCP Internal Medicine; Visit Provider Internal Medicine
DX: I73.9 Peripheral vascular disease, unspecified (principal); K70.30 Alcoholic cirrhosis of liver without ascites; E83.110 Hereditary hemochromatosis; G62.1 Alcoholic polyneuropathy; Z68.31 Body mass index [BMI] 31.0-31.9, adult; E66.09 Other obesity due to excess calories; E87.1 Hypo-osmolality and hyponatremia; F10.10 Alcohol abuse, uncomplicated; I10 Essential (primary) hypertension; F41.1 Generalized anxiety disorder; D50.0 Iron deficiency anemia secondary to blood loss (chronic)

== ENCOUNTER → 2025-02-10 08:03 | Outpatient (BNVA) | payer OTHER, SELFPAY | PROVIDERS: PCP Internal Medicine; Visit Provider Internal Medicine | DX: F10.10 Alcohol abuse, uncomplicated (principal); K70.30 Alcoholic cirrhosis of liver without ascites; E87.1 Hypo-osmolality and hyponatremia; I10 Essential (primary) hypertension; F41.1 Generalized anxiety disorder; E66.09 Other obesity due to excess calories; Z68.31 Body mass index [BMI] 31.0-31.9, adult; D50.0 Iron deficiency anemia secondary to blood loss (chronic); I73.9 Peripheral vascular disease, unspecified; G62.1 Alcoholic polyneuropathy; E83.110 Hereditary hemochromatosis | CPT/HCPCS: 96127 ==

== ENCOUNTER 2025-02-21 14:48 | Outpatient (AMB) | payer OTHER, SELFPAY ==
[2025-02-21 14:59] VITALS: BP 168/90; PULSE 75; O2SAT 95; BMI 33.3
--- NOTE | 2025-02-21 14:59 | HO.NEPHOV_ITS ---
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 Accompanied by: Self / Same As Patient Allergies amlodipine Adverse Reaction (Verified 02/21/25 15:00) Swelling ankles Medication List - Last Reconciled 02/21/25 by Jae Ivy MD acetaminophen 1,000 mg PO Q6H PRN atenolol 50 mg PO DAILY buspirone 10 mg PO .q am PRN 90 days chlordiazepoxide HCl orally 3 times a day PRN; 1 or 2 tablets every 8 hour as needed for alcohol withdrawal 14 days clotrimazole-betamethasone 1-0.05 % 1 appl topical ONCE 30 days multivitamin 1 tab PO DAILY spironolactone (Aldactone) 50 mg PO QAM vitamin B complex 1 tab PO DAILY HPI Comments Details: 64 y/o male with a medical history of HTN, alcoholic liver cirrhosis, being worked up for elevated ferritin levels per hematology. presented 11/09 with anxiety, restlessness, nausea and diarrhea after stopped drinking on 11/06 (reportedly drinking 12 beers daily prior) Nephrology consulted for BETO, hyponatremia Patient seen by PCP on 11/08 and labs done: sodium 123, creatinine 2.55 (baseline 1.09), went to ED. 11/09 creatinine 3.07, 11/10 creatinine 2.85; pt reports he was taking ibuprofen daily every 4 hours for knee pain for a few weeks prior to hospitalization. Also reports had diarrhea which has resolved. today 11/11 creatinine is 2.02 sodium: 11/08 123, 11/09 at 12:15 was 124, 11/10 at 02:39 was 128, 11/10 04:33 127 11/11 sodium 130; NS drip discontinued. Pt on 1.2L fluid restriction metabolic acidosis with serum bicarb of 18 on 11/09, 11/10 has normalized at 22, 11/[address]d/pelvis 11/10 showed normal kidneys/ureters without hydronephrosis/calculi. 11/24/24 Here for follow up Still drinks 3- 6 cans of beer a day ; Down from 12 cans a day! Off NSAIDS But taking Tylenol 1 gm 2 to 3 x day!! 01/24/2025. He has increased beer intake. Currently consumes about 8 cans a day. Recently he started self medication with potassium supplementation. Subsequently potassium increased to 6.1. He was prescribed Lokelma [address] Clinton. He was stopped taking potassium supplementation. He is still on lisinopril and spironolactone. 02/21/2025. Overall he is doing well. Recently Librium was started but he has stopped taking because of nausea. He did not have antiemetics [facility] Medical History History of COVID-19 Neuropathy Alcohol dependence Anxiety HTN (hypertension) Surgical History H/O colonoscopy Hx of cataract extraction History of open reduction and internal fixation (ORIF) procedure Social History Household Members: None Housing: Apartment Alcohol intake: current Alcohol intake frequency: 3 or more drinks per day Alcohol type: beer Patient Tobacco Use Status: Never used Tobacco e-Cigarette/Vaping Use: Never Used Substance Use Type: Marijuana service: No Current occupational status: employed Cognitive needs: No Hearing needs: No Vision needs: Yes Physical Exam Vital Signs: Last Vital Signs Pulse 75 02/21/25 14:59 BP 168/90 H 02/21/25 14:59 Pulse Ox 95 02/21/25 14:59 Oxygen Delivery Method Room Air 02/21/25 14:59 BMI result Body Mass Index 33.3 Comfortable Neck supple no JVD. Lungs entry equal no rales. Heart S1-S2 heard no gallop or rub. Abdomen soft nontender. Neuro alert awake oriented. No asterixis. Extremities no edema. Results Reviewed Nephrology Results: Hgb 12.0 g/dl (14.0-18.0) L 01/19/25 WBC 5.2 X10*3/uL (4.8-10.8) 01/19/25 Plt Count 155 X10*3/uL (160-400) L 01/19/25 Sodium 129 mmol/L (135-145) L 01/24/25 Potassium 5.1 mmol/L (3.3-5.1) 01/24/25 Chloride 95 mmol/L (96-108) L 01/24/25 Carbon Dioxide 25 mmol/L (22-29) 01/24/25 BUN 25 mg/dL (9-16) H 01/24/25 Creatinine 1.21 mg/dL (0.5-1.4) 01/24/25 Calcium 9.4 mg/dL (8.4-10.2) 01/24/25 Assessment & Plan Assessment & Plan (1) BETO (acute kidney injury): Code(s): N17.9 - Acute kidney failure, unspecified Category: Medical (2) Liver cirrhosis, alcoholic: Code(s): K70.30 - Alcoholic cirrhosis of liver without ascites Category: Medical Qualifiers: Ascites presence: without ascites Qualified Code(s): K70.30 - Alcoholic cirrhosis of liver without ascites (3) Hyponatremia: Code(s): E87.1 - Hypo-osmolality and hyponatremia Category: Medical (4) HTN (hypertension): Code(s): I10 - Essential (primary) hypertension Category: Medical Qualifiers: Hypertension type: primary hypertension Qualified Code(s): I10 - Essential (primary) hypertension Plan BETO on CKD, most likely ATN in setting of hypoperfusion from acute diarrhea in combination with heavy NSAID use BETO improving, expect gradual improvement over time continue to avoid nephrotoxins including NSAIDS hyponatremia- improving. Most likely secondary to beer potomania in combination with volume depletion. Needs to AVOID beer and continue fluid restriction of 1.2L/24 hours. metabolic acidosis- resolved Cirrhosis Fluid status optimal On Aldactone Avoid Tylenol 01/24/2025. Hyperkalemia due to the combination of potassium supplementation in addition to lisinopril and spironolactone in the setting of CKD. Since he was stopped potassium supplementation serum potassium should normalize. I will check the levels today and we can discontinue Lokelma. Advised him to avoid any [id number] medications without checking with us. He was hyponatremia primarily due to decreased free water clearance in the setting of cirrhosis and increased beer intake. Encouraged him to cut back on beer intake and the goal is to completely stop beer intake. 02/21/2025. Hypo natremia due to excessive beer intake. Encouraged to restrict p.o. intake. He will restart Librium. I have given him a prescription for Zofran. Hypokalemia stance corrected. Renal function is at baseline. Orders: Orders Basic Metabolic Panel 3 Months E87.1 - Hypo-osmolality and hyponatremia Medications: New ondansetron HCl 4 mg PO BID PRN 60 tabs 0RF nausea and vomiting Coding Level of Care Code Est Pt Level 4 (53490) Diagnoses BETO (acute kidney injury) N17.9 Alcoholic cirrhosis of liver without ascites K70.30 Ascites presence: without ascites Hyponatremia E87.1 Primary hypertension I10 Hypertension type: primary hypertension
== END 2025-02-21 15:28 | disposition home or self-care (01) ==
LOC: HO.HKA 14:49
PROVIDERS: PCP Internal Medicine; Visit Provider Internal Medicine Hypertension Specialist
DX: N17.9 Acute kidney failure, unspecified (principal); K70.30 Alcoholic cirrhosis of liver without ascites; E87.1 Hypo-osmolality and hyponatremia; I10 Essential (primary) hypertension
CPT/HCPCS: 99214

== ENCOUNTER 2025-02-23 08:15 | Outpatient (AMB) | payer OTHER, SELFPAY ==
--- NOTE | 2025-02-23 08:28 | MHC.PC.OV ---
Intake Visit Reasons: 2w f/u Allergies amlodipine Adverse Reaction (Verified 02/23/25 08:29) Swelling ankles Medication List - Last Reconciled 02/23/25 by Angelica Schrader MD acetaminophen 1,000 mg PO Q6H PRN atenolol 50 mg PO DAILY buspirone 10 mg PO .q am PRN 90 days chlordiazepoxide HCl orally 3 times a day PRN; 1 or 2 tablets every 8 hour as needed for alcohol withdrawal 14 days clotrimazole-betamethasone 1-0.05 % 1 appl topical ONCE 30 days multivitamin 1 tab PO DAILY ondansetron HCl 4 mg PO BID PRN spironolactone (Aldactone) 50 mg PO QAM vitamin B complex 1 tab PO DAILY Tobacco use date assessed: 02/10/25 Dental Screening Dental Screen Date: 02/10/25 HPI 2w f/u HPI Details History The patient is a 64-year-old male presenting with management of alcohol abuse. - He has a significant history of alcohol use disorder, identifying himself as a serious alcoholic with many years of dependency. - Experiencing significant sickness without nausea medication while trying to manage withdrawal symptoms. - Has taken only two doses of Librium, with notable adverse reactions due to absence of nausea medication. - Intends to proceed with medication use with caution, planning to begin during the weekend due to work considerations. Problem List - Alcohol Use Disorder Patient Instructions - Begin using nausea medication as prescribed to manage withdrawal symptoms when ready, preferably during the weekend to avoid interference with work. - Continue using Librium (chlordiazepoxide) as discussed, monitoring the symptoms and response. - Consider checking into a hospital for detoxification treatment if withdrawal symptoms become unmanageable at home to ensure proper medical support. - Contact me if you experience worsening symptoms or need further assistance during the process. Review of Systems - General: No fever no chills - Neurological: No headaches no dizziness - Ear nose throat: No sore throat no hearing difficulty no ear pain - Cardiovascular: No syncope, no chest pain, no palpitations - Gastrointestinal: No nausea vomiting or diarrhea - Endocrine: No polyuria polydipsia no heat intolerance - Genitourinary: No dysuria , no blood in urine [facility] Medical History History of COVID-19 Neuropathy Alcohol dependence Anxiety HTN (hypertension) Surgical History H/O colonoscopy Hx of cataract extraction History of open reduction and internal fixation (ORIF) procedure Social History Household Members: None Housing: Apartment Alcohol intake: current Alcohol intake frequency: 3 or more drinks per day Alcohol type: beer Patient Tobacco Use Status: Never used Tobacco e-Cigarette/Vaping Use: Never Used Substance Use Type: Marijuana service: No Current occupational status: employed Cognitive needs: No Hearing needs: No Vision needs: Yes Questionnaire Thrive Questionnaire Date Thrive assessed: 07/06/24 I am a: Patient What is your living situation today?: I have a steady place to live Within the past 12 months, did the food you bought not last and you didn't have the money to get more?: Never true Within the past 12 months, did you worry whether your food would run out before you got money to buy more?: Never true Do you have trouble paying for medicines?: No Do you have trouble getting transportation to medical appointments?: No Do you have trouble paying your heating and electricity bill?: No Do you have trouble taking care of your child, family member or friend?: No Do you have trouble with day-to-day activities such as bathing, preparing meals, shopping, managing finances, etc.?: No Are you currently unemployed and looking for a job?: No Are you interested in more education?: No Please select the resources that you would like help with: None Currently or been in a relationship where the following occur: No concerns reported THRIVE Score: 0 ALLIE-7 AMB Questionnaire ALLIE-7 Date ALLIE - 7 assessed: 02/10/25 Source: Developed by Drs. Srikanth Hernández, Cathleen Cifuentes, Jarod Garcia and colleagues, with an educational prince from [employer]. Physical exam (Primary Care) Tobacco/Smoking Status: Tobacco use Status Tobacco use date assessed 02/10/25 02/10/25 08:08 Patient Tobacco Use Status Never used Tobacco 02/10/25 08:08 e-Cigarette/Vaping Use Never Used 02/10/25 08:08 Thrive Assessment: Date of Thrive Assessment Date Thrive assessed 07/06/24 02/23/25 08:16 Currently or been in a relationship where the following occur: No concerns reported Telehealth Telehealth Telehealth Platform: Daily [employer] Location of provider rendering services: practice address Location of patient: address on file Patient Identification confirmed using: Name, : Yes Telehealth method: video (attempted) Patient verbally consented to treatment: Yes Patient verbally consented to billing insurance company: Yes Patient informed of any privacy concerns related to visit: Yes Minutes spent on Phone/Video with Pt.: 13 Coding Level of Care Code Tele Est Pt Level 3 (54930) Diagnoses Uncomplicated alcohol dependence F10.20 Substance use status: uncomplicated Assessment & Plan Assessment & Plan (1) Alcohol dependence: Code(s): F10.20 - Alcohol dependence, uncomplicated Category: Medical Qualifiers: Substance use status: uncomplicated Qualified Code(s): F10.20 - Alcohol dependence, uncomplicated Plan History The patient is a 64-year-old male presenting with management of alcohol abuse. - He has a significant history of alcohol use disorder, identifying himself as a serious alcoholic with many years of dependency. - Experiencing significant sickness without nausea medication while trying to manage withdrawal symptoms. - Has taken only two doses of Librium, with notable adverse reactions due to absence of nausea medication. - Intends to proceed with medication use with caution, planning to begin during the weekend due to work considerations. Problem List - Alcohol Use Disorder Patient Instructions - Begin using nausea medication as prescribed to manage withdrawal symptoms when ready, preferably during the weekend to avoid interference with work. - Continue using Librium (chlordiazepoxide) as discussed, monitoring the symptoms and response. - Consider checking into a hospital for detoxification treatment if withdrawal symptoms become unmanageable at home to ensure proper medical support. - Contact me if you experience worsening symptoms or need further assistance during the process.
== END 2025-02-23 08:57 | disposition home or self-care (01) ==
LOC: HO.HMCC 08:16
PROVIDERS: PCP Internal Medicine; Visit Provider Internal Medicine
DX: F10.20 Alcohol dependence, uncomplicated (principal)

== ENCOUNTER 2025-04-13 05:31 | Inpatient (IN) | payer OTHER, SELFPAY ==
[2025-04-13] VITALS (10 sets, daily range): BP systolic 111–173; BP diastolic 78–103; PULSE 65–88; RESP 13–18; TEMP 36.1–37.1; O2SAT 94–99; BMI 31.0
--- NOTE | ~2025-04-13 | US_ITS ---
EXAMINATION: US ABDOMEN LIMITED HISTORY: RUQ pain, elevated LFTs TECHNIQUE: Real-time grayscale ultrasound imaging of the right upper quadrant was performed and images were reviewed. COMPARISON: Comparison is made with the prior examination dated 10/21/2024. FINDINGS: Liver: The liver demonstrates a nodular contour, suggestive of cirrhosis. The liver demonstrates increased echotexture, consistent with steatosis. There is focal fatty sparing adjacent to the gallbladder. No focal mass or intrahepatic biliary ductal dilatation is identified. There is normal hepatopedal flow in the portal vein. Gallbladder and biliary tree: The gallbladder is unremarkable, without evidence of calculi, wall thickening, or pericholecystic fluid. There is no sonographic Hutchins sign. The common bile duct is normal in caliber measuring 6 mm. Right Kidney: The right kidney measures 10.6 cm in length. The right kidney is unremarkable, without evidence of masses, hydronephrosis, or calculi. Pancreas: The pancreatic head, neck, and body are unremarkable. The pancreatic tail is obscured by bowel gas. Abdominal aorta and inferior vena cava: The visualized portions of the abdominal aorta and inferior vena cava are normal in caliber. There is no free fluid in the right upper quadrant. US/US abdomen limited IMPRESSION: Cirrhosis of the liver and hepatic steatosis. No evidence of cholelithiasis. Electronically signed by: Srikanth Euceda MD 04/13/2025 10:36 AM EDT
--- NOTE | ~2025-04-13 | US_ITS ---
CLINICAL HISTORY: leg pain and cramping Venous duplex ultrasound bilateral lower extremity Comparison: None Findings: The visualized deep veins are fully compressible with normal Doppler color flow and spectral tracings. No popliteal cyst. IMPRESSION: 1. Negative for bilateral lower extremity deep vein thrombosis. This document has been electronically signed by: Augusta Gallego MD on 04/15/2025 08:11:32
[2025-04-13 05:57] LABS: Basophils Percent Auto 0.7 % (0-2); Eosinophils Absolute Auto 0.1 X10*3/uL (0.0-0.4); Eosinophils Percent Auto 1.5 % (0-4); Hematocrit 40.1 % (42.0-52.0); Hemoglobin 14.6 g/dl (14.0-18.0); Imm Gran Abs Auto 0.02 X10*3/uL (0.00-0.03); Imm Gran Pct Auto 0.3 % (0.0-0.4); Lymphocytes Absolute Auto 2.2 X10*3/uL (1.2-4.9); Lymphocytes Percent Auto 36.7 % (20-40); MANUAL DIFF FLAG NO; Mean Corpuscular HGB Conc 36.4 g/dl (31.0-36.0); Mean Corpuscular Hemoglobin 36.9 pg (27.0-33.0); Mean Corpuscular Volume 101.3 fL (80.0-98.0); Mean Platelet Volume 9.4 fL (9.4-12.4); Monocytes Absolute Auto 0.4 X10*3/uL (0.1-1.2); Monocytes Percent Auto 5.9 % (2-11); Neutrophils Absolute Auto 3.3 x10*3/uL (2.0-8.3); Neutrophils Percent Auto 54.9 % (45-73); Platelet Count 145 X10*3/uL (160-400); Red Blood Count 3.96 X10*6/uL (4.60-5.80); Red Cell Distribution Width 13.3 % (11.0-16.0); White Blood Count 6.1 X10*3/uL (4.8-10.8)
[2025-04-13 06:13] LABS: Glucose, Whole Blood 95 mg/dL (60-115)
[2025-04-13 06:13] LABS: Alanine Aminotransferase 176 U/L (0-40); Albumin Level 3.9 g/dL (3.5-5.0); Alkaline Phosphatase 107 U/L (39-117); Anion Gap 22 (12-20); Aspartate Amino Transferase 344 U/L (5-37); Bilirubin Total 1.7 mg/dL (0.0-1.0); Blood Urea Nitrogen 16 mg/dL (9-16); Carbon Dioxide 19 mmol/L (22-29); Chloride 96 mmol/L (96-108); Creatinine Clr Calc Pharmacy 50.2; Estimated Glomerular Filt Rate 41; Glucose Random 94 mg/dL (60-115); Magnesium 1.3 mg/dL (1.6-2.6); Potassium 3.9 mmol/L (3.3-5.1); Sodium 133 mmol/L (135-145); Total Protein 7.6 g/dL (6.5-8.0)
--- NOTE | 2025-04-13 06:15 | PC.NURSE ---
Pt comes in with complaints of feeling dehydrated, Polydipsia, polyuria, and just feeling unwell for the past few weeks, increasing more since yesterday. PT is a daily drinker 10 beers a day and he stopped drinking yesterday morning. Denies N/V. reports 10 years ago he had a seizure from withdrawing but none recently. DIANNE 20, interested in detox. Notified provider. awaiting new orders
[2025-04-13 06:35] LABS: Influenza A PCR NEGATIVE (Negative); Influenza B PCR NEGATIVE (Negative); Resp Syncy Virus RNA Qual PCR NEGATIVE (Negative); SARS COV2 PCR INHOUSE NEGATIVE (Negative)
[2025-04-13] MEDS: LORazepam 1 MG TABLET PO (06:39)
[2025-04-13] MEDS: Magnesium Sulfate/H2O 2 GM/50 ML PIGGYBACK IV (06:58)
--- NOTE | 2025-04-13 08:04 | ED.GENADULT ---
HPI - General Adult General Chief complaint: General Medical Stated complaint: not feeling well for the past week Time Seen by Provider: 04/13/25 08:03 Source: patient Mode of arrival: ambulatory Limitations: no limitations History of Present Illness ED Provider: Elvia Finley PA-C HPI narrative: 64-year-old male with history of alcoholic liver cirrhosis, alcoholic peripheral neuropathy, anemia, chronic kidney disease, history of ETOH withdrawal and seizure in the past who presents to the ER for evaluation of diffuse muscle cramping, nausea, diarrhea, decreased p.o. intake for the last 1 week. He reports feeling dehydrated. He states he has been drinking 10 beers per day in addition to multiple shots of vodka. He has been wanting to decrease his alcohol use at home but has been unable to. He reports his last drink was yesterday morning. He is having ongoing nausea, loose nonbloody stools and tremors. He feels like he is withdrawing from alcohol. He wants to stop drinking. He denies any other substance use. MD complaint: Nausea, decreased p.o. intake, concern for alcohol withdrawal Onset (ago): day(s) Pain Consistency: constant Relieving factors: other (Alcohol) Exacerbating factors: other (Alcohol) Associated symptoms: headaches, loss of appetite, malaise, nausea/vomiting and weakness Related Data Home Medications ?Medication ?Instructions ?Recorded ?Confirmed acetaminophen 500 mg tablet 1,000 mg PO Q6H PRN Pain 11/10/24 02/23/25 vitamin B complex 1 tab PO DAILY 11/10/24 02/23/25 Previous Rx's ?Medication ?Instructions ?Recorded multivitamin 1 tab PO DAILY #90 tabs 07/25/24 atenolol 50 mg tablet 50 mg PO DAILY #90 tabs 11/16/24 spironolactone 50 mg tablet 50 mg PO QAM #90 tabs 01/24/25 (Aldactone) buspirone 10 mg tablet 10 mg PO .q am PRN anxiety 90 days 02/06/25 #90 tabs chlordiazepoxide HCl 25 mg capsule See Rx Instructions PO TID PRN 02/10/25 anxiety 14 days #45 caps clotrimazole-betamethasone 1 1 appl topical ONCE 30 days #45 02/10/25 %-0.05 % topical cream grams ondansetron HCl 4 mg tablet 4 mg PO BID PRN nausea and 02/21/25 vomiting #60 tabs Allergies Allergy/AdvReac Type Severity Reaction Status Date / Time amlodipine AdvReac Swelling Verified 04/13/25 05:38 ankles Review of Systems Review of Systems: Yes all other systems are reviewed and are negative [facility] Past Medical History Medical History History of COVID-19 Neuropathy Alcohol dependence Anxiety HTN (hypertension) Surgical History H/O colonoscopy Hx of cataract extraction History of open reduction and internal fixation (ORIF) procedure Social History Social History Household Members: None Housing: Apartment Alcohol intake: current Alcohol intake frequency: 3 or more drinks per day Alcohol type: beer Patient Tobacco Use Status: Never used Tobacco e-Cigarette/Vaping Use: Never Used Use of substances other than those prescribed or required for medical reasons: Yes Substance Use Type: Marijuana Substance Use Frequency: Occasionally Advance Directives: Yes Advance Directives on File: Yes Advance Directives Date on File: 11/10/24 service: No Current occupational status: employed Cognitive needs: No Hearing needs: No Vision needs: Yes Physical Exam ED Vital Signs: Vital Signs - 24 hr 04/13/25 05:35 04/13/25 08:37 04/13/25 11:27 Temperature 97.4 F 98.2 F 98.8 F Pulse Rate 88 66 65 Respiratory Rate 18 15 13 Blood Pressure 111/81 119/78 144/88 H Pulse Oximetry 96 99 98 Oxygen Delivery Method Room Air Room Air Room Air 04/13/25 12:25 04/13/25 12:56 Temperature 97.8 F 97.9 F Pulse Rate 69 68 Respiratory Rate 14 15 Blood Pressure 146/86 H 138/80 Pulse Oximetry 99 99 Oxygen Delivery Method Room Air Room Air BMI result Body Mass Index 31.0 Appearance: Alert. Oriented X3. Appears uncomfortable, grimacing Head: normocephalic, atraumatic. Eyes: Pupils equal, round and reactive to light. ENT: Pharynx normal. No tonsillar swelling or exudate. Neck: Normal inspection. Neck supple. CVS: Normal heart rate and rhythm. Pulses normal. Respiratory: No respiratory distress. Breath sounds normal. Abdomen: Soft with moderate epigastric tenderness, mild right upper quadrant tenderness, normal active +BS x4 Skin: Skin warm and dry. Normal skin color. Normal skin turgor. No rashes. Extremities: No lower extremity edema. No joint swelling. Neuro/psych: Oriented X 3. No motor deficit. No sensory deficit. Mild bilateral hand tremor CN II-XII intact. Normal speech and cognition. Medications Administered Discontinued Medications Generic Name Dose Route Start Last Admin Trade Name Elanq PRN Reason Stop Dose Admin Magnesium Sulfate 2 gm in 50 mls @ 25 mls/hr 04/13/25 06:13 04/13/25 10:40 Magnesium Sulfate/H2o IV 04/13/25 08:12 Infused ONCE ONE Infusion Lactated Ringer's 1,000 mls @ 999 mls/hr 04/13/25 08:30 04/13/25 10:40 Lr IV 04/13/25 09:30 Infused .Q1H1M HASMUKH Infusion Lorazepam 1 mg 04/13/25 06:32 04/13/25 06:39 Lorazepam 1 Mg Tablet PO 04/13/25 06:33 1 mg ONCE ONE Administration Ondansetron HCl 4 mg 04/13/25 08:25 04/13/25 08:45 Ondansetron Hcl 4 Mg/2 Ml Vial IVPUSH 04/13/25 08:26 4 mg ONCE ONE Administration Ondansetron HCl 4 mg 04/13/25 12:28 04/13/25 12:56 Ondansetron Hcl 4 Mg/2 Ml Vial IVPUSH 04/13/25 12:29 4 mg ONCE ONE Administration Phenobarbital Sodium 285 mg 04/13/25 13:00 04/13/25 13:33 Phenobarbital Sodium 130 Mg/Ml Im Once IM 04/13/25 13:01 285 mg ONCE ONE Administration Protocol Medical Decision Making Medical Decision Making MDM Narrative: 64-year-old male with a history of liver cirrhosis due to alcohol, history of alcohol withdrawal and withdrawal seizure in the past who presents to the ER for evaluation of diffuse muscle cramping, nausea, diarrhea, decreased p.o. intake and concern for alcohol withdrawal. His last alcoholic beverage was yesterday morning. He is starting to feel tremulous and unwell. He has a CIWA score of 4 on arrival. Was given p.o. Ativan and IV magnesium by the overnight provider. His magnesium was low at 1.3. He has a mild BETO with BUN 16 and creatinine 1.69 from a baseline of 1.21 a couple of months ago. He has some mild hyponatremia which appears to be chronic. His LFTs are elevated more than usual, with a bilirubin of 1.7, AST/ALT 344/176. Alk-phos is normal. Concern for alcoholic hepatitis. Low suspicion for obstructive process. His lipase is normal. Ultrasound of the right upper quadrant was done and shows no stones, liver cirrhosis noted. Repeat CIWA score after Ativan was up to 7. He continues to complain of nausea, 2nd dose of Zofran ordered. Blood pressure trending of 146/86. Concern for worsening withdrawal given his history. Will plan to start phenobarbital and admit to the hospital for further management. Differential Diagnosis Differential Diagnoses: The differential diagnosis associated with the presentation includes Alcoholic hepatitis, hepatorenal syndrome, acute liver failure, BETO versus CKD, gastroenteritis, malignancy Admission/Observation Consideration of admission/observation: Escalation of care including admission/observation considered Consult Healthcare Provider Management of the patient was discussed with: Hospitalist Lab Data MDM Lab Attestation statement: I reviewed the patient's lab results. Anemia, hyponatremia, BETO, thrombocytopenia, transaminitis 04/13/25 05:50 04/13/25 05:50 Labs: Lab Results 04/13/25 04/13/25 Range/Units 05:50 06:10 WBC 6.1 (4.8-10.8) X10*3/uL RBC 3.96 L (4.60-5.80) X10*6/uL Hgb 14.6 D (14.0-18.0) g/dl Hct 40.1 L (42.0-52.0) % MCV 101.3 H (80.0-98.0) fL MCH 36.9 H (27.0-33.0) pg MCHC 36.4 H (31.0-36.0) g/dl RDW 13.3 (11.0-16.0) % Plt Count 145 L (160-400) X10*3/uL MPV 9.4 (9.4-12.4) fL Immature Gran % (Auto) 0.3 (0.0-0.4) % Neut % (Auto) 54.9 (45-73) % Lymph % (Auto) 36.7 (20-40) % Alexander % (Auto) 5.9 (2-11) % Eos % (Auto) 1.5 (0-4) % Baso % (Auto) 0.7 (0-2) % Lymph # (Auto) 2.2 (1.2-4.9) X10*3/uL Alexander # (Auto) 0.4 (0.1-1.2) X10*3/uL Eos # (Auto) 0.1 (0.0-0.4) X10*3/uL Baso # (Auto) 0.0 (0.0-0.2) X10*3/uL Abs Immat Gran (auto) 0.02 (0.00-0.03) X10*3/uL Absolute Neuts (auto) 3.3 (2.0-8.3) x10*3/uL Absolute Nucleated RBC 0.000 (0.0-0.012) X10*3/uL Nucleated RBC % (auto) 0.0 (0.0-0.2) /100WBC Sodium 133 L (135-145) mmol/L Potassium 3.9 D (3.3-5.1) mmol/L Chloride 96 (96-108) mmol/L Carbon Dioxide 19 L (22-29) mmol/L Anion Gap 22 H (12-20) BUN 16 (9-16) mg/dL Creatinine 1.69 H (0.5-1.4) mg/dL Estim Creat Clear Calc 50.2 Estimated GFR 41 POC Glucose 95 (60-115) mg/dL Random Glucose 94 (60-115) mg/dL Calcium 9.0 (8.4-10.2) mg/dL Magnesium 1.3 L* (1.6-2.6) mg/dL Total Bilirubin 1.7 H (0.0-1.0) mg/dL AST 344 H (5-37) U/L ALT 176 H (0-40) U/L Alkaline Phosphatase 107 (39-117) U/L Total Protein 7.6 (6.5-8.0) g/dL Albumin 3.9 (3.5-5.0) g/dL Lipase 31 (8-78) U/L Ethyl Alcohol 146 mg/dL Influenza Type A (PCR) NEGATIVE (Negative) Influenza Type B (PCR) NEGATIVE (Negative) RSV RNA Qual (PCR) NEGATIVE (Negative) SARS-CoV-2 RNA (RT-PCR) NEGATIVE (Negative) Independent Interpretation I performed an independent interpretation of an: Ultrasound Interpretation: no biliary duct dilatation, agree w/ radiology read Radiology Impression Discussion of test interpretation with radiology: I have reviewed the radiologist's reading. External Record Review External record reviewed: Inpatient record, Office record and Prior outpatient labs Prescription Management I considered prescription management with: Pain Medication and Other (Benzodiazepines, phenobarbital) Chronic Conditions Patient?s care impacted by: Other (Alcoholic liver disease, alcohol dependence) Critical Care Time Critical Care Time Critical Care Time: Yes Total Critical Care Time: 39 Attestation: I have personally provided critical care time exclusive of time spent on separately billable procedures. Time includes review of lab data, radiology results, discussion with consultants, and monitoring for potential decompensation. Intervention performed as documented. Discharge Plan Discharge Clinical Impression: Alcohol withdrawal, BETO (acute kidney injury), Alcoholic hepatitis Patient Disposition: Admitted As Inpatient
[2025-04-13 08:27] LABS: Ethanol 146 mg/dL
[2025-04-13 08:41] LABS: Lipase 31 U/L (8-78)
[2025-04-13] MEDS: ondansetron HCL 4 MG/2 ML VIAL IVPUSH ×3 (08:45→19:54)
[2025-04-13] MEDS: Lactated Ringers 1,000 ML 999 ML IV (08:45)
--- NOTE | 2025-04-13 11:32 | PC.NURSE ---
Assumed care of pt at 0700. Pt moved from 18h into room 18. Pt brought in for feeling generalized weakness/leg cramping, along with nausea. Per pt, daily ETOH drinker- 10 beers per day. Pt states last drink was 04/12/25 morning. Hx of ETOH withdrawal seizure approx 10 years ago per pt. A/ox3, calm/cooperative, speaking in full sentences, neuros intact, respirations even and unlabored, no increased wob/sob noted, maintaining O2 sat >92% on RA, denies cp/sob at this time, nsr on telemetry monitor, HR 60s.Denies abdominal pain, endorsing nausea and vomiting. Mild tremors/anxiety, CIWA 7-Arabella PA notified of pt increasing nausea/anxiety/tremors. Vitals updated in worklist. Additional IV placed in left AC 20g- patent, asymptomatic. Pt updated on plan of care, all villa within reach, all needs met at this time.
[2025-04-13] MEDS: PHENobarbitaL sodium 130 MG/ML IM ONCE 285 MG IM (13:33)
[2025-04-13 14:33] LABS: INTERNATIONAL NORM RATIO 1.1 (0.9-1.1); Prothrombin Time 12.3 SEC (10.9-12.4)
[2025-04-13 14:36] LABS: Partial Thromboplastin Time 29.2 SEC (26.0-36.8)
--- NOTE | 2025-04-13 14:41 | P.HPHOSP_ITS ---
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 He reports decreased p.o. intake because when he eats he has diarrhea. He denies any associated abdominal pain. He has been drinking 10 beers daily +1 pt of vodka daily. He smokes marijuana 4 times a day. In the emergency department he was noted to have BETO with a creatinine of 1.69, low magnesium at 1.3., elevation of liver function tests and an alcohol level of 146. Abdominal ultrasound showed cirrhosis of the liver and hepatic steatosis with no evidence of cholelithiasis. He antiemetics and IV magnesium and was also started on phenobarbital protocol. He will be admitted to the hospital for further management. Review of Systems 2 Review of Systems: Yes all other systems are reviewed and are negative Constitutional: Constitutional: Denies chills and Denies fever(s) ENT: Denies dizziness Gastrointestinal: Gastrointestinal: Reports dyspepsia, Reports nausea and Denies vomiting Neurologic: Denies dizziness REPLACED BY [facility] Medical History History of COVID-19 Neuropathy Alcohol dependence Anxiety HTN (hypertension) Surgical History H/O colonoscopy Hx of cataract extraction History of open reduction and internal fixation (ORIF) procedure Social History Household Members: None Housing: Apartment Alcohol intake: current Alcohol intake frequency: 3 or more drinks per day Alcohol type: beer Patient Tobacco Use Status: Never used Tobacco e-Cigarette/Vaping Use: Never Used Use of substances other than those prescribed or required for medical reasons: Yes Substance Use Type: Marijuana Substance Use Frequency: Occasionally Advance Directives: Yes Advance Directives on File: Yes Advance Directives Date on File: 11/10/24 service: No Current occupational status: employed Cognitive needs: No Hearing needs: No Vision needs: Yes Meds Allergies Allergy/AdvReac Type Severity Reaction Status Date / Time amlodipine AdvReac Swelling Verified 04/13/25 05:38 ankles Active Medications: Current Medications Folic Acid (Folic Acid 1 Mg Tablet) 1 mg PO DAILY [facility] Pharmacy Consult (Consult Rx Etoh Phenob Im/Po) 1 each MISCELLANE ONCE PRN; Protocol PRN Reason: Consult order Phenobarbital (Phenobarbital 15 Mg Tablet) 45 mg PO BID [facility]; Protocol Stop: 04/15/25 21:01 Phenobarbital (Phenobarbital 15 Mg Tablet) 15 mg PO BID [facility]; Protocol Stop: 04/17/25 21:01 Phenobarbital (Phenobarbital 15 Mg Tablet) 15 mg PO DAILY [facility]; Protocol Stop: 04/19/25 09:01 Phenobarbital Sodium (Phenobarbital Sodium 130 Mg/Ml Vial Im Q3hx2) 215 mg IM Q3H [facility]; Protocol Stop: 04/13/25 19:01 Thiamine HCl (Thiamine Hcl 100 Mg Tablet) 100 mg PO DAILY [facility] Home Medications ?Medication ?Instructions ?Recorded ?Confirmed ?Last Taken ?Type acetaminophen 500 mg tablet 1,000 mg PO Q6H PRN Pain 11/10/24 04/13/25 Unknown History vitamin B complex 1 tab PO DAILY 11/10/24 04/13/25 04/13/25 History buspirone 10 mg tablet 10 mg PO DAILY PRN anxiety 04/13/25 04/13/25 Unknown History chlordiazepoxide HCl 25 mg capsule 25 - 50 mg PO Q8H PRN allergies 04/13/25 04/13/25 Unknown History clotrimazole-betamethasone 1 1 appl topical DAILY PRN Rash 04/13/25 04/13/25 Unknown History %-0.05 % topical cream milk thistle 150 mg capsule 150 mg PO DAILY 04/13/25 04/13/25 04/13/25 History spironolactone 50 mg tablet 50 mg PO DAILY 04/13/25 04/13/25 04/13/25 History (Aldactone) Physical Exam 2 Vital Signs and Narrative: Vital Signs: Last Vital Signs Temp 97.9 F 04/13/25 12:56 Pulse 68 04/13/25 12:56 Resp 15 04/13/25 12:56 BP 138/80 04/13/25 12:56 Pulse Ox 99 04/13/25 12:56 O2 Del Method Room Air 04/13/25 12:56 BMI result Body Mass Index 31.0 Const: General: comfortable, no acute distress, alert and awake Nutritional Appearance: overweight Orientation/consciousness: patient oriented x3 Resp: Effort & Inspection: normal respiratory effort, able to speak in complete sentences, no respiratory distress and no use of accessory muscles Cardio: Rate: regular rate GI: Other: no guarding or rebound, mild epigastric tenderness to palpation Inspection: No distended Palpation (GI): Soft to palpation Neuro: General: patient oriented x3, moves all extremities and CN's II-XI intact bilaterally Results Labs 04/13/25 05:50 04/13/25 05:50 Labs: Laboratory Results - last 24 hr 04/13/25 04/13/25 04/13/25 05:50 06:10 14:04 MCV 101.3 H MCH 36.9 H MCHC 36.4 H RDW 13.3 Plt Count 145 L MPV 9.4 Immature Gran % (Auto) 0.3 Neut % (Auto) 54.9 Lymph % (Auto) 36.7 [place] % (Auto) 5.9 Eos % (Auto) 1.5 Baso % (Auto) 0.7 Lymph # (Auto) 2.2 [place] # (Auto) 0.4 Eos # (Auto) 0.1 Baso # (Auto) 0.0 Abs Immat Gran (auto) 0.02 Absolute Neuts (auto) 3.3 Absolute Nucleated RBC 0.000 Nucleated RBC % (auto) 0.0 PT 12.3 INR 1.1 APTT 29.2 Anion Gap 22 H Estim Creat Clear Calc 50.2 Estimated GFR 41 POC Glucose 95 Random Glucose 94 Calcium 9.0 Magnesium 1.3 L* Total Bilirubin 1.7 H AST 344 H ALT 176 H Alkaline Phosphatase 107 Total Protein 7.6 Albumin 3.9 Lipase 31 Ethyl Alcohol 146 Influenza Type A (PCR) NEGATIVE Influenza Type B (PCR) NEGATIVE RSV RNA Qual (PCR) NEGATIVE SARS-CoV-2 RNA (RT-PCR) NEGATIVE Imaging Radiologist's Impressions: Impressions Abdomen Ultrasound 04/13/25 09:54 IMPRESSION: Cirrhosis of the liver and hepatic steatosis. No evidence of cholelithiasis. Electronically signed by: Srikanth Euceda MD 04/13/2025 10:36 AM EDT Assessment and Plan (1) BETO (acute kidney injury): Status: Acute Plan This is a 64-year-old male with history of alcohol abuse, liver cirrhosis due to alcohol and hemochromatosis who presents to the emergency department with diarrhea and muscle cramps found to have BETO and elevated LFTs BETO Creatinine 1.69 Likely volume depletion due to GI loss, ongoing alcohol use IV fluid Hold spironolactone Follow BNP Liver cirrhosis Due to alcohol abuse, also diagnosed to have hemochromatosis per outpatient Hematology notes LFTs elevated above baseline GI consult trend LFTs Abdominal pain Likely due to gastritis due to alcohol IV Pepcid Abdominal ultrasound negative for gallstones Lipase negative Alcohol use disorder Started on phenobarbital in the emergency department Follow [facility] Addiction Medicine consultation pending Supplementation with thiamine, folic acid Hypomagnesemia Likely due to alcohol use as well as diarrhea Replaced in ED, follow levels Leg cramping Likely due to dehydration/electrolyte abnormalities IV fluid rehydration Follow electrolytes Mild hyponatremia Likely due to dehydration/beer potomania Follow BMP Hypertension Continue atenolol DVT prophylaxis/Lovenox Code status-full code Patient will likely require 2 midnight stay in the hospital for management of alcohol withdrawal, BETO, electrolyte abnormalities Quality Stroke Does the patient have a stroke diagnosis?: No VTE Prior VTE?: No VTE Risk Level:: Medical - moderate - high VTE Device Contraindication: N/A - Device Ordered VTE Drug Contraindication: N/A - Med Ordered
[2025-04-13] MEDS: Famotidine/PF 20 MG/2 ML VIAL IVPUSH (15:46)
[2025-04-13] MEDS: Enoxaparin Sodium 40 MG/0.4 ML SYRINGE SUBCUT (15:46)
[2025-04-13] MEDS: Lactated Ringers 1,000 ML 100 ML IVCONT (15:51)
--- NOTE | 2025-04-13 15:56 | PHA.MEDREC ---
Addendum entered by Missy Castro RPh 04/13/25 16:07: reviewed by [facility]. Original Note: Pharmacy Consult ? Medication Reconciliation Pharmacy has completed the medication reconciliation. Spoke to patient to confirm med list. Patient was able to name all his medications. Patient states he took all his morning medications today at 4:30Am.
[2025-04-13] MEDS: PHENobarbitaL sodium 130 MG/ML VIAL IM Q3Hx2 215 MG IM ×2 (17:13→20:17)
--- NOTE | 2025-04-13 18:50 | PC.NURSE ---
Pt BP 170s/100s- checked multiple times by tech and RN. Per IRIS Mendez, monitor BP. No new orders at this time.
--- NOTE | 2025-04-13 20:44 | PC.NURSE ---
ambulated steadily to bathroom without assist
[2025-04-14] VITALS (7 sets, daily range): BP systolic 133–166; BP diastolic 85–96; PULSE 61–88; RESP 16–19; TEMP 36.2–36.6; O2SAT 95–98; BMI 32.1
[2025-04-14] MEDS: Lactated Ringers 1,000 ML 100 ML IVCONT ×2 (02:53→11:18)
--- NOTE | 2025-04-14 07:05 | P.DS_ITS ---
DS: Providers Provider Date of Service: 04/14/25 Date of admission: 04/13/25 13:56 Date of discharge: 04/14/25 Primary care physician: Angelica Schrader MD Consults: 04/13/25 14:42 Addiction Medicine Provider Routine Consulting Provider: Addiction Covering Reason for consultation: eoth use disorder Has provider been notified: No 04/13/25 14:46 Consult to Gastroenterology Routine Consulting Provider: Iman Kaur Reason for consultation: liver cirrhosis, elevated LFTs Has provider been notified: No Attending physician on discharge: [facility] Discharging clinician: Vanessa Randhawa DS: Diagnosis Discharge Diagnosis (1) Alcohol use disorder, severe, dependence: Status: Acute DS: Summary Hospital Course Hospital Course: From H&P on the day of admission This is a 64-year-old male with 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 He reports decreased p.o. intake because when he eats he has diarrhea. He denies any associated abdominal pain. He has been drinking 10 beers daily +1 pt of vodka daily. He smokes marijuana 4 times a day. In the emergency department he was noted to have BETO with a creatinine of 1.69, low magnesium at 1.3., elevation of liver function tests and an alcohol level of 146. Abdominal ultrasound showed cirrhosis of the liver and hepatic steatosis with no evidence of cholelithiasis. He antiemetics and IV magnesium and was also started on phenobarbital protocol. He will be admitted to the hospital for further management. BETO Creatinine trending down somewhat to 1.59 Likely volume depletion due to GI loss, ongoing alcohol use s/p IVF, now getting albumin x48 hours ->octreotide/midodrine/nephrology consult if no improvement in renal function with albumin Hold spironolactone Follow BNP Liver cirrhosis without ascites Due to alcohol abuse, also diagnosed to have hemochromatosis per outpatient Hematology notes LFTs elevated above baseline Bilirubin trending up, transaminases trending down Seen by GI trend LFTs We will need outpatient follow-up with GI Abdominal pain Likely due to gastritis due to alcohol IV Pepcid Abdominal ultrasound negative for gallstones Lipase negative Alcohol use disorder CIWA low Continue phenobarbital protocol Addiction Medicine consultation pending Supplementation with thiamine, folic acid Hypomagnesemia Likely due to alcohol use as well as diarrhea Replaced in ED, levels improving Leg cramping Likely due to dehydration/electrolyte abnormalities IV fluid rehydration US to rule out DVT pending - report still pending at the time of discharge Fortunately on April 14 the patient to elected to leave the hospital against medical advice he assured the provider at that time that he would follow up with his primary care provider to repeat labs Time Attestation Discharge Coordination Time (in mins): 32 Quality: Safe Use of Opioids Does Pt have an Active Cancer Diagnosis on the Problem List?: No Quality: Stroke Does the patient have a stroke diagnosis?: No Physical Exam Vital Signs: Vital Signs: Last Vital Signs Temp 97.8 F 04/14/25 19:38 Pulse 88 04/14/25 19:38 Resp 16 04/14/25 19:38 BP 133/96 H 04/14/25 19:38 Pulse Ox 95 04/14/25 19:38 O2 Del Method Room Air 04/14/25 19:38 BMI result Body Mass Index 32.1 DS: Data Data Completed and Pending Completed studies during hospitalization [Text1]: Procedures Detoxification Services for Substance Abuse Treatment (11/10/24) Labs on day of discharge: Laboratory Results - last 24 hr 04/14/25 04/14/25 08:40 11:18 Sodium 135 Potassium 4.0 Chloride 98 Carbon Dioxide 28 Anion Gap 13 BUN 13 Creatinine 1.59 H Estim Creat Clear Calc 54.3 Estimated GFR 44 Random Glucose 128 H Calcium 8.5 Magnesium 1.6 Total Bilirubin 2.6 H Direct Bilirubin 1.1 H AST 197 H ALT 118 H Alkaline Phosphatase 89 Total Creatine Kinase 413 H Total Protein 6.3 L Albumin 3.3 L Urine Color Dark Yellow Urine Appearance Clear Urine pH 6.5 Ur Specific [place] 1.020 Urine Protein 30 (1+) H Urine Glucose (UA) Negative Urine Ketones 15 Urine Blood Negative Urine Nitrite Negative Ur Leukocyte Esterase Trace H Urine RBC 0-2 Urine WBC 0-5 Ur Squamous Epith Cells 0-2 Urine Bacteria None Seen Hyaline Casts 0-2 Ur Random Sodium 83.0 Urine Creatinine 204.72 Discharge Plan Discharge Patient Disposition: Left Against Medical Advice Discharge Diagnosis: alcohol withdrawal decompensated liver cirrhosis Discharge Medications: No Action multivitamin Tablet 1 tab PO DAILY Qty: 90 0RF vitamin B complex [B Complex Super] Tablet 1 tab PO DAILY acetaminophen 500 mg Tablet 1,000 mg PO Q6H PRN (Reason: Pain) chlordiazepoxide HCl 25 mg capsule 25 - 50 mg PO Q8H PRN (Reason: allergies) buspirone 10 mg tablet 10 mg PO DAILY PRN (Reason: anxiety) milk thistle 150 mg Capsule 150 mg PO DAILY Rx Instructions: give with meal/snack clotrimazole-betamethasone 1-0.05 % cream 1 appl topical DAILY PRN (Reason: Rash) spironolactone [Aldactone] 50 mg tablet 50 mg PO DAILY ondansetron HCl 4 mg tablet 4 mg PO BID PRN (Reason: nausea and vomiting) Qty: 60 0RF atenolol 50 mg tablet 50 mg PO DAILY Qty: 90 0RF Discharge Orders: Discharge Order (Routine); Ordered 04/14/25 Ordered By: Vanessa Randhawa Print Language: Other Care Plan Goals: Left against medical advice Health Concerns: Decompensated liver cirrhosis Alcohol dependence with alcohol withdrawal Plan of Treatment: Left against medical advice Assessment: See discharge summary Discharge Date/Time: 04/14/25 21:09
[2025-04-14] MEDS: Multivitamin TABLET 1 TAB PO (08:55)
[2025-04-14] MEDS: atenoloL 50 MG TABLET PO (08:55)
[2025-04-14] MEDS: Famotidine/PF 20 MG/2 ML VIAL IVPUSH (08:55)
[2025-04-14] MEDS: Folic Acid 1 MG TABLET PO (08:55)
[2025-04-14] MEDS: Thiamine HCL 100 MG TABLET PO (08:56)
[2025-04-14] MEDS: 0.9 % Sodium Chloride Flush 3 ML SYRINGE IVFLUSH ×2 (08:56→14:47)
[2025-04-14] MEDS: PHENobarbitaL 15 MG TABLET 45 MG PO (08:56)
[2025-04-14 09:17] LABS: Alanine Aminotransferase 118 U/L (0-40); Albumin Level 3.3 g/dL (3.5-5.0); Alkaline Phosphatase 89 U/L (39-117); Aspartate Amino Transferase 197 U/L (5-37); Bilirubin Direct 1.1 mg/dL (0.0-0.5); Bilirubin Total 2.6 mg/dL (0.0-1.0); Blood Urea Nitrogen 13 mg/dL (9-16); Calcium 8.5 mg/dL (8.4-10.2); Creatinine Clr Calc Pharmacy 54.3; Estimated Glomerular Filt Rate 44; Glucose Random 128 mg/dL (60-115); Magnesium 1.6 mg/dL (1.6-2.6); Total Protein 6.3 g/dL (6.5-8.0)
[2025-04-14 09:34] LABS: Anion Gap 13 (12-20); Carbon Dioxide 28 mmol/L (22-29); Chloride 98 mmol/L (96-108); Sodium 135 mmol/L (135-145)
--- NOTE | 2025-04-14 10:59 | P.CNGI_ITS ---
History of Present Illness Data of Consult Service Date: 04/14/25 Requesting physician: Vanessa Randhawa Primary Care Provider: Angelica Schrader MD [facility] Reason for consult: abd pain, N,V 64-year-old gentleman with medical history of alcohol use disorder that has led to cirrhosis, hypertension, chronic macrocytic anemia, who presented to the hospital for abd pain, nausea and leg cramping. Patient reports that last week he was trying to quit etOH but unable to sustain it and in fact started drinking more than he used to, dayo hard liquor. He also did extensive yard work over the past weekend in the sun. By early this week he was starting to feel more fatigued, nauseous with decrease PO intake and severe leg cramping bilaterally. He therefore came to the ER. On arrival to the emergency room, night vitals were stable. Labs significant for hemoconcentration, thrombocytopenia, normal coags. Renal function abnormal with creatinine of 1.7 with low magnesium. Total bilirubin of 1.7 that has increased to 2.6 today. Blood alcohol level was 146. Ultrasound abdomen with cirrhosis but no ascites. Patent vasculature to the extent examined. Currently, reports improvement in abd pain and nausea. Main complaint is soreness in legs. In terms of cirrhosis, has had known cirrhosis since last year. Likely 2/2 etOH use. Hep serologies negative. Has never had an EGD. Last colo 2019 (Dr Gottlieb): no polyps. Repeat recommended in 10 years. Review of Systems 2 Review of Systems: Yes all other systems are reviewed and are negative PMFSH Past Medical History Medical History History of COVID-19 Neuropathy Alcohol dependence Anxiety HTN (hypertension) Surgical History Surgical History H/O colonoscopy Hx of cataract extraction History of open reduction and internal fixation (ORIF) procedure Social History Social History Household Members: None Housing: Apartment Do you presently have visiting nurse or other home services: No Alcohol intake: current Alcohol intake frequency: 3 or more drinks per day Alcohol type: beer Patient Tobacco Use Status: Never used Tobacco e-Cigarette/Vaping Use: Never Used Substance Use Type: Marijuana Advance Directives Date on File: 11/10/24 service: No Current occupational status: employed Cognitive needs: No Hearing needs: No Vision needs: Yes Meds Allergies Allergy/AdvReac Type Severity Reaction Status Date / Time amlodipine AdvReac Swelling Verified 04/13/25 05:38 ankles Active Medications: Current Medications Acetaminophen (Acetaminophen 325 Mg Tablet) 650 mg PO Q6H PRN PRN Reason: Pain, Mild 1-3,fever,headache Atenolol (Atenolol 50 Mg Tablet) 50 mg PO DAILY [facility]; Protocol Last Admin: 04/14/25 08:55 Dose: 50 mg Buspirone HCl (Buspirone Hcl 10 Mg Tablet) 10 mg PO DAILY PRN PRN Reason: anxiety Calcium Carbonate (Calcium Carbonate 750 Mg Tab.Chew) 750 mg PO Q4H PRN PRN Reason: Heartburn Enoxaparin Sodium (Enoxaparin Sodium 40 Mg/0.4 Ml Syringe) 40 mg SUBCUT Q24H [facility] Last Admin: 04/13/25 15:46 Dose: 40 mg Famotidine (Famotidine/Pf 20 Mg/2 Ml Vial) 20 mg IVPUSH DAILY [facility] Last Admin: 04/14/25 08:55 Dose: 20 mg Folic Acid (Folic Acid 1 Mg Tablet) 1 mg PO DAILY [facility] Last Admin: 04/14/25 08:55 Dose: 1 mg Lactated Ringer's (Lr) 1,000 mls @ 100 mls/hr IVCONT .Q10H [facility] Last Admin: 04/14/25 02:53 Dose: 100 mls/hr Magnesium Hydroxide (Milk Of Magnesia 30 Ml Oral.Susp) 30 ml PO DAILY PRN PRN Reason: Constipation Melatonin (Melatonin 3 Mg Tablet) 6 mg PO BEDTIME PRN PRN Reason: Insomnia Multivitamins/Vitamin C (Multivitamin Tablet) 1 tab PO DAILY [facility] Last Admin: 04/14/25 08:55 Dose: 1 tab Ondansetron HCl (Ondansetron Hcl 4 Mg/2 Ml Vial) 4 mg IVPUSH Q6H PRN PRN Reason: Nausea and Vomiting Last Admin: 04/13/25 19:54 Dose: 4 mg Pharmacy Consult (Consult Rx Etoh Phenob Im/Po) 1 each MISCELLANE ONCE PRN; Protocol PRN Reason: Consult order Phenobarbital (Phenobarbital 15 Mg Tablet) 45 mg PO BID [facility]; Protocol Stop: 04/15/25 21:01 Last Admin: 04/14/25 08:56 Dose: 45 mg Phenobarbital (Phenobarbital 15 Mg Tablet) 15 mg PO BID [facility]; Protocol Stop: 04/17/25 21:01 Phenobarbital (Phenobarbital 15 Mg Tablet) 15 mg PO DAILY [facility]; Protocol Stop: 04/19/25 09:01 Sodium Chloride (0.9 % Sodium Chloride Flush 3 Ml Syringe) 3 ml IVFLUSH QSHIFT [facility] Last Admin: 04/14/25 08:56 Dose: 3 ml Thiamine HCl (Thiamine Hcl 100 Mg Tablet) 100 mg PO DAILY [facility] Last Admin: 04/14/25 08:56 Dose: 100 mg Home Medications ?Medication ?Instructions ?Recorded ?Confirmed ?Last Taken ?Type acetaminophen 500 mg tablet 1,000 mg PO Q6H PRN Pain 11/10/24 04/13/25 Unknown History vitamin B complex 1 tab PO DAILY 11/10/24 04/13/25 04/13/25 History buspirone 10 mg tablet 10 mg PO DAILY PRN anxiety 04/13/25 04/13/25 Unknown History chlordiazepoxide HCl 25 mg capsule 25 - 50 mg PO Q8H PRN allergies 04/13/25 04/13/25 Unknown History clotrimazole-betamethasone 1 1 appl topical DAILY PRN Rash 04/13/25 04/13/25 Unknown History %-0.05 % topical cream milk thistle 150 mg capsule 150 mg PO DAILY 04/13/25 04/13/25 04/13/25 History spironolactone 50 mg tablet 50 mg PO DAILY 04/13/25 04/13/25 04/13/25 History (Aldactone) Physical Exam 2 Vital Signs: Vital Signs: Last Vital Signs Temp 97.9 F 04/14/25 07:36 Pulse 70 04/14/25 08:55 Resp 18 04/14/25 07:36 BP 166/90 H 04/14/25 08:55 Pulse Ox 97 04/14/25 07:36 O2 Del Method Room Air 04/14/25 07:36 BMI result Body Mass Index 32.1 Appears older than stated age Nonicteric Abd soft, nontender, nondistended No overt resp distress A/Ox3, no asterixis NANNETTE significantly tender to palpation Results Labs 04/13/25:50 04/14/25 08:40 Labs: BMP 04/14/25 08:40 Sodium 135 Potassium 4.0 Chloride 98 Carbon Dioxide 28 BUN 13 Creatinine 1.59 H Calcium 8.5 Liver Function 04/14/25 Range/Units 08:40 Total Bilirubin 2.6 H (0.0-1.0) mg/dL Direct Bilirubin 1.1 H (0.0-0.5) mg/dL AST 197 H (5-37) U/L ALT 118 H (0-40) U/L Alkaline Phosphatase 89 (39-117) U/L Albumin 3.3 L (3.5-5.0) g/dL Assessment and Plan (1) BETO (acute kidney injury): Status: Acute (2) Alcohol withdrawal: Qualifiers: Complication of substance-induced condition: uncomplicated Qualified Code(s): F10.930 - Alcohol use, unspecified with withdrawal, uncomplicated Status: Acute (3) Liver cirrhosis, alcoholic: Qualifiers: Ascites presence: without ascites Qualified Code(s): K70.30 - Alcoholic cirrhosis of liver without ascites Status: Acute (4) LFT elevation: Status: Acute MELD Na 19 LFTs are up likely 2/2 active etOH use. In terms of BETO, likely pre-renal from dehydration and poor PO intake. Recommend albumin IV challenge x 48 hours and urine studies. He continues to complain re lower leg soreness so would recommend duplex to r/o DVT though does not seem likely. In addition, pt is also overdue for variceal screening, we will schedule an outpatient follow up to review this alongside comprehensive cirrhosis care. Plan: - Albumin 100 ml QID x 48 h - UA with UCr and Jose M - Please add octreotide and midodrine if renal function not better with albumin challenge. Pls also consult renal in that case. - US Duplex b/l LE ordered - Addiction medicine consult - Daily MELD labs - High protein diet - Outpatient follow up will be scheduled. Thank you for allowing me to participate in his care. Please do not hesitate to reach out for any questions or concerns. Procedures Date of Service Date of Service: 04/14/25
[2025-04-14 11:32] LABS: Appearance Urine Clear; Color Urine Dark Yellow; Glucose Urine UA Negative (Negative); Leukocyte Esterase Urine Trace (Negative); Nitrite Urine Negative (Negative); PH 6.5 (5.0-9.0); UMIC TRIGGER UA YES; Urine Blood Negative (Negative); Urine Ketones 15 mg/dL (Negative); Urine Protein 30 (1+) mg/dL (Neg-Trace)
[2025-04-14 11:35] LABS: Bacteria Urine None Seen (None Seen); Hyaline Casts Urine 0-2 /LPF (0-2); RBC Urine 0-2 /HPF (0-2); Squamous Epithelial Cell Urine 0-2 /HPF (0-2); WBC Urine 0-5 /HPF (0-5)
[2025-04-14 11:49] LABS: Creatinine Urine 204.72 mg/dL
--- NOTE | 2025-04-14 12:09 | MHC.CM.PN ---
Pt self-care, lives at home alone, and will arrange his own transport home at discharge. HCP on file and verified. PCP: Dr. Angelica Schrader
[2025-04-14] MEDS: Albumin Human 25 % 100 ML IV ×2 (12:36→18:29)
--- NOTE | 2025-04-14 14:17 | P.PNIM_ITS ---
Subjective Subjective Date of Service: 04/14/25 Interval History: Seen and examined this morning follow-up alcohol use/withdrawal, elevated LFTs No overnight events Abdominal pain lower extremity cramping improved Review of Systems Review of Systems: Yes all other systems are reviewed and are negative Constitutional Constitutional: Denies chills and Denies fever(s) Cardiovascular Cardiovascular: Denies chest pain, Denies palpitations and Denies dyspnea Respiratory Respiratory: Denies cough and Denies dyspnea Gastrointestinal Gastrointestinal: Denies abdominal pain Endocrine Endocrine: Denies palpitations Physical Exam 2 Vital Signs: Vital Signs: Last Vital Signs Temp 97.3 F 04/14/25 11:08 Pulse 74 04/14/25 11:08 Resp 18 04/14/25 11:08 BP 138/96 H 04/14/25 11:08 Pulse Ox 95 04/14/25 11:08 O2 Del Method Room Air 04/14/25 11:08 BMI result Body Mass Index 32.1 Const: General: cooperative, comfortable, alert and awake Nutritional Appearance: overweight Orientation/consciousness: patient oriented x3 Resp: Effort & Inspection: normal respiratory effort, able to speak in complete sentences, no respiratory distress and no use of accessory muscles Cardio: Rate: regular rate GI: Other: no guarding or rebound Inspection: No distended Palpation (GI): Soft to palpation, nontender and no guarding Neuro: General: patient oriented x3, moves all extremities and CN's II-XI intact bilaterally Objective Data Active Medications Acetaminophen (Acetaminophen 325 Mg Tablet) 650 mg PO Q6H PRN PRN Reason: Pain, Mild 1-3,fever,headache Atenolol (Atenolol 50 Mg Tablet) 50 mg PO DAILY [facility]; Protocol Last Admin: 04/14/25 08:55 Dose: 50 mg Documented By: JOELLE Buspirone HCl (Buspirone Hcl 10 Mg Tablet) 10 mg PO DAILY PRN PRN Reason: anxiety Calcium Carbonate (Calcium Carbonate 750 Mg Tab.Chew) 750 mg PO Q4H PRN PRN Reason: Heartburn Enoxaparin Sodium (Enoxaparin Sodium 40 Mg/0.4 Ml Syringe) 40 mg SUBCUT Q24H [facility] Last Admin: 04/13/25 15:46 Dose: 40 mg Documented By: FREYA Famotidine (Famotidine/Pf 20 Mg/2 Ml Vial) 20 mg IVPUSH DAILY [facility] Last Admin: 04/14/25 08:55 Dose: 20 mg Documented By: JOELLE Folic Acid (Folic Acid 1 Mg Tablet) 1 mg PO DAILY [facility] Last Admin: 04/14/25 08:55 Dose: 1 mg Documented By: JOELLE Lactated Ringer's (Lr) 1,000 mls @ 100 mls/hr IVCONT .Q10H [facility] Last Admin: 04/14/25 11:18 Dose: 100 mls/hr Documented By: JOELLE Albumin Human (Kedbumin 25 %) 100 mls @ 100 mls/hr IV QID [facility] Stop: 04/16/25 09:59 Last Infusion: 04/14/25 14:07 Dose: Infused Documented By: JOELLE Magnesium Hydroxide (Milk Of Magnesia 30 Ml Oral.Susp) 30 ml PO DAILY PRN PRN Reason: Constipation Melatonin (Melatonin 3 Mg Tablet) 6 mg PO BEDTIME PRN PRN Reason: Insomnia Multivitamins/Vitamin C (Multivitamin Tablet) 1 tab PO DAILY [facility] Last Admin: 04/14/25 08:55 Dose: 1 tab Documented By: JOELLE Ondansetron HCl (Ondansetron Hcl 4 Mg/2 Ml Vial) 4 mg IVPUSH Q6H PRN PRN Reason: Nausea and Vomiting Last Admin: 04/13/25 19:54 Dose: 4 mg Documented By: FIDELINA Pharmacy Consult (Consult Rx Etoh Phenob Im/Po) 1 each MISCELLANE ONCE PRN; Protocol PRN Reason: Consult order Phenobarbital (Phenobarbital 15 Mg Tablet) 45 mg PO BID [facility]; Protocol Stop: 04/15/25 21:01 Last Admin: 04/14/25 08:56 Dose: 45 mg Documented By: JOELLE Phenobarbital (Phenobarbital 15 Mg Tablet) 15 mg PO BID [facility]; Protocol Stop: 04/17/25 21:01 Phenobarbital (Phenobarbital 15 Mg Tablet) 15 mg PO DAILY [facility]; Protocol Stop: 04/19/25 09:01 Sodium Chloride (0.9 % Sodium Chloride Flush 3 Ml Syringe) 3 ml IVFLUSH QSHIFT [facility] Last Admin: 04/14/25 08:56 Dose: 3 ml Documented By: HO.RIVEJES Thiamine HCl (Thiamine Hcl 100 Mg Tablet) 100 mg PO DAILY [facility] Last Admin: 04/14/25 08:56 Dose: 100 mg Documented By: JOELLE Labs 04/13/25 05:50 04/14/25 08:40 Labs: Laboratory Results - last 24 hr 04/13/25 04/14/25 04/14/25 14:04 08:40 11:18 PT 12.3 INR 1.1 APTT 29.2 Anion Gap 13 Estim Creat Clear Calc 54.3 Estimated GFR 44 Random Glucose 128 H Calcium 8.5 Magnesium 1.6 Total Bilirubin 2.6 H Direct Bilirubin 1.1 H AST 197 H ALT 118 H Alkaline Phosphatase 89 Total Protein 6.3 L Albumin 3.3 L Urine Color Dark Yellow Urine Appearance Clear Urine pH 6.5 Ur Specific [place] 1.020 Urine Protein 30 (1+) H Urine Glucose (UA) Negative Urine Ketones 15 Urine Blood Negative Urine Nitrite Negative Ur Leukocyte Esterase Trace H Urine RBC 0-2 Urine WBC 0-5 Ur Squamous Epith Cells 0-2 Urine Bacteria None Seen Hyaline Casts 0-2 Ur Random Sodium 83.0 Urine Creatinine 204.72 Assessment and Plan (1) BETO (acute kidney injury): Status: Acute (2) Alcohol withdrawal: Status: Acute (3) Liver cirrhosis, alcoholic: Status: Acute Plan This is a 64-year-old male with history of alcohol abuse, liver cirrhosis due to alcohol and hemochromatosis who presents to the emergency department with diarrhea and muscle cramps found to have BETO and elevated LFTs BETO Creatinine trending down somewhat to 1.59 Likely volume depletion due to GI loss, ongoing alcohol use s/p IVF, now getting albumin x48 hours ->octreotide/midodrine/nephrology consult if no improvement in renal function with albumin Hold spironolactone Follow BNP Liver cirrhosis without ascites Due to alcohol abuse, also diagnosed to have hemochromatosis per outpatient Hematology notes LFTs elevated above baseline Bilirubin trending up, transaminases trending down Seen by GI trend LFTs We will need outpatient follow-up with GI Abdominal pain Likely due to gastritis due to alcohol IV Pepcid Abdominal ultrasound negative for gallstones Lipase negative Alcohol use disorder CIWA low Continue phenobarbital protocol Addiction Medicine consultation pending Supplementation with thiamine, folic acid Hypomagnesemia Likely due to alcohol use as well as diarrhea Replaced in ED, levels improving Leg cramping Likely due to dehydration/electrolyte abnormalities IV fluid rehydration US to rule out DVT pending check cpk Mild hyponatremia resolved Hypertension Continue atenolol DVT prophylaxis/Lovenox Code status-full code Requires ongoing inpatient stay for management of acute kidney injury and decompensated liver cirrhosis requiring albumin, specialist evaluation Quality Stroke Does the patient have a stroke diagnosis?: No VTE Prior VTE?: No VTE Risk Level:: Medical - moderate - high VTE Device Contraindication: N/A - Device Ordered VTE Drug Contraindication: N/A - Med Ordered
[2025-04-14] MEDS: Enoxaparin Sodium 40 MG/0.4 ML SYRINGE SUBCUT (14:46)
--- NOTE | 2025-04-14 15:11 | HO.ADDICT_ITS ---
History of Present Illness Date of Service: 04/14/2025 Chief Complaint: alcohol withdrawal Reason for Consult: AUD Sources of Information: patient interviewed and chart reviewed HPI Narrative: Patient is a 64 year old male with long standing history of AUD, neuropathy and liver cirrhosis, medically admitted with BETO and alcohol withdrawal. Patient seen in room 478. He is awake, alert, pleasant and engaged in interview. He reports drinking 10 beers + 1 pint of vodka daily (the vodka is newer per his report) Reports 2 possible ATS admissions, with one being here at [facility] during medical admission Longest period abstaining from alcohol 8 months Denies any other substance use Denies any other treatment for AUD--possibly naltrexone, but can't recall He reports taking multi vitamins at home and expressed desire to stop drinking as he sees that it continues to impact his overall health --states that prior to admission he was having loose stools and nausea, no appetite and poor sleep. Also missing a lot of work. Denies withdrawal sx (pheno taper in place) mild tremor noted when seen by t/w Medical Evaluation Reviewed: Yes Review of Systems Constitutional: Reports as per HPI Gastrointestinal: Denies loose stools and Denies nausea Musculoskeletal: Reports muscle cramps Psychiatric: Reports abnormal sleep pattern Diagnostics Vital Signs (24Hr): Vital Signs - 24 hr 04/13/25 15:41 04/13/25 18:25 04/13/25 18:29 Temperature 97.7 F 97.0 F Pulse Rate 65 79 Respiratory Rate 18 18 Blood Pressure 135/88 155/103 H 173/101 H Pulse Oximetry 98 94 Oxygen Delivery Method Room Air Room Air 04/13/25 20:16 04/13/25 22:08 04/14/25 00:00 Temperature 97.8 F Pulse Rate 73 72 64 Respiratory Rate 15 19 Blood Pressure 135/85 145/85 H Pulse Oximetry 98 Oxygen Delivery Method Room Air 04/14/25 04:42 04/14/25 07:36 04/14/25 08:55 Temperature 97.8 F 97.9 F Pulse Rate 63 61 70 Respiratory Rate 18 18 Blood Pressure 136/90 H 166/90 H 166/90 H Pulse Oximetry 97 97 Oxygen Delivery Method Room Air Room Air 04/14/25 11:08 Temperature 97.3 F Pulse Rate 74 Respiratory Rate 18 Blood Pressure 138/96 H Pulse Oximetry 95 Oxygen Delivery Method Room Air BMI result Body Mass Index 32.1 Labs 04/13/25 05:50 04/14/25 08:40 Labs: Laboratory Results - last 48 hr 04/13/25 04/13/25 04/13/25 05:50 06:10 14:04 WBC 6.1 RBC 3.96 L Hgb 14.6 D Hct 40.1 L MCV 101.3 H MCH 36.9 H MCHC 36.4 H RDW 13.3 Plt Count 145 L MPV 9.4 Immature Gran % (Auto) 0.3 Neut % (Auto) 54.9 Lymph % (Auto) 36.7 Williams % (Auto) 5.9 Eos % (Auto) 1.5 Baso % (Auto) 0.7 Lymph # (Auto) 2.2 Williams # (Auto) 0.4 Eos # (Auto) 0.1 Baso # (Auto) 0.0 Abs Immat Gran (auto) 0.02 Absolute Neuts (auto) 3.3 Absolute Nucleated RBC 0.000 Nucleated RBC % (auto) 0.0 PT 12.3 INR 1.1 APTT 29.2 Sodium 133 L Potassium 3.9 D Chloride 96 Carbon Dioxide 19 L Anion Gap 22 H BUN 16 Creatinine 1.69 H Estim Creat Clear Calc 50.2 Estimated GFR 41 POC Glucose 95 Random Glucose 94 Calcium 9.0 Magnesium 1.3 L* Total Bilirubin 1.7 H Direct Bilirubin AST 344 H ALT 176 H Alkaline Phosphatase 107 Total Protein 7.6 Albumin 3.9 Lipase 31 Urine Color Urine Appearance Urine pH Ur Specific [place] Urine Protein Urine Glucose (UA) Urine Ketones Urine Blood Urine Nitrite Ur Leukocyte Esterase Urine RBC Urine WBC Ur Squamous Epith Cells Urine Bacteria Hyaline Casts Ur Random Sodium Urine Creatinine Ethyl Alcohol 146 Influenza Type A (PCR) NEGATIVE Influenza Type B (PCR) NEGATIVE RSV RNA Qual (PCR) NEGATIVE SARS-CoV-2 RNA (RT-PCR) NEGATIVE 04/14/25 04/14/25 08:40 11:18 WBC RBC Hgb Hct MCV MCH MCHC RDW Plt Count MPV Immature Gran % (Auto) Neut % (Auto) Lymph % (Auto) Williams % (Auto) Eos % (Auto) Baso % (Auto) Lymph # (Auto) Williams # (Auto) Eos # (Auto) Baso # (Auto) Abs Immat Gran (auto) Absolute Neuts (auto) Absolute Nucleated RBC Nucleated RBC % (auto) PT INR APTT Sodium 135 Potassium 4.0 Chloride 98 Carbon Dioxide 28 Anion Gap 13 BUN 13 Creatinine 1.59 H Estim Creat Clear Calc 54.3 Estimated GFR 44 POC Glucose Random Glucose 128 H Calcium 8.5 Magnesium 1.6 Total Bilirubin 2.6 H Direct Bilirubin 1.1 H AST 197 H ALT 118 H Alkaline Phosphatase 89 Total Protein 6.3 L Albumin 3.3 L Lipase Urine Color Dark Yellow Urine Appearance Clear Urine pH 6.5 Ur Specific [place] 1.020 Urine Protein 30 (1+) H Urine Glucose (UA) Negative Urine Ketones 15 Urine Blood Negative Urine Nitrite Negative Ur Leukocyte Esterase Trace H Urine RBC 0-2 Urine WBC 0-5 Ur Squamous Epith Cells 0-2 Urine Bacteria None Seen Hyaline Casts 0-2 Ur Random Sodium 83.0 Urine Creatinine 204.72 Ethyl Alcohol Influenza Type A (PCR) Influenza Type B (PCR) RSV RNA Qual (PCR) SARS-CoV-2 RNA (RT-PCR) Imaging Radiology Impressions: ITS Impressions Abdomen Ultrasound 04/13/25 09:54 IMPRESSION: Cirrhosis of the liver and hepatic steatosis. No evidence of cholelithiasis. Electronically signed by: Srikanth Euceda MD 04/13/2025 10:36 AM EDT RP Mental Status Exam Mental Status Exam Patient Appearance: Appropriate Level of Consciousness: Awake, Appropriate and Alert Patient Behavior: Appropriate, Talkative and Cooperative Mood Description: Calm Affect Description: Relaxed Speech Pattern: Clear Thought Process: Intact Thought Content: positive for Intact Judgement: Good Medications Medications Current Medications Acetaminophen (Acetaminophen 325 Mg Tablet) 650 mg PO Q6H PRN PRN Reason: Pain, Mild 1-3,fever,headache Atenolol (Atenolol 50 Mg Tablet) 50 mg PO DAILY [facility]; Protocol Last Admin: 04/14/25 08:55 Dose: 50 mg Buspirone HCl (Buspirone Hcl 10 Mg Tablet) 10 mg PO DAILY PRN PRN Reason: anxiety Calcium Carbonate (Calcium Carbonate 750 Mg Tab.Chew) 750 mg PO Q4H PRN PRN Reason: Heartburn Enoxaparin Sodium (Enoxaparin Sodium 40 Mg/0.4 Ml Syringe) 40 mg SUBCUT Q24H [facility] Last Admin: 04/14/25 14:46 Dose: 40 mg Famotidine (Famotidine/Pf 20 Mg/2 Ml Vial) 20 mg IVPUSH DAILY [facility] Last Admin: 04/14/25 08:55 Dose: 20 mg Folic Acid (Folic Acid 1 Mg Tablet) 1 mg PO DAILY [facility] Last Admin: 04/14/25 08:55 Dose: 1 mg Albumin Human (Kedbumin 25 %) 100 mls @ 100 mls/hr IV QID [facility] Stop: 04/16/25 09:59 Last Infusion: 04/14/25 14:07 Dose: Infused Magnesium Hydroxide (Milk Of Magnesia 30 Ml Oral.Susp) 30 ml PO DAILY PRN PRN Reason: Constipation Melatonin (Melatonin 3 Mg Tablet) 6 mg PO BEDTIME PRN PRN Reason: Insomnia Multivitamins/Vitamin C (Multivitamin Tablet) 1 tab PO DAILY [facility] Last Admin: 04/14/25 08:55 Dose: 1 tab Ondansetron HCl (Ondansetron Hcl 4 Mg/2 Ml Vial) 4 mg IVPUSH Q6H PRN PRN Reason: Nausea and Vomiting Last Admin: 04/13/25 19:54 Dose: 4 mg Pharmacy Consult (Consult Rx Etoh Phenob Im/Po) 1 each MISCELLANE ONCE PRN; Protocol PRN Reason: Consult order Phenobarbital (Phenobarbital 15 Mg Tablet) 45 mg PO BID [facility]; Protocol Stop: 04/15/25 21:01 Last Admin: 04/14/25 08:56 Dose: 45 mg Phenobarbital (Phenobarbital 15 Mg Tablet) 15 mg PO BID [facility]; Protocol Stop: 04/17/25 21:01 Phenobarbital (Phenobarbital 15 Mg Tablet) 15 mg PO DAILY [facility]; Protocol Stop: 04/19/25 09:01 Sodium Chloride (0.9 % Sodium Chloride Flush 3 Ml Syringe) 3 ml IVFLUSH QSHIFT [facility] Last Admin: 04/14/25 14:47 Dose: 3 ml Thiamine HCl (Thiamine Hcl 100 Mg Tablet) 100 mg PO DAILY [facility] Last Admin: 04/14/25 08:56 Dose: 100 mg Allergies Allergies Allergy/AdvReac Type Severity Reaction Status Date / Time amlodipine AdvReac Swelling Verified 04/13/25 05:38 ankles Assessment & Plan Assessment & Plan (1) Alcohol use disorder, severe, dependence: Status: Acute Code(s): F10.20 - Alcohol dependence, uncomplicated Assessment and Plan: * withdrawal well managed with pheno taper * patient open to learning more about [facility]--billet cutter to follow up in AM and bring med information sheets and [facility] info Total time managing care of this patient today __40__ minutes. [facility] Past Medical History Medical History History of COVID-19 Neuropathy Alcohol dependence Anxiety HTN (hypertension) Surgical History Surgical History H/O colonoscopy Hx of cataract extraction History of open reduction and internal fixation (ORIF) procedure Social History Social History Household Members: None Housing: Apartment Do you presently have visiting nurse or other home services: No Alcohol intake: current Alcohol intake frequency: 3 or more drinks per day Alcohol type: beer Patient Tobacco Use Status: Never used Tobacco e-Cigarette/Vaping Use: Never Used Substance Use Type: Marijuana Advance Directives: Yes Advance Directives on File: Yes Advance Directives Date on File: 11/10/24 Do you have a plan to hurt others: No Plan service: No Current occupational status: employed Cognitive needs: No Hearing needs: No Vision needs: Yes
--- NOTE | 2025-04-14 20:44 | MHC.EVENTN ---
This RN to assess patient around 2019, patient was found to be putting on shoes and getting dressed. Adamant about leaving saying he isnt comfortable patient A&ox4, Dr Hewitt to bedside. AMA paperwork signed. Bilateral IVs taken out and applied dressing with gauze. Patient departed Med Tele unit at 2039 with belongings.
--- NOTE | 2025-04-14 20:46 | PM.EVENT ---
Event Note Date of Service: 04/14/25 Event Note: I was informed by the nurse that patient wanted to leave. Patient mentating well and is oriented x3. He has capacity and stated that he felt better and wanted to go home. He understands the risks of leaving against medical advice in the setting of acute kidney injury and elevated LFTs which include worsening of liver and kidney function, acidosis and/or . Patient states he will follow-up with his PCP next week and will get repeat labs done. He is unwilling to stay as he states the bed is uncomfortable and the food is not good . Patient to sign AMA paperwork and leave against medical advice. Time Spent With Patient Time: Total time managing care of this patient today ____ minutes.
== END 2025-04-14 21:09 | disposition left against medical advice (07) | DRG 894 ==
LOC: HO.ED 13:03 → HO.EDOVER 13:56 → HO.IMC 04-14 05:58
PROVIDERS: Internal Medicine; Physician Assistant; Admitting Provider Student in an Organized Health Care Education/Training Program; Emergency Provider Emergency Medicine; PCP Internal Medicine; Visit Provider Physician Assistant Medical
DX: F10.229 Alcohol dependence with intoxication, unspecified (principal); N17.9 Acute kidney failure, unspecified; K70.30 Alcoholic cirrhosis of liver without ascites; E83.119 Hemochromatosis, unspecified; Y90.6 Blood alcohol level of 120-199 mg/100 ml; E83.42 Hypomagnesemia; E86.0 Dehydration; R25.2 Cramp and spasm; Z20.822 Contact with and (suspected) exposure to COVID-19; Z79.899 Other long term (current) drug therapy
CPT/HCPCS: 0241U; 36415; 76705; 80048; 80053; 80076; 80307; 81001; 82550; 82570; 82947; 83690; 83735; 84300; 85025; 85610; 85730; 93970; 99285; J1308; J1650; J2405; J2560; J3475; J7120; P9047

== ENCOUNTER → 2025-04-13 08:25 | Outpatient (BNV) | payer OTHER, SELFPAY | PROVIDERS: Emergency Provider Emergency Medicine; PCP Internal Medicine; Visit Provider Radiology Diagnostic Radiology | DX: K74.69 Other cirrhosis of liver (principal) | CPT/HCPCS: 76705 ==

== ENCOUNTER 2025-04-13 13:56 | Outpatient (BNV) | payer OTHER, SELFPAY | END 2025-04-14 12:17 | PROVIDERS: Admitting Provider Student in an Organized Health Care Education/Training Program; Emergency Provider Emergency Medicine; PCP Internal Medicine; Visit Provider Radiology Diagnostic Radiology | DX: M79.604 Pain in right leg (principal); M79.605 Pain in left leg | CPT/HCPCS: 93970 ==

== ENCOUNTER → 2025-04-13 13:56 | Outpatient (BNV) | payer OTHER, SELFPAY | PROVIDERS: Admitting Provider Student in an Organized Health Care Education/Training Program; Emergency Provider Emergency Medicine; PCP Internal Medicine; Visit Provider Internal Medicine | DX: N17.9 Acute kidney failure, unspecified (principal); F10.930 Alcohol use, unspecified with withdrawal, uncomplicated; K70.30 Alcoholic cirrhosis of liver without ascites; R79.89 Other specified abnormal findings of blood chemistry | CPT/HCPCS: 99223 ==

== ENCOUNTER → 2025-04-13 13:56 | Outpatient (BNV) | payer OTHER, SELFPAY | PROVIDERS: Admitting Provider Student in an Organized Health Care Education/Training Program; Emergency Provider Emergency Medicine; PCP Internal Medicine; Visit Provider Physician Assistant Medical | DX: N17.9 Acute kidney failure, unspecified (principal); F10.930 Alcohol use, unspecified with withdrawal, uncomplicated; K70.30 Alcoholic cirrhosis of liver without ascites | CPT/HCPCS: 99499 ==

== ENCOUNTER → 2025-04-13 13:56 | Outpatient (BNV) | payer OTHER, SELFPAY | PROVIDERS: Admitting Provider Student in an Organized Health Care Education/Training Program; Emergency Provider Emergency Medicine; PCP Internal Medicine; Visit Provider Nurse Practitioner Psychiatric/Mental Health | DX: F10.20 Alcohol dependence, uncomplicated (principal) | CPT/HCPCS: 99222 ==

== ENCOUNTER 2025-04-15 11:33 | Emergency (ER) | payer OTHER, SELFPAY ==
--- NOTE | 2025-04-15 11:51 | ED_ITS ---
HPI - General Adult General Chief complaint: Medical Clearance Stated complaint: Work clearance Time Seen by Provider: 04/15/25 11:49 Source: patient Mode of arrival: ambulatory Limitations: no limitations History of Present Illness ED Provider: Meron Sanchez APRN HPI narrative: 64 yo male with history of AUD who was admitted 04/13 for BETO, liver cirrhosis, alcohol use disorder and left AMA 04/14 presents to the ER seeking note to return to work tomorrow. He has no complaints. He does not intent to drink while working. He plans on following up with his PCP and the comprehensive care center here at [facility]. Related Data Home Medications ?Medication ?Instructions ?Recorded ?Confirmed acetaminophen 500 mg tablet 1,000 mg PO Q6H PRN Pain 11/10/24 04/13/25 vitamin B complex 1 tab PO DAILY 11/10/24 04/13/25 buspirone 10 mg tablet 10 mg PO DAILY PRN anxiety 04/13/25 04/13/25 chlordiazepoxide HCl 25 mg capsule 25 - 50 mg PO Q8H PRN allergies 04/13/25 04/13/25 clotrimazole-betamethasone 1 1 appl topical DAILY PRN Rash 04/13/25 04/13/25 %-0.05 % topical cream milk thistle 150 mg capsule 150 mg PO DAILY 04/13/25 04/13/25 spironolactone 50 mg tablet 50 mg PO DAILY 04/13/25 04/13/25 (Aldactone) Previous Rx's ?Medication ?Instructions ?Recorded multivitamin 1 tab PO DAILY #90 tabs 07/25/24 atenolol 50 mg tablet 50 mg PO DAILY #90 tabs 11/16/24 ondansetron HCl 4 mg tablet 4 mg PO BID PRN nausea and 02/21/25 vomiting #60 tabs Allergies Allergy/AdvReac Type Severity Reaction Status Date / Time amlodipine AdvReac Swelling Verified 04/15/25 11:55 ankles Review of Systems Review of Systems: Yes all other systems are reviewed and are negative Constitutional: Constitutional: Reports no additional constitutional complaints, Denies body ache(s), Denies chills, Denies fever(s), Denies headache(s) and Denies weakness Eyes: Eyes: Reports no additional eye complaints and Denies change in vision ENT: Reports system reviewed and no additional complaints, except as documented, Denies dizziness, Denies headache(s), Denies nasal congestion, Denies nasal discharge and Denies neck pain Cardiovascular: Cardiovascular: Reports no additional cardiovascular compla ints, Denies chest pain, Denies leg edema and Denies dyspnea Respiratory: Respiratory: Reports no additional respiratory complaints, Denies cough and Denies dyspnea Gastrointestinal: Gastrointestinal: Reports no additional gastrointestinal complaints, Denies abdominal pain, Denies diarrhea, Denies nausea and Denies vomiting Genitourinary: Genitourinary: Denies urinary incontinence Musculoskeletal: Musculoskeletal: Reports no additional musculoskeletal complaints, Denies back pain, Denies arthralgias, Denies joint swelling, Denies neck pain, Denies numbness and Denies tingling Integumentary/Breasts: Skin/Breast: Reports system reviewed and no additional complaints, except as docu and Denies rash Neurologic: Reports system reviewed and no additional complaints, except as documented, Denies Abnormal speech present, Denies dizziness, Denies headache(s), Denies numbness, Denies tingling and Denies weakness PMFSH Past Medical History Attestation statement: The following information was validated with the patient. Source: old records reviewed and nursing notes reviewed Medical History History of COVID-19 Neuropathy Alcohol dependence Anxiety HTN (hypertension) Surgical History H/O colonoscopy Hx of cataract extraction History of open reduction and internal fixation (ORIF) procedure Social History Social History Household Members: None Housing: Apartment Do you presently have visiting nurse or other home services: No Alcohol intake: current Alcohol intake frequency: 3 or more drinks per day Alcohol type: beer Patient Tobacco Use Status: Never used Tobacco e-Cigarette/Vaping Use: Never Used Substance Use Type: Marijuana Advance Directives Date on File: 11/10/24 Do you have a plan to hurt others: No Plan service: No Current occupational status: employed Cognitive needs: No Hearing needs: No Vision needs: Yes Physical Exam ED Vital Signs: Vital Signs - 24 hr 04/15/25 11:54 Temperature 96.8 F Pulse Rate 85 Respiratory Rate 18 Blood Pressure 149/108 H Pulse Oximetry 95 Oxygen Delivery Method Room Air BMI result Body Mass Index 29.9 Const General: cooperative, healthy appearing, comfortable and no acute distress Orientation/consciousness: patient oriented x3 Limitations: no limitations HENMT Head: Yes normal to inspection Eyes General: appearance normal, both eyes and all related structures Neck Neck: Yes normal visual inspection Chest Chest palpation & inspection: normal inspection of the chest Resp Effort & Inspection: normal respiratory effort Skin General skin exam: no rashes or lesions noted Neuro General: patient oriented x3 and moves all extremities Cognition (Neuro): normal cognition Speech: No Abnormal speech present Gait exam (Neuro): Normal gait present Medical Decision Making Medical Decision Making MDM Narrative: 64 yo male with history of AUD who was admitted 04/13 for BETO, liver cirrhosis, alcohol use disorder and left AMA 04/14 presents to the ER seeking note to return to work tomorrow. He has no complaints. He does not intent to drink while working. He plans on following up with his PCP and the comprehensive care center here at [facility]. Normal exam VSS Provided with work note and resources for [facility] Differential Diagnosis Differential Diagnoses: The differential diagnosis associated with the pres entation includes Admission/Observation Consideration of admission/observation: Escalation of care including admission/observation considered External Record Review External record reviewed: Inpatient record Chronic Conditions Patient?s care impacted by: Hypertension Social Determinants Patient?s care significantly limited by Social Determinants of Health including: Alcoholism and drug addiction in family Discharge Plan Discharge Clinical Impression: Normal exam Patient Disposition: Home, Self-Care Instructions: Normal Exam (ED) Prescriptions: No Action multivitamin Tablet 1 tab PO DAILY Qty: 90 0RF vitamin B complex [B Complex Super] Tablet 1 tab PO DAILY acetaminophen 500 mg Tablet 1,000 mg PO Q6H PRN (Reason: Pain) chlordiazepoxide HCl 25 mg capsule 25 - 50 mg PO Q8H PRN (Reason: allergies) buspirone 10 mg tablet 10 mg PO DAILY PRN (Reason: anxiety) milk thistle 150 mg Capsule 150 mg PO DAILY Rx Instructions: give with meal/snack clotrimazole-betamethasone 1-0.05 % cream 1 appl topical DAILY PRN (Reason: Rash) spironolactone [Aldactone] 50 mg tablet 50 mg PO DAILY ondansetron HCl 4 mg tablet 4 mg PO BID PRN (Reason: nausea and vomiting) Qty: 60 0RF atenolol 50 mg tablet 50 mg PO DAILY Qty: 90 0RF Referrals: Angelica Schrader MD [Primary Care Provider] - 1 week Stand Alone Forms: Work/School Release Interventions: ED Discharge Assessment Last Done: 04/15/25 12:02 Print Language: Other
[2025-04-15 11:54] VITALS: BP 149/108; PULSE 85; RESP 18; TEMP 36; O2SAT 95; BMI 29.9
[2025-04-15 12:02] VITALS: BP 149/108; PULSE 85; RESP 18; TEMP 36; O2SAT 95
== END 2025-04-15 12:04 | disposition home or self-care (01) ==
LOC: HO.ED 12:04
PROVIDERS: Emergency Provider Emergency Medicine Emergency Medical Services; PCP Internal Medicine
DX: Z02.79 Encounter for issue of other medical certificate (principal); Z63.72 Alcoholism and drug addiction in family
CPT/HCPCS: 99282

== ENCOUNTER 2025-04-21 09:28 | Outpatient (REF) | payer OTHER, SELFPAY ==
[2025-04-21 13:17] LABS: MANUAL DIFF FLAG NO
[2025-04-21 13:38] LABS: Basophils Percent Auto 0.7 % (0-2); Eosinophils Absolute Auto 0.1 X10*3/uL (0.0-0.4); Eosinophils Percent Auto 2.5 % (0-4); Hematocrit 34.4 % (42.0-52.0); Hemoglobin 11.7 g/dl (14.0-18.0); Imm Gran Abs Auto 0.03 X10*3/uL (0.00-0.03); Imm Gran Pct Auto 0.7 % (0.0-0.4); Lymphocytes Absolute Auto 1.3 X10*3/uL (1.2-4.9); Lymphocytes Percent Auto 33.3 % (20-40); Mean Corpuscular Volume 108.9 fL (80.0-98.0); Mean Platelet Volume 11.1 fL (9.4-12.4); Monocytes Absolute Auto 0.7 X10*3/uL (0.1-1.2); Monocytes Percent Auto 16.9 % (2-11); NRBC Pct Auto 0.5 /100WBC (0.0-0.2); Neutrophils Absolute Auto 1.8 x10*3/uL (2.0-8.3); Neutrophils Percent Auto 45.9 % (45-73); Platelet Count 129 X10*3/uL (160-400); Red Blood Count 3.16 X10*6/uL (4.60-5.80); Red Cell Distribution Width 13.4 % (11.0-16.0)
[2025-04-21 14:00] LABS: B Type Natriuretic Peptide 241 pg/mL (<100)
[2025-04-21 14:18] LABS: Alanine Aminotransferase 83 U/L (0-40); Albumin Level 4.3 g/dL (3.5-5.0); Alkaline Phosphatase 64 U/L (39-117); Anion Gap 10 (12-20); Aspartate Amino Transferase 69 U/L (5-37); Bilirubin Total 0.7 mg/dL (0.0-1.0); Blood Urea Nitrogen 22 mg/dL (9-16); Calcium 9.1 mg/dL (8.4-10.2); Carbon Dioxide 27 mmol/L (22-29); Chloride 102 mmol/L (96-108); Estimated Glomerular Filt Rate 47; Glucose Random 94 mg/dL (60-115); Iron 92 mcg/dL (45-160); Magnesium 1.6 mg/dL (1.6-2.6); Percent Iron Saturation 38 % (15-50); Potassium 4.3 mmol/L (3.3-5.1); Sodium 135 mmol/L (135-145); Total Iron Binding Capacity 244 mcg/dL (228-428); Total Protein 7.4 g/dL (6.5-8.0); Unsaturated Iron Binding 152 ug/dL
[2025-04-21 14:24] LABS: Ferritin 1269 ng/mL (20-250)
== END 2025-04-21 09:29 | disposition home or self-care (01) ==
LOC: HO.HMGCLDS 09:28
PROVIDERS: PCP Internal Medicine; Referring Provider Internal Medicine Medical Oncology; Visit Provider Internal Medicine
DX: Z09 Encounter for follow-up examination after completed treatment for conditions other than malignant neoplasm (principal); R79.89 Other specified abnormal findings of blood chemistry; R74.8 Abnormal levels of other serum enzymes; K70.30 Alcoholic cirrhosis of liver without ascites; N17.9 Acute kidney failure, unspecified; E83.119 Hemochromatosis, unspecified; G62.1 Alcoholic polyneuropathy; I73.9 Peripheral vascular disease, unspecified; I10 Essential (primary) hypertension; F41.1 Generalized anxiety disorder
CPT/HCPCS: 36415; 80053; 82550; 82728; 83540; 83735; 83880; 85025; 96127

== ENCOUNTER 2025-04-21 09:28 | Outpatient (AMB) | payer OTHER, SELFPAY ==
--- NOTE | 2025-04-21 09:33 | A.OFFPC_ITS ---
Vital Signs 04/21/25 09:34 Height 5 ft 10 in Weight 214 lb BMI 30.7 BP 120/80 Blood Pressure Location Rt brachial Position Sitting Pulse 70 Pulse Source Pulse Oximeter Pulse Oximetry (%) 97 Oxygen Delivery Method Room Air Intake Visit Reasons: HDF All Source Intelligence Technician Required: No Accompanied by: Self / Same As Patient Allergies amlodipine Adverse Reaction (Verified 04/21/25 09:34) Swelling ankles Medication List - Last Reconciled 04/21/25 by Angelica Schrader MD acetaminophen 1,000 mg PO Q6H PRN atenolol 50 mg PO DAILY buspirone 10 mg PO DAILY PRN chlordiazepoxide HCl 25 - 50 mg PO Q8H PRN clotrimazole-betamethasone 1-0.05 % 1 appl topical DAILY PRN milk thistle 150 mg PO DAILY multivitamin 1 tab PO DAILY ondansetron HCl 4 mg PO BID PRN spironolactone (Aldactone) 50 mg PO DAILY vitamin B complex 1 tab PO DAILY Tobacco use date assessed: 02/10/25 Fall risk assessment: 1 Fall in past year Last assessed Fall Risk: 04/21/25 Dental Screening Dental Screen Date: 02/10/25 HPI HDF HPI Details Patient is 64-year-old gentleman came in today for hospital discharge follow-up [facility] date of admission April 13, 2025 date of discharge April 14, 2025 Patient have long history of alcohol abuse, liver cirrhosis, hemochromatosis he presented to emergency room with diarrhea and muscle cramps and found to have BETO and elevated LFTs His creatinine was 1.59 at discharge He had IV fluids given and also was given albumin for 48 hours August right/midodrine/nephrology consultation if no improvement in renal function and albumin is recommended His spironolactone was held He will need BNP follow-up along with CK Hemochromatosis management as per Hematology Liver cirrhosis, patient has seen by Gastroenterology and need outpatient follow-up His abdominal pain was most likely secondary to gastritis and alcohol abuse he was given IV Pepcid Ultrasound of abdomen was negative for gallstones Lipase negative For hypertension he is to continue atenolol He came in today for his follow-up appointment - The patient has reportedly abstained f rom alcohol for the past nine days, following medical advice regarding cirrhosis. He has appointment coming up with Nephrology next month Patient need an appointment with gastroenterology referral is placed He was seen by Dr. Kuar in hospital He is stable at this point there is no more nausea vomiting abdominal cramp He is back to work, and intent on continuing abstinence from alcohol Problem List - Alcohol Use Disorder - Acute Kidney Injury secondary to Dehyd ration - Compensated Cirrhosis - Elevated Creatinine - Past Vomiting and Dehydration - Muscle Cramps due to Dehydration Patient Instructions - Stop alcohol consumption completely to manage and prevent further liver damage. - Attend upcoming nephrology appointment in April for further assessment. - Follow up with hematology and gastroen terology as recommended. - Get the required lab tests done today .. - Monitor health closely and seek medica l attention if any symptoms worsen, especially concerning dehydration or kidney function. - Keep hydrated to prevent further dehyd ration issues. Review of Systems - General: No fever no chills - Neurological: No headaches no dizziness - Ear nose throat: No sore throat no hearing difficulty no ear pain - Cardiovascular: No syncope, no chest pain, no palpitations - Gastrointestinal: No nausea vomiting or diarrhea - Endocrine: No polyuria polydipsia no heat intolerance - Genitourinary: No dysuria , no blood in urine Physical Exam - General: No acute distress - HEENT: No acute findings - Neck: Supple - Respiratory system: Able to talk in f ull sentences, no audible wheeze - Cardiovascular: S1-S2 regular in rate and rhythm - Gastrointestinal: No pain - Extremities: No new findings - 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: Alert awake oriented x3 motor se nsory intact - Skin: Normal turgor PFSH Medical History History of COVID-19 Neuropathy Alcohol dependence Anxiety HTN (hypertension) Surgical History H/O colonoscopy Hx of cataract extraction History of open reduction and internal fixation (ORIF) procedure Social History Household Members: None Housing: Apartment Do you presently have visiting nurse or other home services: No Alcohol intake: current Alcohol intake frequency: 3 or more drinks per day Alcohol type: beer Patient Tobacco Use Status: Never used Tobacco e-Cigarette/Vaping Use: Never Used Substance Use Type: Marijuana Advance Directives Date on File: 11/10/24 service: No Current occupational status: employed Cognitive needs: No Hearing needs: No Vision needs: Yes Questionnaire PHQ-9 Over the last 2 weeks, how often have you been bothered by any of the following problems? 1. Little interest or pleasure in doing things: not at all 2. Feeling down, depressed, or hopeless: not at all 3. Trouble falling or staying asleep, or sleeping too much: not at all 4. Feeling tired or having little energy: not at all 5. Poor appetite or overeating: not at all 6. Feeling bad about yourself - or that you are a failure or have let yourself or your family down: not at all 7. Trouble concentrating on things, such as reading the newspaper or watching television: not at all 8. Moving or speaking so slowly that other people could have noticed. Or the opposite - being so fidgety or restless that you have been moving around a lot more than usual: not at all 9. Thoughts that you would be better off or of hurting yourself in some way: not at all Total score: 0 Depression Screening Interpretation: Negative Depression Screening Done: Yes 94801 - PHQ-9 Billing: Yes Source: Developed by Drs. Srikanth Hernández, Cathleen Cifuentes, Jarod Garcia and colleagues, with an educational prince from [employer]. Thrive Questionnaire Date Thrive assessed: 04/14/25 I am a: Patient What is your living situation today?: I have a steady place to live Within the past 12 months, did the food you bought not last and you didn't have the money to get more?: I choose not to answer this question Within the past 12 months, did you worry whether your food would run out before you got money to buy more?: I choose not to answer this question Do you have trouble paying for medicines?: I choose not to answer this question Do you have trouble getting transportation to medical appointments?: No Do you have trouble paying your heating and electricity bill?: No Do you have trouble taking care of your child, family member or friend?: No Do you have trouble with day-to-day activities such as bathing, preparing meals, shopping, managing finances, etc.?: No Are you currently unemployed and looking for a job?: No Are you interested in more education?: No Please select the resources that you would like help with: None Currently or been in a relationship where the following occur: I choose not to answer THRIVE Score: 0 AUDIT C Alcohol Use Questionnaire (AUDIT-C) 1. How often do you have a drink containing alcohol?: Monthly or less 2. How many drinks containing alcohol do you have on a typical day when you are drinking?: 1 or 2 3. How often do you have six or more drinks on one occasion?: Never Total Score: 1 Score Reviewed/Action Taken: Yes ALLIE-7 AMB Questionnaire ALLIE-7 Date ALLIE - 7 assessed: 04/21/25 Feeling nervous, anxious, or on edge: 0 = Not at all Not being able to stop or control worryin = Not at all Worrying too much about different things: 0 = Not at all Trouble relaxin = Not at all Being so restless that it is hard to sit still: 0 = Not at all Becoming easily annoyed or irritable: 0 = Not at all Feeling afraid as if something awful might happen: 0 = Not at all Total ALLIE-7 score (0-4 normal; 5-9 mild; 10-14 moderate; 15-21 severe): 0 Source: Developed by Drs. Srikanth Hernández, Cathleen Cifuentes, Jarod Garcia and colleagues, with an educational prince from [employer]. ALLIE-7 Assessment Billing ALLIE-7 Assessment Tool: ALLIE-7 Assessment 26345 Physical exam (Primary Care) Vital Signs: Last Vital Signs Pulse 70 04/21/25 09:34 BP 120/80 04/21/25 09:34 Pulse Ox 97 04/21/25 09:34 Oxygen Delivery Method Room Air 04/21/25 09:34 BMI result Body Mass Index 30.7 Tobacco/Smoking Status: Tobacco use Status Tobacco use date assessed 02/10/25 04/21/25 09:37 Patient Tobacco Use Status Never used Tobacco 04/21/25 09:37 e-Cigarette/Vaping Use Never Used 04/21/25 09:37 PHQ-9: PHQ-9 Score PHQ-9: Total score 0 04/21/25 09:59 Depression Screening Interpretation: Negative Thrive Assessment: Date of Thrive Assessment Date Thrive assessed 04/14/25 04/21/25 09:37 Currently or been in a relationship where the following occur: I choose not to answer Coding Level of Care Code Est Pt Level 5 (91739) Diagnoses Hospital discharge follow-up Z09 Elevated brain natriuretic peptide (BNP) level R79.89 Elevated CPK R74.8 Alcoholic cirrhosis of liver without ascites K70.30 Ascites presence: without ascites BETO (acute kidney injury) N17.9 Hemochromatosis, unspecified hemochromatosis type E83.119 Hemochromatosis type: unspecified Alcoholic peripheral neuropathy G62.1 Peripheral vascular disease I73.9 Primary hypertension I10 Hypertension type: primary hypertension LFT elevation R79.89 Anxiety, generalized F41.1 Additional Codes ALLIE-7 Assessment Billing - ALLIE-7 Assessment Tool: ALLIE-7 Assessment 82321 ([id number]) PHQ-9 - 93886 - PHQ-9 Billing: Yes ([id number]) Time Spent (min) 40 Comment Reviewing hospital notes, [id number] with the patient, coordination of care Assessment & Plan Assessment & Plan (1) Hospital discharge follow-up: Code(s): Z09 - Encounter for follow-up examination after completed treatment for conditions other than malignant neoplasm Category: Medical (2) Elevated brain natriuretic peptide (BNP) level: Code(s): R79.89 - Other specified abnormal findings of blood chemistry Category: Medical (3) Elevated CPK: Code(s): R74.8 - Abnormal levels of other serum enzymes Category: Medical (4) Liver cirrhosis, alcoholic: Code(s): K70.30 - Alcoholic cirrhosis of liver without ascites Category: Medical Qualifiers: Ascites presence: without ascites Qualified Code(s): K70.30 - Alcoholic cirrhosis of liver without ascites (5) BETO (acute kidney injury): Code(s): N17.9 - Acute kidney failure, unspecified Category: Medical (6) Hemochromatosis: Code(s): E83.119 - Hemochromatosis, unspecified Category: Medical Qualifiers: Hemochromatosis type: unspecified Qualified Code(s): E83.119 - Hemochromatosis, unspecified (7) Alcoholic peripheral neuropathy: Code(s): G62.1 - Alcoholic polyneuropathy Category: Medical (8) Peripheral vascular disease: Code(s): I73.9 - Peripheral vascular disease, unspecified Category: Medical (9) HTN (hypertension): Code(s): I10 - Essential (primary) hypertension Category: Medical Qualifiers: Hypertension type: primary hypertension Qualified Code(s): I10 - Essential (primary) hypertension (10) LFT elevation: Code(s): R79.89 - Other specified abnormal findings of blood chemistry Category: Medical (11) Anxiety, generalized: Code(s): F41.1 - Generalized anxiety disorder Category: Medical Plan Patient is 64-year-old gentleman came in today for hospital discharge follow-up [facility] date of admission April 13, 2025 date of discharge April 14, 2025 Patient have long history of alcohol abuse, liver cirrhosis, hemochromatosis he presented to emergency room with diarrhea and muscle cramps and found to have BETO and elevated LFTs His creatinine was 1.59 at discharge He had IV fluids given and also was given albumin for 48 hours August right/midodrine/nephrology consultation if no improvement in renal function and albumin is recommended His spironolactone was held He will need BNP follow-up along with CK Hemochromatosis management as per Hematology Liver cirrhosis, patient has seen by Gastroenterology and need outpatient follow-up His abdominal pain was most likely secondary to gastritis and alcohol abuse he was given IV Pepcid Ultrasound of abdomen was negative for gallstones Lipase negative For hypertension he is to continue atenolol He came in today for his follow-up appointment - The patient has reportedly abstained from alcohol for the past nine days, following medical advice regarding cirrhosis. He has appointment coming up with Nephrology next month Patient need an appointment with gastroenterology referral is placed He was seen by Dr. Kaur in hospital He is stable at this point there is no more nausea vomiting abdominal cramp He is back to work, and intent on continuing abstinence from alcohol Problem List - Alcohol Use Disorder - Acute Kidney Injury secondary to Dehydration - Compensated Cirrhosis - Elevated Creatinine - Past Vomiting and Dehydration - Muscle Cramps due to Dehydration Patient Instructions - Stop alcohol consumption completely to manage and prevent further liver damage. - Attend upcoming nephrology appointment in April for further assessment. - Follow up with hematology and gastroenterology as recommended. - Get the required lab tests done today .. - Monitor health closely and seek medical attention if any symptoms worsen, especially concerning dehydration or kidney function. - Keep hydrated to prevent further dehydration issues. Orders: Orders B Type Natriuretic Peptide Today R74.8 - Abnormal levels of other serum enzymes, R79.89 - Other specified abnormal findings of blood chemistry, Z09 - Encounter for follow-up examination after completed treatment for conditions other than malignant neoplasm Creatine Kinase Total Today R74.8 - Abnormal levels of other serum enzymes, R79.89 - Other specified abnormal findings of blood chemistry, Z09 - Encounter for follow-up examination after completed treatment for conditions other than malignant neoplasm Magnesium Today R74.8 - Abnormal levels of other serum enzymes, R79.89 - Other specified abnormal findings of blood chemistry, Z09 - Encounter for follow-up examination after completed treatment for conditions other than malignant neoplasm Referrals Gastroenterology Referral K70.30 - Alcoholic cirrhosis of liver without ascites
[2025-04-21 09:34] VITALS: BP 120/80; PULSE 70; O2SAT 97; BMI 30.7
== END 2025-04-21 09:55 | disposition home or self-care (01) ==
LOC: HO.HMCC 09:28
PROVIDERS: PCP Internal Medicine; Visit Provider Internal Medicine
DX: K70.30 Alcoholic cirrhosis of liver without ascites (principal); R74.8 Abnormal levels of other serum enzymes; E83.119 Hemochromatosis, unspecified; Z09 Encounter for follow-up examination after completed treatment for conditions other than malignant neoplasm; R79.89 Other specified abnormal findings of blood chemistry; N17.9 Acute kidney failure, unspecified; G62.1 Alcoholic polyneuropathy; I73.9 Peripheral vascular disease, unspecified; I10 Essential (primary) hypertension; F41.1 Generalized anxiety disorder

== ENCOUNTER 2025-08-04 12:49 | Outpatient (AMB) | payer OTHER, SELFPAY ==
--- NOTE | 2025-08-04 12:52 | A.OFFPC_ITS ---
Vital Signs 08/04/25 12:53 Height 5 ft 10 in Weight 198 lb BMI 28.4 BP 140/90 H Blood Pressure Location Lt brachial Position Sitting Pulse 89 Pulse Source Pulse Oximeter Pulse Oximetry (%) 97 Intake Visit Reasons: follow-up meds Allergies amlodipine Adverse Reaction (Verified 08/04/25 12:53) Swelling ankles Medication List - Last Reconciled 08/04/25 by Angelica Schrader MD acetaminophen 1,000 mg PO Q6H PRN atenolol 50 mg PO DAILY buspirone 10 mg PO DAILY PRN chlordiazepoxide HCl 25 - 50 mg PO Q8H PRN clotrimazole-betamethasone 1-0.05 % 1 appl topical DAILY PRN milk thistle 150 mg PO DAILY multivitamin 1 tab PO DAILY ondansetron HCl 4 mg PO BID PRN spironolactone 50 mg PO QAM vitamin B complex 1 tab PO DAILY Tobacco use date assessed: 02/10/25 Fall risk assessment: No Falls in past year Last assessed Fall Risk: 08/04/25 Dental Screening Dental Screen Date: 02/10/25 HPI follow-up meds HPI Details History The patient is a 64-year-old male presenting with a long-term history of alcohol use. Long-term alcohol use: - Reports long history of alcohol use. - Consumes five to six beers and two zachary ts of alcohol daily. - Alcohol use increased during visit of friends who also consume alcohol. - Acknowledges difficulty in stopping wi thout support. - Reports experiencing symptoms indicati ve of alcohol dependency, including withdrawal symptoms. - States feeling better while drinking b ut experiences fear post-consumption about related health issues. Substance dependence (Valium use): - Reports consuming 5 mg of Valium four times a day, obtained off the street. - Acknowledges use of Valium to calm him self, despite understanding the risk of combining with other substances. Chronic Kidney Disease: - History of chronic kidney disease dis cussed during the conversation. Alcohol-induced Liver Cirrhosis: - Reports awareness of liver problems rickie augustiny due to long-term alcohol consumption. - Previously discussed liver risks relat ed to alcohol use with other healthcare providers. Chronic Lower Extremity Swelling: - Chronic swelling of lower extremities off and on Hemochromatosis with very high ferritin level patient is established with Hematology at [facility] Social History: - Substance use: Long-term alcohol consu mption and Valium use. Occasional marijuana use. - Reports financial concerns due to cost s of alcohol. - Lives alone with limited family suppor t. Family History: - Elder siblings: 86- and 88-year-old si sters, latter with a fractured kneecap. Problem List - Long-term Alcohol Use - Substance Dependence - Chronic Kidney Disease - Alcohol-induced Liver Cirrhosis - Chronic Lower Extremity Swelling - hemochromatosis with very high ferriti n level - hypertension - anxiety - nephropathy Diagnostic results - Labs: Hemoglobin recorded at 11.4 in M ay. Further labs for kidney and liver function tests ordered. [facility] - hematology - nephrology - Gastroenterology Patient Instructions - Avoid co-use of Librium and Valium. - Avoid alcohol consumption while on the medication. - Complete the prescribed course of medi cation as directed. - Undergo lab tests as ordered immediate ly. - Return for follow-up within a week for reassessment and medication tapering. - refrain from alcohol drinking - join AA meetings Review of Systems General: No fever no chills neurological: No headaches no dizziness ear nose throat: No sore throat no hearing difficulty no ear pain cardiovascular: No syncope, no chest pain, no palpitations gastrointestinal: No nausea vomiting or diarrhea endocrine: No polyuria polydipsia no heat intolerance genitourinary: No dysuria skin: No new complaints Physical Exam general: No acute distress HEENT: No acute findings neck: Supple respiratory system: Able to talk in full sentences, no audible wheeze no stridor cardiovascular: S1-S2 RRR gastrointestinal: No pain extremities: Chronic lower extremity swelling minimal today 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: Alert awake oriented x3 motor intact skin: Normal turgor Psych: Affect normal seems to be slightly intoxicated [facility] Medical History History of COVID-19 Neuropathy Alcohol dependence Anxiety HTN (hypertension) Surgical History H/O colonoscopy Hx of cataract extraction History of open reduction and internal fixation (ORIF) procedure Social History Household Members: None Housing: Apartment Do you presently have visiting nurse or other home services: No Alcohol intake: current Alcohol intake frequency: 3 or more drinks per day Alcohol type: beer Patient Tobacco Use Status: Never used Tobacco e-Cigarette/Vaping Use: Never Used Substance Use Type: Marijuana Advance Directives Date on File: 11/10/24 service: No Current occupational status: employed Cognitive needs: No Hearing needs: No Vision needs: Yes Questionnaire Thrive Questionnaire Date Thrive assessed: 04/21/25 I am a: Patient What is your living situation today?: I have a steady place to live Within the past 12 months, did the food you bought not last and you didn't have the money to get more?: I choose not to answer this question Within the past 12 months, did you worry whether your food would run out before you got money to buy more?: I choose not to answer this question Do you have trouble paying for medicines?: I choose not to answer this question Do you have trouble getting transportation to medical appointments?: No Do you have trouble paying your heating and electricity bill?: No Do you have trouble taking care of your child, family member or friend?: No Do you have trouble with day-to-day activities such as bathing, preparing meals, shopping, managing finances, etc.?: No Are you currently unemployed and looking for a job?: No Are you interested in more education?: No Please select the resources that you would like help with: None Currently or been in a relationship where the following occur: I choose not to answer THRIVE Score: 0 ALLIE-7 AMB Questionnaire ALLIE-7 Date ALLIE - 7 assessed: 04/21/25 Source: Developed by Drs. Srikanth Hernández, Cathleen Cifuentes, Jarod Garcia and colleagues, with an educational prince from [employer]. Physical exam (Primary Care) Vital Signs: Last Vital Signs Pulse 89 08/04/25 12:53 BP 140/90 H 08/04/25 12:53 Pulse Ox 97 08/04/25 12:53 BMI result Body Mass Index 28.4 Tobacco/Smoking Status: Tobacco use Status Tobacco use date assessed 02/10/25 08/04/25 12:55 Patient Tobacco Use Status Never used Tobacco 08/04/25 12:55 e-Cigarette/Vaping Use Never Used 08/04/25 12:55 Thrive Assessment: Date of Thrive Assessment Date Thrive assessed 04/21/25 08/04/25 12:55 Currently or been in a relationship where the following occur: I choose not to a [facility] Coding Level of Care Code Est Pt Level 5 (39832) Diagnoses Alcohol abuse F10.10 Anxiety, generalized F41.1 Primary hypertension I10 Hypertension type: primary hypertension Alcoholic cirrhosis of liver without ascites K70.30 Ascites presence: without ascites Nephropathy N28.9 Alcoholic peripheral neuropathy G62.1 Hereditary hemochromatosis E83.110 Hemochromatosis type: hereditary Time Spent (min) 40 Comment Complex patient, reviewing consultation, chart, labs, [id number], coordination of care Assessment & Plan Assessment & Plan (1) Alcohol abuse: Code(s): F10.10 - Alcohol abuse, uncomplicated Category: Social Hx (2) Anxiety, generalized: Code(s): F41.1 - Generalized anxiety disorder Category: Medical (3) HTN (hypertension): Code(s): I10 - Essential (primary) hypertension Category: Medical Qualifiers: Hypertension type: primary hypertension Qualified Code(s): I10 - Essential (primary) hypertension (4) Liver cirrhosis, alcoholic: Code(s): K70.30 - Alcoholic cirrhosis of liver without ascites Category: Medical Qualifiers: Ascites presence: without ascites Qualified Code(s): K70.30 - Alcoholic cirrhosis of liver without ascites (5) Nephropathy: Code(s): N28.9 - Disorder of kidney and ureter, unspecified Category: Medical (6) Alcoholic peripheral neuropathy: Code(s): G62.1 - Alcoholic polyneuropathy Category: Medical (7) Hemochromatosis: Code(s): E83.119 - Hemochromatosis, unspecified Category: Medical Qualifiers: Hemochromatosis type: hereditary Qualified Code(s): E83.110 - Hereditary hemochromatosis Plan History The patient is a 64-year-old male presenting with a long-term history of alcohol use. Long-term alcohol use: - Reports long history of alcohol use. - Consumes five to six beers and two shots of alcohol daily. - Alcohol use increased during visit of friends who also consume alcohol. - Acknowledges difficulty in stopping without support. - Reports experiencing symptoms indicative of alcohol dependency, including withdrawal symptoms. - States feeling better while drinking but experiences fear post-consumption about related health issues. Substance dependence (Valium use): - Reports consuming 5 mg of Valium four times a day, obtained off the street. - Acknowledges use of Valium to calm himself, despite understanding the risk of combining with other substances. Chronic Kidney Disease: - History of chronic kidney disease discussed during the conversation. Alcohol-induced Liver Cirrhosis: - Reports awareness of liver problems likely due to long-term alcohol consumption. - Previously discussed liver risks related to alcohol use with other healthcare providers. Chronic Lower Extremity Swelling: - Chronic swelling of lower extremities off and on Hemochromatosis with very high ferritin level patient is established with Hematology at [facility] Social History: - Substance use: Long-term alcohol consumption and Valium use. Occasional marijuana use. - Reports financial concerns due to costs of alcohol. - Lives alone with limited family support. Family History: - Elder siblings: 86- and 88-year-old sisters, latter with a fractured kneecap. Problem List - Long-term Alcohol Use - Substance Dependence - Chronic Kidney Disease - Alcohol-induced Liver Cirrhosis - Chronic Lower Extremity Swelling - hemochromatosis with very high ferritin level - hypertension - anxiety - nephropathy Diagnostic results - Labs: Hemoglobin recorded at 11.4 in March. Further labs for kidney and liver function tests ordered. [place] [facility] - hematology - nephrology - Gastroenterology Patient Instructions - Avoid co-use of Librium and Valium. - Avoid alcohol consumption while on the medication. - Complete the prescribed course of medication as directed. - Undergo lab tests as ordered immediately. - Return for follow-up within a week for reassessment and medication tapering. - refrain from alcohol drinking - join AA meetings Orders: Orders Complete Blood Count Auto Diff Today E66.09 - Other obesity due to excess calories, F10.10 - Alcohol abuse, uncomplicated, F41.1 - Generalized anxiety disorder, G62.1 - Alcoholic polyneuropathy, I10 - Essential (primary) hypertension, K70.30 - Alcoholic cirrhosis of liver without ascites, N28.9 - Disorder of kidney and ureter, unspecified, Z68.31 - Body mass index [BMI] 31.0- 31.9, adult Ferritin Today E83.110 - Hereditary hemochromatosis Comprehensive Met. Panel Today E66.09 - Other obesity due to excess calories, F10.10 - Alcohol abuse, uncomplicated, F41.1 - Generalized anxiety disorder, G62.1 - Alcoholic polyneuropathy, I10 - Essential (primary) hypertension, K70.30 - Alcoholic cirrhosis of liver without ascites, N28.9 - Disorder of kidney and ureter, unspecified, Z68.31 - Body mass index [BMI] 31.0-31.9, adult Medications: New clotrimazole-betamethasone 1-0.05 % 1 appl topical DAILY PRN 45 grams 0RF Rash Refilled ondansetron HCl 4 mg PO BID PRN 60 tabs 0RF nausea and vomiting chlordiazepoxide HCl orally 3 times a day PRN; 1 or 2 tablets every 8 hour as needed for alcohol withdrawal 45 caps 0RF anxiety 14 days
[2025-08-04 12:53] VITALS: BP 140/90; PULSE 89; O2SAT 97; BMI 28.4
== END 2025-08-04 13:31 | disposition home or self-care (01) ==
LOC: HO.HMCC 12:50
PROVIDERS: PCP Internal Medicine; Visit Provider Internal Medicine
DX: I10 Essential (primary) hypertension (principal); F10.10 Alcohol abuse, uncomplicated; K70.30 Alcoholic cirrhosis of liver without ascites; F41.1 Generalized anxiety disorder; N28.9 Disorder of kidney and ureter, unspecified; G62.1 Alcoholic polyneuropathy; E83.110 Hereditary hemochromatosis

== ENCOUNTER 2025-08-04 12:49 | Outpatient (REF) | payer OTHER, SELFPAY ==
[2025-08-04 16:16] LABS: Hematocrit 37.4 % (42.0-52.0); Mean Corpuscular Volume 104.8 fL (80.0-98.0); NRBC Abs Auto 0.000 X10*3/uL (0.0-0.012); NRBC Pct Auto 0.0 /100WBC (0.0-0.2); PLT CLUMP 1; Red Blood Count 3.57 X10*6/uL (4.60-5.80); SCAN SMEAR FLAG 1
[2025-08-04 16:18] LABS: Hemoglobin 13.5 g/dl (14.0-18.0); Imm Gran Abs Auto 0.02 X10*3/uL (0.00-0.03); Imm Gran Pct Auto 0.4 % (0.0-0.4); Lymphocytes Absolute Auto 1.2 X10*3/uL (1.2-4.9); MANUAL DIFF FLAG SCAN; Mean Corpuscular HGB Conc 36.1 g/dl (31.0-36.0); Mean Corpuscular Hemoglobin 37.8 pg (27.0-33.0)
[2025-08-04 16:36] LABS: Alanine Aminotransferase 129 U/L (0-40); Albumin Level 3.8 g/dL (3.5-5.0); Alkaline Phosphatase 144 U/L (39-117); Anion Gap 17 (12-20); Aspartate Amino Transferase 265 U/L (5-37); Blood Urea Nitrogen 15 mg/dL (9-16); Calcium 8.9 mg/dL (8.4-10.2); Carbon Dioxide 26 mmol/L (22-29); Chloride 92 mmol/L (96-108); Estimated Glomerular Filt Rate 33; Potassium 4.5 mmol/L (3.3-5.1); Sodium 130 mmol/L (135-145); Total Protein 7.4 g/dL (6.5-8.0)
[2025-08-04 17:27] LABS: Ferritin 4746 ng/mL (20-250)
[2025-08-04 17:44] LABS: White Blood Count 5.3 X10*3/uL (4.8-10.8)
[2025-08-04 17:52] LABS: Platelet Count 108 X10*3/uL (160-400)
== END 2025-08-04 12:50 | disposition home or self-care (01) ==
LOC: HO.HMGCLDS 12:49
PROVIDERS: PCP Internal Medicine; Visit Provider Internal Medicine
DX: E83.110 Hereditary hemochromatosis (principal); F10.10 Alcohol abuse, uncomplicated; F41.1 Generalized anxiety disorder; I10 Essential (primary) hypertension; E66.09 Other obesity due to excess calories; K70.30 Alcoholic cirrhosis of liver without ascites; N28.9 Disorder of kidney and ureter, unspecified; G62.1 Alcoholic polyneuropathy; Z68.28 Body mass index [BMI] 28.0-28.9, adult
CPT/HCPCS: 36415; 80053; 82728; 85025

== ENCOUNTER 2025-08-24 09:39 | Outpatient (REF) | payer OTHER, SELFPAY ==
[2025-08-24 11:16] LABS: Anion Gap 14 (12-20); Blood Urea Nitrogen 17 mg/dL (9-16); Calcium 9.2 mg/dL (8.4-10.2); Carbon Dioxide 28 mmol/L (22-29); Chloride 99 mmol/L (96-108); Estimated Glomerular Filt Rate > 60; Potassium 4.9 mmol/L (3.3-5.1); Sodium 136 mmol/L (135-145)
== END 2025-08-24 09:40 | disposition home or self-care (01) ==
LOC: HO.10HDL 09:39
PROVIDERS: Visit Provider Internal Medicine Hypertension Specialist
DX: E87.1 Hypo-osmolality and hyponatremia (principal)
CPT/HCPCS: 36415; 80048

== ENCOUNTER 2025-08-28 14:41 | Outpatient (AMB) | payer OTHER, SELFPAY ==
--- NOTE | 2025-08-28 14:46 | HO.NEPHOV ---
Vital Signs 08/28/25 14:47 Height 5 ft 10 in Weight 218 lb BMI 31.3 BP 118/80 Blood Pressure Location Lt brachial Position Sitting Pulse 77 Pulse Source Pulse Oximeter Pulse Oximetry (%) 97 Oxygen Delivery Method Room Air Intake Visit Reasons: Rscng missed appt Ship Steward Required: No Accompanied by: Self / Same As Patient Allergies amlodipine Adverse Reaction (Verified 08/28/25 14:49) Swelling ankles Medication List - Last Reconciled 08/28/25 by Jae Ivy MD acetaminophen 1,000 mg PO Q6H PRN atenolol 50 mg PO DAILY buspirone 10 mg PO DAILY PRN chlordiazepoxide HCl 25 - 50 mg PO Q8H PRN chlordiazepoxide HCl orally 3 times a day PRN; 1 or 2 tablets every 8 hour as needed for alcohol withdrawal 14 days clotrimazole-betamethasone 1-0.05 % 1 appl topical DAILY PRN milk thistle 150 mg PO DAILY multivitamin 1 tab PO DAILY ondansetron HCl 4 mg PO BID PRN spironolactone 50 mg PO QAM vitamin B complex 1 tab PO DAILY HPI Comments Details: 64 y/o male with a medical history of HTN, alcoholic liver cirrhosis, being worked up for elevated ferritin levels per hematology. presented 11/09 with anxiety, restlessness, nausea and diarrhea after stopped drinking on 11/06 (reportedly drinking 12 beers daily prior) Nephrology consulted for BETO, hyponatremia Patient seen by PCP on 11/08 and labs done: sodium 123, creatinine 2.55 (baseline 1.09), went to ED. 11/09 creatinine 3.07, 11/10 creatinine 2.85; pt reports he was taking ibuprofen daily every 4 hours for knee pain for a few weeks prior to hospitalization. Also reports had diarrhea which has resolved. today 11/11 creatinine is 2.02 sodium: 11/08 123, 11/09 at 12:15 was 124, 11/10 at 02:39 was 128, 11/10 04:33 127 11/11 sodium 130; NS drip discontinued. Pt on 1.2L fluid restriction metabolic acidosis with serum bicarb of 18 on 11/09, 11/10 has normalized at 22, 11/[address] abd/pelvis 11/10 showed normal kidneys/ureters without hydronephrosis/calculi. 11/24/24 Here for follow up Still drinks 3- 6 cans of beer a day ; Down from 12 cans a day! Off NSAIDS But taking Tylenol 1 gm 2 to 3 x day!! 01/24/2025. He has increased beer intake. Currently consumes about 8 cans a day. Recently he started self medication with potassium supplementation. Subsequently potassium increased to 6.1. He was prescribed Lokelma [address] Clinton. He was stopped taking potassium supplementation. He is still on lisinopril and spironolactone. 02/21/2025. Overall he is doing well. Recently Librium was started but he has stopped taking because of nausea. He did not have antiemetics 08/28/25 - The patient is a 64-year-old male presenting with swelling in both feet and ankles. - Swelling began two weeks ago, linked to salt and Excessive alcohol intake. - Consumes six beers daily, - Takes spironolactone 50 mg, used ibuprofen for pain. Creatinine increased to 2.03 and subsequently down to 1.3. I believe he was taking ibuprofen during this [facility] Medical History History of COVID-19 Neuropathy Alcohol dependence Anxiety HTN (hypertension) Surgical History H/O colonoscopy Hx of cataract extraction History of open reduction and internal fixation (ORIF) procedure Social History Household Members: None Housing: Apartment Do you presently have visiting nurse or other home services: No Alcohol intake: current Alcohol intake frequency: 3 or more drinks per day Alcohol type: beer Patient Tobacco Use Status: Never used Tobacco e-Cigarette/Vaping Use: Never Used Substance Use Type: Marijuana Advance Directives Date on File: 11/10/24 service: No Current occupational status: employed Cognitive needs: No Hearing needs: No Vision needs: Yes Physical Exam Vital Signs: Last Vital Signs Pulse 77 08/28/25 14:47 BP 118/80 08/28/25 14:47 Pulse Ox 97 08/28/25 14:47 Oxygen Delivery Method Room Air 08/28/25 14:47 BMI result Body Mass Index 31.3 Comfortable Neck supple no JVD. Lungs entry equal no rales. Heart S1-S2 heard no gallop or rub. Abdomen soft nontender. Neuro alert awake oriented. No asterixis. Extremities no edema. Results Reviewed Nephrology Results: Hgb, (14.0-18.0) 13.5 g/dl L 08/04/25 WBC, (4.8-10.8) 5.3 X10*3/uL 08/04/25 Plt Count, (160-400) 108 X10*3/uL L 08/04/25 Sodium, (135-145) 136 mmol/L 08/24/25 Potassium, (3.3-5.1) 4.9 mmol/L 08/24/25 Chloride, (96-108) 99 mmol/L 08/24/25 Carbon Dioxide, (22-29) 28 mmol/L 08/24/25 BUN, (9-16) 17 mg/dL H 08/24/25 Creatinine, (0.5-1.4) 1.18 mg/dL 08/24/25 Calcium, (8.4-10.2) 9.2 mg/dL 08/24/25 Assessment & Plan Assessment & Plan (1) BETO (acute kidney injury): Code(s): N17.9 - Acute kidney failure, unspecified Category: Medical (2) Liver cirrhosis, alcoholic: Code(s): K70.30 - Alcoholic cirrhosis of liver without ascites Category: Medical Qualifiers: Ascites presence: without ascites Qualified Code(s): K70.30 - Alcoholic cirrhosis of liver without ascites (3) Hyponatremia: Code(s): E87.1 - Hypo-osmolality and hyponatremia Category: Medical (4) HTN (hypertension): Code(s): I10 - Essential (primary) hypertension Category: Medical Qualifiers: Hypertension type: primary hypertension Qualified Code(s): I10 - Essential (primary) hypertension Plan BETO on CKD, most likely ATN in setting of hypoperfusion from acute diarrhea in combination with heavy NSAID use BETO improving, expect gradual improvement over time continue to avoid nephrotoxins including NSAIDS hyponatremia- improving. Most likely secondary to beer potomania in combination with volume depletion. Needs to AVOID beer and continue fluid restriction of 1.2L/24 hours. metabolic acidosis- resolved Cirrhosis Fluid status optimal On Aldactone Avoid Tylenol 01/24/2025. Hyperkalemia due to the combination of potassium supplementation in addition to lisinopril and spironolactone in the setting of CKD. Since he was stopped potassium supplementation serum potassium should normalize. I will check the levels today and we can discontinue Lokelma. Advised him to avoid any [id number] medications without checking with us. He was hyponatremia primarily due to decreased free water clearance in the setting of cirrhosis and increased beer intake. Encouraged him to cut back on beer intake and the goal is to completely stop beer intake. 02/21/2025. Hypo natremia due to excessive beer intake. Encouraged to restrict p.o. intake. He will restart Librium. I have given him a prescription for Zofran. Hypokalemia stance corrected. Renal function is at baseline. 08/28/2025. Status post BETO due to hypoperfusion from the use of NSAIDs. Significant leg edema. We will need to rule out nephrotic syndrome Check urine protein creatinine ratio. Encouraged him to limit alcohol intake. Orders: Orders Creatinine Urine Today N17.9 - Acute kidney failure, unspecified Comprehensive Met. Panel Today N17.9 - Acute kidney failure, unspecified Protein Electrophoresis, Serum Today N17.9 - Acute kidney failure, unspecified Total Protein Urine Random Today N17.9 - Acute kidney failure, unspecified UA and rflx microscopic Today N17.9 - Acute kidney failure, unspecified Patient Instructions: - Reduce salt and alcohol intake to help decrease swelling. - Keep legs elevated to reduce swelling. - Complete urine test as instructed to check for proteinuria. - Follow up in six months or sooner if symptoms worsen. Coding Level of Care Code Est Pt Level 4 (79226) Diagnoses BETO (acute kidney injury) N17.9 Alcoholic cirrhosis of liver without ascites K70.30 Ascites presence: without ascites Hyponatremia E87.1 Primary hypertension I10 Hypertension type: primary hypertension
[2025-08-28 14:47] VITALS: BP 118/80; PULSE 77; O2SAT 97; BMI 31.3
== END 2025-08-28 15:02 | disposition home or self-care (01) ==
LOC: HO.HKA 14:42
PROVIDERS: PCP Internal Medicine; Visit Provider Internal Medicine Hypertension Specialist
DX: N17.9 Acute kidney failure, unspecified (principal); K70.30 Alcoholic cirrhosis of liver without ascites; E87.1 Hypo-osmolality and hyponatremia; I10 Essential (primary) hypertension
CPT/HCPCS: 99214